=== PATIENT | male | born 1965 | race Caucasian/White ===

== ENCOUNTER → 2017-03-29 09:33 | Outpatient (CLI) | payer OTHER, SELFPAY ==
--- NOTE | 2017-03-29 09:41 | RAD_ITS ---
STUDY: X-RAY - ESOPHAGUS (BARIUM SWALLOW) WITH FLUOROSCOPY REASON FOR EXAM: Male, 51 years old. 3 month history of dysphonia. TECHNIQUE: 18 view(s) of the esophagus were obtained following swallowing of barium. FLUOROSCOPY TIME (if supplied): (0:49) minutes/seconds COMPARISON: None. FINDINGS: There is no demonstrated esophageal foreign body. There is no demonstrated stricture or mucosal abnormality. Normal gastroesophageal junction, without a demonstrated hiatal hernia. The patient ingested a 12 mm tablet of barium without any difficulty. Normal visualized aortic arch and descending thoracic aorta. Normal visualized pulmonary parenchyma. Normal visualized osseous structures of the thorax. RAD/Esophagus Only IMPRESSION: Normal plain film x-ray examination (barium swallow) of the esophagus. Electronically Signed: Maninder Fan MD at 15:18 EST Tel [phone], Service support ,
== END ==
PROVIDERS: Family Provider Family Medicine; PCP Family Medicine; Visit Provider Otolaryngology Otolaryngology/Facial Plastic Surgery
DX: R13.10 Dysphagia, unspecified (principal)
CPT/HCPCS: 74220

== ENCOUNTER → 2017-05-02 10:00 | Outpatient (CLI) | payer OTHER, SELFPAY ==
[2017-05-02 12:28] LABS: Bacteria 0 SEEN /hpf (None Seen); Mucous, Urine 0 SEEN /hpf (<or=2+); Red Blood Cells-Urine 0 SEEN /hpf (0-5); Squamous Epithelial Cells - UA 0 SEEN /hpf (0-5); White Blood Cells 0 SEEN /hpf (0-5)
[2017-05-02 13:17] LABS: Color, Urine Yellow (Yellow); Glucose, Dipstick Normal (Normal); Ketone-Dipstick Negative (Negative); Leukocyte Esterase-Dipstick Negative /ul (Negative); Nitrite-Dipstick Negative (Negative); Occult Blood-Urine Negative /ul (Negative); Protein-Dipstick Negative (Negative); Specific Gravity, Urine 1.005 (1.002-1.030); Urine Bilirubin Dipstick Negative (Negative); Urine Clarity Clear (Clear); Urine Urobilinogen Normal (Normal)
[2017-05-02 13:36] LABS: PSA,Total- Diagnostic 3.95 ng/mL (0.0-4.0)
== END ==
PROVIDERS: Nurse Practitioner Adult Health; Family Provider Family Medicine; PCP Family Medicine; Visit Provider Family Medicine
DX: R31.29 Other microscopic hematuria (principal); R97.20 Elevated prostate specific antigen [PSA]
CPT/HCPCS: 36415; 81001; 84153

== ENCOUNTER → 2017-05-10 14:20 | Outpatient (CLI) | payer OTHER, SELFPAY ==
--- NOTE | 2017-05-10 14:22 | RAD_ITS ---
STUDY: X-RAY CHEST REASON FOR EXAM: Male, 51 years old. Hoarseness. TECHNIQUE: PA and lateral views of the chest. COMPARISON: None. FINDINGS: The lungs are clear and expanded. There is no demonstrated pleural abnormality. Normal size heart. Normal mediastinum and anay. Normal visualized pulmonary arteries. Normal visualized aortic arch and descending thoracic aorta. Normal visualized thoracic spine. Normal visualized ribs, clavicles, and shoulders. There is no demonstrated abnormality of the visualized soft tissue structures of the upper abdomen. RAD/Chest PA and Lateral IMPRESSION: Normal x-ray examination of the chest. Electronically Signed: Maninder Fan MD at 15:06 EDT Tel [phone], Service support ,
== END ==
PROVIDERS: Family Provider Family Medicine; PCP Family Medicine; Visit Provider Family Medicine
DX: R49.9 Unspecified voice and resonance disorder (principal)
CPT/HCPCS: 71046

== ENCOUNTER 2017-07-04 05:49 | Day surgery (SDC) | payer OTHER, SELFPAY ==
--- NOTE | 2017-07-04 | EGD_PTH ---
PATIENT: TAMEKA OCAMPO LOC: EN U#:[id number] AGE/SX: 51/M ROOM: RE07/04/[address]: Dr. Dereck Raphael MD : 1965 BED: DIS: 07/04/2017 SPEC #: [id number] RECD: 07/04/17 15:00 STATUS: MIGUELITO STEFANIE #: [id number] YOBANI: 07/04/17 00:[address]: Dereck Raphael DEPT: SURGICAL PATHOLOGY RECD BY: Jori Pratt ENTERED: 07/04/17 15:00 SP TYPE: EGD BIOPSY [facility] DR: Dr. Wiliam Argueta MD Tissues: A - Gastric mucous membrane B - Esophageal mucous membrane Procedures: Surgery Specimen Level IV HEADER OPERATION: EGD PRE-OP DIAGNOSIS: Hoarseness TISSUE SUBMITTED: A ? Antrum biopsy for H. pylori and path, B ? Distal esophagus biopsy MICROSCOPIC DIAGNOSIS A. Gastric antrum, biopsy: Mild chronic gastritis. B. Distal esophagus, biopsy: Focal changes of reflux. Gastroesophageal junction with mild chronic inflammation. AM:le 07/05/17 COMMENT A. The results of immunohistochemistry for Helicobacter pylori will be reported separately ([id number]). MICROSCOPIC DESCRIPTION Slides are reviewed. GROSS DESCRIPTION A - Received in fixative is one container labeled with the patient's name and designated antrum biopsy. The specimen consists of two irregular fragments of light rouse soft tissue that in aggregate measure 0.6 x 0.5 x 0.2 cm. The specimen is totally submitted in one cassette. B - Received in fixative is one container labeled with the patient's name and designated distal esophagus. The specimen consists of multiple irregular fragments of light rouse soft tissue that in aggregate measure 1 x 0.5 x 0.1 cm. The specimen is totally submitted in one cassette. / AM:le 07/04/17 TC:3 CPT: 47500 x2
--- NOTE | 2017-07-04 | IMM_PTH ---
PATIENT: TAMEKA OCAMPO LOC: EN U#:[id number] AGE/SX: 51/M ROOM: RE07/04/[address]: Dr. Dereck Raphael MD : 1965 BED: DIS: 07/04/2017 SPEC #: [id number] RECD: 07/05/17 10:44 STATUS: MIGUELITO STEFANIE #: [id number] YOBANI: 07/04/17 00:[address]: Dereck Raphael DEPT: IMMUNOHISTOCHEMISTRY RECD BY: Amalia Mcghee ENTERED: 07/05/17 10:45 SP TYPE: IMMUNO OTHR DR: Dr. Wiliam Argueta MD Tissues: A - Stomach, NOS Procedures: H Pylori (initial) PHYSICIAN & INSTITUTION [place] [address] SPECIMEN INFORMATION: Tissue Source: A ? Antrum biopsy Clinical Info: Hoarseness Specimen Number: [id number] CPT code: 91841 METHODOLOGY: Deparaffinized sections of prefer/formalin-fixed tissue or PAP/DQ stained slides are incubated with monoclonal/polyclonal antibodies/oligonucleotide probes. Localization is made via biotin free immunoperoxidase method. Appropriate controls are performed and reacted as expected. Results on target cell population are indicated in the following table: RESULTS: ANTIBODY / CLONE RESULT Block A H Pylori (polyclonal) negative These tests were developed and their performance characteristics determined by [facility]. They may not have been cleared or approved by the U.S. Food and Drug Administration. The FDA has determined that such clearance or approval is not necessary. INTERPRETATION: A. Antrum, biopsy: Negative for Helicobacter pylori organisms. SJ:le 07/08/17
[2017-07-04 06:10] VITALS: BP 126/81; PULSE 75; RESP 16; O2SAT 97
[2017-07-04 06:48] VITALS: BP 124/84; BP 126/81; PULSE 89; RESP 18; TEMP 36.6; O2SAT 98
--- NOTE | 2017-07-04 06:48 | PCM.OPRPT ---
Problem List (1) Hoarseness Status: Acute Report of Operation Date of Procedure: 07/04/17 Pre-Operative Diagnosis: Hoarseness Post-Operative Diagnosis: Hiatal hernia with distal esophagitis consistent with reflux. Minimal antral gastritis Surgery/Procedure Performed:: Esophagogastroduodenoscopy with antral and distal esophageal biopsies Description of Surgical Findings:: Timeout informed consent was obtained. 51-year-old gentleman was taken to the endoscopy suite. His oropharynx was anesthetized with Topex. He was placed in a left lateral decubitus position. Throughout the procedure he received a total of 100 mg Demerol and 4.5 mg Versed is intravenous sedation. Flexible gastroscope was inserted into the oropharynx. Photographs were obtained of the vocal cord hypopharynx. There appeared to be some irritation and small excrescence on the cords. Scope was then advanced into the esophageal inlet. It was advanced without difficulty. EG junction was at 37 cm. There is evidence of a 4 cm hiatal hernia with distal esophagitis linear erosions. Photographs were obtained. The scope was advanced in the stomach where diffuse minimal antral erythema noted. The scope was advanced through the pylorus. The first and second portions of the duodenum were inspected this was not remarkable. The scope was withdrawn back to the stomach antral biopsy was obtained. The scope was retroflexed the hiatal hernia noted via the cardia. The cardia and greater and lesser curvatures were otherwise unremarkable. Excess fluid and air was aspirated free. The scope was withdrawn to the distal esophagus distal esophageal biopsies were obtained. Hemostasis was intact. Excess fluid and air was aspirated free. The scope was withdrawn without additional abnormality. Impression Hiatal hernia, findings consistent with distal esophagitis and reflux, likely minimal gastritis. We will recommend reinitiation of proton pump inhibitors while awaiting biopsy results. Photographs have been obtained and I would recommend sharing with ENT. Ending the results of pathology and medical treatment might consider future manometry and surgical reflux procedure. The degree of persistent patient hoarseness however is impressive. Cc: Dr. Wiliam Argueta Medications were given at 0633. The procedure was started 0637. The procedure was completed at 0644. Dereck Raphael M.D., F.A.C.S. Type of Anesthesia:: IV Sedation
[2017-07-04 06:50] VITALS: BP 122/71; BP 126/81; PULSE 88; RESP 18; O2SAT 95
[2017-07-04 06:55] VITALS: BP 126/81; BP 128/81; PULSE 88; RESP 18; O2SAT 95
[2017-07-04 07:00] VITALS: BP 126/81; BP 134/71; PULSE 95; RESP 18; O2SAT 97
[2017-07-04 07:05] VITALS: BP 112/66; BP 126/81; PULSE 77; RESP 18; TEMP 36.6; O2SAT 96
== END 2017-07-04 07:32 | disposition home or self-care (01) ==
LOC: EN 05:50 → AC 05:51
PROVIDERS: Family Provider Family Medicine; PCP Family Medicine; Visit Provider Surgery
PROC: (CPT 43239; principal; 2017-07-04 06:25)
DX: R49.0 Dysphonia (principal); K29.50 Unspecified chronic gastritis without bleeding; K21.0 Gastro-esophageal reflux disease with esophagitis; K44.9 Diaphragmatic hernia without obstruction or gangrene
CPT/HCPCS: 43239; 88305; 88342; 99152; J7120

== ENCOUNTER → 2017-09-26 09:20 | Outpatient (CLI) | payer OTHER, SELFPAY ==
[2017-09-26 10:54] LABS: Absolute Lymphocyte Count 2.15 X10^3/ul (0.83-4.51); Basophil# 0.05 X10^3/uL; Basophil% 0.9 % (0-1); Eosinophil# 0.15 X10^3/uL; Eosinophils% 2.6 % (0-5); Hematocrit 45.7 % (40-54); Hemoglobin 15.4 g/dl (13.0-16.5); Lymphocyte # 2.15 X10^3/ul (4.0); Lymphocyte % 37.5 % (19-41); Mean Corp Hgb Conc 33.7 g/gl (32-36); Mean Corpuscular Hgb 30.2 pg (27.0-32.0); Mean Corpuscular Volume 89.6 fL (80-94); Monocyte# 0.39 X10^3/uL; Monocyte% 6.8 % (0-10); Neutrophil % 52.2 % (47-70); Platelet Count 227 K/mm3 (150-450); RBC Distribution Width CV 12.5 % (11.6-14.6); RBC Distribution Width SD 40.4 fl (35.1-43.9); White Blood Count 5.7 K/mm3 (4.4-11.0)
[2017-09-26 10:59] LABS: POSITIVE COUNT NO; POSITIVE DIFFERENTIAL NO; POSITIVE MORPHOLOGY NO
[2017-09-26 11:26] LABS: ALB/GLOB Ratio 1.1 RATIO (0.9-2.4); AST(SGOT) 22 U/L (15-37); Alanine Aminotransfer ALT/SGPT 36 U/L (16-61); Albumin, Serum 3.9 g/dL (3.2-5.0); Alkaline Phosphatase 57 U/L (45-117); Anion Gap 6 (5-15); BUN 11 mg/dL (7-18); BUN/Creat Ratio 10.4 RATIO (10-20); Calcium,Total 8.8 mg/dL (8.5-10.1); Chloride 104 mmol/L (98-107); Cholesterol 186 mg/dL (200); Creatinine, Serum 1.06 mg/dL (0.70-1.30); EST Glomerular Filtration Rate 79 mL/min (>60); Est Glom Filt Rate - Afr Amer 95 mL/min (>60); Globulin 3.7 g/dL (2.2-4.2); Glucose 83 mg/dL (74-106); High Density Lipoprotein 41 mg/dL; Potassium 4.6 mmol/L (3.5-5.1); Protein, Total 7.6 g/dL (6.4-8.2); Sodium Level 141 mmol/L (136-145); Triglycerides 204 mg/dL; Very Low Density Lipoprotein 41 mg/dL (5-40)
== END ==
PROVIDERS: Family Provider Family Medicine; PCP Family Medicine; Visit Provider Family Medicine
DX: E78.5 Hyperlipidemia, unspecified (principal); K21.9 Gastro-esophageal reflux disease without esophagitis
CPT/HCPCS: 36415; 80053; 80061; 85025

== ENCOUNTER 2017-10-31 07:51 | Day surgery (SDC) | payer OTHER, SELFPAY ==
--- NOTE | 2017-10-31 | VOCOB_PTH ---
PATIENT: TAMEKA OCAMPO LOC: [facility] [place] U#:[id number] AGE/SX: 52/M ROOM: RE10/31/[address]: Zackary White MD : 1965 BED: DIS: 10/31/2017 SPEC #: [id number] RECD: 10/31/17 14:58 STATUS: MIGUELITO STEFANIE #: [id number] YOBANI: 10/31/17 00:[address]: Zackary White DEPT: SURGICAL PATHOLOGY RECD BY: Jori Pratt ENTERED: 10/31/17 14:58 SP TYPE: VOCAL CORD OTHR DR: Dr. Wiliam Argueta MD Tissues: Vocal cord, NOS Procedures: Surgery Specimen Level IV HEADER OPERATION: Right true vocal cord stripping/biopsy, direct microlaryngoscopy PRE-OP DIAGNOSIS: Dysphonia, GERD TISSUE SUBMITTED: Mid cord lesion - right MICROSCOPIC DIAGNOSIS Right vocal lesion, biopsy: Squamous papilloma, mildly inflamed. AM:le 11/01/17 MICROSCOPIC DESCRIPTION Slides are reviewed. GROSS DESCRIPTION Received in fixative is one container labeled with the patient's name and designated mid core lesion right. The specimen consists of a piece of rouse soft tissue measuring 0.6 x 0.5 x 0.1 cm. The specimen is totally submitted in one cassette. / SJ:le 10/31/17 TC:1 CPT: 90295
[2017-10-31 08:24] VITALS: BP 137/84; PULSE 79; RESP 16; TEMP 36.5; O2SAT 97; BMI 29.9
[2017-10-31 09:10] LABS: PSA,Total- Diagnostic 4.39 ng/mL (0.0-4.0)
--- NOTE | 2017-10-31 11:16 | PCM.DC ---
You will use the following diet at home:: No restrictions Discharge Activity: Return to Normal Activity - voice rest 48-72 hours with gradual return to regular use over 7-10 days. Allergies/Adverse Reactions: Allergies No Known Allergies Allergy (Verified 10/21/17 10:05) Medications to take at Discharge Omeprazole 40 mg PO BID #60 capsule. 07/04/17 Primary Care Physician: Wiliam Argueta MD [Primary Care Provider] - Test Results: Test results from this visit will be discussed in further detail at your follow-up appointment, if applicable. Please Follow Up With: Zackary White MD - follow up next week, call for appointment time.
[2017-10-31 11:25] VITALS: BP 137/84; BP 151/92; PULSE 83; RESP 16; TEMP 36.1; O2SAT 96
[2017-10-31 11:30] VITALS: BP 137/84; BP 141/90; PULSE 86; RESP 16; O2SAT 98
[2017-10-31 11:45] VITALS: BP 137/84; BP 139/89; PULSE 70; RESP 16; O2SAT 99
[2017-10-31 12:00] VITALS: BP 128/82; BP 137/84; PULSE 71; RESP 16; TEMP 36.3; O2SAT 99
[2017-10-31 12:32] VITALS: BP 137/84
--- NOTE | 2017-10-31 12:56 | PCM.OP.BLANK ---
Operative Report Date of Procedure: 10/31/17 Preoperative diagnosis: Hoarseness, gastroesophageal reflux Postoperative diagnosis: Same, pathology pending Procedure: Suspension microlaryngoscopy with subsequent right true vocal cord stripping/biopsy Anesthesia: General endotracheal per [place] CRNA Details of procedure: The patient was transported to the operating room and placed on the OR table in the supine position. After the administration of adequate general endotracheal anesthesia the patient was appropriately positioned, eyes were treated taped closed. A head drape was applied. A dental guard was placed after which the anterior commissure laryngoscope was introduced into the oral cavity, and then advanced down into the hypopharynx and laryngeal areas, with evaluation of all structures. The epiglottis, piriform areas, and posterior arytenoid region all appeared satisfactory. He has had difficulty with significant gastroesophageal reflux and previously had been noted (in office exam) to have an extremely erythematous and irritated appearing larynx. With treatment utilizing PPI medications he has improved substantially. However voice was still not back to normal. Quality would vary depending on use. In office exam revealed mild puffiness of vocal cords but no obvious three-dimensional mass lesion. Therefore, it was felt best to examine this with benefit of high magnification and perform biopsy as warranted. The anterior commissure laryngoscope was introduced into the laryngeal introitus. The very anterior placement of his larynx made it quite difficult to get good visualization initially, but with persistence, the scope was adequately advanced so as to obtain satisfactory view of the false and true vocal cords from the anterior commissure posteriorly. The scope was subsequently suspended from a Roman stand using the Lewy apparatus. With benefit of the operating room microscope, better visualization was obtained. The left true vocal cord appeared fairly smooth. Initially it had appeared more irregular. With benefit of magnification today, it was evident there was a small polypoid type lesion involving the right true vocal cord, in the midportion. It had a slight granular appearance and did track onto the upper surface, but primarily involved the free margin of the vocal cord, and hence most likely was the reason for his dysphonia. Up-biting cup forceps were used to grasp this area and the microscissors were utilized to make a small cut anterior to this tissue, which was satisfactorily posterior to the anterior commissure. A backwards stripping maneuver was accomplished, excising this lesion. No other abnormality could be appreciated. A cottonoid pledget soaked in adrenaline was placed in the laryngeal introitus to achieve vasoconstriction and hemostasis. This was subsequently removed and the surgical field appeared dry and satisfactory. Thereafter the laryngoscope was relaxed, withdrawn, and the procedure terminated. The patient tolerated procedure well, did not sustain any intraoperative anesthetic or surgical complication, was extubated in the operating room and taken to the PACU where he was noted to be in satisfactory condition. Zackary White MD
== END 2017-10-31 12:33 | disposition home or self-care (01) ==
LOC: SDC 07:53 → AC 07:54
PROVIDERS: Nurse Practitioner Adult Health; Family Provider Family Medicine; PCP Family Medicine; Visit Provider Otolaryngology Otolaryngology/Facial Plastic Surgery
PROC: 0CJS8ZZ Inspection of Larynx, Via Natural or Artificial Opening Endoscopic (ICD-10-PCS; CPT 31575; principal; 2017-10-31 09:25)
DX: D14.1 Benign neoplasm of larynx (principal); K21.9 Gastro-esophageal reflux disease without esophagitis; R97.20 Elevated prostate specific antigen [PSA]; Z79.899 Other long term (current) drug therapy
CPT/HCPCS: 31536; 36415; 84153; 88305; J7120; J2405; J3490

== ENCOUNTER → 2018-05-01 09:55 | Outpatient (CLI) | payer OTHER, SELFPAY ==
[2018-05-01 11:00] LABS: PSA,Total- Diagnostic 6.17 ng/mL (0.0-4.0)
[2018-05-02 12:38] LABS: PSA, Free 0.47 ng/mL; PSA, Free % 8.2 % (.); PSA, Total Ultrasensitive 5.7 ng/mL (0.0-4.0)
== END ==
PROVIDERS: Family Provider Family Medicine; PCP Family Medicine; Referring Provider Nurse Practitioner Adult Health; Visit Provider Nurse Practitioner Adult Health
DX: R97.20 Elevated prostate specific antigen [PSA] (principal)
CPT/HCPCS: 36415; 84153; 84154

== ENCOUNTER → 2018-05-27 10:35 | Outpatient (CLI) | payer OTHER, SELFPAY ==
--- NOTE | 2018-05-27 | IMM_PTH ---
PATIENT: TAMEKA OCAMPO LOC: [facility] U#:[id number] AGE/SX: 59/M ROOM: RE05/27/[address]: Dr. Claude Patel MD : 1965 BED: DIS: SPEC #: [id number] RECD: 05/29/18 13:02 STATUS: MIGUELITO REBrandon #: [id number] YOBANI: 05/27/18 00:[address]: Claude Patel DEPT: IMMUNOHISTOCHEMISTRY RECD BY: Amalia Mcghee ENTERED: 05/29/18 13:04 SP TYPE: IMMUNO OTHR DR: Dr. Wiliam Argueta MD Tissues: A - PROSTATE RIGHT B - PROSTATE RIGHT F - PROSTATE LEFT Procedures: 34BE12 (add) P40 (add) 34BE12 (initial) PHYSICIAN & INSTITUTION [place] [address] SPECIMEN INFORMATION: Tissue Source: A - Right prostate apex, B - Right prostate mid, C - Left prostate base Clinical Info: Elevated PSA Specimen Number: [id number] A, B, F CPT code: 37366, 24127 x5 METHODOLOGY: Deparaffinized sections of prefer/formalin-fixed tissue or PAP/DQ stained slides are incubated with monoclonal/polyclonal antibodies/oligonucleotide probes. Localization is made via biotin free immunoperoxidase method. Appropriate controls are performed and reacted as expected. Results on target cell population are indicated in the following table: RESULTS: ANTIBODY / CLONE RESULT Block A 34BE12 (34BE12) positive P40 (BC28) positive Block B 34BE12 (34BE12) positive P40 (BC28) positive Block F 34BE12 (34BE12) positive P40 (BC28) positive These tests were developed and their performance characteristics determined by [facility]. They may not have been cleared or approved by the U.S. Food and Drug Administration. The FDA has determined that such clearance or approval is not necessary. INTERPRETATION: A. Right prostate, apex, core biopsy: Negative for adenocarcinoma. B. Right prostate, mid, core biopsy: Negative for adenocarcinoma. F. Left prostate, base, core biopsy: Negative for adenocarcinoma. CE:le 05/30/18
--- NOTE | 2018-05-27 08:00 | PROSBIL_PTH ---
PATIENT: TAMEKA OCAMPO LOC: [facility] U#:[id number] AGE/SX: 59/M ROOM: RE05/27/[address]: Dr. Claude Patel MD : 1965 BED: DIS: SPEC #: [id number] RECD: 05/27/18 17:00 STATUS: MIGUELITO STEFANIE #: [id number] YOBANI: 05/27/18 08:[address]: Claude Patel DEPT: SURGICAL PATHOLOGY RECD BY: Mateus Bey ENTERED: 05/28/18 13:01 SP TYPE: PROST BX JUAN DR: Dr. Wiliam Argueta MD Tissues: A - PROSTATE RIGHT B - PROSTATE RIGHT C - PROSTATE RIGHT D - PROSTATE LEFT E - PROSTATE LEFT F - PROSTATE LEFT Procedures: PROSTATE BX HEADER OPERATION: Prostate biopsy PRE-OP DIAGNOSIS: Elevated PSA TISSUE SUBMITTED: A - Right apex, B - Right mid, C - Right base, D - Left apex, E - Left mid, F - Left base MICROSCOPIC DIAGNOSIS A. Right prostate, apex, core biopsy: Benign prostate tissue. See comment. B. Right prostate, mid, core biopsy: Benign prostate tissue with acute and chronic inflammation. See comment. C. Right prostate, base, core biopsy: Benign prostate tissue. D. Left prostate, apex, core biopsy: Benign prostate tissue. E. Left prostate, mid, core biopsy: Benign prostate tissue. F. Left prostate, base, core biopsy: Benign prostate tissue. See comment. CE:le 05/29/18 COMMENT A, B & F - Immunohistochemistry ([id number]) supports the above diagnosis. MICROSCOPIC DESCRIPTION Slides are reviewed. GROSS DESCRIPTION A - Received is one container designated prostate, right apex. The specimen consists of two elongated fragments of light rouse-white soft tissue measuring 1 and 1.5 cm in length and 0.1 cm in diameter. The specimen is totally submitted in one cassette. B - Received is one container designated prostate, right mid. The specimen consists of two elongated fragments of light rouse-white soft tissue each measuring 1 cm in length and 0.1 cm in diameter. The specimen is totally submitted in one cassette. C - Received is one container designated prostate, right base. The specimen consists of two elongated fragments of light rouse-white soft tissue measuring 0.8 and 1.5 cm in length and 0.1 cm in diameter. The specimen is totally submitted in one cassette. D - Received is one container designated prostate, left apex. The specimen consists of two elongated fragments of light rouse-white soft tissue measuring 0.8 and 1.2 cm in length and 0.1 cm in diameter. The specimen is totally submitted in one cassette. E - Received is one container designated prostate, left mid. The specimen consists of two elongated fragments of light rouse-white soft tissue each measuring 1.5 cm in length and 0.1 cm in diameter. The specimen is totally submitted in one cassette. F - Received is one container designated prostate, left base. The specimen consists of two elongated fragments of light rouse-white soft tissue each measuring 1.5 cm in length and 0.1 cm in diameter. The specimen is totally submitted in one cassette. / MAUREEN:le 05/28/18 TC:2 CPT: 04862 x6
== END ==
PROVIDERS: Family Provider Family Medicine; PCP Family Medicine; Referring Provider Urology; Visit Provider Urology
DX: R97.20 Elevated prostate specific antigen [PSA] (principal)
CPT/HCPCS: 88305; 88341; 88342; G0416

== ENCOUNTER → 2018-09-22 | Outpatient (CLI) | payer OTHER, SELFPAY ==
[2018-09-22 11:24] LABS: Absolute Lymphocyte Count 2.19 X10^3/uL (0.83-4.51); Absolute Neutrophil Count 3.4 X10^3/uL (2.0-7.7); Basophil# 0.06 X10^3/uL; Basophil% 0.9 % (0-1); Eosinophil# 0.14 X10^3/uL; Eosinophils% 2.2 % (0-5); Hematocrit 47.6 % (40-54); Hemoglobin 16.3 g/dL (13.0-16.5); Lymphocyte # 2.19 X10^3/ul (4.0); Lymphocyte % 34.3 % (19-41); Mean Corp Hgb Conc 34.2 g/dL (32-36); Mean Corpuscular Hgb 30.9 pg (27.0-32.0); Mean Corpuscular Volume 90.2 fL (80-94); Mean Platelet Vol. 10.2 fl (6.2-12.0); Monocyte# 0.55 X10^3/uL; Monocyte% 8.6 % (0-10); NRBC Flagged by Analyzer 0 % (0-5); Neutrophil # 3.43 X10^3/uL (2.7-7.7); Neutrophil % 53.8 % (47-70); Platelet Count 226 K/mm3 (150-450); RBC Distribution Width CV 12.7 % (11.6-14.6); RBC Distribution Width SD 41.6 fl (35.1-43.9); Red Blood Count 5.28 M/mm3 (4.6-6.2); White Blood Count 6.4 K/mm3 (4.4-11.0)
[2018-09-22 11:54] LABS: AST(SGOT) 24 U/L (15-37); Alanine Aminotransfer ALT/SGPT 41 U/L (16-61); Albumin, Serum 3.9 g/dL (3.2-5.0); Alkaline Phosphatase 69 U/L (45-117); Anion Gap 5 (5-15); BUN 13 mg/dL (7-18); BUN/Creat Ratio 11.1 RATIO (10-20); Calcium,Total 9.1 mg/dL (8.5-10.1); Chloride 104 mmol/L (98-107); Cholesterol 234 mg/dL (200); Creatinine, Serum 1.17 mg/dL (0.70-1.30); EST Glomerular Filtration Rate 70 mL/min (>60); Est Glom Filt Rate - Afr Amer 85 mL/min (>60); Globulin 3.8 g/dL (2.2-4.2); Glucose 93 mg/dL (74-106); High Density Lipoprotein 46 mg/dL; Potassium 4.1 mmol/L (3.5-5.1); Protein, Total 7.7 g/dL (6.4-8.2); Sodium Level 137 mmol/L (136-145); Thyroid Stim Hormone (TSH) 2.24 uIU/mL (0.358-3.74); Triglycerides 294 mg/dL; Very Low Density Lipoprotein 59 mg/dL (5-40)
== END | disposition home or self-care (01) ==
LOC: LAB 10:00
PROVIDERS: Family Provider Family Medicine; PCP Family Medicine; Referring Provider Family Medicine; Visit Provider Family Medicine
DX: Z00.00 Encounter for general adult medical examination without abnormal findings (principal)
CPT/HCPCS: 36415; 80053; 80061; 84443; 85025

== ENCOUNTER → 2018-12-12 | Outpatient (CLI) | payer OTHER, SELFPAY ==
[2018-12-12 11:25] LABS: PSA,Total- Diagnostic 7.43 ng/mL (0.0-4.0)
== END | disposition home or self-care (01) ==
LOC: LAB 10:06
PROVIDERS: Family Provider Family Medicine; PCP Family Medicine; Referring Provider Urology; Visit Provider Urology
DX: R97.20 Elevated prostate specific antigen [PSA] (principal)
CPT/HCPCS: 36415; 84153

== ENCOUNTER → 2018-12-17 | Outpatient (CLI) | payer OTHER, SELFPAY ==
--- NOTE | 2018-12-17 08:02 | MRI_ITS ---
STUDY: MR PELVIS WITH T WITHOUT CONTRAST REASON FOR EXAM: Male, 53 years old. Elevated PSA. Continued elevation of PSA despite negative biopsy. TECHNIQUE: Standardized fat and water weighted pulse sequences were obtained in all 3 orthogonal planes, pre-and post contrast administration. IV Dotarem 19 was administered for the contrast portion of the examination. COMPARISON: None. FINDINGS: The prostate measures 3.18 x 3.94 x 3.9 cm with a volume of 24.4 mL. The seminal vesicles are prominent. There is no evidence of abnormal signal within the peripheral zone on diffusion-weighted imaging. There is no focal hypodensity on ADC mapping. T2-weighted imaging demonstrates mild diffuse low signal without distinct mass. No evidence of abnormal contrast enhancement on postgadolinium imaging. Transitional zone demonstrates well-circumscribed nodular densities without corresponding abnormalities on diffusion weighted imaging or ADC mapping. Findings suggest BPH. There is no abnormal contrast enhancement. The urinary bladder is incompletely distended. Bladder wall appears thickened and mildly trabeculated. Normal visualized small intestine. Normal visualized colon. There is no pelvic fluid. There is no pelvic mass lesion or lymphadenopathy. Normal visualized pelvic arteries. Normal osseous structures. Normal abdominal wall. MRI/Pelvis W/WO Contrast IMPRESSION: 1. Limited study due to limited quality of the ADC mapping and diffusion weighted images. 2. No visualized distinct lesions in either the peripheral or transitional zone. PIRADS 1 Electronically Signed: Cayden Zaragoza DO at 16:54 EDT Tel [phone], Service support ,
== END | disposition home or self-care (01) ==
PROVIDERS: Family Provider Family Medicine; PCP Family Medicine; Visit Provider Urology
DX: R97.20 Elevated prostate specific antigen [PSA] (principal)
CPT/HCPCS: 72197; A9575

== ENCOUNTER → 2018-12-24 | Outpatient (CLI) | payer OTHER, SELFPAY ==
--- NOTE | 2018-12-24 | IMM_PTH ---
PATIENT: TAMEKA OCAMPO LOC: [facility] U#:[id number] AGE/SX: 53/M ROOM: RE12/24/[address]: Dr. Claude Patel MD : 1965 BED: DIS: 12/24/2018 SPEC #: [id number] RECD: 12/25/18 10:32 STATUS: MIGUELITO REQ #: [id number] YOBANI: 12/24/18 00:[address]: Claude Patel DEPT: IMMUNOHISTOCHEMISTRY RECD BY: Amalia Mcghee ENTERED: 12/25/18 10:33 SP TYPE: IMMUNO OTHR DR: Dr. Wiliam Argueta MD Tissues: A - PROSTATE RIGHT B - PROSTATE RIGHT Procedures: 34BE12 (add) P40 (add) 34BE12 (initial) PHYSICIAN & INSTITUTION [place] [address] SPECIMEN INFORMATION: Tissue Source: A - Right prostate, apex, B - Right prostate, mid Clinical Info: Elevated PSA Specimen Number: [id number] A1 & B CPT code: 28464, 92975 x3 METHODOLOGY: Deparaffinized sections of prefer/formalin-fixed tissue or PAP/DQ stained slides are incubated with monoclonal/polyclonal antibodies/oligonucleotide probes. Localization is made via biotin free immunoperoxidase method. Appropriate controls are performed and reacted as expected. Results on target cell population are indicated in the following table: RESULTS: ANTIBODY / CLONE RESULT Block A1 P40 (BC28) positive 34BE12 (34BE12) positive Block B P40 (BC28) negative 34BE12 (34BE12) negative These tests were developed and their performance characteristics determined by [facility]. They may not have been cleared or approved by the U.S. Food and Drug Administration. The FDA has determined that such clearance or approval is not necessary. The above immunohistochemical/dualISH markers are ordered and reviewed by the Pathologist. INTERPRETATION: A. Right prostate, apex, core biopsy: Prostatic tissue, negative for malignancy. B. Right prostate, mid, core biopsy: Focal atypical small acinar proliferation (SHAKA). MAUREEN:le 12/25/18
--- NOTE | 2018-12-24 08:30 | PROSBIL_PTH ---
PATIENT: TAMEKA OCAMPO LOC: [facility] U#:[id number] AGE/SX: 53/M ROOM: RE12/24/[address]: Dr. Claude Patel MD : 1965 BED: DIS: 12/24/2018 SPEC #: [id number] RECD: 12/24/18 10:56 STATUS: MIGUELITO REQ #: [id number] YOBANI: 12/24/18 08:[address]: Claude Patel DEPT: SURGICAL PATHOLOGY RECD BY: Jacqueline Reyes ENTERED: 12/24/18 12:08 SP TYPE: PROST BX JUAN DR: Dr. Wiliam Argueta MD Tissues: A - PROSTATE RIGHT B - PROSTATE RIGHT C - PROSTATE RIGHT D - PROSTATE LEFT E - PROSTATE LEFT F - PROSTATE LEFT Procedures: PROSTATE BX HEADER OPERATION: Prostate biopsy PRE-OP DIAGNOSIS: Elevated PSA TISSUE SUBMITTED: A - Right apex, B - Right mid, C - Right base, D - Left apex, E - Left mid, F - Left base MICROSCOPIC DIAGNOSIS A. Right prostate, apex, core biopsy: Prostatic tissue, negative for malignancy. Focal mild chronic inflammation. See comment. B. Right prostate, mid, core biopsy: Focal atypical small acinar proliferation (SHAKA) Focal mild chronic inflammation. See comment. C. Right prostate, base, core biopsy: Prostatic tissue, negative for malignancy. D. Left prostate, apex, core biopsy: Prostatic tissue, negative for malignancy. E. Left prostate, mid, core biopsy: Prostatic tissue, negative for malignancy. F. Left prostate, base, core biopsy: Prostatic tissue, negative for malignancy. SJ:le 12/25/18 COMMENT A & B. Immunohistochemistry ([id number]) supports the above diagnosis. Please make reference to previous specimen ([id number]), right prostate, apex, mid and base core biopsies and left prostate, apex, mid and base core biopsies with diagnosis of benign prostate tissue. This case has been reviewed in consultation with Dr. Cornelius who concurs with the above diagnosis. MICROSCOPIC DESCRIPTION Slides are reviewed. GROSS DESCRIPTION A - Received is one container designated prostate, right apex. The specimen consists of four elongated fragments of light rouse-white soft tissue each measuring 1.5 cm in length and 0.1 cm in diameter. The specimen is totally submitted in two cassettes. B - Received is one container designated prostate, right mid. The specimen consists of two elongated fragments of light rouse-white soft tissue each measuring 1.5 cm in length and 0.1 cm in diameter. The specimen is totally submitted in one cassette. C - Received is one container designated prostate, right base. The specimen consists of two elongated fragments of light rouse-white soft tissue each measuring 1.5 cm in length and 0.1 cm in diameter. The specimen is totally submitted in one cassette. D - Received is one container designated prostate, left apex. The specimen consists of three elongated fragments of light rouse-white soft tissue measuring 0.5 to 1 cm in length and 0.1 cm in diameter. The specimen is totally submitted in one cassette. E - Received is one container designated prostate, left mid. The specimen consists of two elongated fragments of light rouse-white soft tissue measuring 1.5 and 2 cm in length and 0.1 cm in diameter. The specimen is totally submitted in one cassette. F - Received is one container designated prostate, left base. The specimen consists of two elongated fragments of light rouse-white soft tissue measuring 1 and 2 cm in length and 0.1 cm in diameter. The specimen is totally submitted in one cassette. / SJ:rg 12/24/18 TC:5 CPT: 89518 x6
== END | disposition home or self-care (01) ==
LOC: LABSPEC 11:07
PROVIDERS: Family Provider Family Medicine; PCP Family Medicine; Referring Provider Urology; Visit Provider Urology
DX: R97.20 Elevated prostate specific antigen [PSA] (principal)
CPT/HCPCS: 88305; 88341; 88342; G0416

== ENCOUNTER → 2019-09-29 | Outpatient (CLI) | payer OTHER, SELFPAY ==
[2019-09-29 09:59] LABS: Absolute Neutrophil Count 2.6 X10^3/uL (2.0-7.7); Basophil# 0.03 X10^3/uL; Basophil% 0.6 % (0-1); Hematocrit 44.9 % (40-54); Hemoglobin 15.2 g/dL (13.0-16.5); Lymphocyte % 34.4 % (19-41); Mean Corp Hgb Conc 33.9 g/dL (32-36); Mean Corpuscular Hgb 30.8 pg (27.0-32.0); Mean Corpuscular Volume 90.9 fL (80-94); Mean Platelet Vol. 9.6 fl (6.2-12.0); Monocyte% 10.1 % (0-10); NRBC Flagged by Analyzer 0 % (0-5); Neutrophil % 52.7 % (47-70); Platelet Count 215 K/mm3 (150-450); RBC Distribution Width CV 11.9 % (11.6-14.6); RBC Distribution Width SD 39.2 fl (35.1-43.9); Red Blood Count 4.94 M/mm3 (4.6-6.2); White Blood Count 4.9 K/mm3 (4.4-11.0)
[2019-09-29 10:23] LABS: AST(SGOT) 20 U/L (15-37); Alanine Aminotransfer ALT/SGPT 33 U/L (16-61); Albumin, Serum 3.7 g/dL (3.2-5.0); Alkaline Phosphatase 58 U/L (45-117); Anion Gap 5 (5-15); BUN 13 mg/dL (7-18); BUN/Creat Ratio 12.1 RATIO (10-20); Calcium,Total 8.5 mg/dL (8.5-10.1); Chloride 106 mmol/L (98-107); Cholesterol 202 mg/dL (200); Creatinine, Serum 1.07 mg/dL (0.70-1.30); EST Glomerular Filtration Rate 77 mL/min (>60); Est Glom Filt Rate - Afr Amer 93 mL/min (>60); Globulin 3.7 g/dL (2.2-4.2); Glucose 92 mg/dL (74-106); High Density Lipoprotein 42 mg/dL; Potassium 3.7 mmol/L (3.5-5.1); Protein, Total 7.4 g/dL (6.4-8.2); Sodium Level 138 mmol/L (136-145); Triglycerides 168 mg/dL; Very Low Density Lipoprotein 34 mg/dL (5-40)
== END | disposition home or self-care (01) ==
LOC: MFPLAB 09:27
PROVIDERS: PCP Family Medicine; Referring Provider Family Medicine; Visit Provider Family Medicine
DX: Z00.00 Encounter for general adult medical examination without abnormal findings (principal)
CPT/HCPCS: 36415; 80053; 80061; 85025

== ENCOUNTER → 2019-12-15 | Outpatient (CLI) | payer OTHER, SELFPAY ==
[2019-12-15 11:51] LABS: PSA,Total- Diagnostic 7.31 ng/mL (0.0-4.0)
== END | disposition home or self-care (01) ==
PROVIDERS: PCP Family Medicine; Referring Provider Urology; Visit Provider Urology
DX: R97.20 Elevated prostate specific antigen [PSA] (principal)
CPT/HCPCS: 36415; 84153

== ENCOUNTER → 2020-07-22 07:18 | Outpatient (CLI) | payer OTHER, SELFPAY | PROVIDERS: PCP Family Medicine; Referring Provider Urology; Visit Provider Urology | DX: R97.20 Elevated prostate specific antigen [PSA] (principal) | CPT/HCPCS: 36415; 84153 ==

== ENCOUNTER 2021-03-10 13:53 | Outpatient (CLI) | payer OTHER, SELFPAY ==
--- NOTE | 2021-03-10 13:55 | RAD_ITS ---
STUDY: X-RAY - LUMBAR SPINE REASON FOR EXAM: Male, 55 years old. LUMBAR RADICULOPATHY TECHNIQUE: 2 view(s) of the lumbar spine were obtained. COMPARISON: Comparison is made with prior outside examination dated 2021. FINDINGS: Normal lumbar lordosis. There is no substantial scoliosis. Minimal anterior listhesis of L5 on S1. Spondylolysis of the pars interarticularis of the L5 vertebrae. Mild degree of disc space narrowing at the L4-L5 and L5-S1 levels. Mild anterior spondylosis. The soft tissue structures are unremarkable. RAD/Lumbar Spine 2 or 3 Views IMPRESSION: Stable grade 1 anterolisthesis of L5 on S1 due to spondylolysis of the pars interarticularis of the L5 vertebrae. Mild degree of disc space narrowing at the L4-L5 and L5-S1. Electronically Signed: Maninder Fan MD at 14:24 EST , Service support ,
== END 2021-03-10 23:59 | disposition short-term general hospital (02) ==
LOC: MTRAD 13:54
PROVIDERS: PCP Family Medicine; Referring Provider Family Medicine; Visit Provider Family Medicine
DX: M47.26 Other spondylosis with radiculopathy, lumbar region (principal); M48.061 Spinal stenosis, lumbar region without neurogenic claudication; M48.07 Spinal stenosis, lumbosacral region
CPT/HCPCS: 72100

== ENCOUNTER → 2021-05-29 14:17 | Outpatient (CLI) | payer OTHER, SELFPAY | PROVIDERS: PCP Family Medicine | DX: R97.20 Elevated prostate specific antigen [PSA] (principal); Z80.42 Family history of malignant neoplasm of prostate | CPT/HCPCS: 36415; 84153 ==

== ENCOUNTER → 2021-11-22 | Outpatient (CLI) | payer OTHER, SELFPAY | END | disposition home or self-care (01) | PROVIDERS: PCP Family Medicine | DX: R97.20 Elevated prostate specific antigen [PSA] (principal); Z80.42 Family history of malignant neoplasm of prostate | CPT/HCPCS: 36415; 84153 ==

== ENCOUNTER → 2022-05-24 | Outpatient (CLI) | payer OTHER, SELFPAY | END | disposition home or self-care (01) | LOC: LAB 10:50 | PROVIDERS: PCP Family Medicine | DX: R97.20 Elevated prostate specific antigen [PSA] (principal) | CPT/HCPCS: 36415; 84153 ==

== ENCOUNTER → 2022-12-20 | Outpatient (CLI) | payer OTHER, SELFPAY | END | disposition home or self-care (01) | LOC: LAB 12:29 | PROVIDERS: PCP Family Medicine; Referring Provider Family Medicine; Visit Provider Family Medicine | DX: R97.20 Elevated prostate specific antigen [PSA] (principal) | CPT/HCPCS: 36415; 84153 ==

== ENCOUNTER → 2023-01-16 | Outpatient (CLI) | payer OTHER, SELFPAY ==
--- NOTE | 2023-01-16 09:54 | MRI_ITS ---
HISTORY: Right radiculopathy, spondylolisthesis. TECHNIQUE: Multiplanar and multisequence MR images of the lumbar spine were obtained without intravenous contrast. 87 images. COMPARISON: XR 01/11/2023. FINDINGS: VERTEBRAE: Vertebral body heights maintained. Mild degenerative endplate changes of L3-4, L4-5, and L5-S1. No other significant bone marrow signal abnormality. Bilateral L5 spondylolysis. ALIGNMENT: 3 mm L5-S1 spondylolisthesis. CONUS: Normal morphology and position of the conus medullaris at L1-2. INTERVERTEBRAL DISCS: T12-L1: No significant posterior disc protrusion, central canal stenosis, or foraminal narrowing based on the sagittal images. L1-2, L2-3: No significant posterior disc protrusion, central canal stenosis, or foraminal narrowing. L3-4: Minimal disc bulge and facet arthropathy resulting in mild bilateral foraminal narrowing. No central canal stenosis. L4-5: Mild central disc protrusion with annular fissure in combination with facet arthropathy resulting in minimal narrowing of the thecal sac and mild bilateral foraminal narrowing. L5-S1: Mild posterior disc protrusion with annular fissure and mild facet arthropathy resulting in mild-moderate right foraminal narrowing with impingement of the right L5 nerve root. No significant central canal stenosis or left foraminal narrowing. SOFT TISSUES: No paraspinal fluid collection. MRI/Spine Lumbar (Routine) IMPRESSION: L5 spondylolysis with grade 1 spondylolisthesis. Mild degenerative disc disease of L5-S1 resulting in right foraminal narrowing with nerve root impingement. Mild degenerative change of L3-4 and L4-5 without significant central canal stenosis. Mild bilateral foraminal narrowing. Electronically Signed: Gala Joyner MD at 12:49 EST ,
== END | disposition home or self-care (01) ==
LOC: MRI 09:48
PROVIDERS: PCP Family Medicine; Referring Provider Orthopaedic Surgery Orthopaedic Surgery of the Spine; Visit Provider Orthopaedic Surgery Orthopaedic Surgery of the Spine
DX: M43.16 Spondylolisthesis, lumbar region (principal)
CPT/HCPCS: 72148

== ENCOUNTER → 2023-04-23 | Outpatient (CLI) | payer OTHER, SELFPAY ==
--- OUTSIDE RECORDS SUMMARY | 2023-04-23 10:48 | XMS RPT_ITS | CCD ---
Author Name Unknown Address [address] [place] [address] Organization [facility] Care Team Providers Care Aluminum Shingle Roofer Name Role Phone Kendall VICK, Chichi Primary Care Provider [phone] Claude Patel MD Unavailable CHICHI ORTA Primary Care Unavailable MYRANDA, SATYA Attending Unavailable CHICHI ORTA Referring Unavailable PRO العلي Attending Unavailable PRO العلي Referring Unavailable CHICHI ORTA Primary Care Unavailable PRO العلي Attending Unavailable PRO العلي Referring Unavailable CIHCHI ORTA Primary Care Unavailable PRO العلي Attending Unavailable CHICHI ORTA Referring Unavailable CHICHI ORTA Primary Care Unavailable CHICHI ORTA Referring Unavailable CHICHI ORTA Primary Care Unavailable PRO العلي Attending Unavailable CHICHI ORTA Referring Unavailable CHICHI ORTA Primary Care Unavailable PRO العلي Attending Unavailable CHICHI ORTA Referring Unavailable CHICHI ORTA Primary Care Unavailable MYRANDA, SATYA Attending Unavailable CHICHI ORTA Primary Care Unavailable MYRANDA, SATYA Referring Unavailable KATIUSKA AVILES Attending Unavailable CHICHI ORTA Primary Care Unavailable MYRANDA, SATYA Referring Unavailable KATIUSKA AVILES Attending Unavailable CHICHI ORTA Primary Care Unavailable MYRANDA, SATYA Attending Unavailable MYRANDA, SATYA Admitting Unavailable CHICHI ORTA Referring Unavailable CHICHI ORTA Primary Care Unavailable MYRANDA, SATYA Attending Unavailable MYRANDA, SATYA Referring Unavailable Medications Current Medications Medication Drug Class(es) Dates Sig (Normalized) Sig (Original) sodium phosphate, dibasic 35.5 mg/ml / sodium phosphate, monobasic 96.4 mg/ml enema (2 sources) Start: 10-14-2020 sodium phosphate w/sodium biphosphate 7-19 GM/118ML Enema Use 1 enema as directed the evening prior to prostate biopsy. Repeat the morning of scheduled biopsy. 2 enema 0 10/14/2020 Active Completed/Discontinued Medications Medication Drug Class(es) Dates Sig (Normalized) Sig (Original) acetaminophen 325 mg oral tablet (1 source) Start: 04-02-2023 End: 04-02-2023 Acetaminophen (TYLENOL) tablet 650 mg calcium chloride 0.0014 meq/ml / potassium chloride 0.004 meq/ml / sodium chloride 0.103 meq/ml / sodium lactate 0.028 meq/ml injectable solution (2 sources) Start: 04-02-2023 End: 04-02-2023 Lactated ringers IV solution ceFAZolin 2000 mg injection (1 source) Cephalosporin Antibacterial Start: 04-02-2023 End: 04-02-2023 ceFAZolin (ANCEF) 2 g in dextrose 100 mL premix IVPB 2 ml fentaNYL 0.05 mg/ml injection (1 source) Opioid Agonist Start: 04-02-2023 End: 04-02-2023 fentaNYL (SUBLIMAZE) injection 25 mcg gadoterate Meglumine (DOTAREM) 5 MMOL/10ML injection 3-60 mL (2 sources) Start: 08-29-2022 End: 08-29-2022 gadoterate Meglumine (DOTAREM) 5 MMOL/10ML injection 3-60 mL Problems Active Problems Problem Classification Problem Date Documented Date Episodic/Chronic Cancer of prostate (2 sources) Malignant neoplasm of prostate; Translations: [Malignant neoplasm of prostate] Onset: 04-12-2023 Chronic Disorders of lipid metabolism (4 sources) Hyperlipidemia; Translations: [Hyperlipidemia, unspecified] Onset: 09-11-2022 09-11-2022 Chronic Other ear and sense organ disorders (2 sources) Sensorineural hearing loss, bilateral; Translations: [Sensorineural hearing loss, bilateral] Onset: 09-11-2022 09-11-2022 Chronic Other nervous system disorders (2 sources) Lesion of ulnar nerve; Translations: [Lesion of ulnar nerve, unspecified upper limb] Onset: 09-11-2022 09-11-2022 Chronic Other screening for suspected conditions (not mental disorders or infectious disease) (10 sources) Raised prostate specific antigen; Translations: [Elevated prostate specific antigen [PSA]] Onset: 09-20-2020 Episodic Residual codes; unclassified (1 source) Sleep apnea; Translations: [Sleep apnea, unspecified] Onset: 09-11-2022 09-11-2022 Chronic Residual codes; unclassified (2 sources) Obstructive sleep apnea (adult) (pediatric); Translations: [Obstructive sleep apnea (adult) (pediatric)] Onset: 03-19-2023 Chronic Residual codes; unclassified (2 sources) Other specified health status; Translations: [Other specified health status] Onset: 03-26-2023 Episodic Spondylosis; intervertebral disc disorders; other back problems (4 sources) Lumbar spondylosis; Translations: [Spondylosis without myelopathy or radiculopathy, lumbar region] Onset: 09-11-2022 09-11-2022 Chronic Past or Other Problems Problem Classification Problem Date Documented Da te Episodic/Chronic Anal and rectal conditions (2 sources) Anal fissure; Translations: [Anal fissure, unspecified] Onset: 09-11-2022 09-11-2022 Episodic Inflammation; infection of eye (except that caused by tuberculosis or sexually transmitteddisease) (2 sources) Blepharitis of right eyelid; Translations: [Unspecified blepharitis right eye, unspecified eyelid] Onset: 09-11-2022 09-11-2022 Episodic Mood disorders (3 sources) Mood disorders Onset: 05-29-2022 Resolved: 01-07-2023 05-29-2022 Spondylosis; intervertebral disc disorders; other back problems (2 sources) Lumbar radiculopathy; Translations: [Radiculopathy, lumbar region] Onset: 09-11-2022 09-11-2022 Episodic Results Test Name Value Interpretation Reference Range Facil ity Vital Signs Date Time Vital Sign Value Performing Clinician Faci lity 04-02-2023 08:50-0500 Diastolic blood pressure 83 mm[Hg] Satya Sosa MD Work Phone: [facility] 04-02-2023 08:50-0500 Heart rate 77 /min Satya Sosa MD Work Phone: [facility] 04-02-2023 08:50-0500 SaO2% (BldA) [Mass fraction] 99 % Satya Sosa MD Work Phone: [facility] 04-02-2023 08:50-0500 Systolic blood pressure 147 mm[Hg] Satya Sosa MD Work Phone: [facility] 04-02-2023 08:34-0500 Body temperature 98.2 [degF] Satya Sosa MD Work Phone: [facility] 04-02-2023 08:34-0500 Respiratory rate 16 /min Satya Sosa MD Work Phone: [facility] 04-02-2023 05:17-0500 Body height 175.3 cm Satya Sosa MD Work Phone: [facility] 04-02-2023 05:17-0500 Body mass index (BMI) [Ratio] 27.11 kg/m2 Satya Sosa MD Work Phone: [facility] 04-02-2023 05:17-0500 Body weight 83.28 kg Satya Sosa MD Work Phone: [facility] 09-11-2022 11:20-0400 Body mass index (BMI) [Ratio] 28.8 kg/m2 Pro WALTERS Work Phone: [facility] 09-11-2022 11:20-0400 Body temperature 98.01 [degF] Pro العلي APRN-MARTINE Work Phone: [facility] 09-11-2022 11:20-0400 Body weight 88.45 kg Pro العلي APRN-MARTINE Work Phone: [facility] 09-11-2022 11:20-0400 Diastolic blood pressure 88 mm[Hg] Pro العلي GUEST SERVICES MANAGER-HYPERBARIC NURSE Work Phone: [facility] 09-11-2022 11:20-0400 Heart rate 64 /min Pro العلي GUEST SERVICES MANAGER-HYPERBARIC NURSE Work Phone: [facility] 09-11-2022 11:20-0400 Respiratory rate 16 /min Pro العلي GUEST SERVICES MANAGER-HYPERBARIC NURSE Work Phone: [facility] 09-11-2022 11:20-0400 SaO2% (BldA) [Mass fraction] 100 % Pro العلي GUEST SERVICES MANAGER-HYPERBARIC NURSE Work Phone: [facility] 09-11-2022 11:20-0400 Systolic blood pressure 155 mm[Hg] Pro العلي GUEST SERVICES MANAGER-HYPERBARIC NURSE Work Phone: [facility] 08-29-2022 08:30-0400 Diastolic blood pressure 89 mm[Hg] Pro العلي GUEST SERVICES MANAGER-HYPERBARIC NURSE Work Phone: [facility] 08-29-2022 08:30-0400 Heart rate 61 /min Pro العلي GUEST SERVICES MANAGER-HYPERBARIC NURSE Work Phone: [facility] 08-29-2022 08:30-0400 Systolic blood pressure 142 mm[Hg] Pro العلي GUEST SERVICES MANAGER-HYPERBARIC NURSE Work Phone: [facility] 10-13-2020 08:12-0400 Diastolic blood pressure 77 mm[Hg] Judy Quiroga GUEST SERVICES MANAGER-HYPERBARIC NURSE Work Phone: [facility] 10-13-2020 08:12-0400 Systolic blood pressure 128 mm[Hg] Judy Quiroga GUEST SERVICES MANAGER-HYPERBARIC NURSE Work Phone: [facility] 10-13-2020 08:11-0400 Body height 175.3 cm Judy Quiroga GUEST SERVICES MANAGER-HYPERBARIC NURSE Work Phone: [facility] Encounters Encounter Date Encounter Type Care Provider Facility Start: 04-12-2023 ambulatory CHICHI BANNER Facility: [facility] Start: 04-02-2023 End: 04-02-2023 ambulatory [facility] Facility:[facility] Start: 04-02-2023 End: 04-02-2023 Subsequent hospital visit by physician Satya Sosa MD Work Phone: [facility] Care Procedures Date Procedure Procedure Detail Performing Clinician Start: 04-02-2023 End: 04-02-2023 Bx prostate strtctc saturation sampling img gid Satya Sosa MD Work Phone: Start: 04-02-2023 ABORH TYPE RECONFIRMATION Bee Mcginnis DO Work Phone: Start: 03-19-2023 Antibody screen CHICHI JACKSONRYANLESA Plan of Treatment Date Care Activity Detail Author Start: 09-14-2027 Tetanus vaccination TETANUS [facility] Start: 08-30-2023 Prostate specific antigen measurement PROSTATE CANCER SCREENING DISCUSSION [facility] Start: 10-26-2022 COVID-19 VACCINE ( season) COVID-19 VACCINE ( season) [facility] Start: 10-26-2022 Influenza vaccination INFLUENZA VACC INE (#1) [facility] Start: 09-11-2022 End: 09-12-2023 Bacteria identified in Urine by Culture URINE CULTURE Microbiology Routine Elevated PSA Expected: 09/11/2022, Expires: 09/12/2023 [facility] Immunizations Immunization Date Immunization Notes Care Provider Kelli duenas 11-27-2021 influenza, seasonal, injectable Pro العلي GUEST SERVICES MANAGER-HYPERBARIC NURSE Work Phone: [facility] 11-27-2021 influenza virus vaccine, unspecified formulation Pro العلي GUEST SERVICES MANAGER-HYPERBARIC NURSE Work Phone: [facility] 11-25-2021 influenza virus vaccine, unspecified formulation Pro العلي GUEST SERVICES MANAGER-HYPERBARIC NURSE Work Phone: [facility] 11-01-2021 influenza virus vaccine, unspecified formulation Pro العلي GUEST SERVICES MANAGER-[facility] Work Phone: [facility] 11-25-2017 influenza virus vaccine, unspecified formulation Pro العلي GUEST SERVICES MANAGER-[facility] Work Phone: [facility] 09-13-2017 tetanus toxoid, redu eber diphtheria toxoid, and acellular pertussis vaccine, adsorbed Pro العلي GUEST SERVICES MANAGER-[facility] Work Phone: [facility] 10-26-2016 influenza virus vaccine, unspecified formulation Pro العلي [facility] Work Phone: [facility] 10-26-2013 influenza virus vaccine, unspecified formulation Pro العلي [facility] Work Phone: [facility] 12-20-2008 novel [id number], preservative-free, injectable Pro العلي [facility] Work Phone: [facility] Payers Date Payer Category Payer Private Health Insurance AEJASON BROWN [id number] 2022-Present [address] [place] [address] [id number] 2022 Private Health Insurance [id number] 2020 Unknown [facility] ACC[facility] [id number] 2020-Present [address] [address] [place] [address] [id number] 1967 Unknown [id number] 1967 Unknown [id number] 1967 Unknown [id number] 1967 Unknown [id number] 1967 Unknown [id number] 1967 Unknown [id number] 1967 Unknown [id number] 1967 Unknown [id number] 1967 Unknown [id number] 1967 Unknown [id number] Social History Date Type Detail Facility Start: 09-20-2020 End: 09-11-2022 Tobacco smoking status NHIS Never smoker [facility] Start: 09-20-2020 End: 09-11-2022 Tobacco use and exposure Never used [facility] Start: 10-13-2020 End: 04-02-2023 Alcohol intake Current drinker of alcohol (finding) [facility] Start: 09-20-2020 Alcohol Comment socially 4 dri nks at time [facility] Start: 1965 Sex Assigned At Not on file [facility] Exposure to SARS-CoV -2 (event) Not sure [facility] Start: 08-29-2022 End: 01-07-2023 History of Social function [facility] Start: 08-29-2022 End: 01-07-2023 Tobacco use panel [facility] Adolescent depressio n screening assessment 0 [facility] Start: 11-09-2020 Gender identity Identifies as male gender (finding) [facility] Start: 11-09-2020 Sexual orientation Heterosexual (fin deon) [facility] Clinical Notes 09-11-2022 to 04-02-2023 Estee Bolaños RN - 04/02/2023 8:40 AM Bina Bolaños RN - 04/02/2023 8:40 AM Natalia Adorno RN - 04/02/2023 5:26 AM ESTNursing Notes - Juany Maier RN - 04/02/2023 8:27 AM EST Note Date & Type Note Facility 04-02-2023 Nurse Surgical operation note 0835: Patient arrived to [facility] from [facility] via gurney. Vital signs taken and stable. Patient given drink and snacks. Family called to bedside. Patient assessed. 0840: Reviewed anesthesia precautions, AVS, discharge instructions and scrips with patient and , questions and concerns answered. 0908 Patient meets [facility] discharge criteria and discharged per MD order to home. Patient taken by wheelchair by LUNCHROOM MONITOR to awaiting car. All belongings gathered with patient. Family/friend to drive patient home and care for patient 24 hours post-op. [facility] 04-02-2023 Nurse Note 0835: Patient arrived to [facility] from [facility] via gurney. Vital signs taken and stable. Patient given drink and snacks. Family called to bedside. Patient assessed. 0840: Reviewed anesthesia precautions, AVS, discharge instructions and scrips with patient and , questions and concerns answered. 0908 Patient meets [facility] discharge criteria and discharged per MD order to home. Patient taken by wheelchair by LUNCHROOM MONITOR to awaiting car. All belongings gathered with patient. Family/friend to drive patient home and care for patient 24 hours post-op. Patient denies hx of chemo and radiation. Patient denies metal or foreign objects in body. Patient denies hx of seizure or stroke. documented in this encounter [facility] 04-02-2023 Nurse Note 0827: Pt voided 200cc clear yellow urine in A PACU [facility] 04-02-2023 Miscellaneous Notes Formattin g of this note might be different from the original. 0827: Pt voided 200cc clear yellow urine in [facility] PACU Norman Cookie ([id number]) PRE OPERATIVE DIAGNOSIS Elevated PSA [R97.20] POST OPERATIVE DIAGNOSIS Post-Op Diagnosis Codes: * Elevated PSA [R97.20] PROCEDURE PERFORMED Procedure(s) (LRB): BX PROSTATE NEEDLE TRANSPERINEAL (N/A) PRIMARY CLOSURE N/A INTRAOPERATIVE FINDINGS No significant abnormalities SURGEON Surgeon(s) and Role: * Satya Sosa MD - Primary ANESTHESIOLOGIST Anesthesiologist: Eliu Macias MD SURGICAL STAFF Pot Room Tapper: Italia Oquendo RN Scrub Person: Stacey Hutchinson RN; Manjula Forrest Resident Assisting: Bhavana Mc MD COMPLICATIONS None ESTIMATED BLOOD LOSS Minimal SPECIMENS As below ID Type Source Tests Collected by Time Destination 1 : Left anterior fibromusclar stroma prostate biopsy Permanent SURG PATH SURG PATH REQUEST Satya Sosa MD 04/02/2023728 2 : Left peripheral zone anterior prostate biopsy Permanent SURG PATH SURG PATH REQUEST Satya Sosa MD 04/02/2023728 3 : Left peripheral zone posterior lateral prostate biopsy Permanent SURG PATH SURG PATH REQUEST Satya Sosa MD 04/02/2023728 4 : Left peripheral zone prostate medial prostate biopsy Permanent SURG PATH SURG PATH REQUEST Satya Sosa MD 04/02/2023728 5 : Right anterior fibromusclar stroma prostate biopsy Permanent SURG PATH SURG PATH REQUEST Satya Sosa MD 04/02/2023728 6 : Right peripheral zone anterior prostate biopsy Permanent SURG PATH SURG PATH REQUEST Satya Sosa MD 04/02/2023728 7 : Right peripheral zone posterior lateral prostate biopsy Permanent SURG PATH SURG PATH REQUEST Satya Sosa MD 04/02/2023 0729 8 : Right peripheral zone posterior medial porstate biopsy Permanent SURG PATH SURG PATH REQUEST Satya Sosa MD 04/02/2023 0729 9 : HEATH #1 Permanent SURG PATH SURG PATH REQUEST Satya Sosa MD 04/02/2023 0739 OPERATIVE REPORT Date: 04/02/2023 Preoperative Diagnosis: Elevated PSA. Abnormal MRI. Postoperative Diagnosis: Same. Procedure Performed: Transrectal ultrasound of the prostate. Transrectal ultrasound guided needle biopsy of the prostate via transperineal approach, including cognitive MRI-TRUS fusion. Anesthesia: General Attending Surgeon: Satya Sosa M.D. Assistants: Bhavana Mc M.D. Indications: Patient was consented for the procedure. All possible complications were discussed. Such as infection, bleeding, retention, erectile dysfunction, cardiovascular and pulmonary complications and . Estimated Blood Loss: Minimal Complications: None Findings: On transrectal ultrasonography the prostate was approximately 29.4 cubic centimeters. There were no hypoechoic lesions seen in the prostate. The capsule of the prostate was intact without disruption. The seminal vesicles were normal in appearance without evidence of obstruction. Procedure: The patient was brought to the operating room and given a general anesthetic. He was then placed in lithotomy position, prepped with Hibiclens soap and draped sterilely. After successful induction of general anesthesia with endotracheal intubation, the patient was re-positioned in dorsal lithotomy position. SCDs were placed on the lower extremities, and the patient received intravenous antibiotics half an hour prior to the start of the procedure. The patient then was prepped and draped in regular sterile fashion. The ultrasound probe was inserted into the rectum without difficulty with lubricant, and a systematic ultrasound was done of the prostate. Transrectal ultrasonography was then performed with the above-noted findings. Following the completion of the ultrasound, free-hand transperineal biopsies were commenced. 5 cc of 1% Lidocaine local anesthetic was infiltrated into the skin on each side. Then using a spinal needle a deep periprostatic block was performed, infiltrating 2 cc of of 1% Lidocaine local anesthetic on each side. Total of 14 cc of local anesthetic was used. An Precision Point needle introducer was inserted in the right perineal zone. Then using an 18 Fr True Cut biopsy needle, multiple cores were taken systematically from the anterior, mid, and posterior zones of the prostate. Similar procedure was done on the left side. ROIs were targeted #1. A total of 20 cores were taken. SAMPLES OBTAINED: 1. RIGHT anterior fibromuscular stroma (2 cores) 2. RIGHT peripheral zone anterior (2 cores) 3. RIGHT peripheral zone posterior lateral (2 cores) 4. RIGHT peripheral zone posterior medial (2 cores) 1. LEFT anterior fibromuscular stroma (2 cores) 2. LEFT peripheral zone anterior (2 cores) 3. LEFT peripheral zone posterior lateral (2 cores) 4. LEFT peripheral zone posterior medial (2 cores) ROIs: HEATH 1: RIGHT TZ anterior (4 cores) At the conclusion of the procedure, the instrument was withdrawn. The patient was taken down into the supine position, extubated and transferred to the PACU in stable condition. Fluffs, Bacitracin, and mesh underpants were applied. The estimated blood loss was approximately 5 mL. There were no complications. I was present in the operative room during all critical parts of the operation, and was available immediately at all times. Satya Sosa MD April 02, 2023 7:46 AM Norman Cookie ([id number]) PRE OPERATIVE DIAGNOSIS Elevated PSA [R97.20] POST OPERATIVE DIAGNOSIS Post-Op Diagnosis Codes: * Elevated PSA [R97.20] PROCEDURE PERFORMED Procedure(s) (LRB): BX PROSTATE NEEDLE TRANSPERINEAL (N/A) PRIMARY CLOSURE N/A INTRAOPERATIVE FINDINGS No significant abnormalities SURGEON Surgeon(s) and Role: * Satya Sosa MD - Primary ANESTHESIOLOGIST Anesthesiologist: Eliu Macias MD SURGICAL STAFF Pot Room Tapper: Italia Oquendo RN Scrub Person: Stacey Hutchinson RN; Manjula Forrest Resident Assisting: Bhavana Mc MD COMPLICATIONS None ESTIMATED BLOOD LOSS Minimal SPECIMENS As below ID Type Source Tests Collected by Time Destination 1 : Left anterior fibromusclar stroma prostate biopsy Permanent SURG PATH SURG PATH REQUEST Satya Sosa MD 04/02/2023728 2 : Left peripheral zone anterior prostate biopsy Permanent SURG PATH SURG PATH REQUEST Satya Sosa MD 04/02/2023728 3 : Left peripheral zone posterior lateral prostate biopsy Permanent SURG PATH SURG PATH REQUEST Satya Sosa MD 04/02/2023728 4 : Left peripheral zone prostate medial prostate biopsy Permanent SURG PATH SURG PATH REQUEST Satya Sosa MD 04/02/2023728 5 : Right anterior fibromusclar stroma prostate biopsy Permanent SURG PATH SURG PATH REQUEST Satya Sosa MD 04/02/2023728 6 : Right peripheral zone anterior prostate biopsy Permanent SURG PATH SURG PATH REQUEST Satya Sosa MD 04/02/2023728 7 : Right peripheral zone posterior lateral prostate biopsy Permanent SURG PATH SURG PATH REQUEST Satya Sosa MD 04/02/2023728 8 : Right peripheral zone posterior medial porstate biopsy Permanent SURG PATH SURG PATH REQUEST Satya Sosa MD 04/02/2023728 9 : HEATH #1 Permanent SURG PATH SURG PATH REQUEST Satya Sosa MD 04/02/2023738 Satya Sosa MD April 02, 2023 7:46 AM documented in this encounter [facility] 04-02-2023 Surgery Postoperative evaluation and management note Norman Gary ([id number]) PRE OPERATIVE DIAGNOSIS Elevated PSA [R97.20] POST OPERATIVE DIAGNOSIS Post-Op Diagnosis Codes: * Elevated PSA [R97.20] PROCEDURE PERFORMED Procedure(s) (LRB): BX PROSTATE NEEDLE TRANSPERINEAL (N/A) PRIMARY CLOSURE N/A INTRAOPERATIVE FINDINGS No significant abnormalities SURGEON Surgeon(s) and Role: * Satya Sosa MD - Primary ANESTHESIOLOGIST Anesthesiologist: Eliu Macias MD SURGICAL STAFF Pot Room Tapper: Italia Oquendo RN Scrub Person: Stacey Hutchinson RN; Manjula Forrest Resident Assisting: Bhavana Mc MD COMPLICATIONS None ESTIMATED BLOOD LOSS Minimal SPECIMENS As below ID Type Source Tests Collected by Time Destination 1 : Left anterior fibromusclar stroma prostate biopsy Permanent SURG PATH SURG PATH REQUEST Satya Sosa MD 04/02/2023728 2 : Left peripheral zone anterior prostate biopsy Permanent SURG PATH SURG PATH REQUEST Satya Sosa MD 04/02/2023728 3 : Left peripheral zone posterior lateral prostate biopsy Permanent SURG PATH SURG PATH REQUEST Satya Sosa MD 04/02/2023728 4 : Left peripheral zone prostate medial prostate biopsy Permanent SURG PATH SURG PATH REQUEST Satya Sosa MD 04/02/2023728 5 : Right anterior fibromusclar stroma prostate biopsy Permanent SURG PATH SURG PATH REQUEST Satya Sosa MD 04/02/2023728 6 : Right peripheral zone anterior prostate biopsy Permanent SURG PATH SURG PATH REQUEST Satya Sosa MD 04/02/2023728 7 : Right peripheral zone posterior lateral prostate biopsy Permanent SURG PATH SURG PATH REQUEST Satya Sosa MD 04/02/2023728 8 : Right peripheral zone posterior medial porstate biopsy Permanent SURG PATH SURG PATH REQUEST Satya Sosa MD 04/02/2023728 9 : HEATH #1 Permanent SURG PATH SURG PATH REQUEST Satya Sosa MD 04/02/2023738 OPERATIVE REPORT Date: 04/02/2023 Preoperative Diagnosis: Elevated PSA. Abnormal MRI. Postoperative Diagnosis: Same. Procedure Performed: Transrectal ultrasound of the prostate. Transrectal ultrasound guided needle biopsy of the prostate via transperineal approach, including cognitive MRI-TRUS fusion. Anesthesia: General Attending Surgeon: Satya Sosa M.D. Assistants: Bhavana Mc M.D. Indications: Patient was consented for the procedure. All possible complications were discussed. Such as infection, bleeding, retention, erectile dysfunction, cardiovascular and pulmonary complications and . Estimated Blood Loss: Minimal Complications: None Findings: On transrectal ultrasonography the prostate was approximately 29.4 cubic centimeters. There were no hypoechoic lesions seen in the prostate. The capsule of the prostate was intact without disruption. The seminal vesicles were normal in appearance without evidence of obstruction. Procedure: The patient was brought to the operating room and given a general anesthetic. He was then placed in lithotomy position, prepped with Hibiclens soap and draped sterilely. After successful induction of general anesthesia with endotracheal intubation, the patient was re-positioned in dorsal lithotomy position. SCDs were placed on the lower extremities, and the patient received intravenous antibiotics half an hour prior to the start of the procedure. The patient then was prepped and draped in regular sterile fashion. The ultrasound probe was inserted into the rectum without difficulty with lubricant, and a systematic ultrasound was done of the prostate. Transrectal ultrasonography was then performed with the above-noted findings. Following the completion of the ultrasound, free-hand transperineal biopsies were commenced. 5 cc of 1% Lidocaine local anesthetic was infiltrated into the skin on each side. Then using a spinal needle a deep periprostatic block was performed, infiltrating 2 cc of of 1% Lidocaine local anesthetic on each side. Total of 14 cc of local anesthetic was used. An Precision Point needle introducer was inserted in the right perineal zone. Then using an 18 Fr True Cut biopsy needle, multiple cores were taken systematically from the anterior, mid, and posterior zones of the prostate. Similar procedure was done on the left side. ROIs were targeted #1. A total of 20 cores were taken. SAMPLES OBTAINED: 1. RIGHT anterior fibromuscular stroma (2 cores) 2. RIGHT peripheral zone anterior (2 cores) 3. RIGHT peripheral zone posterior lateral (2 cores) 4. RIGHT peripheral zone posterior medial (2 cores) 1. LEFT anterior fibromuscular stroma (2 cores) 2. LEFT peripheral zone anterior (2 cores) 3. LEFT peripheral zone posterior lateral (2 cores) 4. LEFT peripheral zone posterior medial (2 cores) ROIs: HEATH 1: RIGHT TZ anterior (4 cores) At the conclusion of the procedure, the instrument was withdrawn. The patient was taken down into the supine position, extubated and transferred to the PACU in stable condition. Fluffs, Bacitracin, and mesh underpants were applied. The estimated blood loss was approximately 5 mL. There were no complications. I was present in the operative room during all critical parts of the operation, and was available immediately at all times. Satya Sosa MD April 02, 2023 7:46 AM [facility] Work Phone: 04-02-2023 Surgery Postoperative evaluation and management note Norman Gary ([id number]) PRE OPERATIVE DIAGNOSIS Elevated PSA [R97.20] POST OPERATIVE DIAGNOSIS Post-Op Diagnosis Codes: * Elevated PSA [R97.20] PROCEDURE PERFORMED Procedure(s) (LRB): BX PROSTATE NEEDLE TRANSPERINEAL (N/A) PRIMARY CLOSURE N/A INTRAOPERATIVE FINDINGS No significant abnormalities SURGEON Surgeon(s) and Role: * Satya Sosa MD - Primary ANESTHESIOLOGIST Anesthesiologist: Eliu Macias MD SURGICAL STAFF Pot Room Tapper: Italia Oquendo RN Scrub Person: Stacey Hutchinson RN; Manjula Forrest Resident Assisting: Bhavana Mc MD COMPLICATIONS None ESTIMATED BLOOD LOSS Minimal SPECIMENS As below ID Type Source Tests Collected by Time Destination 1 : Left anterior fibromusclar stroma prostate biopsy Permanent SURG PATH SURG PATH REQUEST Satya Sosa MD 04/02/2023728 2 : Left peripheral zone anterior prostate biopsy Permanent SURG PATH SURG PATH REQUEST Satya Sosa MD 04/02/2023728 3 : Left peripheral zone posterior lateral prostate biopsy Permanent SURG PATH SURG PATH REQUEST Satya Sosa MD 04/02/2023728 4 : Left peripheral zone prostate medial prostate biopsy Permanent SURG PATH SURG PATH REQUEST Satya Sosa MD 04/02/2023728 5 : Right anterior fibromusclar stroma prostate biopsy Permanent SURG PATH SURG PATH REQUEST Satya Sosa MD 04/02/2023728 6 : Right peripheral zone anterior prostate biopsy Permanent SURG PATH SURG PATH REQUEST Satya Sosa MD 04/02/2023728 7 : Right peripheral zone posterior lateral prostate biopsy Permanent SURG PATH SURG PATH REQUEST Satya Sosa MD 04/02/2023728 8 : Right peripheral zone posterior medial porstate biopsy Permanent SURG PATH SURG PATH REQUEST Satya Sosa MD 04/02/2023728 9 : HEATH #1 Permanent SURG PATH SURG PATH REQUEST Satya Sosa MD 04/02/2023 0739 Satya Sosa MD April 02, 2023 7:46 AM [facility] 04-02-2023 Hospital Discharg e instructions Bhavana Mc MD - 04/02/2023 7:00 AM EST Images from the original note were not included. Home Care After Prostate Biopsy The following instructions will help you care for yourself, or be cared for upon your return home today. These are guidelines for your care right after surgery only. Diet Drink plenty of liquids and eat light meals today. Start your regular diet tomorrow. Activity No strenuous activity to 2 days. Start normal activities after that. Wound Care and Hygiene No restrictions, start normal routine. Anesthesia Precautions & Expectations After anesthesia, rest for [address], drink alcoholic beverages or make any important decisions during this time. General anesthesia may cause a sore throat, jaw discomfort or muscle aches. These symptoms can last for one or two days. What to Expect after Surgery Mild blood in urine, semen and stool. This should resolve in a few days. Call your Doctor Passing clots in urine preventing bladder emptying Severe pain not controlled by oral medication Temperature above 100.5 degrees Inability to urinate within eight (8) hours after surgery Other Contacts Urology Department Follow up Appointment You will be notified of appointment to discuss your biopsy results. After hours and on weekends, if you have questions or problems, call and ask the hospital yard motor operator to page the urology resident inspector final assembly conveyor line. If it is a question or problem that can wait until business hours, call the clinic phone number listed above when the clinic is open during weekdays, 8am-4pm. If you are unable to reach your doctor and it is a medical emergency call the [facility] Emergency Department at or dial 911. documented in this encounter [facility] 04-02-2023 History and physical note LUCINA Gary is a 57 y.o. with history of Elevated PSA [R97.20] The patient denies any new fevers, chills, or chest pain. No nausea, vomiting or diarrhea. Denies new GH, LUTS, frequency or burning. No new hospitalizations, diagnoses, medications since last visit. NPO since 9 pm last night Past Medical History He has a past medical history of Elevated PSA, Family history of prostate cancer, Spondylolisthesis, Tinnitus, and Vocal cord papilloma virus. Past Surgical History He has no past surgical history on file. Medications He has a current medication list which includes the following Facility-Administered Medications: cefazolin and lactated ringers. Allergies He has No Known Allergies. Social History He reports that he has never smoked. He has never used smokeless tobacco. He reports current alcohol use of about 2.0 standard drinks of alcohol per week. He reports that he does not use drugs. Review of Systems Constitutional: No fevers or chills Skin: Negative for rash Endocrine: No heat/cold intolerance Cardiovascular: Negative for chest pain or dyspnea on exertion Respiratory: Negative for shortness of breath or wheezing Gastrointestinal: No constipation, nausea or vomiting Genitourinary: Negative for new lower urinary tract symptoms, current gross hematuria or dysuria. Musculoskeletal: No flank pain Neurological: Negative for frequent headaches or dizziness Lymph/Heme: Negative for leg swelling or calf pain. Physical Exam BP 145/84 (BP Location: Left arm, BP Position: Lying) Pulse 72 Temp 97.9 F (36.6 C) (Oral) Resp 16 Ht 1.753 m (5' 9 ) Wt 83.3 kg (183 lb 9.6 oz) SpO2 99% BMI 27.11 kg/m Smoking Status Never Constitutional: NAD, WDWN. HEENT: NCAT. Conjunctivae normal. MMM. Cardiovascular: Regular rate. Pulmonary/Chest: Respirations are even and non-labored bilaterally. Abdominal: Soft. No distension, tenderness, masses or guarding. No CVA tenderness. Neurological: A + O x 3. Cranial Nerves II-XII grossly intact. Normal gait. Extremities: LIZBET x 4, Warm. No clubbing. No cyanosis. Skin: [place], warm and dry. No rashes noted. Psychiatric: Normal mood and affect Labs Lab Results Component Value Date SODIUM 138 03/19/2023 POTASSIUM 3.9 03/19/2023 CHLORIDE 102 03/19/2023 CO2 30 03/19/2023 BUN 9 03/19/2023 CREATSERUM 1.02 03/19/2023 Lab Results Component Value Date WBC 6.16 03/19/2023 HGB 16.0 03/19/2023 HCT 46.2 03/19/2023 PLATELET 261 03/19/2023 MCV 90.6 03/19/2023 Lab Results Component Value Date PSA 9.35 (H) 08/29/2022 PSA 10.80 11/22/2021 PSA 10.7 05/29/2021 PSA 10.7 05/29/2021 PSA 8.44 (H) 10/13/2020 Lab Results Component Value Date CREATSERUM 1.02 03/19/2023 Assessment Norman Gary is a 57 y.o. male who presents with Elevated PSA [R97.20] Plan 1. To OR for Procedure(s): BX PROSTATE NEEDLE TRANSPERINEAL Bhavana Mc MD 04/02/2023 6:41 AM [facility] Work Phone: 04-02-2023 History and physical note HPI Norman Gary is a 57 y.o. with history of Elevated PSA [R97.20] The patient denies any new fevers, chills, or chest pain. No nausea, vomiting or diarrhea. Denies new GH, LUTS, frequency or burning. No new hospitalizations, diagnoses, medications since last visit. NPO since 9 pm last night Past Medical History He has a past medical history of Elevated PSA, Family history of prostate cancer, Spondylolisthesis, Tinnitus, and Vocal cord papilloma virus. Past Surgical History He has no past surgical history on file. Medications He has a current medication list which includes the following Facility-Administered Medications: cefazolin and lactated ringers. Allergies He has No Known Allergies. Social History He reports that he has never smoked. He has never used smokeless tobacco. He reports current alcohol use of about 2.0 standard drinks of alcohol per week. He reports that he does not use drugs. Review of Systems Constitutional: No fevers or chills Skin: Negative for rash Endocrine: No heat/cold intolerance Cardiovascular: Negative for chest pain or dyspnea on exertion Respiratory: Negative for shortness of breath or wheezing Gastrointestinal: No constipation, nausea or vomiting Genitourinary: Negative for new lower urinary tract symptoms, current gross hematuria or dysuria. Musculoskeletal: No flank pain Neurological: Negative for frequent headaches or dizziness Lymph/Heme: Negative for leg swelling or calf pain. Physical Exam BP 145/84 (BP Location: Left arm, BP Position: Lying) Pulse 72 Temp 97.9 F (36.6 C) (Oral) Resp 16 Ht 1.753 m (5' 9 ) Wt 83.3 kg (183 lb 9.6 oz) SpO2 99% BMI 27.11 kg/m Smoking Status Never Constitutional: NAD, WDWN. HEENT: NCAT. Conjunctivae normal. MMM. Cardiovascular: Regular rate. Pulmonary/Chest: Respirations are even and non-labored bilaterally. Abdominal: Soft. No distension, tenderness, masses or guarding. No CVA tenderness. Neurological: A + O x 3. Cranial Nerves II-XII grossly intact. Normal gait. Extremities: LIZBET x 4, Warm. No clubbing. No cyanosis. Skin: [place], warm and dry. No rashes noted. Psychiatric: Normal mood and affect Labs Lab Results Component Value Date SODIUM 138 03/19/2023 POTASSIUM 3.9 03/19/2023 CHLORIDE 102 03/19/2023 CO2 30 03/19/2023 BUN 9 03/19/2023 CREATSERUM 1.02 03/19/2023 Lab Results Component Value Date WBC 6.16 03/19/2023 HGB 16.0 03/19/2023 HCT 46.2 03/19/2023 PLATELET 261 03/19/2023 MCV 90.6 03/19/2023 Lab Results Component Value Date PSA 9.35 (H) 08/29/2022 PSA 10.80 11/22/2021 PSA 10.7 05/29/2021 PSA 10.7 05/29/2021 PSA 8.44 (H) 10/13/2020 Lab Results Component Value Date CREATSERUM 1.02 03/19/2023 Assessment Norman Gary is a 57 y.o. male who presents with Elevated PSA [R97.20] Plan 1. To OR for Procedure(s): BX PROSTATE NEEDLE TRANSPERINEAL Bhavana Mc MD 04/02/2023 6:41 AM documented in this encounter [facility] 04-02-2023 Nurse Surgical operation note Patient denies hx of chemo and radiation. Patient denies metal or foreign objects in body. Patient denies hx of seizure or stroke. [facility] 09-11-2022 History of Presen t illness Narrative Images from the original note were not included. CC Elevated PSA HPI Norman Gary is a 57 y.o. male in good general health who presents with an elevated and rising PSA to 10.50 s/p TRUS prostate biopsy x 2 most recently 12/25/18 with focal SHAKA, negative for cancer. He presented for second opinion and further management. His last fusion biopsy was on 11/17/20. This was negative for cancer + family history of prostate cancer. Father h/o prostate cancer age early 60s s/p prostatectomy and bladder cancer in his 80s (smoker). Brother dx prostate cancer age 58 w/ PSA around 6, tx with radiation. Brother also had colorectal cancer in his late 40s had chemo and resection. Paternal uncle had bladder cancer (smoker). Mother from sarcoma in her 80s. Interval History Patient presents with updated PSA and MRI. He complains of urinary symptoms - nocturia x 1, worsening urinary frequency and frequencey, weak stream for 2 year(s), gradual over time. ROS: patient denies incomplete voiding, double voiding, perineal discomfort, dysuria, hematuria, abdominal pain, flank pain, testicular pain. Social history: no or minimal alcohol, nonsmoker, caffeine use is moderate daily (2 cups coffee, 1 can soda). Past history is negative for BPH, UTI, stones or other renal diseases. 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 ECOG Performance Status Performance status: Karnofsky scale 100 (ECOG grade 0) No limitations Review of Systems Constitutional: Negative for fever, chills, weight loss, weight gain and malaise/fatigue. Cardiovascular: Negative for chest pain. Respiratory: Negative for shortness of breath. Gastrointestinal: Negative for nausea, abdominal pain, diarrhea, constipation. Genitourinary: see HPI Musculoskeletal: Negative for back pain and joint pain. Neurological: Negative for dizziness and headaches. Psychiatric- no depression or anxiety. PHYSICAL EXAM BP 155/88 (BP Position: Sitting) Pulse 64 Temp 98 F (36.7 C) (Temporal) Resp 16 Wt 88.5 kg (195 lb) SpO2 100% BMI 28.80 kg/m Smoking Status Never Constitutional: NAD, WDWN. HEENT: NCAT. Conjunctivae normal. Cardiovascular: NoJVD. No LE Edema Pulmonary/Chest: Respirations are even and non-labored bilaterally. Bilateral chest rise. Abdominal: Soft. No distension, tenderness, masses or guarding. Neurological: Cranial Nerves II-XII grossly intact. Normal gait. Extremities: LIZBET. Warm. No cyanosis. Skin: [place], warm and dry. No rashes noted. Psychiatric: Normal mood and affect. Normal insight. Patient deferred today Diagnostic Tests Lab Results Component Value Date PSA 9.35 (H) 08/29/2022 PSA 10.80 11/22/2021 PSA 10.7 05/29/2021 PSA 10.7 05/29/2021 PSA 8.44 (H) 10/13/2020 07/28/15 - PSA 4.2 03/13/17 - PSA 4.47 05/02/17 - PSA 3.95 09/27/17 - PSA 4.2 10/31/18 - PSA 4.39 05/01/18 - PSA 5.7 (fPSA 0.47, free/total ratio 8%) 05/27/18 - 12-core TRUS prostate biopsy by Dr. Ethan Patel. Volume 22 g. Pathology benign. ConfirmMDx negative (low likelihood of detecting prostate cancer upon repeat biopsy). 12/12/18 - PSA 7.43 12/17/18 - MRI prostate (1.5 [place]) - no suspicious nodules 12/25/18 - 12-core TRUS prostate biopsy by Dr. Patel. Volume 22 g. Pathology focal SHAKA at Right mid, otherwise benign 12/15/19 - PSA 7.31 03/03/20 - PSA 7.3 07/22/20 - PSA 10.50 05/24/22- PSA 12.50 08/29/22 PSA 9.34 Radiographic Studies MRI PROSTATE WITH AND WITHOUT CONTRAST, 08/29/2022 Prostate: The prostate measures 4.4 x 3.8 x 4.2 cm. The prostate volume is 34.2 cc. Serum PSA is 10.80 ng/mL as of 11/22/2021. PSA density is 0.31 ng/mL/cc. Prostate is enlarged and indents on the bladder base with central glandular hypertrophy showing nodular and stromal changes compatible with changes of BPH. Peripheral zone: Patchy T2 hypointense signal in the peripheral zones with some linear and bandlike T2 hypointense areas. This shows increased postcontrast enhancement and could be related to prostatitis. No T1 hyperintensity in the central gland or the peripheral zones IMPRESSION: 1. Stable to slight interval increase in the size of the prostate gland. Stable high PSA density within the gland. 2. Some interval increase in the size of the previously noted signal abnormality in the right transitional zone within the mid gland extending into the base and into the fibromuscular stroma concerning for a neoplastic [id number] Category 4 3. Patchy linear and bandlike T2 hypointense areas in the peripheral zones with increased postcontrast enhancement could be related to background prostatitis. 4. Intact prostatic capsule with no regional extracapsular disease. 5. No lymphadenopathy or bone lesions identified on this study MRI prostate 10/13/20: 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 Prostate size is 28 MRI Prostate (1.5T) 12/17/18 - [facility] Pathology: TRUS 11/17/20: A. Prostate, right lateral base, core biopsy: Prostate tissue with no significant pathologic change B. Prostate, right medial base, core biopsy: Prostate tissue with no significant pathologic change C. Prostate, right lateral mid, core biopsy: Prostate tissue with no significant pathologic change D. Prostate, right medial mid, core biopsy: Prostate tissue with no significant pathologic change E. Prostate, right lateral apex, core biopsy: Prostate tissue with focal acute inflammation F. Prostate, right medial apex, core biopsy: Prostate tissue with no significant pathologic change (see comment) G. Prostate, left lateral base, core biopsy: Prostate tissue with no significant pathologic change IHC performed to evaluate atypical glands: positive p63, CK5; negative AMACR H. Prostate, left medial base, core biopsy: High grade prostatic intraepithelial neoplasia I. Prostate, left lateral mid, core biopsy: Prostate tissue with no significant pathologic change (see comment) J. Prostate, left medial mid, core biopsy: Prostate tissue with no significant pathologic change (see comment) K. Prostate, left lateral apex, core biopsy: Prostate tissue with no significant pathologic change L. Prostate, left medial apex, core biopsy: Prostate tissue with no significant pathologic change Assessment 57 y.o. male who presents with an elevated PSA s/p TRUS prostate biopsy x 2 most recently 12/25/18 for PSA 7.42 with focal SHAKA, negative for cancer. He had MRI prostate 12/17/18 with no suspicious lesions. PSA continues to rise, 10.5 on 07/22/20. He had MRI fusion biopsy on 11/17/20 for a PI RADS 4 lesion. This was negative for cancer. We continued to discuss the implications of his PSA and biopsy results. He has significant family history. His most recent PSA on 05/24/22 was continued rising at 12.5. Prostate MRI on 08/29/22 noted a PI-RADS 4 lesion. PSAD was 0.31. PSA on 08/29/22 was 9.35. If his PSA continues to rise he will need TP saturation biopsy. He would like more time to consider his option of next steps. He will call in the fall if he would like to pursue a saturation bx or continue to monitor his PSA. Plan prn SELENA Brock Mr. Gary is being seen here today for follow upon Mri results. He denies any changes to his health since last appointment. documented in this encounter [facility] documented [facility] Diagnosis Elevated PSA Elevated prostate specific antigen (PSA) [facility] Diagnosis Elevated PSA- Primary Elevated prostate specific antigen (PSA) [facility] Diagnosis Elevated PSA Elevated prostate specific antigen (PSA) documented in this encounter [facility] Summary Purpose Family History No Family History Records FoundNo Family History Records Found Advance Directives No Advanced Directives Records FoundLatest Code Status on File Code Status Date Activated Date Inactivated Comments Full Code 04/02/2023 5:14 AM Reason for Referral Specialty Diagnoses / Procedures Referred By Jaron greer Referred To Contact Diagnoses Elevated PSA Procedures MRI PROSTATE WITH AND WITHOUT CONTRAST MA MRI, PELVIS, COMBO Judy Quiroga APRN-CNP [address] [place] [address] Referral ID Status Reason Start Date Expiration Date Visits Re quested Visits Authorized [id number] Closed 09/20/2020 10/15/2021 1 1 Specialty Diagnoses / Procedures Referred By Contac t Referred To Contact Diagnoses Elevated PSA Procedures MRI PROSTATE WITH AND WITHOUT CONTRAST MA MRI, PELVIS, Pro Arnett, GUEST SERVICES MANAGER-HYPERBARIC NURSE [address] [id number] Referral ID Status Reason Start Date Expiration Date Visits Re quested Visits Authorized [id number] Closed 05/29/2022 06/23/2023 1 1 Specialty Diagnoses / Procedures Referred By Contac t Referred To Contact Procedures US IMAGING BETH OR Satya Sosa MD [address] [place] [address] Referral ID Status Reason Start Date Expiration Date V isits Requested Visits Authorized [id number] New Request 04/02/2023 04/26/2024 1 1 Additional Source Comments (unrecognized sect ion and content) No Status Records FoundNo Status Records Found INFORMATION SOURCE (unrecogn ized section and content) DATE CREATED AUTHOR AUTHOR'S ORGANIZ ATION 04/14/[address] [facility] Reason for Visit (unrecogniz ed section and content) Referral ID Status Reason Start Date Expiration Date Visits Re quested Visits Authorized [id number] Closed 09/20/2020 10/15/2021 1 1 Specialty Diagnoses / Procedures Referred By Contac t Referred To Contact Diagnoses Elevated PSA Procedures MRI PROSTATE WITH AND WITHOUT CONTRAST MA MRI, PELVIS, Pro Arnett, GUEST SERVICES MANAGER-HYPERBARIC NURSE [address] [place] [address] Referral ID Status Reason Start Date Expiration Date Visits Re quested Visits Authorized [id number] Closed 05/29/2022 06/23/2023 1 1 Reason Comments Follow-up Specialty Diagnoses / Procedures Referred By Contac t Referred To Contact Diagnoses Elevated PSA Elevated PSA [R97.20] Procedures MA BIOPSY OF PROSTATE,NEEDLE,TRANSPERINEAL BX PROSTATE NEEDLE TRANSPERINEAL Satya Sosa MD [address] [place] [address] [facility] [address] [place] [address] Referral ID Status Reason Start Date Expiration Date Visits Re quested Visits Authorized [id number] 1 1 Care Teams (unrecognized sec tion and content) Aluminum Shingle Roofer Relationship Specialty Start Date End Date Chichi Orta MD [address] [facility] [address] [place] [phone] PCP - General Family Medicine 07/27/20 Claude Patel MD [address] [facility] [address] [place], [place] [phone] Referring Provider Urology 07/27/20 Aluminum Shingle Roofer Relationship Specialty Start Date End Date Chichi Orta MD [address] [facility] [address] [place] [phone] PCP - General Family Medicine 07/27/20 Claude Patel MD [address] [place] [phone] Referring Provider Urology 07/27/20 Aluminum Shingle Roofer Relationship Specialty Start Date End Date Chichi Orta MD [address] [facility] [address] [place] [phone] PCP - General Family Medicine 07/27/20 Claude Patel MD [address] [place] [phone] Referring Provider Urology 07/27/20 Scheduled Active and Recently Administ ered Medications (unrecognized section and content) Continuous Medication Order 03/31/2023 04/01/2023 04/02/2023 Lactated ringers IV solution Intravenous, at 20 mL/hr, CONTINUOUS, Starting on Sat04/02/23 at 0515, Until Sat04/02/23 at 1112, Pre-op/Pre-Proc 0539 ($$New Bag$$ - Provider: Cheryl Adorno RN)0659 (Anesthesia Volume Adjustment - Provider: Eliu Macias MD) Lactated ringers IV solution Intravenous, at 100 mL/hr, CONTINUOUS, Starting on Sat04/02/23 at 0845, Until Sat04/02/23 at 1112, Saline lock when tolerating oral intake and remove IV per ASU protocol., Post-op/Post-Proc 0845 (Canceled Entry - Provider: System Discharge - Comment: Automatically canceled at discontinue of medication order) PRN Medication Order 03/31/2023 04/01/2023 04/02/2023 bacitracin ointment (CANCELED) NEEDED, Starting on Sat04/02/23 at 0743, Until Sat04/02/23 at 0752, Intra-op/Intra-Proc 0743 (Given - Provid er: Satya Sosa MD - Comment: Other= perineum) ceFAZolin (ANCEF) 2 g in dextrose 100 mL premix IVPB 2 g, Intravenous, Administer over 30 Minutes, SUPERVISOR WOOL SHEARING TO PROCEDURE, Starting on Sat04/02/23 at 0514, Until Sat04/02/23 at 1112, Surgery, Pre-op/Pre-Proc 0717 (Given - Provid er: Eliu Macias MD) fentaNYL (SUBLIMAZE) injection 25 mcg 25 mcg, Intravenous, Administer over 2 Minutes, EVERY 5 MINUTES NEEDED, 6 doses, Starting on Sat04/02/23 at 0746, Until Sat04/02/23 at 1112, Severe Pain, Moderate Pain, Additional dose may be administered only if first dose did not result in adverse effects (RR<10, decrease in level of consciousness) and was previously documented as ineffective. May give a total of 150mcg in PACU. If pain unrelieved after 150mcg, notify Anesthesia provider., Recovery Haloperidol lactate (HALDOL) injection 1 mg 1 mg, Intravenous, ONCE NEEDED, 1 dose, Starting on Sat04/02/23 at 0746, Until Sat04/02/23 at 1112, FIRST line Nausea/vomiting,, If patient still experiencing nausea/vomiting after 1st dose use 2nd line antiemetic, Recovery hydrALAZINE (APRESOLINE) injection 5 mg 5 mg, Intravenous, EVERY 15 MINUTES NEEDED, 4 doses, Starting on Sat04/02/23 at 0746, Until Sat04/02/23 at 1112, SBP > 160 mmHg with HR <60 bpm, SECOND line HTN, For SBP > 160 Use if HR < 60. Administer over 2 minutes. May give a total of 20 mg while in PACU. Notify MD if BP still uncontrolled after 20 mg and no other antihypertensive agents are ordered., Recovery Labetalol (NORMODYNE) injection 5 mg 5 mg, Intravenous, EVERY 15 MINUTES NEEDED, 4 doses, Starting on Sat04/02/23 at 0746, Until Sat04/02/23 at 1112, SBP > 160 mmHg with HR >60 bpm, FIRST line HTN. , For SBP > 160 Hold if HR < 60 and give SECOND line agent. May give a total of 20 mg while in PACU. If blood pressure uncontrolled after 20mg of labetalol administered, use second line agent or notify MD. For vials: labetalol should be treated as a SINGLE USE VIAL. Discard remaining contents after one use., Recovery Lidocaine (XYLOCAINE) 10 mg/mL injection (CANCELED) NEEDED, Starting on Sat04/02/23 at 0744, Until Sat04/02/23 at 0752, Intra-op/Intra-Proc 0744 (Given - Provid er: Satya Sosa MD - Comment: other= perineum) Ondansetron 4mg/2ml (ZOFRAN) injection 4 mg 4 mg, Intravenous, EVERY 4 HOURS NEEDED, Starting on Sat04/02/23 at 0844, Until Sat04/02/23 at 1112, Nausea / Vomiting, 1st line, Post-op/Post-Proc oxyCODONE (ROXICODONE) tablet 5 mg 5 mg, Oral, EVERY 6 HOURS NEEDED, Starting on Sat04/02/23 at 0844, Until Sat04/02/23 at 1112, Severe Pain, Post-op/Post-Proc oxyCODONE (ROXICODONE) tablet 5 mg 5 mg, Oral, EVERY 4 HOURS NEEDED, 2 doses, Starting on Sat04/02/23 at 0746, Until Sat04/02/23 at 1112, Mild Pain, Recovery Prochlorperazine (COMPAZINE) injection 5 mg 5 mg, Intravenous, Administer over 5 Minutes, EVERY 1 HOUR NEEDED, Starting on Sat04/02/23 at 0746, Until Sat04/02/23 at 1112, Refractory Nausea Vomiting, SECOND Line, Use if patient still experiencing nausea/vomiting after 1st line antiemetic. For IV route: dilute dose with 10mL normal saline and give by slow IV push at a rate of 5mg/min. Maximum of 40mg/day., Recovery FOR RECORDS PERTAINING TO PATIENTS WHO ARE OR HAVE BEEN ENROLLED IN A CHEMICAL DEPENDENCY/SUBSTANCEABUSE PROGRAM, SOME INFORMATION MAY BE OMITTED. This clinical summary was aggregated from multiple sources. Caution should be exercised in using it in the provision of clinical care. This summary normalizes information from multiple sources, and as a consequence, information in this document may materially change the coding, format and clinical context of patient data. In addition, data may be omitted in some cases. CLINICAL DECISIONS SHOULD BE BASED ON THE PRIMARY CLINICAL RECORDS. [employer] [facility]. provides no warranty or guarantee of the accuracy or completeness of information in this document.
--- NOTE | 2023-04-23 11:30 | PET_ITS ---
EXAMINATION: F [address] HISTORY: 57-year-old male with recent diagnosis of primary prostate carcinoma presenting for initial staging examination. COMPARISON EXAMINATION: None available INDEX LESION SIZE PROMISE SCORE SUV TUMOR/PAROTID RATIO INTERPRETATION R Prostate gland 17.4 mm 2 12.56 0.38 Fulfills quantitative criteria for viable neoplasm TECHNIQUE: Following the intravenous administration of 8.8 mCi of F 18 PSMA- via the left antecubital fossa, image acquisitions of the head, neck, chest, abdomen and pelvis contemporaneously interpreted with the CT of neck, chest, abdomen and pelvis dated 04/23/2023 to the level of the mid thigh at 70 minutes post-tracer distribution reveal: The examination was interpreted using the EANM (Rahul et al., Journal of Nuclear Medicine Molecular Imaging 44:1622, 2017) and PROMISE (Darin et al., Journal of Nuclear Medicine 59:469, 2018) interpretive criteria. HEIGHT: 69 inches WEIGHT: 185 pounds PSMA expression score PROMISE criteria: High (3): SUV ? parotid-salivary gland, intermediate (2): SUV ? liver, low (1): > blood pool, < liver, (0): < blood pool. SUV reference values: Parotid glands 33.31 Normal liver parenchyma 9.4 Blood pool 2.0 FINDINGS: Head/Neck: Symmetric radiopharmaceutical is defined in the right and left parotid and submandibular glands. Physiologic uptake is identified in the nasal cavity. There is no evidence of abnormal increased tracer uptake within the cranial vault. CHEST: Mild increased tracer concentration is defined in the bilateral thoracic perihilum generating a calculated maximum standard uptake value of 3.18. The promise score is 1. Mild increased tracer uptake is noted in the right axilla with a calculated standard uptake value of 2.3. The promise score is [address] findings are as follows. Additional bilateral axillary soft tissue densities demonstrate no evidence of quantitatively significant increased tracer uptake. There are no parenchymal densities nodules defined in the right and left hemithorax pulmonary parenchyma with increased radiopharmaceutical distribution. Minimal calcification is encountered in the ascending thoracic aorta without evidence of aneurysm. Abdomen/Pelvis: Enhanced radiopharmaceutical concentration is defined in the prostate gland to the right of midline extending from the apex and midportion of the prostate gland. The calculated standard uptake value is 12.56. The promise score is 2. The maximal axial diameter of the metabolic abnormality is 17.4 mm. Normal physiologic uptake is noted in the hepatic and splenic parenchyma. There is symmetric demonstration of the right and left kidneys, normal uptake in the urinary bladder and visualized intestinal tract. Review of CT of the abdomen and pelvis reveals the following. A small fat containing left inguinal hernia is noted. Subtle dystrophic calcification is noted in the midline prostate gland. Calcification is demonstrated in the pancreatic body and left renal unit. Right and left inguinal soft tissue densities are non-tracer avid. SKELETAL: Axial skeletal structures demonstrate no evidence of increased radiopharmaceutical concentration. PET/PET/CT Tumor Base -Thigh Init IMPRESSION: 1. ABNORMAL EXAMINATION INDICATIVE OF MALIGNANT-VIABLE NEOPLASM. 2. Facilitated radiotracer concentration defined in the prostate gland fulfills quantitative criteria for malignant transformation. Electronic Signature Jeramy Cruz D.O. Accurate Quantification of SUVs and standardized PROMISE scores for this report are calculated using the exclusive [employer], ([place]. Patent No. [phone] [id number] [phone] [phone] patent [phone] ). Standardization and correction of the FDG SUV metric exclusively available with [employer] intellectual property, allow for vendor non-specific objective quantitative sequential FDG PET-CT comparison and otherwise unobtainable optimization of the sensitivity and specificity of the examination. [email or web address] Electronically Signed: Jeramy Cruz DO at 14:59 EST ,
== END | disposition home or self-care (01) ==
LOC: ONC 09:35
PROVIDERS: PCP Family Medicine
DX: C61 Malignant neoplasm of prostate (principal)
CPT/HCPCS: 78815; A9595

== ENCOUNTER → 2023-09-04 | Outpatient (CLI) | payer OTHER, SELFPAY ==
[2023-09-04 15:57] LABS: PSA,Total- Diagnostic 0.15 ng/mL (0.0-4.0)
== END | disposition home or self-care (01) ==
LOC: LAB 14:55
PROVIDERS: PCP Family Medicine
DX: C61 Malignant neoplasm of prostate (principal)
CPT/HCPCS: 36415; 84153

== ENCOUNTER → 2023-11-19 | Outpatient (CLI) | payer OTHER, SELFPAY ==
[2023-11-19 13:26] LABS: PSA,Total- Diagnostic 0.03 ng/mL (0.0-4.0)
== END | disposition home or self-care (01) ==
LOC: LAB 11:07
PROVIDERS: PCP Family Medicine
DX: C61 Malignant neoplasm of prostate (principal)
CPT/HCPCS: 36415; 84153

== ENCOUNTER → 2024-02-06 | Outpatient (CLI) | payer OTHER, SELFPAY ==
[2024-02-06 16:09] LABS: PSA,Total - Annual Screen 0.06 ng/mL (0.00-4.00)
== END | disposition home or self-care (01) ==
LOC: LAB 14:24
PROVIDERS: PCP Family Medicine
DX: C61 Malignant neoplasm of prostate (principal)
CPT/HCPCS: 36415; 84153; G0103

== ENCOUNTER → 2024-04-08 | Outpatient (CLI) | payer OTHER, SELFPAY ==
--- NOTE | 2024-04-08 09:36 | NEURO ---
NCS and/or EMG Patient Report Ordering Doctor: Kerry Atkins DATE OF SERVICE: 04/08/24 Norman presents with complaints of right-sided low back pain. He reports numbness and tingling in the right foot. Electrodiagnostic findings: Peroneal motor nerve demonstrates normal distal latency, amplitude and conduction velocity bilaterally. Normal tibial motor response bilaterally. Normal tibial and peroneal F?waves. H?reflex normal bilaterally. Sensory responses are within normal limits. Needle EMG testing was performed the lower limbs. All muscles tested showed no evidence of denervation with normal motor unit action potentials. Electrodiagnostic impression: This is a normal electrodiagnostic study in the lower limbs. There is no electrodiagnostic evidence for peripheral neuropathy or lumbosacral radiculopathy. Multi Select Codes Neurology Neurology Interp Codes: 35803-11 Musc test done w/n test comp (interp) (2) and 78359-02 Nrv cndj test 13/> studies (interp)
--- NOTE | 2024-04-08 10:27 | CT_ITS ---
PROCEDURE: PELVIS without IV CONTRAST REASON FOR EXAM: Posterior right sacroiliac joint pain for 3 months. Prior total prostatectomy and lymph node dissection. TECHNIQUE: Pelvis CT without contrast. Multiple axial tomographic images were obtained without intravenous contrast administration. Sagittal and coronal reconstruction was obtained as well. COMPARISON: None. FINDINGS: Bones: No fracture is identified. Hip Joints: Joint spaces are preserved. No subluxation or dislocation. SI Joints: Unremarkable. Soft Tissues: Status post total prostatectomy. Scattered sigmoid diverticula. Small benign-appearing lymph nodes in the both groins. CT/Pelvis WITH IV Contrast IMPRESSION: NO CT EVIDENCE OF FRACTURE AT THE PELVIS OR HIPS. No acute abnormality is seen. One or more dose reduction techniques were used (e.g., Automated exposure contr ol, adjustment of the mA and/or kV according to patient size, use of iterative reconstruction technique). Reading Location: [place] [id number]
== END | disposition home or self-care (01) ==
PROVIDERS: PCP Family Medicine; Referring Provider Anesthesiology Pain Medicine; Visit Provider Anesthesiology Pain Medicine
DX: R10.2 Pelvic and perineal pain (principal); R20.0 Anesthesia of skin
CPT/HCPCS: 72193; 95886; 95913; Q9967

== ENCOUNTER → 2024-05-18 | Outpatient (CLI) | payer OTHER, SELFPAY ==
[2024-05-18 22:47] LABS: PSA,Total- Diagnostic 0.11 ng/mL (0.00-4.00)
== END | disposition home or self-care (01) ==
LOC: LAB 10:54
PROVIDERS: PCP Family Medicine; Referring Provider Urology; Visit Provider Urology
DX: C61 Malignant neoplasm of prostate (principal)
CPT/HCPCS: 36415; 84153

== ENCOUNTER → 2024-06-09 | Outpatient (CLI) | payer OTHER, SELFPAY ==
--- NOTE | 2024-06-09 07:30 | PET_ITS ---
PROCEDURE: PET/CT TUMOR BASE -THIGH SUBS 06/09/2024 REASON FOR EXAM: 58 y/o M with MALIGNANT NEOPLASM OF PROSTATE TECHNIQUE: Following the intravenous administration of radionucleotide, image acquisition on a dedicated PET/CT unit was performed at one hour post injection. A preliminary CT study encompassing the Skull base, neck, chest, abdomen, pelvis, and proximal thighs was performed for purposes of attenuation correction and anatomic localization. The proximal thighs were also included. RADIOPHARMACEUTICAL: 9.608 mCi F-18 Pylarify IV was injected into he patient. RADIATION DOSE SUMMARY: Effective Dose: Approximately 7 mSv for a standard whole-body PET scan COMPARISON: Pelvis CT 04/08/2024 and PET-CT of 04/23/2023. FINDINGS: Physiologic uptake: Normal physiological uptake was seen. PSMA AVID AND NON-AVID LESIONS. Reported avid SUV values (g/mL*) are maximum SUV. NECK: There are no significant neck abnormalities. CHEST: Chest wall- There are no significant chest wall abnormalities. Axilla- There are no significant axillary abnormalities. Lung parenchyma- There are no significant lung parenchyma abnormalities. Mediastinum- There are no significant hilar or mediastinal adenopathy. Pleura- There are no significant pleural abnormalities. ABDOMEN: Stomach- No significant abnormalities. Liver- No significant abnormalities. Spleen- No significant abnormalities. Pancrease- No significant abnormalities. Kidneys-a 2 mm nonobstructive left inferior renal calculus is seen. Bowel- Normal bowel activity. Spine- No significant abnormalities. Mild arterial calcification is noted; no evidence of abdominal aortic aneurysm. PELVIS: Bowel- Normal physiologic bowel activity is identified. Masses- There are no pelvic masses. No abnormal uptake is seen in the prostate bed. LOWER EXTREMITIES: Bones- With the use of bone window settings, there are no osteolytic or osteoblastic lesions. There are no PSMA avid lesions within the visualized portion of the axial skeleton. PET/PET/CT Tumor Base -Thigh Subs IMPRESSION: PSMA avid-No significant avid lesions. Suspicious- No significant suspicious abnormalities. Other: Nonobstructive small left inferior renal calculus. Please note the low-dose CT scan was performed to facilitate PET image reconstr uction and anatomic localization and does not replace a diagnostic CT. Any diagnostic CT requested and performed at the time of the PET will be reported separately. Reading Location: [address]
== END | disposition home or self-care (01) ==
LOC: ONC 07:22
PROVIDERS: PCP Family Medicine; Referring Provider Urology; Visit Provider Urology
DX: C61 Malignant neoplasm of prostate (principal); R97.20 Elevated prostate specific antigen [PSA]
CPT/HCPCS: 78815; A9595

== ENCOUNTER → 2024-06-19 | Outpatient (CLI) | payer OTHER, SELFPAY ==
--- NOTE | 2024-06-19 09:52 | MRI_ITS ---
PROCEDURE: PELVIS W/WO CONTRAST, 06/19/2024 REASON FOR EXAM: EVAL FOR PROSTATE CANCER RECURRENCE TECHNIQUE: Multisequence multiplanar MRI pelvis was performed with and without IV contrast. CONTRAST: 17 mL Clariscan COMPARISON: 06/09/2024 FINDINGS: Mild artifact on diffusion related to small amount of bowel gas. Prostate size: Radical prostatectomy with mild T2 presumed scarring in the prostatectomy bed. No nodular restricted diffusion or enhancement identified within the region. Seminal vesicles: Surgically absent. Bladder: Underdistended and suboptimally evaluated, grossly unremarkable. Lymph nodes: LEFT external iliac node, 10 mm short axis. Bones: No frankly destructive bony lesions identified. Nonspecific enhancing lesions in the RIGHT sacrum measure up to 6 mm. Other: None. MRI/Pelvis W/WO Contrast IMPRESSION: 1. Radical prostatectomy without definite evidence of local recurrence. 2. Mildly enlarged LEFT external iliac node by PI-RADS criteria and nonspecific bony lesions in the RIGHT sacrum up to 6 mm, both without definite abnormal uptake on previous PSMA PET/CT. Given the context, c lose clinical follow-up recommended. Bone scan could be considered, however these may be too small for resolution. Correlatio n with PSA may also be helpful. 3. Additional description as above. Reading Location: [place]
== END | disposition home or self-care (01) ==
LOC: MRI 12-24 08:28
PROVIDERS: PCP Family Medicine; Referring Provider Student in an Organized Health Care Education/Training Program; Visit Provider Student in an Organized Health Care Education/Training Program
DX: C61 Malignant neoplasm of prostate (principal); R97.21 Rising PSA following treatment for malignant neoplasm of prostate; Z19.1 Hormone sensitive malignancy status
CPT/HCPCS: 72197; A9575; A4216

== ENCOUNTER → 2024-07-06 | Outpatient (CLI) | payer OTHER, SELFPAY ==
--- NOTE | 2024-07-06 11:34 | MRI_ITS ---
EXAM: PELVIS W/WO CONTRAST 07/06/2024 CLINICAL HISTORY: SACRAL LESION. TECHNIQUE: MRI of the pelvis was performed. Multiplanar and multisequence images were obtained intravenous gadolinium contrast. CONTRAST: 19 cc Clariscan COMPARISON: April 08, 2024 CT, June 19 2024 MRI FINDINGS: There is a 0.6 x 0.6 cm circumscribed high T2, low T1, high postcontrast signal focus in the right S1 lateral mass, image 14/40. There is a 0.7 x 0 point 7 cm circumscribed high T2, intermediate to low precontrast T1, high postcontrast T1 signal lesion in the right S3 lateral mass, axial image 19/40. There are no other definite enhancing lesions in the pelvis, sacrum, and visualized portions of the right and left femur. There is no evidence of occult fracture. Muscular structures are unremarkable. There is no visible adenopathy. There is normal enhancement of the vascular structures. MRI/Pelvis W/WO Contrast IMPRESSION: There is a 0.6 x 0.6 cm circumscribed high T2, low T1, high postcontrast signal focus in the right S1 lateral mass, image 14/40. There is a 0.7 x 0 point 7 cm circumscribed high T2, intermediate to low precon trast T1, high postcontrast T1 signal lesion in the right S3 lateral mass, axial image 19/40. These lesions both measured 0.4 c m on the December 17, 2018 exam and show slow interval progression. Continued follow-up is recommended. Reading Location: [place]
--- NOTE | 2024-07-06 11:35 | MRI_ITS ---
PROCEDURE: SPINE LUMBAR W/WO CONTRAST 07/06/2024 REASON FOR EXAM: SACRAL LESION TECHNIQUE: Multiplanar and multisequence images were obtained without and with intravenous gadolinium-based contrast administration. CONTRAST: 19 cc Clariscan gadolinium contrast COMPARISON: January 16, 2023, March 10, 2021 x-ray FINDINGS: There is grade 1 spondylolisthesis at L5-S1, 0.6 cm. The vertebral body height is maintained. Vertebral body marrow signal is normal. Intervertebral disc signal shows desiccation. The facets are aligned. The L1-L2 level: There is no significant disk protrusion. There is no lateral recess stenosis or foraminal stenosis. There is no critical central canal stenosis. The L2-L3 level: There is no significant disk protrusion. There is no lateral recess stenosis or foraminal stenosis. There is no critical central canal stenosis. The L3-L4 level: There is no significant disk protrusion. There is no lateral recess stenosis or foraminal stenosis. There is no critical central canal stenosis. The L4-L5 level: There is central and right paracentral disc extrusion which extends beyond the L5 endplate, attached at the margin, measuring 0.4 x 0.6 x 0.7 cm. There is mild right and left lateral recess effacement. There is mild bilateral foraminal narrowing secondary to disc protrusion. There is no central canal stenosis. The L5-S1 level: There is extrusion in the right foramen with a 1.1 x 0.6 x 0.5 cm fragment. There is no significant lateral recess stenosis. There is moderate right foraminal narrowing. There is no critical central canal stenosis. The visualized conus shows normal signal characteristics. Postcontrast images: The postcontrast images show enhancement at the left L4-5 pedicle measuring 0.8 x 1.0 cm, sagittal image 10/17. There is enhancement at the posterior left L5 S1 facet measuring 0.6 by 0.7 cm, image 4/17. There is no discrete low T1 signal lesion associated with these findings or discrete mass visible. No other suspicious enhancing lesions are identified. MRI/Spine Lumbar W/WO Contrast IMPRESSION: There is grade 1 spondylolisthesis at L5-S1, 0.6 cm. The postcontrast images show enhancement at the left L4-5 pedicle measuring 0.8 x 1.0 cm, sagittal image 10/17. There is enhancement at the posterior left L5 S1 facet measuring 0.6 by 0.7 cm, image 06/11. There is no discrete low T1 signal lesion associated with these findings or discrete mass visible. These lesions are likely inflammatory, related to the L5 spondylolysis. There is disc extrusion at L4-5 and L5-S1. There is no central canal stenosis, with lateral recess and foraminal narrowing . Reading Location: [place]
== END | disposition home or self-care (01) ==
LOC: MRI 12-24 08:29
PROVIDERS: PCP Family Medicine; Referring Provider Family Medicine; Visit Provider Family Medicine
DX: M53.3 Sacrococcygeal disorders, not elsewhere classified (principal)
CPT/HCPCS: 72158; 72197; A9575

== ENCOUNTER → 2024-09-29 | Outpatient (CLI) | payer OTHER, SELFPAY ==
[2024-09-29 15:42] LABS: PSA,Total- Diagnostic < 0.02 ng/mL (0.00-4.00)
--- OUTSIDE RECORDS SUMMARY | 2024-09-29 19:19 | XMS RPT_ITS | CCD ---
Author Organization [facility] Care Team Providers Care Theatre Manager Name Role Phone Chichi Argueta MD Primary Care Provider Claude Patel MD Unavailable Dr. Chichi Argueta Primary Care Provider [phone] Dr. Chichi Argueta Referring Provider Dr. Thanh Dixon Attending Provider Dr. Andrei Francois Attending Provider Chichi Argueta MD Primary Care Provider Claude Patel MD Unavailable Dr. Chichi Argueta MD Primary Care Provider [phone] SATYA WHITMORE Attending Provider [phone] SATYA WHITMORE Referring Provider [phone] Kerry Atkins MD Attending Provider Wilbert VICK, Dr. Payne Referring Provider Wilbert VICK, Dr. Payne Other Provider Rivera VICK, Dr. Daniels Attending Provider Dr. Satya Whitmore MD Attending Provider Myranda VICK, Dr. Hernadez Referring Provider Dr. Chichi Argueta MD Referring Provider Paco Burnett Attending Provider [phone] Dr. Chichi Argueta MD Primary Care Provider [phone] Dr. Seb Clarke DO Attending Provider Dr. Seb Clarke DO Referring Provider Dr. Royer Bey MD Attending Provider Kendall VICK, Dr. Chichi [place] Primary Care Provider Tricia SUAZO, Dr. Grigsby Referring Provider AILYNNERCHICHI Referring Unavailable MYRANDA, SATYA Attending Unavailable SCHINNER, CHICHI Primary Care Unavailable SCHINNER, CHICHI Referring Unavailable SCHINNER, CHICHI Primary Care Unavailable MYRANDA, SATYA Attending Unavailable SCHINNER, CHICHI Primary Care Unavailable RIVERA SANDOVAL Attending Unavailable MYRANDA, SATYA Referring Unavailable SCHINNER, CHICHI Primary Care Unavailable SCHINNER, CHICHI Referring Unavailable MYRANDA, SATYA Attending Unavailable SCHINNER, CHICHI Referring Unavailable MYRANDA, SATYA Attending Unavailable SCHINNER, CHICHI Primary Care Unavailable Schinner, Chichi E Primary Care Unavailable Myranda, Satya Referring Unavailable Myranda, Satya Attending Unavailable Schinner, Chichi E Primary Care Unavailable Myranda, Satya Attending Unavailable Myranda, Satya Referring Unavailable PESEK, TOD1 Attending Unavailable Schinner, Chichi E Primary Care Unavailable Seb Clarke Attending Unavailable Schinner, Chichi E Primary Care Unavailable Myranda, Satya Referring Unavailable Schinner, Chichi E Referring Unavailable Seb Clarke Attending Unavailable Schinner, Chichi E Primary Care Unavailable Schinner, Chichi E Primary Care Unavailable PESEK, TOD1 Referring Unavailable PESEK, TOD1 Attending Unavailable Schinner, Chichi E Primary Care Unavailable Basali Ayman Referring Unavailable Basali Ayman Attending Unavailable Schinner, Chichi E Primary Care Unavailable Schinner, Chichi E Referring Unavailable Schinner, Chichi E Attending Unavailable Schinner, Chichi E Referring Unavailable TriciaSeb cat Attending Unavailable Schinner, Chichi E Primary Care Unavailable Seb Clarke Attending Unavailable Schinner, Chichi E Primary Care Unavailable Seb Clarke Referring Unavailable Schinner, Chichi E Primary Care Unavailable TriciaSeb cat Attending Unavailable Schinner, Chichi E Primary Care Unavailable Assessment, Health Risk Referring Unavaila ble Assessment, Health Risk Attending Unavaila ble Seb Clarke Attending Unavailable Seb Clarke Referring Unavailable Schinner, Chichi E Primary Care Unavailable SchChichi owens Referring Unavailable SchChichi owens Primary Care Unavailable Seb Clarke Attending Unavailable Chichi Argueta Primary Care Unavailable Seb Clarke Attending Unavailable Seb Clarek Attending Unavailable Seb Clarke Referring Unavailable SchChichi owens Primary Care Unavailable Seb Clarke Attending Unavailable Seb Clarke Referring Unavailable SchChichi owens Primary Care Unavailable Seb Clarke Attending Unavailable Seb Clarke Referring Unavailable SchinChichi zavaleta Primary Care Unavailable Schinner, Chichi [place] Primary Care Unavailable Basali Ayman Referring Unavailable Basali Ayman Consulting Unavailable Frances Stafford Attending Unavailable Seb Clarke Attending Unavailable Seb Clarke Referring Unavailable SchChichi owens Primary Care Unavailable Seb Clarke Referring Unavailable Schinwaqar, Chichi [place] Primary Care Unavailable Seb Clarke Attending Unavailable Chichi Argueta Primary Care Unavailable Chichi Argueta Referring Unavailable Paco Burnett Attending Unavailable Medications Current Medications Medication Drug Class(es) Dates Sig (Normalized) Sig (Original) hyoscyamine sulfate 0.125 mg oral tablet (3 sources) Start: 08-07-2023 take 1 tablet by mouth every four hours as needed hyoscyamine 0.125 MG tablet Indications: Malignant neoplasm of prostate Take 1 tablet by mouth every 4 hours as needed for Cramping. 30 tablet 1 08/07/2023 Active meloxicam 15 mg oral tablet (12 sources) Nonsteroidal Anti-inflammatory Drug Start: 01-11-2023 take 1 tablet by mouth once daily Meloxicam 15 mg tablet Active 15 mg PO DAILY January 11, 2023 1:00am oxyCODONE hydrochloride 5 mg oral tablet (6 sources) Opioid Agonist Start: 07-29-2023 End: 08-01-2023 take 1 tablet by mouth every six hours as needed oxyCODONE 5 MG tablet Indications: Malignant neoplasm of prostate Take 1 tablet by mouth every 6 hours as needed for up to 3 days. 5 tablet 07/29/2023 Active Start: 04-02-2023 End: 04-02-2023 take 1 tablet by mouth every six hours as needed oxyCODONE (ROXICODONE) tablet 5 mg pantoprazole 20 mg delayed release oral tablet (11 sources) Proton Pump Inhibitor Start: 05-19-2024 take 1 tablet by mouth once daily Pantoprazole 20 mg tablet,delayed release (DR/EC) Active 20 mg PO daily May 19, 2024 12:00am Start: 01-03-2024 Pantoprazole [address] tablet DR Take 1 tablet by mouth. 01/03/2024 Active 24 hr propranolol hydrochloride 80 mg extended release oral capsule (8 sources) beta-Adrenergic Sergei Start: 07-29-2024 take 1 capsule by mouth once daily Propranolol (Inderal La) 80 mg capsule,extended release 24 hr Active 80 mg PO daily July 29, 2024 12:00am sildenafil 100 mg oral tablet (10 sources) Phosphodiesterase 5 Inhibitor Start: 05-26-2024 take 1 tablet by mouth once daily as needed Sildenafil 100 mg tablet Active 100 mg PO daily as needed May 26, 2024 12:00am Start: 08-28-2023 sildenafil cit rate (Viagra) 100 MG tablet Take 1/2 tablet by mouth 6 days a week and 1 tablet on the 7th day of the week. 30 tablet 11 08/28/2023 Active sodium phosphate, dibasic 35.5 mg/ml / sodium phosphate, monobasic 96.4 mg/ml enema (2 sources) Start: 10-14-2020 sodium phosphate w/sodium biphosphate 7-19 GM/118ML Enema Use 1 enema as directed the evening prior to prostate biopsy. Repeat the morning of scheduled biopsy. 2 enema 0 10/14/2020 Active sulfamethoxazole 800 mg / trimethoprim 160 mg oral tablet (1 source) Dihydrofolate Reductase Inhibitor Antibacterial, Sulfonamide Antimicrobial Start: 08-11-2023 End: 2023 take 1 tablet by mouth twice daily Sulfamethoxazole -trimethoprim (Bactrim DS) 800-160 MG per tablet Take 1 tablet by mouth 2 times daily for 3 days. Start taking day prior to catheter removal and continue until course complete 6 tablet 08/11/2023 2023 Active Completed/Discontinued Medications Medication Drug Class(es) Dates Sig (Normalized) Sig (Original) acetaminophen 325 mg oral tablet (6 sources) Start: 07-30-2023 End: 07-30-2023 take 1 tablet by mouth every eight hours 975 mg, Oral, EVERY 8 HOURS NON-STANDARD, First dose (after last modification) on Sat07/30/23 at 0000, Until Discontinued, Maximum dose of acetaminophen is 4000 mg from all sources in 24 hours., Post-op/Post-Proc Start: 07-29-2023 End: 07-29-2023 975 mg, Oral, 3 TIMES DAILY, First dose on Sat07/29/23 at 1545, Until Discontinued, Maximum dose of acetaminophen is 4000 mg from all sources in 24 hours., Post-op/Post-Proc Start: 07-29-2023 End: 08-05-2023 take 1 tablet by mouth every six hours acetaminophen 650 MG Tab CR Take 1 tablet by mouth every 6 hours for 7 days. 28 tablet 07/29/2023 Active Start: 04-02-2023 End: 04-02-2023 Acetaminophen (TYLENOL) tabl et 650 mg aluminum hydroxide 40 mg/ml / magnesium hydroxide 40 mg/ml / simethicone 4 mg/ml oral suspension (1 source) Start: 07-29-2023 End: 07-30-2023 take 30 mL by mouth every six hours as needed calcium chloride 0.0014 meq/ml / potassium chloride 0.004 meq/ml / sodium chloride 0.103 meq/ml / sodium lactate 0.028 meq/ml injectable solution (4 sources) Start: 07-29-2023 End: 07-29-2023 Intravenous, at 125 mL/hr, CONTINUOUS, Starting on Sat07/29/23 at 1430, Until Sat07/29/23 at 2028, Post-op/Post-Proc Start: 04-02-2023 End: 04-02-2023 Lactated ringers IV solution ceFAZolin 2000 mg injection (2 sources) Cephalosporin Antibacterial Start: 07-29-2023 End: 07-30-2023 take 2 g intravenously every eight hours 2 g, Intravenous, Administer over 30 Minutes, EVERY 8 HOURS NON-STANDARD, 2 doses, First dose on Sat07/29/23 at 1930, Last dose on Sat07/30/23 at 0330, Post-op/Post-Proc Start: 04-02-2023 End: 04-02-2023 ceFAZolin (ANCEF) 2 g in dex trose 100 mL premix IVPB doxycycline monohydrate 100 mg oral capsule (11 sources) Tetracycline-class Drug Start: 05-19-2024 End: 06-16-2024 take 1 capsule by mouth twice daily Doxycycline Monohydrate 100 mg capsule Discontinued 100 mg PO TWICE A DAY May 19, 2024 12:00am June 16, 2024 2:01pm 0.4 ml enoxaparin sodium 100 mg/ml prefilled syringe (1 source) Low Molecular Weight Heparin Start: 07-29-2023 End: 07-30-2023 inject 40 mg by subcutaneous injection every twenty-four hours 40 mg, Subcutaneous, EVERY 24 HOURS, First dose on Sat07/29/23 at 1545, Until Discontinued, For SUBCUTANEOUS route ONLY: alternate injection sites between left and right abdominal wall, pinching location and avoiding area around navel. If unable to use abdominal sites, may use the front or side of thighs., Indications: DVT/PE prophylaxis, Post-op/Post-Pro c famotidine 20 mg oral tablet (1 source) Histamine-2 Receptor Antagonist Start: 07-29-2023 End: 07-30-2023 take 1 tablet by mouth every twelve hours as needed 2 ml fentaNYL 0.05 mg/ml injection (1 source) Opioid Agonist Start: 04-02-2023 End: 04-02-2023 fentaNYL (SUBLIMAZE) injection 25 mcg gadoterate Meglumine (DOTAREM) 5 MMOL/10ML injection 3-60 mL (2 sources) Start: 08-29-2022 End: 08-29-2022 gadoterate Meglumine (DOTAREM) 5 MMOL/10ML injection 3-60 mL Start: 10-13-2020 End: 10-13-2020 gadoterate Meglumine (DOTARE M) 5 MMOL/10ML injection 3-60 mL 1 ml haloperidol 5 mg/ml prefilled syringe (1 source) Typical Antipsychotic Start: 04-02-2023 End: 04-02-2023 Haloperidol lactate (HALDOL) injection 1 mg 1 ml heparin sodium, porcine 5000 unt/ml prefilled syringe (1 source) Unfractionated Heparin, Anti-coagulant Start: 07-29-2023 End: 07-29-2023 5,000 Units, Subcutaneous, PRE-OP, 1 dose, On Sat07/29/23 at 0615, Pre-op/Pre-Proc 1 ml hydrALAZINE hydrochloride 20 mg/ml injection (1 source) Arteriolar Vasodilator Start: 04-02-2023 End: 04-02-2023 hydrALAZINE (APRESOLINE) injection 5 mg ibuprofen 600 mg oral tablet (6 sources) Nonsteroidal Anti-inflammatory Drug Start: 07-29-2023 End: 07-30-2023 take 1 tablet by mouth every eight hours 600 mg, Oral, EVERY 8 HOURS NON-STANDARD, First dose on Sat07/29/23 at 1945, Until Discontinued, Give with food Start: 07-29-2023 take 1 tablet by jacky th every six hours as needed Ibuprofen 600 MG tablet Take 1 tablet by mouth every 6 hours as needed. Take with food 20 tablet 07/29/2023 Active Start: 04-02-2023 End: 04-02-2023 Ibuprofen (MOTRIN) tablet 60 0 mg labetalol hydrochloride 5 mg/ml injectable solution (1 source) beta-Adrenergic Sergei Start: 04-02-2023 End: 04-02-2023 Labetalol (NORMODYNE) injection 5 mg omeprazole 40 mg delayed release oral capsule (15 sources) Proton Pump Inhibitor Start: 07-04-2017 End: 01-11-2023 take 1 capsule by mouth twice daily Omeprazole 40 MG capsule,delayed release(DR/EC) Discontinued 40 mg PO TWICE A DAY 60 0 July 04, 2017 12:00am January 11, 2023 1:21pm 2 ml ondansetron 2 mg/ml injection (1 source) Serotonin-3 Receptor Antagonist Start: 04-02-2023 End: 04-02-2023 take 4 mg intravenously every four hours as needed Ondansetron 4mg/2ml (ZOFRAN) injection 4 mg Ondansetron 4mg/2ml (ZOFRAN) injection 4 mg (1 source) Start: 07-29-2023 End: 07-30-2023 take 4 mg intravenously every six hours as needed Ondansetron 4mg/2ml (ZOFRAN) injection 4 mg polyethylene glycol 3350 20179 mg powder for oral solution (2 sources) Osmotic Laxative Start: 07-30-2023 End: 07-30-2023 Start: 07-29-2023 End: 08-12-2023 take 17 g by mouth once daily Polyethylene glycol 17 G M/SCOOP Powder powder Take 17 g by mouth daily for 14 days. 255 g 07/29/2023 08/12/2023 Active prochlorperazine 5 mg/ml injectable solution (1 source) Phenothiazine Start: 04-02-2023 End: 04-02-2023 take 5 mg intravenously every hour as needed Prochlorperazine (COMPAZINE) injection 5 mg simethicone 80 mg chewable tablet (1 source) Start: 07-29-2023 End: 07-30-2023 take 80 mg by mouth at bedtime 80 mg, Oral, BEFORE MEALS & AT BEDTIME, First dose on Sat07/29/23 at 1600, Until Discontinued, Post-op/Post-Proc 20 ml sodium chloride 9 mg/ml injection (2 sources) Start: 08-29-2022 End: 08-29-2022 Sodium chloride (PF) 0.9 % injection 1-250 mL Start: 10-13-2020 End: 10-13-2020 sodium chloride (PF) 0.9 % i njection 1-250 mL VERIFY LINKED PATCH PLACEMEN T (1 source) Start: 07-29-2023 End: 07-30-2023 Other, EVERY 12 HOURS, First dose on Sat07/29/23 at 0900, Until Discontinued, Confirm continued adhesion of scopolamine 1.5 mg/72hr patch at documented site. Problems Active Problems Problem Classification Problem Date Documented Date Episodic/Chronic Cancer of prostate (20 sources) Malignant tumor of prostate; Translations: [Malignant neoplasm of prostate] Onset: 08-19-2024 07-17-2023 Chronic Disorders of lipid metabolism (7 sources) Hyperlipidemia; Translations: [Hyperlipidemia, unspecified] Onset: 09-11-2022 09-11-2022 Chronic Esophageal disorders (10 sources) Gastroesophageal reflux disease; Translations: [Gastro-esophageal reflux disease without esophagitis] 05-19-2024 Chronic Inflammation; infection of eye (except that caused by tuberculosis or sexually transmitteddisease) (20 sources) Blepharitis of right eyelid; Translations: [Unspecified blepharitis right eye, unspecified eyelid] Onset: 09-11-2022 09-11-2022 Episodic Other acquired deformities (12 sources) Lumbar spondylolisthesis; Translations: [Spondylolisthesis, lumbar region] 01-11-2023 Episodic Other acquired deformities (2 sources) Spondylolisthesis, lumbar region; Translations: [Acquired spondylolisthesis] 01-11-2023 Episodic Other acquired deformities (9 sources) Spondylolisthesis; Translations: [Spondylolisthesis, site unspecified] 05-26-2024 Episodic Other ear and sense organ disorders (7 sources) Sensorineural hearing loss, bilateral; Translations: [Sensorineural hearing loss, bilateral] Onset: 09-11-2022 09-11-2022 Chronic Other ear and sense organ disorders (9 sources) Tinnitus; Translations: [Tinnitus, unspecified ear] 05-26-2024 Episodic Other eye disorders (20 sources) Chalazion of right upper eyelid; Translations: [Chalazion right upper eyelid] 05-19-2024 Episodic Other nervous system disorders (7 sources) Lesion of ulnar nerve; Translations: [Lesion of ulnar nerve, unspecified upper limb] Onset: 09-11-2022 09-11-2022 Chronic Other screening for suspected conditions (not mental disorders or infectious disease) (20 sources) Raised prostate specific antigen; Translations: [Elevated prostate specific antigen [PSA]] Onset: 09-20-2020 Episodic Other upper respiratory disease (15 sources) Hoarse; Translations: [Dysphonia] 10-31-2017 Episodic Residual codes; unclassified (1 source) Sleep apnea; Translations: [Sleep apnea, unspecified] Onset: 09-11-2022 09-11-2022 Chronic Residual codes; unclassified (2 sources) Hormone sensitive malignancy status; Translations: [Hormone sensitive malignancy status] Onset: 07-28-2024 Episodic Spondylosis; intervertebral disc disorders; other back problems (8 sources) Lumbar spondylosis; Translations: [Spondylosis without myelopathy or radiculopathy, lumbar region] Onset: 09-11-2022 09-11-2022 Chronic Spondylosis; intervertebral disc disorders; other back problems (8 sources) Lumbar radiculopathy; Translations: [Radiculopathy, lumbar region] Onset: 09-11-2022 09-11-2022 Episodic Unclassified (8 sources) C61 - Malignant neoplasm of prostate,R97.21 - Rising PSA following treatment for malignant neoplasm of prostate,Z19.1 - Hormone sensitive malignancy status Unclassified (4 sources) Biochemically recurrent castration-sensitive adenocarcinoma of prostate Past or Other Problems Problem Classification Problem Date Documented Da te Episodic/Chronic Abdominal pain (1 source) Pelvic and perineal pain; Translations: [Pelvic and perineal pain] Onset: 05-07-2024 Episodic Anal and rectal conditions (7 sources) Anal fissure; Translations: [Anal fissure, unspecified] Onset: 09-11-2022 09-11-2022 Episodic Mood disorders (8 sources) Mood disorders Onset: 05-29-2022 Resolved: 05-20-2024 05-29-2022 Other nervous system disorders (1 source) Paresthesia of skin; Translations: [Paresthesia of skin] Onset: 05-07-2024 Episodic Other nervous system disorders (1 source) Anesthesia of skin; Translations: [Anesthesia of skin] Onset: 05-07-2024 Episodic Results Test Name Value Interpretation Reference Range Facility Radiation Oncology Visiton 0 09-14-2024 Radiation Oncology Visit [facility] [address] [place] [address] [place] [address] OFFICE VISIT Date of Service: 09/14/24 1352 MR#: [id number] Acct: [id number] Name: COOKIENORMAN Lucian Rep #: [id number] : 1965 From: Seb Clarke DO Age/Sex: 59/M Location: [facility] Status: Signed Intake Vital Signs 09/09/24 13:55 09/14/24 13:54 Height 5 ft 9 in 5 ft 9 in Weight: 188 lb 1 oz 187 lb 5 oz BMI 27.8 27.6 BP 144/89 H 146/92 H Blood Pressure Location Rt brachial Lt brachial Position Sitting Sitting Respiration 16 16 Pulse 73 73 Pulse Source Monitor Monitor Temp 96.9 F L 98.5 F Temperature Source Temporal Artery Temporal Artery Pulse Oximetry (%) 100 99 Oxygen Delivery Method room air room air Intake Visit Reasons: OTV Is patient in pain?: No Allergies No Known Allergies Allergy (Verified 09/14/24 13:56) Medications ???Medication ???Instructions ???Recorded ???Confirmed ???Type meloxicam 15 mg tablet 15 mg PO DAILY 01/11/23 09/14/24 H istory pantoprazole 20 mg tablet,delayed 20 mg PO QDAY 05/19/24 09/14/24 H istory release sildenafil 100 mg tablet 100 mg PO QDAY PRN 05/26/24 History propranolol 80 mg capsule,24 80 mg PO QDAY 07/29/24 09/14/24 Hi story hr,extended release (Inderal LA) PFSH PFSH Medical History Spondylolisthesis Elevated PSA Vocal cord papilloma virus Tinnitus Prostatic adenocarcinoma Malignant neoplasm prostate Chalazion right upper eyelid Blepharitis of right upper eyelid History of prostate cancer GERD (gastroesophageal reflux disease) Hoarseness Home Medications ???Medication ???Instructions ???Recorded ???Last Taken ???Type meloxicam 15 mg tablet 15 mg PO DAILY 01/11/23 Unknown Hi story pantoprazole 20 mg tablet,delayed 20 mg PO QDAY 05/19/24 Unknown Hi story release sildenafil 100 mg tablet 100 mg PO QDAY PRN 05/26/24 Unknow n History propranolol 80 mg capsule,24 80 mg PO QDAY 07/29/24 Unknown His tory hr,extended release (Inderal LA) Allergy/AdvReac Type Severity Reaction Status Date / Time No Known Allergies Allergy Verified 09/14/24 13:56 Family History Mother Hypertension CAD (coronary artery disease) Soft tissue sarcoma Father Cancer Prostate cancer Bladder cancer Brother Colon cancer Prostate cancer Uncle Bladder cancer Surgical History History of prostate biopsy History of radical retropubic prostatectomy History of prostatectomy H/O colonoscopy Status post vasectomy Social History Smoking Status: Never smoker alcohol intake: current alcohol intake frequency: a few times a week Alcohol type: beer substance use type: does not use Diagnosis Octavio Gary is a 59 year-old male diagnosed with 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 Plan: Plan was made to complete salvage radiation therapy consisting of 4600 cGy delivered to the at risk pelvic areas and prostate fossa followed by a boost delivered to the prostate fossa consisting of 2200 cGy delivered in 11 fractions. This brought the total dose to the prostate fossa to 6800 cGy in 34 fractions. Treatment Data: Treatment Site: Prostate Fossa and Pelvis Current total dose/Total dose planned: 4600 cGy / 4600 cGy, 2200 cGy / 2200 cGy Fraction number: , Chemotherapy: ADT Subjective: Pain: 0 / 10 Fatigue: mild since ADT; mild increase since RT Skin: no erythema, rash, desquamation GI: increase diarrhea pretty improved some this week, 2-4 per day, imodium 2 per day. No rectal pain or bleeding. No bloating or increased gas : not much increase urinary symptoms. some frequency/urgency. mild burning, no hematuria Objective: Weight: 187 lbs Physical Exam: Gen: NAD Skin: no erythema, rash, desquamation. Assessment Plan Assessment/Plan (1) Biochemically recurrent castration-sensitive adenocarcinoma of prostate: PLAN: Plan Assessment: Tolerated treatment well overall.??? I reviewed and approved all treatment associated imaging. Diarrhea, grade 1, imodium and electrolyte replacement Fatigue: grade 1 hot flashes mild Plan: Completed treatment as planned.??? I have reviewed potential treatment associated toxicities as well as timing for resolution and management. Follow up in one month or sooner if needed. Thank you for allowing me to participate in the management and care of your patient. If I may answer (more content not included)... [facility] Radiation Oncology Visit [facility] [address] [place] [address]. [place] [address] OFFICE VISIT Date of Service: 09/14/24 1243 MR#: [id number] Acct: [id number] Name: NORMAN GARY Rep #: [id number] : 1965 From: Seb Clarke DO Age/Sex: 59/M Location: [facility] Status: Signed End of Treatment Summary: Diagnosis: Octavio Gary is a 58 year-old male diagnosed with 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 Oncologic History: 08/29/2022: Patient completed MRI prostate.??? This demonstrated a lesion in the right anterior transitional zone extending into the fibromuscular stroma and into the right base measuring 2.5 x 1.2 x 1.4 cm, PI-RADS 4-5.??? Capsule appears intact no extracapsular extension is noted.??? Seminal vesicles are normal.??? Small external iliac and inguinal lymph nodes are seen which are nonspecific, slightly prominent left external iliac node measures 1.4 x 1.1 cm in size, no bony lesions are appreciated. 04/02/2023: Patient completed prostate biopsy.??? Pathology demonstrated [place] 3+4 adenocarcinoma involving 3/4 cores at the region of interest #1 biopsy and 1/2 cores of the left anterior fibromuscular stroma biopsy.??? There was noted to be Gabe 3+3 adenocarcinoma involving 1/2 cores in the right anterior fibromuscular stroma biopsy.??? All remaining biopsies were negative. 04/23/2023: Patient completed PSMA PET scan.??? This demonstrated increased tracer uptake defined in the prostate gland for filling quantitative criteria for viable neoplasm.??? SUV is 12.56.??? This is located in the midportion of the prostate gland to the right of midline. 07/29/2023: Patient completed a robotic radical prostatectomy with lymph node dissection.??? Pathology demonstrated [place] 3+4 adenocarcinoma, Gabe 4 is 21% of the tumor, there is noted to be extracapsular extension in the right anterior mid, no seminal vesicle invasion.??? Margin is positive spanning 0.1 mm at the right anterior mid.??? 13 lymph nodes were obtained and none contained metastatic disease.??? pT3a pN0 04/08/2024: Patient completed CT pelvis without contrast due to having increased sacroiliac joint pain for 3 months.??? No evidence of abnormalities appreciated. 06/09/2024: Patient completed PSMA PET scan.??? This demonstrated no concerning lesions. Radiation Treatment History: None The patient completed a course of external beam radiotherapy in our department. This treatment was delivered for curative intent. Treatment was given according to the following parameters: NORMAN GARY received salvage radiation therapy consisting of 4600 cGy delivered to the at risk pelvic areas and prostate fossa followed by a boost delivered to the prostate fossa consisting of 2200 cGy delivered in 11 fractions. This brought the total dose to the prostate fossa to 6800 cGy in 34 fractions. The patient did receive concurrent ADT. Date of First Treatment:07/27/2024 Date of Last Treatment: 09/14/2024 Total Elapsed Days (including weekend and holidays): 45 Missed Treatments: none Response and Tolerance: The patient tolerated this course of radiotherapy well overall. The following radiation related toxicities developed during the course of radiation therapy: * Grade 1 diarrhea which was treated with imodium * Grade 1 fatigue Total weight change during therapy: N/A Disposition: The patient tolerated the planned course of radiation therapy well without unexpected toxicity in an appropriate time course. I reviewed management of potential toxicities and discussed expected timing for toxicity resolution. I will have NORMAN follow-up in one month for a routine visit. NORMAN will maintain follow up with all other providers. NORMAN was instructed to call with any further questions or concerns in the interim. If we can provide any further information on this patient's course of care, please do not hesitate to ask. We would like to thank you very much for allowing us to participate in the care of this patient. Sincerely, Seb Clarke DO, MS Footwear Sales Associate, Department of Radiation Oncology [facility] 09/14/24 1246 Date Seb Keith Signature: Date (if applicable) CC: Dr. Satya Whitmore MD; Dr. Chichi Argueta MD; Dr. Claude Patel MD [facility] Radiation Oncology Visiton 0 09-09-2024 Radiation Oncology Visit [facility] [address] [address] OFFICE VISIT Date of Service: 09/09/24 1353 MR#: [id number] Acct: [id number] Name: NORMAN GARY Rep #: [id number] : 1965 From: Seb Clarke Age/Sex: 59/M Location: [facility] Status: Signed Intake Vital Signs 06/16/24 14:02 09/02/24 14:01 09/09/24 13:55 Height 5 ft 9 in 5 ft 9 in 5 ft 9 in Weight: 188 lb 9 oz 188 lb 1 oz BMI 27.8 27.8 BP 136/81 H 144/89 H Blood Pressure Location Rt brachial Rt brachial Position Sitting Sitting Respiration 18 16 Pulse 67 73 Pulse Source Monitor Monitor Temp 97.4 F L 96.9 F L Temperature Source Temporal Artery Temporal Artery Pulse Oximetry (%) 100 100 Oxygen Delivery Method room air room air Intake Visit Reasons: OTV Is patient in pain?: No Allergies No Known Allergies Allergy (Verified 09/09/24 13:58) PFSH PFSH Medical History Spondylolisthesis Elevated PSA Vocal cord papilloma virus Tinnitus Prostatic adenocarcinoma Malignant neoplasm prostate Chalazion right upper eyelid Blepharitis of right upper eyelid History of prostate cancer GERD (gastroesophageal reflux disease) Hoarseness Allergy/AdvReac Type Severity Reaction Status Date / Time No Known Allergies Allergy Verified 09/09/24 13:58 Family History Mother Hypertension CAD (coronary artery disease) Soft tissue sarcoma Father Cancer Prostate cancer Bladder cancer Brother Colon cancer Prostate cancer Uncle Bladder cancer Surgical History History of prostate biopsy History of radical retropubic prostatectomy History of prostatectomy H/O colonoscopy Status post vasectomy Social History Smoking Status: Never smoker alcohol intake: current alcohol intake frequency: a few times a week Alcohol type: beer substance use type: does not use Diagnosis Octavio Gary is a 59 year-old male diagnosed with 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 Plan: Plan was made to complete salvage radiation therapy consisting of 4600 cGy delivered to the at risk pelvic areas and prostate fossa followed by a boost delivered to the prostate fossa consisting of 2200 cGy delivered in 11 fractions. This brought the total dose to the prostate fossa to 6800 cGy in 34 fractions. Treatment Data: Treatment Site: Prostate Fossa and Pelvis Current total dose/Total dose planned: 4600 cGy / 4600 cGy, 1600 cGy / 2200 cGy Fraction number: , Chemotherapy: ADT Subjective: Pain: 0 / 10 Fatigue: mild since ADT; mild increase since RT Skin: no erythema, rash, desquamation GI: increase diarrhea pretty improved some this week, 2-4 per day, imodium 2 per day. No rectal pain or bleeding. No bloating or increased gas : not much increase urinary symptoms. some frequency/urgency. No dysuria or hematuria Objective: Weight: 188 lbs 1 oz Physical Exam: Gen: NAD Skin: no erythema, rash, desquamation. Assessment Plan Assessment/Plan (1) Biochemically recurrent castration-sensitive adenocarcinoma of prostate: PLAN: Plan Assessment: Tolerating treatment well overall.??? I reviewed and approved all treatment associated imaging. Diarrhea, grade 1, imodium and electrolyte replacement Fatigue: grade 1 hot flashes mild Plan: Continue treatment as planned.??? I have reviewed potential treatment associated toxicities as well as timing for resolution and management. Follow up next week or sooner if needed. Thank you for allowing me to participate in the management and care of your patient. If I may answer any questions in the interim, please do not hesitate to contact me at any time. Seb Clarke DO, MS Footwear Sales Associate, Department of Radiation Oncology [facility] Coding Level of Care Code Radiation Tx Management x5 Diagnoses Biochemically recurrent castration-sensitive adenocarcinoma of prostate C61; R97.21; Z19.1 09/09/24 1420 Date Seb Clarke DO Cosigner Signature: Date (if applicable) CC: [facility] Radiation Oncology Visiton 0 09-02-2024 Radiation Oncology Visit [facility] [address] [place] [address] OFFICE VISIT Date of Service: 09/02/24 1352 MR#: [id number] Acct: [id number] Name: NORMAN GARY Rep #: [id number] 1 : 1965 From: Seb Clarke DO Age/Sex: 59/M Location: [facility] Status: Signed Intake Vital Signs 06/16/24 14:02 08/26/24 13:44 09/02/24 14:01 Height 5 ft 9 in 5 ft 9 in 5 ft 9 in Weight: 188 lb 1 oz 188 lb 9 oz BMI 27.8 27.8 BP 108/78 136/81 H Blood Pressure Location Rt brachial Rt brachial Position Sitting Sitting Respiration 16 18 Pulse 84 67 Pulse Source Monitor Monitor Temp 97.4 F L 97.4 F L Temperature Source Temporal Artery Temporal Artery Pulse Oximetry (%) 99 100 Oxygen Delivery Method room air room air Intake Visit Reasons: OTV Is patient in pain?: No Allergies No Known Allergies Allergy (Verified 09/02/24 14:01) Medications ???Medication ???Instructions ???Recorded ???Confirmed ???Type meloxicam 15 mg tablet 15 mg PO DAILY 01/11/23 09/02/24 H istory pantoprazole 20 mg tablet,delayed 20 mg PO QDAY 05/19/24 09/02/24 H istory release sildenafil 100 mg tablet 100 mg PO QDAY PRN 05/26/24 History propranolol 80 mg capsule,24 80 mg PO QDAY 07/29/24 09/02/24 Hi story hr,extended release (Inderal LA) PFSH PFSH Medical History Spondylolisthesis Elevated PSA Vocal cord papilloma virus Tinnitus Prostatic adenocarcinoma Malignant neoplasm prostate Chalazion right upper eyelid Blepharitis of right upper eyelid History of prostate cancer GERD (gastroesophageal reflux disease) Hoarseness Home Medications ???Medication ???Instructions ???Recorded ???Last Taken ???Type meloxicam 15 mg tablet 15 mg PO DAILY 01/11/23 Unknown Hi story pantoprazole 20 mg tablet,delayed 20 mg PO QDAY 05/19/24 Unknown Hi story release sildenafil 100 mg tablet 100 mg PO QDAY PRN 05/26/24 Unknow n History propranolol 80 mg capsule,24 80 mg PO QDAY 07/29/24 Unknown His tory hr,extended release (Inderal LA) Allergy/AdvReac Type Severity Reaction Status Date / Time No Known Allergies Allergy Verified 09/02/24 14:01 Family History Mother Hypertension CAD (coronary artery disease) Soft tissue sarcoma Father Cancer Prostate cancer Bladder cancer Brother Colon cancer Prostate cancer Uncle Bladder cancer Surgical History History of prostate biopsy History of radical retropubic prostatectomy History of prostatectomy H/O colonoscopy Status post vasectomy Social History Smoking Status: Never smoker alcohol intake: current alcohol intake frequency: a few times a week Alcohol type: beer substance use type: does not use Diagnosis Octavio Gary is a 59 year-old male diagnosed with 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 Plan: Plan was made to complete salvage radiation therapy consisting of 4600 cGy delivered to the at risk pelvic areas and prostate fossa followed by a boost delivered to the prostate fossa consisting of 2200 cGy delivered in 11 fractions. This brought the total dose to the prostate fossa to 6800 cGy in 34 fractions. Treatment Data: Treatment Site: Prostate Fossa and Pelvis Current total dose/Total dose planned: 4200 cGy / 4600 cGy, 0 cGy / 2200 cGy Fraction number: , Chemotherapy: ADT Subjective: Pain: 0 / 10 Fatigue: mild since ADT; mild increase since RT Skin: no erythema, rash, desquamation GI: increase diarrhea pretty stable, 4-6 per day, imodium 3-4 per day. No rectal pain or bleeding. No bloating or increased gas : not much increase urinary symptoms. some frequency/urgency. No dysuria or hematuria Objective: Weight: 188 lbs 9 oz Physical Exam: Gen: NAD Skin: no erythema, rash, desquamation. Assessment Plan Assessment/Plan (1) Biochemically recurrent castration-sensitive adenocarcinoma of prostate: PLAN: Plan Assessment: Tolerating treatment well overall.??? I reviewed and approved all treatment associated imaging. Diarrhea, grade 1, imodium and electrolyte replacement Fatigue: grade 1 hot flashes mild Plan: Continue treatment as planned.??? I have reviewed potential treatment associated toxicities as well as timing for resolution and management. Follow up next week or sooner if needed. Thank you for allowing me to participate in the management and care of your patient. If I may a (more content not included)... [facility] Radiation Oncology Visiton 0 08-26-2024 Radiation Oncology Visit [facility] [address] [place] [address] OFFICE VISIT Date of Service: 08/26/24 1342 MR#: [id number] Acct: [id number] Name: COOKIENORMAN SHEETS Lucian Rep #: [id number] : 1965 From: Seb Clarke DO Age/Sex: 59/M Location: [facility] Status: Signed Intake Vital Signs 06/16/24 14:02 08/26/24 13:44 Height 5 ft 9 in 5 ft 9 in Weight: 188 lb 1 oz BMI 27.8 BP 108/78 Blood Pressure Location Rt brachial Position Sitting Respiration 16 Pulse 84 Pulse Source Monitor Temp 97.4 F L Temperature Source Temporal Artery Pulse Oximetry (%) 99 Oxygen Delivery Method room air Intake Visit Reasons: OTV Is patient in pain?: No Allergies No Known Allergies Allergy (Verified 08/26/24 13:46) Medications ???Medication ???Instructions ???Recorded ???Confirmed ???Type meloxicam 15 mg tablet 15 mg PO DAILY 01/11/23 08/26/24 H istory pantoprazole 20 mg tablet,delayed 20 mg PO QDAY 05/19/24 08/26/24 H istory release sildenafil 100 mg tablet 100 mg PO QDAY PRN 05/26/24 History propranolol 80 mg capsule,24 80 mg PO QDAY 07/29/24 08/26/24 Hi story hr,extended release (Inderal LA) PFSH PFSH Medical History Spondylolisthesis Elevated PSA Vocal cord papilloma virus Tinnitus Prostatic adenocarcinoma Malignant neoplasm prostate Chalazion right upper eyelid Blepharitis of right upper eyelid History of prostate cancer GERD (gastroesophageal reflux disease) Hoarseness Home Medications ???Medication ???Instructions ???Recorded ???Last Taken ???Type meloxicam 15 mg tablet 15 mg PO DAILY 01/11/23 Unknown Hi story pantoprazole 20 mg tablet,delayed 20 mg PO QDAY 05/19/24 Unknown Hi story release sildenafil 100 mg tablet 100 mg PO QDAY PRN 05/26/24 Unknow n History propranolol 80 mg capsule,24 80 mg PO QDAY 07/29/24 Unknown His tory hr,extended release (Inderal LA) Allergy/AdvReac Type Severity Reaction Status Date / Time No Known Allergies Allergy Verified 08/26/24 13:46 Family History Mother Hypertension CAD (coronary artery disease) Soft tissue sarcoma Father Cancer Prostate cancer Bladder cancer Brother Colon cancer Prostate cancer Uncle Bladder cancer Surgical History History of prostate biopsy History of radical retropubic prostatectomy History of prostatectomy H/O colonoscopy Status post vasectomy Social History Smoking Status: Never smoker alcohol intake: current alcohol intake frequency: a few times a week Alcohol type: beer substance use type: does not use Diagnosis Octavio Gary is a 59 year-old male diagnosed with 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 Plan: Plan was made to complete salvage radiation therapy consisting of 4600 cGy delivered to the at risk pelvic areas and prostate fossa followed by a boost delivered to the prostate fossa consisting of 2200 cGy delivered in 11 fractions. This brought the total dose to the prostate fossa to 6800 cGy in 34 fractions. Treatment Data: Treatment Site: Prostate Fossa and Pelvis Current total dose/Total dose planned: 4200 cGy / 4600 cGy, 0 cGy / 2200 cGy Fraction number: , Chemotherapy: ADT Subjective: Pain: 0 / 10 Fatigue: mild since ADT; mild increase since RT Skin: no erythema, rash, desquamation GI: increase diarrhea, 4-5 per day, imodium 3-4 per day. No rectal pain or bleeding. No bloating or increased gas : not much increase urinary symptoms. some frequency/urgency. No dysuria or hematuria Objective: Weight: 188 lbs Physical Exam: Gen: NAD Skin: no erythema, rash, desquamation. Assessment Plan Assessment/Plan (1) Biochemically recurrent castration-sensitive adenocarcinoma of prostate: PLAN: Plan Assessment: Tolerating treatment well overall.??? I reviewed and approved all treatment associated imaging. Diarrhea, grade 1, imodium and electrolyte replacement Fatigue: grade 1 hot flashes mild Plan: Continue treatment as planned.??? I have reviewed potential treatment associated toxicities as well as timing for resolution and management. Follow up next week or sooner if needed. Thank you for allowing me to participate in the management and care of your patient. If I may answer any questions in the interim, please do not hesitate to contact me at any time. Seb Clarke DO, MS Footwear Sales Associate, [facility] (more content not included)... [facility] Radiation Oncology Visiton 0 08-19-2024 Radiation Oncology Visit [facility] [address] [place] [address] OFFICE VISIT Date of Service: 08/19/24 1041 MR#: [id number] Acct: [id number] Name: NORMAN GARY Rep #: [id number] : 1965 From: Seb Clarke DO Age/Sex: 59/M Location: [facility] Status: Signed Intake Vital Signs 06/16/24 14:02 08/19/24 10:42 Height 5 ft 9 in 5 ft 9 in Weight: 188 lb BMI 27.7 BP 128/85 H Blood Pressure Location Rt brachial Position Sitting Respiration 18 Pulse 62 Pulse Source Monitor Temp 98.1 F Temperature Source Temporal Artery Pulse Oximetry (%) 100 Intake Visit Reasons: OTV Is patient in pain?: No Allergies No Known Allergies Allergy (Verified 08/19/24 10:44) Medications ???Medication ???Instructions ???Recorded ???Confirmed ???Type meloxicam 15 mg tablet 15 mg PO DAILY 01/11/23 08/19/24 H istory pantoprazole 20 mg tablet,delayed 20 mg PO QDAY 05/19/24 08/19/24 H istory release sildenafil 100 mg tablet 100 mg PO QDAY PRN 05/26/24 History propranolol 80 mg capsule,24 80 mg PO QDAY 07/29/24 08/19/24 Hi story hr,extended release (Inderal LA) PFSH PFSH Medical History Spondylolisthesis Elevated PSA Vocal cord papilloma virus Tinnitus Prostatic adenocarcinoma Malignant neoplasm prostate Chalazion right upper eyelid Blepharitis of right upper eyelid History of prostate cancer GERD (gastroesophageal reflux disease) Hoarseness Home Medications ???Medication ???Instructions ???Recorded ???Last Taken ???Type meloxicam 15 mg tablet 15 mg PO DAILY 01/11/23 Unknown Hi story pantoprazole 20 mg tablet,delayed 20 mg PO QDAY 05/19/24 Unknown Hi story release sildenafil 100 mg tablet 100 mg PO QDAY PRN 05/26/24 Unknow n History propranolol 80 mg capsule,24 80 mg PO QDAY 07/29/24 Unknown His tory hr,extended release (Inderal LA) Allergy/AdvReac Type Severity Reaction Status Date / Time No Known Allergies Allergy Verified 08/19/24 10:44 Family History Mother Hypertension CAD (coronary artery disease) Soft tissue sarcoma Father Cancer Prostate cancer Bladder cancer Brother Colon cancer Prostate cancer Uncle Bladder cancer Surgical History History of prostate biopsy History of radical retropubic prostatectomy History of prostatectomy H/O colonoscopy Status post vasectomy Social History Smoking Status: Never smoker alcohol intake: current alcohol intake frequency: a few times a week Alcohol type: beer substance use type: does not use Diagnosis Octavio Gary is a 59 year-old male diagnosed with 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 Plan: Plan was made to complete salvage radiation therapy consisting of 4600 cGy delivered to the at risk pelvic areas and prostate fossa followed by a boost delivered to the prostate fossa consisting of 2200 cGy delivered in 11 fractions. This brought the total dose to the prostate fossa to 6800 cGy in 34 fractions. Treatment Data: Treatment Site: Prostate Fossa and Pelvis Current total dose/Total dose planned: 3400 cGy / 4600 cGy, 0 cGy / 2200 cGy Fraction number: , Chemotherapy: ADT Subjective: Pain: 0 / 10 Fatigue: mild since ADT; no major change with start of RT Skin: no erythema, rash, desquamation GI: increase diarrhea, 5-6 per day, imodium 3-4 per day. No rectal pain or bleeding. No bloating or increased gas : not much increase urinary symptoms. some frequency/urgency. No dysuria or hematuria Objective: Weight: 188 lbs Physical Exam: Gen: NAD Skin: no erythema, rash, desquamation. Assessment Plan Assessment/Plan (1) Biochemically recurrent castration-sensitive adenocarcinoma of prostate: PLAN: Plan Assessment: Tolerating treatment well overall.??? I reviewed and approved all treatment associated imaging. Diarrhea, grade 1, imodium and electrolyte replacement Plan: Continue treatment as planned.??? I have reviewed potential treatment associated toxicities as well as timing for resolution and management. Follow up next week or sooner if needed. Thank you for allowing me to participate in the management and care of your patient. If I may answer any questions in the interim, please do not hesitate to contact me at any time. Seb Clarke DO, MS Footwear Sales Associate, Department of Radiation Oncology [facility] (more content not included)... [facility] Radiation Oncology Visiton 0 08-12-2024 Radiation Oncology Visit [facility] [place] [address] OFFICE VISIT Date of Service: 08/12/24 1415 MR#: [id number] Acct: [id number] Name: NORMAN GARY Rep #: [id number] 1 : 1965 From: Seb Clarke DO Age/Sex: 58/M Location: [facility] Status: Signed Intake Vital Signs 06/16/24 14:02 08/05/24 13:57 08/12/24 14:17 Height 5 ft 9 in 5 ft 9 in 5 ft 9 in Weight: 188 lb 1 oz BMI 27.8 BP 113/78 Blood Pressure Location Rt brachial Position Sitting Respiration 18 Pulse 60 Pulse Source Monitor Temp 97.2 F L Temperature Source Temporal Artery Pulse Oximetry (%) 100 Oxygen Delivery Method room air Intake Visit Reasons: OTV Is patient in pain?: No Allergies No Known Allergies Allergy (Verified 08/12/24 14:18) Medications ???Medication ???Instructions ???Recorded ???Confirmed ???Type meloxicam 15 mg tablet 15 mg PO DAILY 01/11/23 08/12/24 H istory pantoprazole 20 mg tablet,delayed 20 mg PO QDAY 05/19/24 08/12/24 H istory release sildenafil 100 mg tablet 100 mg PO QDAY PRN 05/26/24 History propranolol 80 mg capsule,24 80 mg PO QDAY 07/29/24 08/12/24 Hi story hr,extended release (Inderal LA) [facility]SH [facility] Medical History Spondylolisthesis Elevated PSA Vocal cord papilloma virus Tinnitus Prostatic adenocarcinoma Malignant neoplasm prostate Chalazion right upper eyelid Blepharitis of right upper eyelid History of prostate cancer GERD (gastroesophageal reflux disease) Hoarseness Home Medications ???Medication ???Instructions ???Recorded ???Last Taken ???Type meloxicam 15 mg tablet 15 mg PO DAILY 01/11/23 Unknown Hi story pantoprazole 20 mg tablet,delayed 20 mg PO QDAY 05/19/24 Unknown Hi story release sildenafil 100 mg tablet 100 mg PO QDAY PRN 05/26/24 Unknow n History propranolol 80 mg capsule,24 80 mg PO QDAY 07/29/24 Unknown His tory hr,extended release (Inderal LA) Allergy/AdvReac Type Severity Reaction Status Date / Time No Known Allergies Allergy Verified 08/12/24 14:18 Family History Mother Hypertension CAD (coronary artery disease) Soft tissue sarcoma Father Cancer Prostate cancer Bladder cancer Brother Colon cancer Prostate cancer Uncle Bladder cancer Surgical History History of prostate biopsy History of radical retropubic prostatectomy History of prostatectomy H/O colonoscopy Status post vasectomy Social History Smoking Status: Never smoker alcohol intake: current alcohol intake frequency: a few times a week Alcohol type: beer substance use type: does not use Intake Vital Signs 06/16/2513:02 07/29/2513:05 Height 5 ft 9 in 5 ft 9 in Weight: 189 lb 5 oz BMI 27.9 BP 134/85 H Blood Pressure Location Rt brachial Position Sitting Respiration 16 Pulse 67 Pulse Source [place] Temp 97.2 F L Temperature Source Temporal Artery Pulse Oximetry (%) 99 Oxygen Delivery Method room air Intake Visit Reasons: OTV Is patient in pain?: No Allergies No Known Allergies Allergy (Verified 07/29/24 14:04) Medications ???Medication ???Instructions ???Recorded ???Confirmed ???Type meloxicam 15 mg tablet 15 mg PO DAILY 01/11/23 06/16/24 History pantoprazole 20 mg tablet,delayed 20 mg PO QDAY 05/19/24 06/16/24 History release sildenafil 100 mg tablet 100 mg PO QDAY PRN 05/26/24 05/26/24 History propranolol 80 mg capsule,24 80 mg PO QDAY 07/29/24 07/29/24 History hr,extended release (Inderal LA) Diagnosis: Octavio Gary is a 58 year-old male diagnosed with 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 Plan: Plan was made to complete salvage radiation therapy consisting of 4600 cGy delivered to the at risk pelvic areas and prostate fossa followed by a boost delivered to the prostate fossa consisting of 2200 cGy delivered in 11 fractions. This brought the total dose to the prostate fossa to 6800 cGy in 34 fractions. Treatment Data: Treatment Site: Prostate Fossa and Pelvis Current total dose/Total dose planned: 2600 cGy / 4600 cGy, 0 cGy / 2200 cGy Fraction number: , Chemotherapy: ADT Subjective: Pain: 0 / 10 Fatigue: mild since ADT; no major change with start of RT Skin: no erythema, rash, desquamation GI: increase diarrhea, 5-6 per day, imodium 1-2 per day. No rectal pain or bleeding. No bloating or in (more content not included)... [facility] Radiation Oncology Visiton 0 08-05-2024 Radiation Oncology Visit [facility] [address] [place] [address] OFFICE VISIT Date of Service: 08/05/24 1354 MR#: [id number] Acct: [id number] Name: NORMAN GARY Rep #: [id number] : 1965 From: Royer Bey MD Age/Sex: 58/M Location: [facility] Status: Signed Intake Vital Signs 06/16/24 14:02 07/29/24 14:05 08/05/24 13:57 Height 5 ft 9 in 5 ft 9 in 5 ft 9 in Weight: 189 lb 5 oz 191 lb 6 oz BMI 27.9 28.2 BP 134/85 H 151/82 H Blood Pressure Location Rt brachial Rt brachial Position Sitting Sitting Respiration 16 16 Pulse 67 69 Pulse Source Monitor Monitor Temp 97.2 F L 96.9 F L Temperature Source Temporal Artery Temporal Artery Pulse Oximetry (%) 99 100 Oxygen Delivery Method room air room air Intake Visit Reasons: OTV Is patient in pain?: No Allergies No Known Allergies Allergy (Verified 08/05/24 13:57) Medications ???Medication ???Instructions ???Recorded ???Confirmed ???Type meloxicam 15 mg tablet 15 mg PO DAILY 01/11/23 08/05/24 H istory pantoprazole 20 mg tablet,delayed 20 mg PO QDAY 05/19/24 08/05/24 H istory release sildenafil 100 mg tablet 100 mg PO QDAY PRN 05/26/24 History propranolol 80 mg capsule,24 80 mg PO QDAY 07/29/24 08/05/24 Hi story hr,extended release (In[facility]al [place]) [facility] Spondylolisthesis Elevated PSA Vocal cord papilloma virus Tinnitus Prostatic adenocarcinoma Malignant neoplasm prostate Chalazion right upper eyelid Blepharitis of right upper eyelid History of prostate cancer GERD (gastroesophageal reflux disease) Hoarseness Home Medications ???Medication ???Instructions ???Recorded ???Last Taken ???Type meloxicam 15 mg tablet 15 mg PO DAILY 01/11/23 Unknown Hi story pantoprazole 20 mg tablet,delayed 20 mg PO QDAY 05/19/24 Unknown Hi story release sildenafil 100 mg tablet 100 mg PO QDAY PRN 05/26/24 Unknow n History propranolol 80 mg capsule,24 80 mg PO QDAY 07/29/24 Unknown His tory hr,extended release (Inderal LA) Allergy/AdvReac Type Severity Reaction Status Date / Time No Known Allergies Allergy Verified 08/05/24 13:57 Family History Mother Hypertension CAD (coronary artery disease) Soft tissue sarcoma Father Cancer Prostate cancer Bladder cancer Brother Colon cancer Prostate cancer Uncle Bladder cancer Surgical History History of prostate biopsy History of radical retropubic prostatectomy History of prostatectomy H/O colonoscopy Status post vasectomy Social History Smoking Status: Never smoker alcohol intake: current alcohol intake frequency: a few times a week Alcohol type: beer substance use type: does not use [facility] [address] [place], [place] [address] [address] OFFICE VISIT Date of Service: 07/29/24 1401 MR#: [id number] Acct: [id number] Name: NORMAN GARY Rep #: [id number] : 1965 From: Seb Clakre DO Age/Sex: 58/M Location: [facility] [place] Status: Signed Intake Vital Signs 06/16/2513:02 07/29/2513:05 Height 5 ft 9 in 5 ft 9 in Weight: 189 lb 5 oz BMI 27.9 BP 134/85 H Blood Pressure Location Rt brachial Position Sitting Respiration 16 Pulse 67 Pulse Source Monitor Temp 97.2 F L Temperature Source Temporal Artery Pulse Oximetry (%) 99 Oxygen Delivery Method room air Intake Visit Reasons: OTV Is patient in pain?: No Allergies No Known Allergies Allergy (Verified 07/29/24 14:04) Medications ???Medication ???Instructions ???Recorded ???Confirmed ???Type meloxicam 15 mg tablet 15 mg PO DAILY 01/11/23 06/16/24 History pantoprazole 20 mg tablet,delayed 20 mg PO QDAY 05/19/24 06/16/24 History release sildenafil 100 mg tablet 100 mg PO QDAY PRN 05/26/24 05/26/24 History propranolol 80 mg capsule,24 80 mg PO QDAY 07/29/24 07/29/24 History hr,extended release (Inderal LA) Diagnosis: Octavio Gary is a 58 year-old male diagnosed with 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 Plan: Plan was made to complete salvage radiation therapy consisting of 4600 cGy delivered to the at risk pelvic areas and prostate fossa followed b (more content not included)... [facility] Radiation Oncology Visiton 0 07-29-2024 Radiation Oncology Visit [facility] [address] [place] [address] OFFICE VISIT Date of Service: 07/29/24 1401 MR#: [id number] Acct: [id number] Name: NORMAN GARY Rep #: [id number] : 1965 From: Seb Clarke DO Age/Sex: 58/M Location: [facility] Status: Signed Intake Vital Signs 06/16/24 14:02 07/29/24 14:05 Height 5 ft 9 in 5 ft 9 in Weight: 189 lb 5 oz BMI 27.9 BP 134/85 H Blood Pressure Location Rt brachial Position Sitting Respiration 16 Pulse 67 Pulse Source Monitor Temp 97.2 F L Temperature Source Temporal Artery Pulse Oximetry (%) 99 Oxygen Delivery Method room air Intake Visit Reasons: OTV Is patient in pain?: No Allergies No Known Allergies Allergy (Verified 07/29/24 14:04) Medications ???Medication ???Instructions ???Recorded ???Confirmed ???Type meloxicam 15 mg tablet 15 mg PO DAILY 01/11/23 06/16/24 H istory pantoprazole 20 mg tablet,delayed 20 mg PO QDAY 05/19/24 06/16/24 H istory release sildenafil 100 mg tablet 100 mg PO QDAY PRN 05/26/24 History propranolol 80 mg capsule,24 80 mg PO QDAY 07/29/24 07/29/24 Hi story hr,extended release (Inderal LA) PFSH PFSH Medical History Spondylolisthesis Elevated PSA Vocal cord papilloma virus Tinnitus Prostatic adenocarcinoma Malignant neoplasm prostate Chalazion right upper eyelid Blepharitis of right upper eyelid History of prostate cancer GERD (gastroesophageal reflux disease) Hoarseness Home Medications ???Medication ???Instructions ???Recorded ???Last Taken ???Type meloxicam 15 mg tablet 15 mg PO DAILY 01/11/23 Unknown Hi story pantoprazole 20 mg tablet,delayed 20 mg PO QDAY 05/19/24 Unknown Hi story release sildenafil 100 mg tablet 100 mg PO QDAY PRN 05/26/24 Unknow n History propranolol 80 mg capsule,24 80 mg PO QDAY 07/29/24 Unknown His tory hr,extended release (Inderal LA) Allergy/AdvReac Type Severity Reaction Status Date / Time No Known Allergies Allergy Verified 07/29/24 14:04 Family History Mother Hypertension CAD (coronary artery disease) Soft tissue sarcoma Father Cancer Prostate cancer Bladder cancer Brother Colon cancer Prostate cancer Uncle Bladder cancer Surgical History History of prostate biopsy History of radical retropubic prostatectomy History of prostatectomy H/O colonoscopy Status post vasectomy Social History Smoking Status: Never smoker alcohol intake: current alcohol intake frequency: a few times a week Alcohol type: beer substance use type: does not use Diagnosis: Octavio Gary is a 58 year-old male diagnosed with 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 Plan: Plan was made to complete salvage radiation therapy consisting of 4600 cGy delivered to the at risk pelvic areas and prostate fossa followed by a boost delivered to the prostate fossa consisting of 2200 cGy delivered in 11 fractions. This brought the total dose to the prostate fossa to 6800 cGy in 34 fractions. Treatment Data: Treatment Site: Prostate Fossa and Pelvis Current total dose/Total dose planned: 600 cGy / 4600 cGy, 0 cGy / 2200 cGy Fraction number: , 0 Chemotherapy: ADT Subjective: Pain: 0 / 10 Fatigue: none Skin: no erythema, rash, desquamation GI: no diarrhea/constipation . No rectal pain or bleeding. No bloating or increased gas : no increase urinary symptoms. No dysuria or hematuria Objective: Weight: 189 lbs Physical Exam: Gen: NAD Skin: no erythema, rash, desquamation. Assessment Plan Assessment/Plan (1) Biochemically recurrent castration-sensitive adenocarcinoma of prostate: PLAN: Plan Assessment: Tolerating treatment well overall.??? I reviewed and approved all treatment associated imaging. No treatment associated toxicities are noted at this time Plan: Continue treatment as planned.??? I have reviewed potential treatment associated toxicities as well as timing for resolution and management. Skin: Skin care reviewed, continue lotion prn Follow up next week or sooner if needed. Thank you for allowing me to participate in the management and care of your patient. If I may answer any questions in the interim, please do not hesitate to contact me at any time. Seb Clarke DO, MS Footwear Sales Associate, Department of Radiation Oncology [facility] (more content not included)... [facility] Pelvis W/WO Contraston 07-06 Pelvis W/WO Contrast [facility] Imaging Services [address] [place] [address] Pelvis W/WO Contrast MR#: [id number] Acct: [id number] Name: NORMAN GARY Rep #: [id number] : 1965 M 58 From: Abhijit Krueger MD PCP: Dr. Chichi Argueta MD Status: PRE CLI Study: Pelvis W/WO Contrast Date of Exam: 07/06/24 Exam# [id number] Ordering Dr: Chichi Argueta MD EXAM: PELVIS W/WO CONTRAST 07/06/2024 CLINICAL HISTORY: SACRAL LESION. TECHNIQUE: MRI of the pelvis was performed. Multiplanar and multisequence images were obtained intravenous gadolinium contrast. CONTRAST: 19 cc Clariscan COMPARISON: April 08, 2024 CT, June 19 2024 MRI FINDINGS: There is a 0.6 x 0.6 cm circumscribed high T2, low T1, high postcontrast signal focus in the right S1 lateral mass, image 14/40. There is a 0.7 x 0 point 7 cm circumscribed high T2, intermediate to low precontrast T1, high postcontrast T1 signal lesion in the right S3 lateral mass, axial image 19/40. There are no other definite enhancing lesions in the pelvis, sacrum, and visualized portions of the right and left femur. There is no evidence of occult fracture. Muscular structures are unremarkable. There is no visible adenopathy. There is normal enhancement of the vascular structures. MRI/Pelvis W/WO Contrast IMPRESSION: There is a 0.6 x 0.6 cm circumscribed high T2, low T1, high postcontrast signal focus in the right S1 lateral mass, image 14/40. There is a 0.7 x 0 point 7 cm circumscribed high T2, intermediate to low precontrast T1, high postcontrast T1 signal lesion in the right S3 lateral mass, axial image 19/40. These lesions both measured 0.4 cm on the December 17, 2018 exam and show slow interval progression. Continued follow-up is recommended. Reading Location: [place] CC: Dr. Chichi Argueta MD Preassembler And Inspector: Signed [facility] Spine Lumbar W/WO Contraston 07-06-2024 Spine Lumbar W/WO Contrast [facility] Imaging Services [address] [place], [place] [address] Spine Lumbar W/WO Contrast MR#: [id number] Acct: [id number] Name: NORMAN GARY Rep #: [id number] : 1965 M 58 From: Abhijit Krueger MD PCP: Dr. Chichi Argueta MD Status: PRE CLI Study: Spine Lumbar W/WO Contrast Date of Exam: 06/25 04/21 Exam# [id number] Ordering Dr: Chichi Argueta MD PROCEDURE: SPINE LUMBAR W/WO CONTRAST 07/06/2024 REASON FOR EXAM: SACRAL LESION TECHNIQUE: Multiplanar and multisequence images were obtained without and with intravenous gadolinium-based contrast administration. CONTRAST: 19 cc Clariscan gadolinium contrast COMPARISON: January 16, 2023, March 10, 2021 x-ray FINDINGS: There is grade 1 spondylolisthesis at L5-S1, 0.6 cm. The vertebral body height is maintained. Vertebral body marrow signal is normal. Intervertebral disc signal shows desiccation. The facets are aligned. The L1-L2 level: There is no significant disk protrusion. There is no lateral recess stenosis or foraminal stenosis. There is no critical central canal stenosis. The L2-L3 level: There is no significant disk protrusion. There is no lateral recess stenosis or foraminal stenosis. There is no critical central canal stenosis. The L3-L4 level: There is no significant disk protrusion. There is no lateral recess stenosis or foraminal stenosis. There is no critical central canal stenosis. The L4-L5 level: There is central and right paracentral disc extrusion which extends beyond the L5 endplate, attached at the margin, measuring 0.4 x 0.6 x 0.7 cm. There is mild right and left lateral recess effacement. There is mild bilateral foraminal narrowing secondary to disc protrusion. There is no central canal stenosis. The L5-S1 level: There is extrusion in the right foramen with a 1.1 x 0.6 x 0.5 cm fragment. There is no significant lateral recess stenosis. There is moderate right foraminal narrowing. There is no critical central canal stenosis. The visualized conus shows normal signal characteristics. Postcontrast images: The postcontrast images show enhancement at the left L4-5 pedicle measuring 0.8 x 1.0 cm, sagittal image 10/17. There is enhancement at the posterior left L5 S1 facet measuring 0.6 by 0.7 cm, image 4/17. There is no discrete low T1 signal lesion associated with these findings or discrete mass visible. No other suspicious enhancing lesions are identified. MRI/Spine Lumbar W/WO Contrast IMPRESSION: There is grade 1 spondylolisthesis at L5-S1, 0.6 cm. The postcontrast images show enhancement at the left L4-5 pedicle measuring 0.8 x 1.0 cm, sagittal image 10/17. There is enhancement at the posterior left L5 S1 facet measuring 0.6 by 0.7 cm, image 4/17. There is no discrete low T1 signal lesion associated with these findings or discrete mass visible. These lesions are likely inflammatory, related to the L5 spondylolysis. There is disc extrusion at L4-5 and L5-S1. There is no central canal stenosis, with lateral recess and foraminal narrowing. Reading Location: [facility] CC: Dr. Chichi Argueta MD Preassembler And Inspector: Signed [facility] Pelvis W/WO Contraston 06-19 Pelvis W/WO Contrast [facility] [address] [place], [place] [id number] Pelvis W/WO Contrast MR#: [id number] Acct: [id number] Name: NORMAN GARY Rep #: [id number] : 1965 M 58 From: Fahad Condon MD PCP: Dr. Chichi Argueta MD Status: PRE CLI Study: Pelvis W/WO Contrast Date of Exam: 06/19/24 Exam# [id number] Ordering Dr: Seb Clarke DO ADDENDUM by Dr. Fahad Condon MD on 06/24/24 at 1848 Note more remote comparison exams dating back to 12/17/2018 have been provided. The 10 mm short axis LEFT external iliac node is similar to prior exams, suggesting a reactive etiology. Nonspecific enhancing lesions in the RIGHT sacrum up to 6 mm routed or probably not included in the field of view on 10/13/2020. On 12/17/2018, these were probably present but or slightly smaller, measuring 4 mm at that time. Extremely slow enlargement over greater than 5 year follow-up together with the lack of significant PSMA uptake suggesting a benign/indolent etiology. END OF ADDENDUM Reading Location: [facility] 06/24/24 184 Date cc: Dr. Chichi Argueta MD; Dr. Seb Clarke DO * Signed PROCEDURE: PELVIS W/WO CONTRAST, 06/19/2024 REASON FOR EXAM: EVAL FOR PROSTATE CANCER RECURRENCE TECHNIQUE: Multisequence multiplanar MRI pelvis was performed with and without IV contrast. CONTRAST: 17 mL Clariscan COMPARISON: 06/09/2024 FINDINGS: Mild artifact on diffusion related to small amount of bowel gas. Prostate size: Radical prostatectomy with mild T2 presumed scarring in the prostatectomy bed. No nodular restricted diffusion or enhancement identified within the region. Seminal vesicles: Surgically absent. Bladder: Underdistended and suboptimally evaluated, grossly unremarkable. Lymph nodes: LEFT external iliac node, 10 mm short axis. Bones: No frankly destructive bony lesions identified. Nonspecific enhancing lesions in the RIGHT sacrum measure up to 6 mm. Other: None. MRI/Pelvis W/WO Contrast IMPRESSION: 1. Radical prostatectomy without definite evidence of local recurrence. 2. Mildly enlarged LEFT external iliac node by PI-RADS criteria and nonspecific bony lesions in the RIGHT sacrum up to 6 mm, both without definite abnormal uptake on previous PSMA PET/CT. Given the context, close clinical follow- up recommended. Bone scan could be considered, however these may be too small for resolution. Correlation with PSA may also be helpful. 3. Additional description as above. Reading Location: [facility] CC: Dr. Chichi Argueta MD; Dr. Seb Clarke DO Preassembler And Inspector: Signed [facility] PET/CT Tumor Base -Thigh Sub son 06-09-2024 PET/CT Tumor Base -Thigh Subs [facility] Services [address] [place], [place] [id number] PET/CT Tumor Base -Thigh Subs MR#: [id number] Acct: [id number] Name: NORMAN GARY Rep #: [id number] : 1965 M 58 From: Royer Bhat PCP: Dr. Chichi Argueta MD Status: REG CLI Study: PET/CT Tumor Base -Thigh Subs Date of Exam: Exam# [id number] Ordering Dr: Satya Whitmore MD PROCEDURE: PET/CT TUMOR BASE -THIGH SUBS 06/09/2024 REASON FOR EXAM: 58 y/o M with MALIGNANT NEOPLASM OF PROSTATE TECHNIQUE: Following the intravenous administration of radionucleotide, image acquisition on a dedicated PET/CT unit was performed at one hour post injection. A preliminary CT study encompassing the Skull base, neck, chest, abdomen, pelvis, and proximal thighs was performed for purposes of attenuation correction and anatomic localization. The proximal thighs were also included. RADIOPHARMACEUTICAL: 9.608 mCi F-18 Pylarify IV was injected into he patient. RADIATION DOSE SUMMARY: Effective Dose: Approximately 7 mSv for a standard whole-body PET scan COMPARISON: Pelvis CT 04/08/2024 and PET-CT of 04/23/2023. FINDINGS: Physiologic uptake: Normal physiological uptake was seen. PSMA AVID AND NON-AVID LESIONS. Reported avid SUV values (g/mL*) are maximum SUV. NECK: There are no significant neck abnormalities. CHEST: Chest wall- There are no significant chest wall abnormalities. Axilla- There are no significant axillary abnormalities. Lung parenchyma- There are no significant lung parenchyma abnormalities. Mediastinum- There are no significant hilar or mediastinal adenopathy. Pleura- There are no significant pleural abnormalities. ABDOMEN: Stomach- No significant abnormalities. Liver- No significant abnormalities. Spleen- No significant abnormalities. Pancrease- No significant abnormalities. Kidneys-a 2 mm nonobstructive left inferior renal calculus is seen. Bowel- Normal bowel activity. Spine- No significant abnormalities. Mild arterial calcification is noted; no evidence of abdominal aortic aneurysm. PELVIS: Bowel- Normal physiologic bowel activity is identified. Masses- There are no pelvic masses. No abnormal uptake is seen in the prostate bed. LOWER EXTREMITIES: Bones- With the use of bone window settings, there are no osteolytic or osteoblastic lesions. There are no PSMA avid lesions within the visualized portion of the axial skeleton. PET/PET/CT Tumor Base -Thigh Subs IMPRESSION: PSMA avid-No significant avid lesions. Suspicious- No significant suspicious abnormalities. Other: Nonobstructive small left inferior renal calculus. Please note the low-dose CT scan was performed to facilitate PET image reconstruction and anatomic localization and does not replace a diagnostic CT. Any diagnostic CT requested and performed at the time of the PET will be reported separately. Reading Location: [address] CC: Dr. Satya Whitmore MD; Dr. Chichi Argueta MD Preassembler And Inspector: Signed [facility] Positron emission tomography scan reportOrdered By: Royer Thompson on 06-09-2024 PT Unspecified body region [facility] Services [address] [place], [place] [address] PET/CT Tumor Base -Thigh Subs MR#: [id number] Acct: [id number] Name: NORMAN GARY Rep #: [id number] : 1965 M 58 From: Javier Thompson MD PCP: Dr. Chichi Argueta MD Status: RE G CLI Study:PET/CT Tumor Base -Thigh Subs Date of E xam: 06/09/24 Exam# [id number] Ordering Dr: Gayla Whitmore MD PROCEDURE: PET/CT TUMOR BASE -THIGH SUBS 06/09/2024 REASON FOR EXAM: 58 y/o M with MALIGNANT NEOPLASM OF PROSTATE TECHNIQUE: Following the intravenous administration of radionucleotide, image acquisition on a dedicated PET/CT unit was performed at one hour post injection. A preliminary CT study encompassing the Skull base, neck, chest, abdomen, pelvis, and proximal thighs was performed for purposes of attenuation correction and anatomic localization. The proximal thighs were also included. RADIOPHARMACEUTICAL: 9.608 mCi F-18 Pylarify IV was injected into he patient. RADIATION DOSE SUMMARY: Effective Dose: Approximately 7 mSv for a standard whole-body PET scan COMPARISON: Pelvis CT 04/08/2024 and PET-CT of 04/23/2023. FINDINGS: Physiologic uptake: Normal physiological uptake was seen. PSMA AVID AND NON-AVID LESIONS. Reported avid SUV values (g/mL*) are maximum SUV. NECK: There are no significant neck abnormalities. CHEST: Chest wall- There are no significant chest wall abnormalities. Axilla- There are no significant axillary abnormalities. Lung parenchyma- There are no significant lung parenchyma abnormalities. Mediastinum- There are no significant hilar or mediastinal adenopathy. Pleura- There are no significant pleural abnormalities. ABDOMEN: Stomach- No significant abnormalities. Liver- No significant abnormalities. Spleen- No significant abnormalities. Pancrease- No significant abnormalities. Kidneys-a 2 mm nonobstructive left inferior renal calculus is seen. Bowel- Normal bowel activity. Spine- No significant abnormalities. Mild arterial calcification is noted; no evidence of abdominal aortic aneurysm. PELVIS: Bowel- Normal physiologic bowel activity is identified. Masses- There are no pelvic masses. No abnormal uptake is seen in the prostate bed. LOWER EXTREMITIES: Bones- With the use of bone window settings, there are no osteolytic or osteoblastic lesions. There are no PSMA avid lesions within the visualized portion of the axial skeleton. PET/PET/CT Tumor Base -Thigh Subs IMPRESSION: PSMA avid-No significant avid lesions. Suspicious- No significant suspicious abnormalities. Other: Nonobstructive small left inferior renal calculus. Please note the low-dose CT scan was performed to facilitate PET image reconstruction and anatomic localization and does not replace a diagnostic CT. Any diagnostic CT requested and performed at the time of the PET will be reported separately. Reading Location: [address] CC: Dr. Satya Whitmore MD; Dr. Chichi Argueta MD ~ Preassembler And Inspector: Signed [facility] PSA TUMOR MARKER(DIAGNOSTIC) , MANUAL ENTEROrdered By: Mary Nielsen on 05-20-2024 PSA TUMOR MARKER(diagnostic), MANUAL ENTER 0.[facility] Reporton 0 05-19-2024 Urgent Care Visit Report [facility] [address], [address] [place] [address] OFFICE VISIT Date of Service: 05/19/24 MR#: [id number] Acct: [id number] Name: NORMAN GARY Rep #: [id number] : 1965 Provider: HARRIET Hicks Age/Sex: 58/M Location: [facility] Status: Signed Intake Vital Signs 05/19/24 13:48 Height 5 ft 9 in Weight: 188 lb 2 oz BMI 27.8 BP 126/80 H Blood Pressure Location Rt brachial Position Sitting Respiration 16 Pulse 81 Pulse Source NIBP Temp 98.2 F Temp Source Oral Pulse Oximetry (%) 98 Oxygen Delivery Method room air Intake Visit Reasons: R EYE SWELLING Chief Complaint: right eyelid red, swollen Road Machinery Inspector Required: No Is patient in pain?: No Allergies No Known Allergies Allergy (Verified 05/19/24 13:49) Medications ???Medication ???Instructions ???Recorded ???Confirmed ???Type meloxicam 15 mg tablet 15 mg PO DAILY 01/11/23 01/11/23 H istory doxycycline monohydrate 100 mg 100 mg PO BID #20 caps 05/19/24 Rx capsule pantoprazole 20 mg tablet,delayed 20 mg PO QDAY 05/19/24 05/19/24 H istory release Have you fallen in the past year?: No Nurse's Note: right eyelid red, swollen, tender x 1 week without resolve. PFS Medical History (Updated 05/19/24 @ 15:47 by Paco LARIOS, PA) Chalazion right upper eyelid Blepharitis of right upper eyelid History of prostate cancer GERD (gastroesophageal reflux disease) Hoarseness Surgical History (Updated 05/19/24 @ 13:51 by Crystal Raymundo) History of prostatectomy H/O colonoscopy Status post vasectomy Family History Mother Hypertension CAD (coronary artery disease) Father Cancer Brother Colon cancer Social History Smoking Status: Never smoker alcohol intake: current alcohol intake frequency: holidays/special occasions only HPI HPI Chief Complaint: right eyelid red, swollen Details: NORMAN GARY, is a 58 M who presents to the office today for initial evaluation approximately 1 week history of waxing and waning right upper eyelid erythema, edematous swelling with central fluctuant lesion approximately 0.5 cm diameter along the eyelash border with tender to palpation same. He notes no vision changes or eye globe pain or conjunctival injection. Cool compresses have been applied with minimal no relief of symptoms. No complaints of fever, chills, sweats, lightheadedness/dizzi ness, nausea/vomiting sighted by patient. No other associated symptoms and no other alleviating/aggravati ng factors. ROS Const Constitutional: No other (As above) Exam Const General: cooperative, healthy appearing and no acute distress Orientation: alert and awake [facility] Head: normal to inspection Ears: hearing grossly normal bilaterally and external ears normal Nose: external nose normal and no nasal discharge Eyes General: appearance normal, both eyes and all related structures Other: Except right upper eyelid erythema, edematous swelling with central fluctuant lesion approximately 0.5 cm diameter along the eyelash border with tender to palpation same Neck Neck: normal visual inspection and no meningeal signs Resp Effort Inspection: normal respiratory effort and able to speak in complete sentences Cardio Rate: regular rate Pulses: radial pulses present Skin General: no rashes or lesions noted Neuro General: patient alert and patient awake Cognition: normal cognition Speech: speech normal Psych Appearance: grossly normal Mental Status: mental status grossly normal Mood: congruent mood Affect: normal affect Speech and Movement: speech and movement normal Attitude: cooperative Coding Level of Care Code Off vis,new,level 3 Diagnoses Blepharitis of right upper eyelid H01.001 Chalazion right upper eyelid H00.11 Assessment and Plan Assessment and Plan (1) Blepharitis of right upper eyelid: Status: Acute (2) Chalazion right upper eyelid: Status: Acute Plan: Doxycycline as prescribed today. Supportive measures including cool compresses as needed for symptomatic relief. Follow-up with ophthalmology in 3 to 5 days should symptoms not improve, sooner should symptoms only worsen or any other concerns develop. Patient states acknowledging understanding all the above. This note was generated with [employer] software. It may contain incorrect words, spelling, and punctuation that were not noted in checking the note before signing. Medications: New doxycycline monohydrate 100 mg PO BID 20 caps 0RF Clinical Quality Measures Falls Risk Screening/Assisti (more content not included)... Normal [facility] Diagnostic total prostate sp ecific antigen (PSA) measurementOrdered By: Satya Whitmore on 05-18-2024 Prostate Specific Antigen Total 0.11 ng/mL 0.00-4.00 [facility] Comment on above: This test was perfor med using the [employer] tPSA method. Measured values of a patient sample can vary depending on the testing procedure used. PSA values determined on patient samples by different testing procedures cannot be used interchangeably. If there is a change in PSA assays while monitoring therapy, sequential testing should be performed to confirm baseline values. PSA,Total- Diagnosticon 04-26 PSA, DIAGNOSTIC 0.11 ng/mL Normal 0.00-4.00 [facility] Comment on above: Result Comment: This test was performed using the [employer] tPSA method. Measured values of a patient??sample can vary depending on the testing procedure used. PSA values determined on patient samples by different testing procedures cannot be used interchangeably. If there is a change in PSA assays while monitoring therapy, sequential testing should be performed to confirm baseline values. Performed By: #### L 501.9940 #### [facility] [address] [place], [address] NCS and/or EMG Patienton NCS and/or EMG Patient [facility] Pulmonary Services/Neurology [address] [place] [address] MR#: [id number] Acct: [id number] Name: NORMAN GARY Rep #: [id number] : 1965 58 From: Frances Stafford MD Referring Dr: Kerry Atkins MD Status: REG CLI Location: PSN Date: 04/08/24 Sex: M C NCS and/or EMG Patient Report Ordering Doctor: Kerry Atkins DATE OF SERVICE: 04/08/24 Norman presents with complaints of right-sided low back pain. He reports numbness and tingling in the right foot. Electrodiagnostic findings: Peroneal motor nerve demonstrates normal distal latency, amplitude and conduction velocity bilaterally. Normal tibial motor response bilaterally. Normal tibial and peroneal F???waves. H???reflex normal bilaterally. Sensory responses are within normal limits. Needle EMG testing was performed the lower limbs. All muscles tested showed no evidence of denervation with normal motor unit action potentials. Electrodiagnostic impression: This is a normal electrodiagnostic study in the lower limbs. There is no electrodiagnostic evidence for peripheral neuropathy or lumbosacral radiculopathy. Multi Select Codes Neurology Neurology Interp Codes: 59233-12 Musc test done w/n test comp (interp) (2) and 38275-94 Nrv cndj test 13/> studies (interp) 04/08/24 0939 Date Frances Stafford MD CC: Dr. Frances Stafford MD; Dr. Kerry Atkins MD; Dr. Chichi Argueta MD Date Dictated: 04/08/24935 Date Transcribed: 04/08/24935 Preassembler And Inspector: AA Signed Normal [facility] Pelvis WITH IV Contraston Pelvis WITH IV Contrast [facility] [address] [place] [address] Pelvis WITH IV Contrast MR#: [id number] Acct: [id number] Name: NORMAN GARY Rep #: [id number] : 1965 M 58 From: Maninder chery MD PCP: Dr. Chichi Argueta MD Status: REG CLI Study: Pelvis WITH IV Contrast Date of Exam: 04/08/24 Exam# [id number] Ordering Dr: Kerry Atkins MD PROCEDURE: PELVIS without IV CONTRAST REASON FOR EXAM: Posterior right sacroiliac joint pain for 3 months. Prior total prostatectomy and lymph node dissection. TECHNIQUE: Pelvis CT without contrast. Multiple axial tomographic images were obtained without intravenous contrast administration. Sagittal and coronal reconstruction was obtained as well. COMPARISON: None. FINDINGS: Bones: No fracture is identified. Hip Joints: Joint spaces are preserved. No subluxation or dislocation. SI Joints: Unremarkable. Soft Tissues: Status post total prostatectomy. Scattered sigmoid diverticula. Small benign- appearing lymph nodes in the both groins. CT/Pelvis WITH IV Contrast IMPRESSION: NO CT EVIDENCE OF FRACTURE AT THE PELVIS OR HIPS. No acute abnormality is seen. One or more dose reduction techniques were used (e.g., Automated exposure control, adjustment of the mA and/or kV according to patient size, use of iterative reconstruction technique). Reading Location: [facility] CC: Dr. Kerry Atkins MD; Dr. Chichi Argueta MD Preassembler And Inspector: Signed Normal [facility] PSA,Total - Annual Screenon 02-06-2024 PSA,TOT SCREEN 0.06 ng/mL Normal 0.00-4.00 [facility] Comment on above: Result Comment: This test was performed using the TPSA assay method for the [employer] system. Values obtained with different assay methods cannot be used interchangably. When changing PSA assays in the course of monitoring a patient, additional sequential testing should be carried out to confirm baseline values. Performed By: #### L 501.9910 #### [facility] [address] [place], [address] Screening prostate specific antigen (PSA) measurementon 02-06-2024 Prostate Specific Antigen Screen 0.06 ng/mL 0.00-4.00 [facility] Comment on above: This test was perfor med using the TPSA assay method for [employer] system. Values obtained with differentassay methods cannot be used interchangably.When changing PSA assays in the course of monitoring apatient, additional sequential testing should be carriedout to confirm baseline values. CBC, Employeeon 12-23-2023 Absolute Lymph 1.99 X10 3/uL Normal 0.83-4.51 [facility] Comment on above: Performed By: #### L 100.0200, L500.2900 ####[facility] [address] [place], [address] Absolute Neut 5.3 X10 3/uL Normal 2.0-7.7 [facility] Comment on above: Performed By: #### L 100.0200, L500.2900 ####[facility] [address] [place], [address] Basophils/100 WBC (Bld) 1.2 % High 0-1 [facility] Comment on above: Performed By: #### L 100.0200, L500.2900 ####[facility] [address] [place], [address] Eosinophils/100 WBC (Bld) 2.0 % Normal 0-5 [facility] Comment on above: Performed By: #### L 100.0200, L500.2900 ####[facility] [address] [place], [address] Erythrocyte distribution width (RBC) [Ratio] 13.1 % Normal 11.6-14.6 [facility] Comment on above: Performed By: #### L 100.0200, L500.2900 ####[facility] [address] [place], [address] Hematocrit (Bld) [Volume fraction] 48.2 % Normal 40-54 [facility] Comment on above: Performed By: #### L 100.0200, L500.2900 ####[facility] [address] [place], [address] Hemoglobin (Bld) [Mass/Vol] 16.3 g/dL Normal 13.0-16.5 [facility] Comment on above: Performed By: #### L 100.0200, L500.2900 ####[facility] [address] [place], [address] Lymphocytes/100 WBC (Bld) 23.7 % Normal 19-41 [facility] Comment on above: Performed By: #### L 100.0200, L500.2900 ####[facility] [address] [place], [address] MCH (RBC) [Entitic mass] 30.5 pg Normal 27.0-32.0 [facility] Comment on above: Performed By: #### L 100.0200, L500.2900 ####[facility] [address] [place], [address] MCHC (RBC) [Mass/Vol] 33.8 g/dL Normal 32-36 [facility] Comment on above: Performed By: #### L 100.0200, L500.2900 ####[facility] [address] [place], [address] MCV (RBC) [Entitic vol] 90.1 fL Normal 80-94 [facility] Comment on above: Performed By: #### L 100.0200, L500.2900 ####[facility] [address] [place], [address] Monocytes/100 WBC (Bld) 9.3 % Normal 0-10 [facility] Comment on above: Performed By: #### L 100.0200, L500.2900 ####[facility] [address] [place], [address] Neutrophils/100 WBC (Bld) 63.4 % Normal 47-70 [facility] Comment on above: Performed By: #### L 100.0200, L500.2900 ####[facility] [address] [place], [address] NRBC # 0.00 10 3/uL Normal 0-5 [facility] Comment on above: Performed By: #### L 100.0200, L500.2900 ####[facility] [address] [place], [address] Nucleated RBC (Bld) [#/Vol] 0 10*3/uL Normal 0-5 [facility] Comment on above: Performed By: #### L 100.0200, L500.2900 ####[facility] [address] [place], [address] Platelet mean volume (Bld) [Entitic vol] 10.0 fL Normal 6.2-12.0 [facility] Comment on above: Performed By: #### L 100.0200, L500.2900 ####[facility] [address] [place], [address] Platelets (Bld) [#/Vol] 260 10*3/uL Normal 150-450 [facility] Comment on above: Performed By: #### L 100.0200, L500.2900 ####[facility] [address] [place], [address] RBC (Bld) [#/Vol] 5.35 10*6/uL Normal 4.6-6.2 [facility] Comment on above: Performed By: #### L 100.0200, L500.2900 ####[facility] [address] [place], [address] RDW SD 42.5 fl Normal 35.1-43.9 [facility] Comment on above: Performed By: #### L 100.0200, L500.2900 ####[facility] [address] [place], [address] WBC (Bld) [#/Vol] 8.4 10*3/uL Normal 4.4-11.0 [facility] Comment on above: Performed By: #### L 100.0200, L500.2900 ####[facility] [address] [place], [address] Employee Profileon 4 Albumin [Mass/Vol] 4.1 g/dL Normal 3.2-5.0 [facility] Comment on above: Performed By: #### L 100.0200, L500.2900 ####[facility] [address] [place], [address] Albumin/Globulin [Mass ratio] 1.1 {ratio} Normal 0.9-2.4 [facility] Comment on above: Performed By: #### L 100.0200, L500.2900 ####[facility] [address] [place], [address] ALK P 58 U/L Normal 45-117 [facility] Comment on above: Performed By: #### L 100.0200, L500.2900 ####[facility] [address] [place], [address] ALT [Catalytic activity/Vol] 28 U/L Normal 16-61 [facility] Comment on above: Performed By: #### L 100.0200, L500.2900 ####[facility] [address] [place], [address] AST [Catalytic activity/Vol] 23 U/L Normal 15-37 [facility] Comment on above: Performed By: #### L 100.0200, L500.2900 ####[facility] [address] [place], [address] Bilirubin [Mass/Vol] 1.50 mg/dL High 0.20-1.00 [facility] Comment on above: Result Comment: For patients on eltrombopag therapy, use of [employer] [place] TBIL is not recommended. Performed By: #### L 100.0200, L500.2900 ####[facility] [address] [place], [address] Bilirubin.direct [Mass/Vol] 0.28 mg/dL Normal 0.00-0.30 [facility] Comment on above: Performed By: #### L 100.0200, L500.2900 ####[facility] [address] [place], [address] BUN/CRE 12.6 RATIO Normal 10-20 [facility] Comment on above: Performed By: #### L 100.0200, L500.2900 ####[facility] [address] [place], [address] CA,Total 9.1 mg/dL Normal 8.5-10.1 [facility] Comment on above: Performed By: #### L 100.0200, L500.2900 ####[facility] [address] [place], [address] Chloride [Moles/Vol] 107 mmol/L Normal 98-107 [facility] Comment on above: Performed By: #### L 100.0200, L500.2900 ####[facility] [address] [place], [address] CHOL:HDL 3.90 Normal [facility] Comment on above: Performed By: #### L 100.0200, L500.2900 ####[facility] [address] [place], [address] Cholesterol [Mass/Vol] 253 mg/dL High 200 [facility] Comment on above: Result Comment: <200 mg/dL Desirable 200-240 mg/dL Borderline >240 mg/dL High Risk Performed By: #### L 100.0200, L500.2900 ####[facility] [address] [place], [address] Cholesterol in HDL [Mass/Vol] 65 mg/dL Normal [facility] Comment on above: Result Comment: The drugs N-Acetylcysteine and Metamizole may falsely depress this assay. Reference Range HDL <40 mg/dL Low HDL Cholesterol HDL >or= 60 mg/dL High HDL Cholesterol Performed By: #### L 100.0200, L500.2900 ####[facility] [address] [place], [address] Cholesterol in LDL [Mass/Vol] 154 mg/dL High 0-130 [facility] Comment on above: Performed By: #### L 100.0200, L500.2900 ####[facility] [address] [place], [address] Cholesterol in VLDL [Mass/Vol] 34 mg/dL Normal 5-40 [facility] Comment on above: Performed By: #### L 100.0200, L500.2900 ####[facility] [address] [place], [address] CO2 [Moles/Vol] 28.0 mmol/L Normal 21.0-32.0 [facility] Comment on above: Performed By: #### L 100.0200, L500.2900 ####[facility] [address] [place], [address] Creatinine [Mass/Vol] 1.11 mg/dL Normal 0.70-1.30 [facility] Comment on above: Result Comment: The validity of the calculated GFR GFRAA in patients over 70 years has not been determined. Clinical correlation is essential. Performed By: #### L 100.0200, L500.2900 ####[facility] [address] [place], [address] EST GFR - AA 88 mL/min Normal >60 [facility] Comment on above: Result Comment: Afri can [place]eg[place] GFR Calc Performed By: #### L 100.0200, L500.2900 ####[facility] [address] [place], [address] GAP 4 Low 5-15 [facility] Comment on above: Performed By: #### L 100.0200, L500.2900 ####[facility] [address] [place], [address] GFR/1.73 sq M.predicted among non-blacks MDRD (S/P/Bld) [Vol rate/Area] 73 mL/min/{1.73_m2} Normal >60 [facility] Comment on above: Result Comment: Non- GFR Calc Performed By: #### L 100.0200, L500.2900 ####[facility] [address] [place], [address] Globulin (S) [Mass/Vol] 3.8 g/dL Normal 2.2-4.2 [facility] Comment on above: Performed By: #### L 100.0200, L500.2900 ####[facility] [address] [place], [address] Glucose [Mass/Vol] 90 mg/dL Normal 74-106 [facility] Comment on above: Performed By: #### L 100.0200, L500.2900 ####[facility] [address] [place], [address] LDH 177 U/L Normal 87-241 [facility] Comment on above: Performed By: #### L 100.0200, L500.2900 ####[facility] [address] [place], [address] Phosphate [Mass/Vol] 2.5 mg/dL Normal 2.5-4.9 [facility] Comment on above: Performed By: #### L 100.0200, L500.2900 ####[facility] [address] [place], [address] Potassium [Moles/Vol] 4.0 mmol/L Normal 3.5-5.1 [facility] Comment on above: Performed By: #### L 100.0200, L500.2900 ####[facility] [address] [place], [address] Sodium [Moles/Vol] 138 mmol/L Normal 136-145 [facility] Comment on above: Performed By: #### L 100.0200, L500.2900 ####[facility] [address] [place], [address] T PROT 7.9 g/dL Normal 6.4-8.2 [facility] Comment on above: Performed By: #### L 100.0200, L500.2900 ####[facility] [address] [place], [address] Triglyceride [Mass/Vol] 169 mg/dL Normal [facility] Comment on above: Result Comment: The drugs N-Acetylcysteine and Metamizole may falsely depress this assay. Serum Triglycerides Reference Interval Normal <150 mg/dL Borderline high 150 - 199 mg/dL High 200 - 499 mg/dL Very High > or = 500 mg/dL Performed By: #### L 100.0200, L500.2900 ####[facility] [address] [place], [address] Urea nitrogen [Mass/Vol] 14 mg/dL Normal 7-18 [facility] Comment on above: Performed By: #### L 100.0200, L500.2900 ####[facility] [address] [place], [address] URIC 6.7 mg/dL Normal 3.5-7.2 [facility] Comment on above: Result Comment: The drugs N-Acetylcysteine and Metamizole may falsely depress this assay. Performed By: #### L 100.0200, L500.2900 ####[facility] [address] [place], [place], [address] PSA,Total- Diagnosticon 10-27 PSA, DIAGNOSTIC 0.03 ng/mL Normal 0.0-4.0 [facility] Comment on above: Result Comment: This test was performed using the TPSA assay method for the [employer] chemistry system. Values obtained with different assay methods cannot be used interchangably. When changing PSA assays in the course of monitoring a patient, additional sequential testing should be carried out to confirm baseline values. Performed By: #### L 501.9940 ####[facility] [address] [place], [place], [address] CALCIUMon 07-30-2023 Calcium [Mass/Vol] 8.0 mg/dL Low 8.6 - 10. 5 mg/dL [facility] CBC,PLATELETSon 07-30-2023 Erythrocyte distribution width (RBC) [Ratio] 12.6 % 10.9 - 14.3 % [facility] Hematocrit (Bld) [Volume fraction] 39.1 % Low 39.6 - 48.8 % [facility] Hemoglobin (Bld) [Mass/Vol] 13.6 g/dL 13.4 - 16.8 g/dL [facility] Interpretation and review of laboratory results Abnormal [facility] MCH (RBC) [Entitic mass] 30.5 pg 26. 1 - 33.3 pg [facility] MCHC (RBC) [Mass/Vol] 34.8 g/dL 31.9 - 36.5 g/dL [facility] MCV (RBC) [Entitic vol] 87.7 fL 79.0 - 94.5 fL [facility] Platelet mean volume (Bld) [Entitic vol] 9.8 fL 8.7 - 12.3 fL [facility] Platelets (Bld) [#/Vol] 213 10*3/uL 146 - 337 K/uL [facility] RBC (Bld) [#/Vol] 4.46 10*6/uL [facility] WBC (Bld) [#/Vol] 9.68 10*3/uL 3.73 - 10. 10 K/uL [facility] CHEM 7 (LYTES,BUN,CREA,GLUC) on 07-30-2023 Anion gap [Moles/Vol] 11 mmol/L 7 - 17 mmol/L [facility] Chloride [Moles/Vol] 104 mmol/L 98 - 10 8 mmol/L [facility] CO2 [Moles/Vol] 25 mmol/L 21 - 31 mmol/L [facility] Creatinine [Mass/Vol] 1.01 mg/dL 0.70 - 1.30 mg/dL [facility] eGFR, CKD-EPI, Male 88 - PINF [facility] Comment on above: Reported eGFR is bas ed on the CKD-EPI 2020 equation using creatinine, age, and sex. Glucose [Mass/Vol] 119 mg/dL High 70 - 99 mg/dL [facility] Osmolality Calc [Osmolality] 287 [facility] Potassium [Moles/Vol] 4.3 mmol/L 3.5 - 5.0 mmol/L [facility] Sodium [Moles/Vol] 136 mmol/L 135 - 145 mmol/L [facility] Urea nitrogen [Mass/Vol] 13 mg/dL 7 - 25 mg/d L [facility] Urea nitrogen/Creatinine [Mass ratio] 13 mg/mg [facility] CREATININE BODY FLUIDOrdered By: Bee Dick on 07-30-2023 Creatinine (Body fld) [Mass/Vol] 1.12 mg/dL [facility] Comment on above: Fluid creatinine con centrations that are greater than serum/plasma creatinine concentrations may imply intraperitoneal leakage of urine outside of the urinary tract. This test has not been cleared or approved by the FDA. The laboratory is regulated under CLIA as qualified to perform high-complexity testing. This test is used for clinical purposes. It should not be regarded as investigational or for research. This test was developed and its performance characteristics determined by the Critical Care Laboratory at [facility]. [facility] MAGNESIUMon 07-30-2023 Magnesium [Mass/Vol] 2.0 mg/dL 1.6 - 2 .6 mg/dL [facility] No Panel Informationon 07-29 Interpretation and review of laboratory results Abnormal [facility] Interpretation and review of laboratory results Normal [facility] PHOSPHATE, INORGANICon 07-29 Phosphate [Mass/Vol] 3.9 mg/dL 2.2 - 4 .6 mg/dL [facility] CALCIUMon 07-29-2023 Calcium [Mass/Vol] 8.2 mg/dL Low 8.6 - 10. 5 mg/dL [facility] CBC,PLATELETSon 07-29-2023 Erythrocyte distribution width (RBC) [Ratio] 12.7 % 10.9 - 14.3 % [facility] Hematocrit (Bld) [Volume fraction] 44.7 % 39.6 - 48.8 % [facility] Hemoglobin (Bld) [Mass/Vol] 15.2 g/dL 13.4 - 16.8 g/dL [facility] Interpretation and review of laboratory results Abnormal [facility] MCH (RBC) [Entitic mass] 30.6 pg 26. 1 - 33.3 pg [facility] MCHC (RBC) [Mass/Vol] 34.0 g/dL 31.9 - 36.5 g/dL [facility] MCV (RBC) [Entitic vol] 89.9 fL 79.0 - 94.5 fL [facility] Platelet mean volume (Bld) [Entitic vol] 9.7 fL 8.7 - 12.3 fL [facility] Platelets (Bld) [#/Vol] 219 10*3/uL 146 - 337 K/uL [facility] RBC (Bld) [#/Vol] 4.97 10*6/uL [facility] WBC (Bld) [#/Vol] 14.64 10*3/uL High 3.73 - 10 .10 K/uL [facility] CHEM 7 (LYTES,BUN,CREA,GLUC) on 07-29-2023 Anion gap [Moles/Vol] 12 mmol/L 7 - 17 mmol/L [facility] Chloride [Moles/Vol] 104 mmol/L 98 - 10 8 mmol/L [facility] CO2 [Moles/Vol] 25 mmol/L 21 - 31 mmol/L [facility] Creatinine [Mass/Vol] 1.06 mg/dL 0.70 - 1.30 mg/dL [facility] eGFR, CKD-EPI, Male 85 - PINF [facility] Comment on above: Reported eGFR is bas ed on the CKD-EPI 2020 equation using creatinine, age, and sex. Glucose [Mass/Vol] 133 mg/dL High 70 - 99 mg/dL [facility] Osmolality Calc [Osmolality] 289 [facility] Potassium [Moles/Vol] 4.8 mmol/L 3.5 - 5.0 mmol/L [facility] Sodium [Moles/Vol] 136 mmol/L 135 - 145 mmol/L [facility] Urea nitrogen [Mass/Vol] 13 mg/dL 7 - 25 mg/d L [facility] Urea nitrogen/Creatinine [Mass ratio] 12 mg/mg [facility] CONTINUOUS CARDIAC MONITORIN G STRIPOrdered By: Unassigned Pacs on 07-29-2023 [facility] Work Phone: MAGNESIUMon 07-29-2023 Magnesium [Mass/Vol] 1.9 mg/dL 1.6 - 2 .6 mg/dL [facility] No Panel Informationon 07-28 Interpretation and review of laboratory results Abnormal [facility] Interpretation and review of laboratory results Normal [facility] PHOSPHATE, INORGANICon 07-28 Phosphate [Mass/Vol] 3.6 mg/dL 2.2 - 4 .6 mg/dL [facility] CBC AND ELECTRONIC DIFFon Basophils (Bld) [#/Vol] 0.04 10*3/uL 0.00 - 0.09 K/uL [facility] Basophils/100 WBC (Bld) 0.5 % O [facility] Differential cell count method Nom (Bld) Electronic Differential [facility] Eosinophils (Bld) [#/Vol] 0.04 10*3/uL 0.00 - 0.48 K/uL [facility] Eosinophils/100 WBC (Bld) 0.5 % [facility] Erythrocyte distribution width (RBC) [Ratio] 12.3 % 10.9 - 14.3 % [facility] Hematocrit (Bld) [Volume fraction] 47.2 % 39.6 - 48.8 % [facility] Hemoglobin (Bld) [Mass/Vol] 16.0 g/dL 13.4 - 16.8 g/dL [facility] Immature granulocytes (Bld) [#/Vol] K/uL NINF - 0.07 K/uL [facility] Immature granulocytes/100 WBC (Bld) 0.4 % [facility] Lymphocytes (Bld) [#/Vol] 1.67 10*3/uL 0.83 - 3.57 K/uL [facility] Lymphocytes/100 WBC (Bld) 20.9 % [facility] MCH (RBC) [Entitic mass] 30.3 pg 26. 1 - 33.3 pg [facility] MCHC (RBC) [Mass/Vol] 33.9 g/dL 31.9 - 36.5 g/dL [facility] MCV (RBC) [Entitic vol] 89.4 fL 79.0 - 94.5 fL [facility] Monocytes (Bld) [#/Vol] 0.45 10*3/uL 0.24 - 0.93 K/uL [facility] Monocytes/100 WBC (Bld) 5.6 % O [facility] Neutrophils (Bld) [#/Vol] 5.76 10*3/uL 1.57 - 6.19 K/uL [facility] Nucleated RBC/100 WBC (Bld) [Ratio] 0.0 % [facility] Platelet mean volume (Bld) [Entitic vol] 10.2 fL 8.7 - 12.3 fL [facility] Platelets (Bld) [#/Vol] 234 10*3/uL 146 - 337 K/uL [facility] RBC (Bld) [#/Vol] 5.28 10*6/uL [facility] Segmented neutrophils/100 WBC (Bld) 72.1 % [facility] WBC (Bld) [#/Vol] 7.99 10*3/uL 3.73 - 10. 10 K/uL [facility] COMPREHENSIVE METABOLIC PANE Magno 07-17-2023 Albumin [Mass/Vol] 4.5 g/dL 3.5 - 5.0 g/dL [facility] ALP [Catalytic activity/Vol] 48 U/L 32 - 126 U/L [facility] ALT [Catalytic activity/Vol] 14 U/L 10 - 52 U/L [facility] Anion gap [Moles/Vol] 15 mmol/L 7 - 17 mmol/L [facility] AST [Catalytic activity/Vol] 18 U/L 10 - 39 U/L [facility] Bilirubin [Mass/Vol] 1.7 mg/dL High NINF - 1.5 mg/dL [facility] Calcium [Mass/Vol] 9.4 mg/dL 8.6 - 10. 5 mg/dL [facility] Chloride [Moles/Vol] 103 mmol/L 98 - 10 8 mmol/L [facility] CO2 [Moles/Vol] 27 mmol/L 21 - 31 mmol/L [facility] Creatinine [Mass/Vol] 0.95 mg/dL 0.70 - 1.30 mg/dL [facility] eGFR, CKD-EPI, Male - PINF [facility] Comment on above: Reported eGFR is bas ed on the CKD-EPI 2020 equation using creatinine, age, and sex. Glucose [Mass/Vol] 80 mg/dL 70 - 99 mg/dL [facility] Interpretation and review of laboratory results Abnormal [facility] Osmolality Calc [Osmolality] 293 [facility] Potassium [Moles/Vol] 4.1 mmol/L 3.5 - 5.0 mmol/L [facility] Protein [Mass/Vol] 7.2 g/dL 6.4 - 8.3 g/dL [facility] Sodium [Moles/Vol] 141 mmol/L 135 - 145 mmol/L [facility] Urea nitrogen [Mass/Vol] 11 mg/dL 7 - 25 mg/d L [facility] Urea nitrogen/Creatinine [Mass ratio] 12 mg/mg [facility] PT,INR,PTTon 07-17-2023 aPTT Coag (PPP) [Time] 28.3 s [facility] INR Coag (Bld) [Relative time] 1.0 {INR} 0.9 - 1.1 [facility] Interpretation and review of laboratory results Normal [facility] PT Coag (PPP) [Time] 13.4 s [facility] TYPE AND SCREEN - PREADMISSI ONon 07-17-2023 ABO/RH(D) TYPE AB NEG [facility] URINALYSISOrdered By: Manjula Rees on 07-17-2023 Appearance (U) Clear Clear [facility] Bacteria LM Ql (Urine sed) ABSENT ABSENT [facility] Color (U) Yellow Yellow [facility] Epithelial cells.squamous LM Ql (Urine sed) 0-2/hpf 0-2/hpf, 3-5/hpf = 1+ [facility] Glucose Test strip (U) [Mass/Vol] Negative Negative [facility] Interpretation and review of laboratory results Normal [facility] Ketones (U) [Mass/Vol] Negative Negative [facility] Leukocyte esterase Test strip Ql (U) Negative Negative [facility] Nitrite Ql (U) Negative Negative [facility] pH (U) 6.5 [pH] 5.0 - 7.0 [facility] Protein (U) [Mass/Vol] Negative Negative [facility] RBC (U) [#/Vol] Negative [facility] RBC LM.HPF (Urine sed) [#/Area] 0-2 [facility] Specific gravity (U) [Rel density] 1.010 1.001 - 1.035 [facility] Urobilinogen (U) [Mass/Vol] 0.2 E.U./dL 0.2 E.U/dL, 1.0 E.U/dL [facility] WBC LM.HPF (Urine sed) [#/Area] 0 - 5 [facility] ABORH TYPE RECONFIRMATIONon 04-02-2023 ABO/RH(D) TYPE AB NEG [facility] Absolute lymphocyte countOrd ered By: HEALTH ASSESSMENT on 12-20-2022 Lymphocytes Auto (Unsp spec) [#/Vol] 2.69 10*3/uL 0.83-4.51 [facility] Absolute reticulocyte countO rdered By: HEALTH ASSESSMENT on 12-20-2022 Reticulocytes (Bld) [#/Vol] 0.00 10*3/uL 0-5 [facility] Basophil percentageOrdered B y: HEALTH ASSESSMENT on 12-20-2022 Basophil percentage 3.2 mg/dL 2.5-4.9 [facility] Bilirubin [Mass/Vol] 1.40 mg/dL 0.20-1.00 [facility] Comment on above: For patients on eltr ombopag therapy, use of Dimension [place] TBIL is not recommended. Chloride [Moles/Vol] 104 mmol/L 98-107 [facility] Cholesterol [Mass/Vol] 224 mg/dL <200 [facility] Comment on above: <200 mg/dL Desirable 200-240 mg/dL Borderline >240 mg/dL High Risk Glucose [Mass/Vol] 100 mg/dL 74-106 [facility] Comment on above: Fasting Glucose resu lt from 100 to 125 mg/dL suggests IMPAIRED HOMEOSTASIS per A.D.A. criteria. LDH [Catalytic activity/Vol] 211 U/L 87-241 [facility] Neutrophils (Bld) [#/Vol] 4.7 10*3/uL 2.0-7.7 [facility] Potassium [Moles/Vol] 4.4 mmol/L 3.5-5.1 [facility] Protein [Mass/Vol] 8.2 g/dL 6.4-8.2 [facility] Sodium [Moles/Vol] 138 mmol/L 136-145 [facility] Triglyceride [Mass/Vol] 111 mg/dL <199 [facility] Comment on above: The drugs N-Acetylcy steine and Metamizole may falsely depress this assay.Serum Triglycerides Reference Interval Normal <150 mg/dL Borderline high 150 - 199 mg/dL High 200 - 499 mg/dL Very High > or = 500 mg/dL WBC (Bld) [#/Vol] 8.2 10*3/uL 4.4-11.0 [facility] Bilirubin Test strip Ql (U)O rdered By: HEALTH ASSESSMENT on 12-20-2022 Bilirubin Ql (U) Negative Negative [facility] Blood erythrocytes count (nu mber/volume)Ordered By: HEALTH ASSESSMENT on 12-20-2022 RBC (Bld) [#/Vol] 5.53 10*6/uL 4.6-6.2 [facility] Blood hemoglobin measurement (mass/volume)Ordered By: HEALTH ASSESSMENT on 12-20-2022 Hemoglobin (Bld) [Mass/Vol] 16.7 g/dL 13.0-16.5 [facility] Blood platelet mean volumeOr dered By: HEALTH ASSESSMENT on 12-20-2022 Platelet mean volume (Bld) [Entitic vol] 9.7 fL 6.2-12.0 [facility] Determination of erythrocyte mean corpuscular volume (MCV)Ordered By: HEALTH ASSESSMENT on 12-20-2022 MCV (RBC) [Entitic vol] 91.0 fL 80-94 [facility] Direct bilirubinOrdered By: HEALTH ASSESSMENT on 12-20-2022 Bilirubin.direct [Mass/Vol] 0.25 mg/dL 0.00-0.30 [facility] Hematocrit Auto (Bld) [Volum e fraction]Ordered By: HEALTH ASSESSMENT on 12-20-2022 Hematocrit (Bld) [Volume fraction] 50.3 % 40-54 [facility] Ketones Test strip Ql (U)Ord ered By: HEALTH ASSESSMENT on 12-20-2022 Ketones Ql (U) Negative Negative [facility] - Chemistry and C hemistry - challengeOrdered By: HEALTH ASSESSMENT on 12-20-2022 ALP [Catalytic activity/Vol] 61 U/L 45-117 [facility] ALT [Catalytic activity/Vol] 40 U/L 16-61 [facility] Cholesterol.total/Choles terol in HDL [Mass ratio] 4.10 {ratio} [facility] CO2 [Moles/Vol] 28.0 mmol/L 21.0-32.0 [facility] Globulin (S) [Mass/Vol] 4.1 g/dL 2.2-4.2 [facility] Urea nitrogen/Creatinine [Mass ratio] 9.6 mg/mg 10-20 [facility] - Hematology and Cell countsOrdered By: HEALTH ASSESSMENT on 12-20-2022 Erythrocyte distribution width (RBC) [Entitic vol] 42.0 fL 35.1-43.9 [facility] Erythrocyte distribution width (RBC) [Ratio] 12.7 % 11.6-14.6 [facility] MCH (RBC) [Entitic mass] 30.2 pg 27.0-32.0 [facility] Nucleated RBC/100 WBC (Bld) [Ratio] 0 % 0-5 [facility] MCHC Auto (RBC) [Mass/Vol]Or dered By: HEALTH ASSESSMENT on 12-20-2022 MCHC (RBC) [Mass/Vol] 33.2 g/dL 32-36 [facility] Nitrite Test strip Ql (U)Ord ered By: HEALTH ASSESSMENT on 12-20-2022 Nitrite Ql (U) Negative Negative [facility] No Panel InformationOrdered By: Chichi Argueta on 12-20-2022 Prostate Specific Antigen Total 16.10 ng/mL 0.0-4.0 [facility] Comment on above: This test was perfor med using the TPSA assay method for the[employer] chemistry system. Values obtained with differentassay methods cannot be used interchangably.When changing PSA assays in the course of monitoring apatient, additional sequential testing should be carriedout to confirm baseline values. No Panel InformationOrdered By: HEALTH ASSESSMENT on 12-20-2022 Estimated GFR (MDRD) Amer 85 mL/min >60 [facility] Comment on above: GFR Calc Estimated GFR (MDRD) Non-Af Amer 70 mL/min >60 [facility] Comment on above: Non- GFR Calc Platelets bldOrdered By: STEPHANIE LTH ASSESSMENT on 12-20-2022 Platelets (Bld) [#/Vol] 280 10*3/uL 150-450 [facility] Protein Test strip Ql (U)Ord ered By: HEALTH ASSESSMENT on 12-20-2022 Protein Ql (U) Negative Negative [facility] Segmented neutrophils/100 WB C Auto (Bld)Ordered By: HEALTH ASSESSMENT on 12-20-2022 Segmented neutrophils/100 WBC (Bld) 57.6 % 47-70 [facility] Serum or plasma albumin jase urement (mass/volume)Ordered By: HEALTH ASSESSMENT on 12-20-2022 Albumin [Mass/Vol] 4.1 g/dL 3.2-5.0 [facility] Serum or plasma albumin/glob ulin mass ratioOrdered By: HEALTH ASSESSMENT on 12-20-2022 Albumin/Globulin [Mass ratio] 1.0 {ratio} 0.9-2.4 [facility] Serum or plasma calcium jase urement (mass/volume)Ordered By: HEALTH ASSESSMENT on 12-20-2022 Calcium [Mass/Vol] 9.3 mg/dL 8.5-10.1 [facility] Serum or plasma cholesterol in HDL measurement (mass/volume)Ordered By: HEALTH ASSESSMENT on 12-20-2022 Cholesterol in HDL [Mass/Vol] 54 mg/dL >40 [facility] Comment on above: The drugs N-Acetylcy steine and Metamizole may falsely depress this assay. Reference Range HDL <40 mg/dL Low HDL Cholesterol HDL >or= 60 mg/dL High HDL Cholesterol Serum or plasma cholesterol in VLDL measurement (mass/volume)Ordered By: HEALTH ASSESSMENT on 12-20-2022 Cholesterol in VLDL [Mass/Vol] 22 mg/dL 5-40 [facility] Serum or plasma creatinine m easurement (mass/volume)Ordered By: HEALTH ASSESSMENT on 12-20-2022 Creatinine [Mass/Vol] 1.15 mg/dL 0.70-1.30 [facility] Comment on above: The validity of the calculated GFR & GFRAA in patients over 70 years has not been determined. Clinical correlation is essential. Serum or plasma low density lipoprotein (LDL) cholesterol measurement (mass/volume)Ordered By: HEALTH ASSESSMENT on 12-20-2022 Cholesterol in LDL [Mass/Vol] 148 mg/dL 0-130 [facility] Serum or plasma urea nitroge n measurement (mass/volume)Ordered By: HEALTH ASSESSMENT on 12-20-2022 Urea nitrogen [Mass/Vol] 11 mg/dL 7-18 [facility] Serum or plasma uric acid me asurement (mass/volume)Ordered By: HEALTH ASSESSMENT on 12-20-2022 Urate [Mass/Vol] 6.6 mg/dL 3.5-7.2 [facility] Comment on above: The drugs N-Acetylcy steine and Metamizole may falsely depress this assay. Thin prep Papanicolaou smear with manual screeningOrdered By: HEALTH ASSESSMENT on 12-20-2022 Thin prep Papanicolaou smear with manual screening 21 U/L 15-37 [facility] Thin prep Papanicolaou smear with manual screening 6 5-15 [facility] Urine blood detectionOrdered By: HEALTH ASSESSMENT on 12-20-2022 RBC Ql (U) Negative Negative [facility] Urine clarityOrdered By: A [facility] ASSESSMENT on 12-20-2022 Clarity (U) Clear Clear [facility] Urine color determinationOrd ered By: HEALTH ASSESSMENT on 12-20-2022 Color (U) Yellow Yellow [facility] Urine glucose detectionOrder ed By: HEALTH ASSESSMENT on 12-20-2022 Glucose Ql (U) Normal mg/dl Normal [facility] Urine leukocyte esterase det ection by dipstickOrdered By: HEALTH ASSESSMENT on 12-20-2022 Leukocyte esterase Test strip Ql (U) Negative Negative [facility] Urine pHOrdered By: HEALTH A SSESSMENT on 12-20-2022 pH (U) 7.0 [pH] 5.0 - 8.0 [facility] Urine specific gravity measu rementOrdered By: HEALTH ASSESSMENT on 12-20-2022 Specific gravity (U) [Rel density] 1.010 1.002-1.030 [facility] Urobilinogen Auto test strip Ql (U)Ordered By: HEALTH ASSESSMENT on 12-20-2022 Urobilinogen Ql (U) Normal mg/dl Normal [facility] MR Prostate WO and W wild Solo 08-29-2022 IMPRESSION: 1. Stable to slight interval increase in the size of the prostate gland. Stable high PSA density within the gland. 2. Some interval increase in the size of the previously noted signal abnormality in the right transitional zone within the mid gland extending into the base and into the fibromuscular stroma concerning for a neoplastic [id number] Category 4 3. Patchy linear and bandlike T2 hypointense areas in the peripheral zones with increased postcontrast enhancement could be related to background prostatitis. 4. Intact prostatic capsule with no regional extracapsular disease. 5. No lymphadenopathy or bone lesions identified on this study OLOGY EXAM: MRI PROSTATE WITH AND WITHOUT CONTRAST, 08/29/2022 09:39 AM CLINICAL INDICATIONS: Continued rising PSA, x 3 negative bx; R97.20:Elevated PSA Plan for fusion bx; COMPARISON: MRI prostate dated October 13, 2020 TECHNIQUE: Multiplanar, multisequence MR imaging of the prostate was performed. Intravenous contrast was administered and dynamic post contrast enhanced images were acquired. This study was performed on a 3 Keyonna magnet. CONTRAST: gadoterate Meglumine (DOTAREM) 5 MMOL/10ML injection 3-60 mL; Route of Administration: Intravenous; Dose: 17.8 mL. Postprocessing of the images was performed on Tiqets software at the time of image interpretation. FINDINGS: Quality-Adequate. Prostate: The prostate measures 4.4 x 3.8 [...] the central gland or the peripheral zones Transition zone: Nodular and stromal changes in the central gland compatible with changes of BPH. A prominent median lobe projects into the bladder base. Lesions: Target : Lesion 1 Location: Right anterior transitional zone extending into the fibromuscular stroma and into the right base (Series: 7. Image: 15-19.) Dimensions: 2.5 x 1.2 x 1.4 cm T2: Asymmetric T2 hypointense fairly discrete nodule. Sequence category 3/5 DWI:Diffusion restriction with ADC darkening. Sequence category 4/5 DCE: Yes Capsular involvement: No involvement. Lesion overall PI-RADS category: 4/5 (1 = very low suspicion, 5 = high suspicion) Neurovascular bundles: Prostatic capsule is intact. No regional extracapsular disease appreciated on this study. Some surrounding edema and prominent vessels around the prostate gland. Seminal vesicles: Seminal vesicles are symmetric. No focal abnormalities or diffusion restriction. Lymph nodes: Small external iliac and inguinal nodes are seen which are nonspecific. Slightly prominent left external iliac node on image 56 series 20 measures 1.4 x 1.1 cm in size. Small bilateral inguinal nodes are seen. Other pelvic organs: Mild diffuse urinary bladder wall thickening likely secondary to chronic outlet obstruction. Distal ureters are nondilated Segments of the rectosigmoid are collapsed limiting detailed evaluation. No pelvic free fluid or any collections. No definite inguinal hernias or hydrocele. Pelvic and the femoral vessels are patent. Diastasis of the rectus muscles with a possible small umbilical hernia containing fat Bones: The visualized osseous structures shows slightly heterogeneous marrow signal without discrete focal osseous lesions RADIOLOGY Anders Gordon, MEGGAN - 08/29/2022 EXAM: MRI PROSTATE WITH AND WITHOUT CONTRAST, 08/29/2022 09:39 AM CLINICAL INDICATIONS: Continued rising PSA, x 3 negative bx; R97.20:Elevated PSA Plan for fusion bx; COMPARISON: MRI prostate dated October 13, 2020 TECHNIQUE: Multiplanar, multisequence MR imaging of the prostate was performed. Intravenous contrast was administered and dynamic post contrast enhanced images were acquired. This study was performed on a 3 Keyonna magnet. CONTRAST: gadoterate Meglumine (DOTAREM) 5 MMOL/10ML injection 3-60 mL; Route of Administration: Intravenous; Dose: 17.8 mL. Postprocessing of the images was performed on Tiqets software at the time of image interpretation. FINDINGS: Quality-Adequate. Prostate: The prostate measures 4.4 x 3.8 [...] the central gland or the peripheral zones Transition zone: Nodular and stromal changes in the central gland compatible with changes of BPH. A prominent median lobe projects into the bladder base. Lesions: Target : Lesion 1 Location: Right anterior transitional zone extending into the fibromuscular stroma and into the right base (Series: 7. Image: 15-19.) Dimensions: 2.5 x 1.2 x 1.4 cm T2: Asymmetric T2 hypointense fairly discrete nodule. Sequence category 3/5 DWI:Diffusion restriction with ADC darkening. Sequence category 4/5 DCE: Yes Capsular involvement: No involvement. Lesion overall PI-RADS category: 4/5 (1 = very low suspicion, 5 = high suspicion) Neurovascular bundles: Prostatic capsule is intact. No regional extracapsular disease appreciated on this study. Some surrounding edema and prominent vessels around the prostate gland. Seminal vesicles: Seminal vesicles are symmetric. No focal abnormalities or diffusion restriction. Lymph nodes: Small external iliac and inguinal nodes are seen which are nonspecific. Slightly prominent left external iliac node on image 56 series 20 measures 1.4 x 1.1 cm in size. Small bilateral inguinal nodes are seen. Other pelvic organs: Mild diffuse urinary bladder wall thickening likely secondary to chronic outlet obstruction. Distal ureters are nondilated Segments of the rectosigmoid are collapsed limiting detailed evaluation. No pelvic free fluid or any collections. No definite inguinal hernias or hydrocele. Pelvic and the femoral vessels are patent. Diastasis of the rectus muscles with a possible small umbilical hernia containing fat Bones: The visualized osseous structures shows slightly heterogeneous marrow signal without discrete focal osseous lesions IMPRESSION IMPRESSION: 1. Stable to slight interval increase in the size of the prostate gland. Stable high PSA density within the gland. 2. Some interval increase in the size of the previously noted signal abnormality in the right transitional zone within the mid gland extending into the base and into the fibromuscular stroma concerning for a neoplastic [id number] Category 4 3. Patchy linear and bandlike T2 hypointense areas in the peripheral zones with increased postcontrast enhancement could be related to background prostatitis. 4. Intact prostatic capsule with no regional extracapsular disease. 5. No lymphadenopathy or bone lesions identified on this study [facility] Radiology Study observation (narrative) [facility] MR Prostate WO and W contras t IVOrdered By: Anders Gordon on 08-29-2022 [facility] Work Phone: No Panel Informationon 05-24 Prostate Specific Antigen Total 12.50 ng/mL 0.0-4.0 [facility] Comment on above: This test was perfor med using the TPSA assay method for [employer] chemistry system. Values obtained with differentassay methods cannot be used interchangably.When changing PSA assays in the course of monitoring apatient, additional sequential testing should be carriedout to confirm baseline values. Absolute lymphocyte counton 11-22-2021 Lymphocytes Auto (Unsp spec) [#/Vol] 2.29 10*3/uL 0.83-4.51 [facility] Work Phone: Absolute reticulocyte counto n 11-22-2021 Reticulocytes (Bld) [#/Vol] 0.00 10*3/uL 0-5 [facility] Work Phone: Basophil percentageon 2021 Basophil percentage 2.9 mg/dL 2.5-4.9 [facility] Work Phone: Bilirubin [Mass/Vol] 1.00 mg/dL 0.20-1.00 [facility] Work Phone: Comment on above: For patients on eltr ombopag therapy, use of Dimension [place] TBIL is not recommended. Chloride [Moles/Vol] 105 mmol/L 98-107 [facility] Work Phone: Cholesterol [Mass/Vol] 233 mg/dL <200 [facility] Work Phone: Comment on above: <200 mg/dL Desirable 200-240 mg/dL Borderline >240 mg/dL High Risk Glucose [Mass/Vol] 95 mg/dL 74-106 [facility] Work Phone: [phone] Neutrophils (Bld) [#/Vol] 3.2 10*3/uL 2.0-7.7 [facility] Work Phone: [phone] Potassium [Moles/Vol] 4.4 mmol/L 3.5-5.1 [facility] Work Phone: [phone] Protein [Mass/Vol] 8.0 g/dL 6.4-8.2 [facility] Work Phone: [phone] Sodium [Moles/Vol] 140 mmol/L 136-145 [facility] Work Phone: [phone] Triglyceride [Mass/Vol] 150 mg/dL <199 [facility] Work Phone: [phone] Comment on above: The drugs N-Acetylcy steine and Metamizole may falsely depress this assay.Serum Triglycerides Reference Interval Normal <150 mg/dL Borderline high 150 - 199 mg/dL High 200 - 499 mg/dL Very High > or = 500 mg/dL WBC (Bld) [#/Vol] 6.3 10*3/uL 4.4-11.0 [facility] Work Phone: [phone] Bilirubin Test strip Ql (U)o n 11-22-2021 Bilirubin Ql (U) Negative Negative [facility] Work Phone: [phone] Blood erythrocytes count (nu mber/volume)on 11-22-2021 RBC (Bld) [#/Vol] 5.31 10*6/uL 4.6-6.2 [facility] Work Phone: [phone] Blood hemoglobin measurement (mass/volume)on 11-22-2021 Hemoglobin (Bld) [Mass/Vol] 16.1 g/dL 13.0-16.5 [facility] Work Phone: [phone] Blood platelet mean volumeon 11-22-2021 Platelet mean volume (Bld) [Entitic vol] 9.9 fL 6.2-12.0 [facility] Work Phone: [phone] Determination of erythrocyte mean corpuscular volume (MCV)on 11-22-2021 MCV (RBC) [Entitic vol] 87.6 fL 80-94 [facility] Work Phone: Direct bilirubinon Bilirubin.direct [Mass/Vol] 0.20 mg/dL 0.00-0.30 [facility] Work Phone: [phone] Hematocrit Auto (Bld) [Volum e fraction]on 11-22-2021 Hematocrit (Bld) [Volume fraction] 46.5 % 40-54 [facility] Work Phone: [phone] Ketones Test strip Ql (U)on 11-22-2021 Ketones Ql (U) Negative Negative [facility] Work Phone: Laboratory - Chemistry and C hemistry - challengeon 11-22-2021 ALP [Catalytic activity/Vol] 59 U/L 45-117 [facility] Work Phone: [phone] ALT [Catalytic activity/Vol] 38 U/L 16-61 [facility] Work Phone: [phone] Cholesterol.total/Choles terol in HDL [Mass ratio] 3.60 {ratio} [facility] Work Phone: [phone] CO2 [Moles/Vol] 29.0 mmol/L 21.0-32.0 [facility] Work Phone: [phone] Globulin (S) [Mass/Vol] 4.0 g/dL 2.2-4.2 [facility] Work Phone: [phone] Urea nitrogen/Creatinine [Mass ratio] 11.4 mg/mg 10-20 [facility] Work Phone: [phone] Laboratory - Hematology and Cell countson 11-22-2021 Erythrocyte distribution width (RBC) [Entitic vol] 41.6 fL 35.1-43.9 [facility] Work Phone: [phone] Erythrocyte distribution width (RBC) [Ratio] 12.9 % 11.6-14.6 [facility] Work Phone: [phone] MCH (RBC) [Entitic mass] 30.3 pg 27.0-32.0 [facility] Work Phone: [phone] Nucleated RBC/100 WBC (Bld) [Ratio] 0 % 0-5 [facility] Work Phone: [phone] MCHC Auto (RBC) [Mass/Vol]on 11-22-2021 MCHC (RBC) [Mass/Vol] 34.6 g/dL 32-36 [facility] Work Phone: [phone] Nitrite Test strip Ql (U)on 11-22-2021 Nitrite Ql (U) Negative Negative [facility] Work Phone: [phone] Panel Informationon 11-22 Prostate Specific Antigen Total 10.80 ng/mL 0.0-4.0 [facility] Work Phone: [phone] Comment on above: This test was perfor med using the TPSA assay method for [employer] chemistry system. Values obtained with differentassay methods cannot be used interchangably.When changing PSA assays in the course of monitoring apatient, additional sequential testing should be carriedout to confirm baseline values. Estimated GFR (MDRD) Amer 79 mL/min >60 [facility] Work Phone: [phone] Comment on above: GFR Calc Estimated GFR (MDRD) Non-Af Amer 65 mL/min >60 [facility] Work Phone: [phone] Comment on above: Non- GFR Calc Platelets bldon 11-22-2021 Platelets (Bld) [#/Vol] 261 10*3/uL 150-450 [facility] Work Phone: [phone] Protein Test strip Ql (U)on 11-22-2021 Protein Ql (U) Negative Negative [facility] Work Phone: [phone] Segmented neutrophils/100 WB C Auto (Bld)on 11-22-2021 Segmented neutrophils/100 WBC (Bld) 49.7 % 47-70 [facility] Work Phone: [phone] Serum or plasma albumin jase urement (mass/volume)on 11-22-2021 Albumin [Mass/Vol] 4.0 g/dL 3.2-5.0 [facility] Work Phone: Serum or plasma albumin/glob ulin mass ratioon 11-22-2021 Albumin/Globulin [Mass ratio] 1.0 {ratio} 0.9-2.4 [facility] Work Phone: Serum or plasma calcium jase urement (mass/volume)on 11-22-2021 Calcium [Mass/Vol] 9.3 mg/dL 8.5-10.1 [facility] Work Phone: Serum or plasma cholesterol in HDL measurement (mass/volume)on 11-22-2021 Cholesterol in HDL [Mass/Vol] 64 mg/dL >40 [facility] Work Phone: Comment on above: The drugs N-Acetylcy steine and Metamizole may falsely depress this assay. Reference Range HDL <40 mg/dL Low HDL Cholesterol HDL >or= 60 mg/dL High HDL Cholesterol Serum or plasma cholesterol in VLDL measurement (mass/volume)on 11-22-2021 Cholesterol in VLDL [Mass/Vol] 30 mg/dL 5-40 [facility] Work Phone: Serum or plasma creatinine m easurement (mass/volume)on 11-22-2021 Creatinine [Mass/Vol] 1.23 mg/dL 0.70-1.30 [facility] Work Phone: Comment on above: The validity of the calculated GFR & GFRAA in patients over 70 years has not been determined. Clinical correlation is essential. Serum or plasma low density lipoprotein (LDL) cholesterol measurement (mass/volume)on 11-22-2021 Cholesterol in LDL [Mass/Vol] 139 mg/dL 0-130 [facility] Work Phone: Serum or plasma urea nitroge n measurement (mass/volume)on 11-22-2021 Urea nitrogen [Mass/Vol] 14 mg/dL 7-18 [facility] Work Phone: Serum or plasma uric acid me asurement (mass/volume)on 11-22-2021 Urate [Mass/Vol] 7.0 mg/dL 3.5-7.2 [facility] Work Phone: Comment on above: The drugs N-Acetylcy steine and Metamizole may falsely depress this assay. Thin prep Papanicolaou smear with manual screeningon 11-22-2021 Thin prep Papanicolaou smear with manual screening 23 U/L 15-37 [facility] Work Phone: Thin prep Papanicolaou smear with manual screening 6 5-15 [facility] Work Phone: Thin prep Papanicolaou smear with manual screening 171 U/L 87-241 [facility] Work Phone: Urine blood detectionon 10-27 RBC Ql (U) Negative Negative [facility] Work Phone: Urine clarityon 11-22-2021 Clarity (U) Clear Clear [facility] Work Phone: Urine color determinationon 11-22-2021 Color (U) Yellow Yellow [facility] Work Phone: Urine glucose detectionon Glucose Ql (U) Normal mg/dl Normal [facility] Work Phone: Urine leukocyte esterase det ection by dipstickon 11-22-2021 Leukocyte esterase Test strip Ql (U) Negative Negative [facility] Work Phone: Urine pHon 11-22-2021 pH (U) 6.0 [pH] 5.0 - 8.0 [facility] Work Phone: Urine specific gravity measu rementon 11-22-2021 Specific gravity (U) [Rel density] 1.015 1.002-1.030 [facility] Work Phone: Urobilinogen Auto test strip Ql (U)on 11-22-2021 Urobilinogen Ql (U) Normal mg/dl Normal [facility] Work Phone: MRI PROSTATE WITH AND WITHOU T CONTRASTon 10-13-2020 IMPRESSION: 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 OLOGY EXAM: MRI PROSTATE WITH AND WITHOUT CONTRAST, 10/13/2020 09:55 AM CLINICAL INDICATIONS: History of elevated PSA; R97.20:Elevated PSA Please T3 prostate protocol; COMPARISON: No prior studies available for comparison. TECHNIQUE: Multiplanar MR imaging of the pelvis was performed using T1 and T2 weighted sequences. Intravenous contrast was administered and post contrast enhanced T1 weighted sequences were performed using fat suppression. This study was performed on a 3.0 Keyonna magnet. Postprocessing of the images was performed on Tiqets software at the time of image interpretation. FINDINGS: Quality-Adequate. Prostate: The prostate measures 4.2 x 3.3 x 3.8 cm. The prostate volume is 28 cc. Serum PSA is 8.44 ng/mL as of October 13, 2020. PSA density is 0.30 ng/mL/cc. Peripheral zone: Diffusely heterogeneous with decreased T2 signal. No focal lesion identified. Transition zone: Heterogeneous with a focal right lesion as described below. Lesions: Target 1 Location: Right anterior transition midgland (Series: 701 image 19 and 802 image 228) Dimensions: 1.0 x 0.7 x 1.4 cm T2: Moderately T2 hypointense with obscured margins Sequence category 4/5 DWI:Moderately hypointense on ADC and hyperintense on DWI Sequence category 4/5 suspicion DCE: Negative Capsular involvement: No definite extension beyond the capsule. There is broad based abutment of the capsule. Lesion overall PI-RADS category: 4/5 (1 = very low suspicion, 5 = high suspicion) Neurovascular bundles: Intact Seminal vesicles: Symmetric without evidence of a lesion. Lymph nodes: No pelvic adenopathy is identified. Other pelvic organs: Mild indentation of the bladder by the prostate. Bones: The visualized osseous structures are unremarkable. [facility] Elizabeth Bustillo MD - 10/13/2020 EXAM: MRI PROSTATE WITH AND WITHOUT CONTRAST, 10/13/2020 09:55 AM CLINICAL INDICATIONS: History of elevated PSA; R97.20:Elevated PSA Please T3 prostate protocol; COMPARISON: No prior studies available for comparison. TECHNIQUE: Multiplanar MR imaging of the pelvis was performed using T1 and T2 weighted sequences. Intravenous contrast was administered and post contrast enhanced T1 weighted sequences were performed using fat suppression. This study was performed on a 3.0 Keyonna magnet. Postprocessing of the images was performed on Tiqets software at the time of image interpretation. FINDINGS: Quality-Adequate. Prostate: The prostate measures 4.2 x 3.3 x 3.8 cm. The prostate volume is 28 cc. Serum PSA is 8.44 ng/mL as of October 13, 2020. PSA density is 0.30 ng/mL/cc. Peripheral zone: Diffusely heterogeneous with decreased T2 signal. No focal lesion identified. Transition zone: Heterogeneous with a focal right lesion as described below. Lesions: Target 1 Location: Right anterior transition midgland (Series: 701 image 19 and 802 image 228) Dimensions: 1.0 x 0.7 x 1.4 cm T2: Moderately T2 hypointense with obscured margins Sequence category 4/5 DWI:Moderately hypointense on ADC and hyperintense on DWI Sequence category 4/5 suspicion DCE: Negative Capsular involvement: No definite extension beyond the capsule. There is broad based abutment of the capsule. Lesion overall PI-RADS category: 4/5 (1 = very low suspicion, 5 = high suspicion) Neurovascular bundles: Intact Seminal vesicles: Symmetric without evidence of a lesion. Lymph nodes: No pelvic adenopathy is identified. Other pelvic organs: Mild indentation of the bladder by the prostate. Bones: The visualized osseous structures are unremarkable. IMPRESSION IMPRESSION: 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 [facility] Radiology Study observation (narrative) [facility] MRI PROSTATE WITH AND WITHOU T CONTRASTOrdered By: Elizabeth Bustillo on 10-13-2020 [facility] Work Phone: CNOVon 03-11-2019 CNOV Office Visit (OTOLMN ) COOKIE,NORMAN A ([id number]) 1965 M Date Time Provider Department 03/11/19 2:00 PM LENCHO BOUDREAUX During your visit today, we recorded the following information about you: Bridget Duncan 03/11/2019 2:25 PM Signed Tobacco Use: Never Was smoking cessation packet given? N/A - Patient is a non-smoker or quit >1 year ago. 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 There may be just a small amount in the ventricle or on the anterior false vocal fold but it is not interfering with vocal fold vibration. He does have some dysphonia that he does use some false vocal folds and phonation and is consistent with hyperfunctional voice. I am going treat him to get back to me in 6 months and we will tentatively plan to assess whether or not to do a laser at that time if there is recurrent disease. He will also call me if it worsens in the interim. He does have a history of reflux but is now to the point that he controls well with diet and only takes the proton X as needed and that seems reasonable this time. HPI: The patient first saw me in July of last year with a 5 somewhat recent diagnosis of laryngeal papilloma with surgery at the end of 2017. He had a benign papilloma but laryngeal subtype evaluation was not performed. We did perform an office laser in November. He did felt it took a long time for his voice to return but now he feels is back to normal. ALLERGIES No Known Allergies Current Outpatient Medications Medication Sig - pantoprazole DR (PROTONIX) 40 mg tablet Take 40 mg by mouth as needed (GI upset). No current facility-administered medications for this visit. No past medical history on file. No past surgical history on file. Social History: Social History Tobacco Use - Smoking status: Never Smoker - Smokeless tobacco: Never Used Substance Use Topics - Alcohol use: Not on file - Drug use: Not on file PHYSICAL EXAM: On physical examination Norman Gary is a well-developed, well nourished male. The voice is grossly normal with a slight low pitch. Cranial nerves II-XII are grossly intact Mental status revealed patient to be alert and oriented. Mood is appropriate. Details of the physical examination: HEAD AND FACE: Physical examination of the head, neck, external nose, external ears, mouth and face fails to demonstrate any significant abnormality or asymmetry to critical face to face observation. Skin and scalp are normal. ORAL CAVITY/OROPHARYNX: No masses or lesions LARYNX: Recommend stroboscopy NECK: No lymphadenopathy or thyroid hypertrophy Lencho Boudreaux MD PROCEDURE NOTE: Recommended Videostroboscopy. Risks, benefits and alternatives were explained. The patient wished to proceed he was reidentified and a time out obtained. PROCEDURE: Videostroboscopy PREOPERATIVE DIAGNOSIS: Laryngeal papilloma, dysphonia POSTOPERATIVE DIAGNOSIS: Same INDICATIONS: Evaluation larynx to:evaluate lesion, assess vibratory margin and postoperative assessment ANESTHESIA: Lidocaine 2% and Adolph-Synephrine ?% PROCEDURE: With the patient sitting upright, a flexible scope was used : Topical anesthesia and vasoconstriction was applied with spray to the right and left side(s) of the nose. After waiting an appropriate period of time for anesthesia/vasoconstr iction to become effective, a flexible laryngoscope was passed through the the left and right side(s) of the nose. Nasopharynx was normal. FINDINGS: The nasopharynx was normal without any lesions or masses visualized. No masses or lesions were visualized at the base of tongue, vallecula, epiglottis, aryepiglottic folds, pyriform sinuses, and lateral pharyngeal berger. True vocal fold movement was intact bilaterally. No obvious recurrence of his papilloma although there may be very slight amount in the left undersurface the false vocal fold but not impacting vocal fold vibration.. Mucosal wave was noted to be present and equal bilaterally. Amplitude was normal. Closure was complete. Phase symmetry was Present The patient's airway was widely patent with no evidence of obstruction. Pt tolerated the procedure well, and there were no complications. The procedure was performed by Dr. Boudreaux. Lencho Boudreaux MD Referring Provider: SELF [[id number]] Allergies As of Date: 03/11/2019 (No Known Allergies) Date Reviewed: 03/11/2019 Reviewed by: Bridget Duncan - Fully Assessed Reason for Visit: Established Patient [175] Cmt: Follow up Primary Visit Diagnosis:Laryngeal papilloma [D14.1] Other Visit Diagnoses:Dysphonia [R49.0] LPRD (laryngopharyngeal reflux disease) [K21.9] Prescriptions as of 03/11/2019 Sig: PANTOPRAZOLE 40 MG TABLET,DEL* Take 40 mg by mouth as needed* Problem List As Of Date: 03/11/2019 (None) Visit Notes: >> Bridget Duncan Wed Mar 11, 2019 1:54 PM Status: Signed Tobacco Use: Never Was smoking cessation packet given? N/A - Patient is a non-smoker or quit >1 year ago. Was a referral initiated?N/A Patient is a non-smoker Disposition: Return in about 6 months (around 09/09/2019). Follow-up and Disposition History Recorded Encounter Status:Closed by LENCHO BOUDREAUX MD on 03/11/19 [facility] PROGRESSon 03-11-2019 PROGRESS HNO ID: [id number] Author: Lencho Boudreaxu Service: ? Author Type: Physician Type: Progress Notes Filed: 03/11/2019 2:26 PM Note Text: CC: Norman Gary is a 53 year old male seen as a return patient with a history of GI papilloma IMPRESSION AND PLANS: Laryngeal papilloma with no evidence of persistent or recurrent disease following his laser surgery 2 month ago. There may be just a small amount in the ventricle or on the anterior false vocal fold but it is not interfering with vocal fold vibration. He does have some dysphonia that he does use some false vocal folds and phonation and is consistent with hyperfunctional voice. I am going treat him to get back to me in 6 months and we will tentatively plan to assess whether or not to do a laser at that time if there is recurrent disease. He will also call me if it worsens in the interim. He does have a history of reflux but is now to the point that he controls well with diet and only takes the proton X as needed and that seems reasonable this time. HPI: The patient first saw me in July of last year with a 5 somewhat recent diagnosis of laryngeal papilloma with surgery at the end of 2017. He had a benign papilloma but laryngeal subtype evaluation was not performed. We did perform an office laser in November. He did felt it took a long time for his voice to return but now he feels is back to normal. ALLERGIES No Known Allergies Current Outpatient Medications Medication Sig - pantoprazole DR (PROTONIX) 40 mg tablet Take 40 mg by mouth as needed (GI upset). No current facility-administered medications for this visit. No past medical history on file. No past surgical history on file. Social History: Social History Tobacco Use - Smoking status: Never Smoker - Smokeless tobacco: Never Used Substance Use Topics - Alcohol use: Not on file - Drug use: Not on file PHYSICAL EXAM: On physical examination Norman Gary is a well-developed, well nourished male. The voice is grossly normal with a slight low pitch. Cranial nerves II-XII are grossly intact Mental status revealed patient to be alert and oriented. Mood is appropriate. Details of the physical examination: HEAD AND FACE: Physical examination of the head, neck, external nose, external ears, mouth and face fails to demonstrate any significant abnormality or asymmetry to critical face to face observation. Skin and scalp are normal. ORAL CAVITY/OROPHARYNX: No masses or lesions LARYNX: Recommend stroboscopy NECK: No lymphadenopathy or thyroid hypertrophy Lencho Boudreaux MD PROCEDURE NOTE: Recommended Videostroboscopy. Risks, benefits and alternatives were explained. The patient wished to proceed he was reidentified and a time out obtained. PROCEDURE: Videostroboscopy PREOPERATIVE DIAGNOSIS: Laryngeal papilloma, dysphonia POSTOPERATIVE DIAGNOSIS: Same INDICATIONS: Evaluation larynx to:evaluate lesion, assess vibratory margin and postoperative assessment ANESTHESIA: Lidocaine 2% and Adolph-Synephrine ?% PROCEDURE: With the patient sitting upright, a flexible scope was used : Topical anesthesia and vasoconstriction was applied with spray to the right and left side(s) of the nose. After waiting an appropriate period of time for anesthesia/vasoconstr iction to become effective, a flexible laryngoscope was passed through the the left and right side(s) of the nose. Nasopharynx was normal. FINDINGS: The nasopharynx was normal without any lesions or masses visualized. No masses or lesions were visualized at the base of tongue, vallecula, epiglottis, aryepiglottic folds, pyriform sinuses, and lateral pharyngeal berger. True vocal fold movement was intact bilaterally. No obvious recurrence of his papilloma although there may be very slight amount in the left undersurface the false vocal fold but not impacting vocal fold vibration.. Mucosal wave was noted to be present and equal bilaterally. Amplitude was normal. Closure was complete. Phase symmetry was Present The patient's airway was widely patent with no evidence of obstruction. Pt tolerated the procedure well, and there were no complications. The procedure was performed by Dr. Boudreaux. Lencho Boudreaux MD [facility] CNOVon 12-08-2018 CNOV Office Visit (OTOLMN ) NORMAN GARY ([id number]) 1965 M Date Time Provider Department 12/08/18 2:30 PM LENCHO BOUDREAUX OTOLMN During your visit today, we recorded the following information about you: Pulse Blood pressure 80/minute 131/80 BRYON Cardenas, CT 12/08/2018 1:59 PM Signed Tobacco Use: Never Was smoking cessation packet given? N/A - Patient is a non-smoker or quit >1 year ago. Was a referral initiated?N/A Patient is a non-smoker. Lencho Boudreaux MD 12/08/2018 3:32 PM Signed CC: Norman Lucian Gary is a 53 year old male seen as a return patient with a history of laryngeal papilloma IMPRESSION AND PLANS: Recurrent and perhaps progressive laryngeal papilloma. I performed stroboscopy in the office today and confirm that there was a large papilloma on the upper surface of the left vocal fold in the midportion extending onto the false vocal fold but there appeared to be diffuse involvement of the right vocal fold and some on the left anteriorly. Given the degree and given that he has not had HPV subtype assessment we had previously discussed the possibility of proceeding with a more formal operative procedure but he wishes to try the laser procedure first. He is aware that this is a disease that tends to be recurrent and it may be difficult to completely manage this diffuse disease in the office. However he did wish to try office laser first prior to more formal surgical procedure so we performed office laser procedure today in the office with a KTP laser. We used a stroboscopic assessment to assess both the need to proceed as well as the location of the papilloma. He tolerated the procedure well today. I am going to see him back in a couple of months and see if she's had improvement and determine whether or not we wanted to repeat office procedure, observe this or proceed with more formal operative excision. HPI: The patient has a history of laryngeal papilloma with excision at the end of last year. Apparently the biopsies were consistent with benign papilloma but HPV subtype assessment was not performed. I saw him on August 18 at which time we decided to proceed with formal surgical excision, although he called and said he would prefer to try the office procedure first. He feels that his voice continues to worsen. ALLERGIES No Known Allergies Current Outpatient Medications: pantoprazole DR (PROTONIX) 40 mg tablet Take 40 mg by mouth once daily. No current facility-administered medications for this visit. No past medical history on file. No past surgical history on file. Social History: Social History Tobacco Use - Smoking status: Never Smoker - Smokeless tobacco: Never Used Substance Use Topics - Alcohol use: Not on file - Drug use: Not on file PHYSICAL EXAM: On physical examination Norman Gary is a well-developed, well nourished male. The voice is breathy and rough. Cranial nerves II-XII are grossly intact Mental status revealed patient to be alert and oriented. Mood is appropriate. Details of the physical examination: HEAD AND FACE: Physical examination of the head, neck, external nose, external ears, mouth and face fails to demonstrate any significant abnormality or asymmetry to critical face to face observation. Skin and scalp are normal. ORAL CAVITY/OROPHARYNX: No masses or lesions LARYNX: Recommended stroboscopy NECK: No lymphadenopathy or thyroid hypertrophy Lencho Boudreaux MD PROCEDURE NOTE: Recommended Videostroboscopy. Risks, benefits and alternatives were explained. The patient wished to proceed he was reidentified and a time out obtained. PROCEDURE: Videostroboscopy PREOPERATIVE DIAGNOSIS: Laryngeal papilloma POSTOPERATIVE DIAGNOSIS: Laryngeal papilloma INDICATIONS: Evaluation larynx to:evaluate lesion and assess vibratory margin ANESTHESIA: Lidocaine 2% and Adolph-Synephrine ?% PROCEDURE: With the patient sitting upright, a flexible scope was used : Topical anesthesia and vasoconstriction was applied with spray to the right and left side(s) of the nose. After waiting an appropriate period of time for anesthesia/vasoconstr iction to become effective, a flexible laryngoscope was passed through the left side(s) of the nose. Nasopharynx was normal. FINDINGS: The nasopharynx was normal without any lesions or masses visualized. No masses or lesions were visualized at the base of tongue, vallecula, epiglottis, aryepiglottic folds, pyriform sinuses, and lateral pharyngeal berger. True vocal fold movement was intact bilaterally. Papilloma was noted to be involving the entire superficial right vocal fold the superficial left anterior vocal fold with a large amount of papilloma on the left false vocal fold extending into the ventricle and the upper surface of the left vocal fold in the mid posterior aspect. The papilloma along with significant anterior-posterior hyperfunction made it difficult for me to assess vocal fold vibration and he tended to use false vocal fold closure for vibration. The patient's airway was widely patent with no evidence of obstruction. Pt tolerated the procedure well, and there were no complications. The procedure was performed by Dr. Boudreaux. Lencho Boudreaux MD PROCEDURE NOTE: Recommended flexible laryngoscopy with KTP excsion/ablation of laryngeal Mass(es). Risks, benefits and alternatives were explained, and a consent was signed. The patient wished to proceed he was reidentified and a time out obtained. PROCEDURE: Flexible Laryngoscopy with KTP laser PREOPERATIVE DIAGNOSIS: Laryngeal papilloma POSTOPERATIVE DIAGNOSIS: Same INDICATIONS: KTP laser papilloma ANESTHESIA: Lidocaine 2% and Adolph-Synephrine ?% PROCEDURE: With the patient sitting upright, informed consent was obtained. The patient was reidentified and a time out made. Topical anesthesia and vasoconstriction was applied with spray to the right and left side(s) of the nose. Additional 10% xylocaine was sprayed directly on to the vocal folds After waiting an appropriate period of time for anesthesia/vasoconstr iction to become effective, a flexible laryngoscope was passed through the the left and right side(s) of the nose. A suction catheter was placed in the other nostril. Nasopharynx, oropharynx, hypopharynx and larynx were examined. Additional 10% xylocaine was dripped on to the vocal folds. FINDINGS: The nasopharynx and oropharynx were normal without any lesions or masses visualized. No masses or lesions were visualized at the base of tongue, vallecula, pyriform sinuses, and lateral pharyngeal berger. True vocal fold movement was intact bilaterally. Papilloma was noted involving much of both vocal folds. Papilloma was noted to be involving the entire superficial right vocal fold the superficial left anterior vocal fold with a large amount of papilloma on the left false vocal fold extending into the ventricle and the upper surface of the left vocal fold in the mid posterior aspect. Using a KTP laser with setting of 30 Lora, 15 mSec, and 2 pulses per second were applied to the masses as much as possible so that they blanched. With the left vocal fold the laser was used to peel away some of the papilloma. I could not be sure that all of the papilloma had been addressed.. The patient's airway was widely patent with no evidence of obstruction. Pt tolerated the procedure well, and there were no complications. The procedure was performed by Dr. Cobb. 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 N/A - Patient is a non-smoker or quit >1 year ago. Was a referral initiated?N/A Patient is a non-smoker. Disposition: Return in about 3 months (around 03/10/2019). Follow-up and Disposition History Recorded Encounter Status:Closed by LENCHO BOUDREAUX MD on 12/08/18 [facility] PROGRESSon 12-08-2018 PROGRESS HNO ID: [id number] Author: Lencho Boudreaux Service: ? Author Type: Physician Type: Progress Notes Filed: 12/08/2018 3:32 PM Note Text: CC: Norman Gary is a 53 year old male seen as a return patient with a history of laryngeal papilloma IMPRESSION AND PLANS: Recurrent and perhaps progressive laryngeal papilloma. I performed stroboscopy in the office today and confirm that there was a large papilloma on the upper surface of the left vocal fold in the midportion extending onto the false vocal fold but there appeared to be diffuse involvement of the right vocal fold and some on the left anteriorly. Given the degree and given that he has not had HPV subtype assessment we had previously discussed the possibility of proceeding with a more formal operative procedure but he wishes to try the laser procedure first. He is aware that this is a disease that tends to be recurrent and it may be difficult to completely manage this diffuse disease in the office. However he did wish to try office laser first prior to more formal surgical procedure so we performed office laser procedure today in the office with a KTP laser. We used a stroboscopic assessment to assess both the need to proceed as well as the location of the papilloma. He tolerated the procedure well today. I am going to see him back in a couple of months and see if she's had improvement and determine whether or not we wanted to repeat office procedure, observe this or proceed with more formal operative excision. HPI: The patient has a history of laryngeal papilloma with excision at the end of last year. Apparently the biopsies were consistent with benign papilloma but HPV subtype assessment was not performed. I saw him on August 18 at which time we decided to proceed with formal surgical excision, although he called and said he would prefer to try the office procedure first. He feels that his voice continues to worsen. ALLERGIES No Known Allergies Current Outpatient Medications: pantoprazole DR (PROTONIX) 40 mg tablet Take 40 mg by mouth once daily. No current facility-administered medications for this visit. No past medical history on file. No past surgical history on file. Social History: Social History Tobacco Use - Smoking status: Never Smoker - Smokeless tobacco: Never Used Substance Use Topics - Alcohol use: Not on file - Drug use: Not on file PHYSICAL EXAM: On physical examination Norman Gary is a well-developed, well nourished male. The voice is breathy and rough. Cranial nerves II-XII are grossly intact Mental status revealed patient to be alert and oriented. Mood is appropriate. Details of the physical examination: HEAD AND FACE: Physical examination of the head, neck, external nose, external ears, mouth and face fails to demonstrate any significant abnormality or asymmetry to critical face to face observation. Skin and scalp are normal. ORAL CAVITY/OROPHARYNX: No masses or lesions LARYNX: Recommended stroboscopy NECK: No lymphadenopathy or thyroid hypertrophy Lencho Boudreaux MD PROCEDURE NOTE: Recommended Videostroboscopy. Risks, benefits and alternatives were explained. The patient wished to proceed he was reidentified and a time out obtained. PROCEDURE: Videostroboscopy PREOPERATIVE DIAGNOSIS: Laryngeal papilloma POSTOPERATIVE DIAGNOSIS: Laryngeal papilloma INDICATIONS: Evaluation larynx to:evaluate lesion and assess vibratory margin ANESTHESIA: Lidocaine 2% and Adolph-Synephrine ?% PROCEDURE: With the patient sitting upright, a flexible scope was used : Topical anesthesia and vasoconstriction was applied with spray to the right and left side(s) of the nose. After waiting an appropriate period of time for anesthesia/vasoconstr iction to become effective, a flexible laryngoscope was passed through the left side(s) of the nose. Nasopharynx was normal. FINDINGS: The nasopharynx was normal without any lesions or masses visualized. No masses or lesions were visualized at the base of tongue, vallecula, epiglottis, aryepiglottic folds, pyriform sinuses, and lateral pharyngeal berger. True vocal fold movement was intact bilaterally. Papilloma was noted to be involving the entire superficial right vocal fold the superficial left anterior vocal fold with a large amount of papilloma on the left false vocal fold extending into the ventricle and the upper surface of the left vocal fold in the mid posterior aspect. The papilloma along with significant anterior-posterior hyperfunction made it difficult for me to assess vocal fold vibration and he tended to use false vocal fold closure for vibration. The patient's airway was widely patent with no evidence of obstruction. Pt tolerated the procedure well, and there were no complications. The procedure was performed by Dr. Boudreaux. Lencho Boudreaux MD PROCEDURE NOTE: Recommended flexible laryngoscopy with KTP excsion/ablation of laryngeal Mass(es). Risks, benefits and alternatives were explained, and a consent was signed. The patient wished to proceed he was reidentified and a time out obtained. PROCEDURE: Flexible Laryngoscopy with KTP laser PREOPERATIVE DIAGNOSIS: Laryngeal papilloma POSTOPERATIVE DIAGNOSIS: Same INDICATIONS: KTP laser papilloma ANESTHESIA: Lidocaine 2% and Adolph-Synephrine ?% PROCEDURE: With the patient sitting upright, informed consent was obtained. The patient was reidentified and a time out made. Topical anesthesia and vasoconstriction was applied with spray to the right and left side(s) of the nose. Additional 10% xylocaine was sprayed directly on to the vocal folds After waiting an appropriate period of time for anesthesia/vasoconstr iction to become effective, a flexible laryngoscope was passed through the the left and right side(s) of the nose. A suction catheter was placed in the other nostril. Nasopharynx, oropharynx, hypopharynx and larynx were examined. Additional 10% xylocaine was dripped on to the vocal folds. FINDINGS: The nasopharynx and oropharynx were normal without any lesions or masses visualized. No masses or lesions were visualized at the base of tongue, vallecula, pyriform sinuses, and lateral pharyngeal berger. True vocal fold movement was intact bilaterally. Papilloma was noted involving much of both vocal folds. Papilloma was noted to be involving the entire superficial right vocal fold the superficial left anterior vocal fold with a large amount of papilloma on the left false vocal fold extending into the ventricle and the upper surface of the left vocal fold in the mid posterior aspect. Using a KTP laser with setting of 30 Lora, 15 mSec, and 2 pulses per second were applied to the masses as much as possible so that they blanched. With the left vocal fold the laser was used to peel away some of the papilloma. I could not be sure that all of the papilloma had been addressed.. The patient's airway was widely patent with no evidence of obstruction. Pt tolerated the procedure well, and there were no complications. The procedure was performed by Dr. Cobb. Lencho Boudreaux MD [facility] CNCOon 08-19-2018 CNCO Letter Text [facility] CNOVon 08-18-2018 CNOV Office Visit (OTOLMN ) NORMAN GARY ([id number]) 1965 M Date Time Provider Department 08/18/18 3:40 PM LENCHO BOUDREAUX OTOLMN During your visit today, we recorded the following information about you: Pulse Respiration Blood pressure Weight 83/minute 10/minute 139/90 93 kg Height 1.753 m Bhakti Benitez Sanjana 08/18/2018 3:41 PM Signed Tobacco Use: Never Was smoking cessation packet given? N/A - Patient is a non-smoker or quit >1 year ago. Was a referral initiated?N/A Patient is a non-smoker Lencho Boudreaux MD 08/18/2018 4:13 PM Signed This consult was requested by Dr. Palacios for an opinion regarding his voice. My final recommendations will be communicated to the requesting provider by way of shared EMR.. Assessment and Plan: Right vocal fold mass, dysphonia and history of papilloma. He did not have HPV subtype assessment. It does appear that the mass on the right vocal fold is impacting normal vocal fold vibration, however it does not have a classic papilloma purulence and may in fact be a small subepithelial cyst. I have discussed treatment options with him in detail including observation, office laser surgery particularly if it's of papilloma versus formal direct microlaryngoscopy with excision in the operating room. The latter would afford a possibility for exploration, make sure that this is consistent with a papilloma, look for other potential lesions, and obtain pathology including HPV subtyping which will guide future treatment. At this point he would like his voice improved and would like to proceed with surgery. The risks, benefits and alternatives of direct microlaryngoscopy with excision of a right vocal fold mass and if visualized other vocal fold mass(es) were explained in detail including but not limited to the risk of anethesia, bleeding, infection, worsening voice, recurrent lesion or the need for further surgery, injury to the teeth and numbness of the tongue. The patient did seem to understand and did wish to proceed, a consent was signed and a pre-operative assessment was performed. A preoperative examination was performed today HPI: The patient has a history dating back a few years to recurrent dysphonia. He was seen near his home was identified with a right vocal fold mass was taken to the operating room and had an excision with the pathology report showing a benign papilloma but no HPV subtype assessment. His voice did improve fairly significantly for about 6 months but it has gradually worsened and as of May of this year he is been having more persistent problems with his voice. 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 He does not have any reflux or any other significant medical problems. ALLERGIES No Known Allergies Current Outpatient Medications: pantoprazole DR (PROTONIX) 40 mg tablet Take 40 mg by mouth once daily. No current facility-administered medications for this visit. History reviewed. No pertinent past medical history. History reviewed. No pertinent surgical history. Social History: Social History Tobacco Use - Smoking status: Never Smoker - Smokeless tobacco: Never Used Substance Use Topics - Alcohol use: Not on file - Drug use: Not on file No family history on file. ROS: GENERAL: No weight loss, malaise or fevers. HEENT: See HPI NECK: Negative for lumps, goiter, pain and significant neck swelling RESPIRATORY: Negative for cough, hemoptysis, wheezing or shortness of breath CARDIOVASCULAR: Negative for chest pain, leg swelling or palpitations. GASTROINTESTINAL: No nausea, vomiting, or diarrhea MUSCULOSKELETAL: Negative for joint pain or swelling, back pain or muscle pain. NEUROLOGIC: Negative for focal numbness or weakness, headaches and dizziness or syncope. SKIN: Negative for lesions, rash, and itching. HEMATOLOGIC/LYMPHATIC /IMMUNOLOGIC: Negative for prolonged bleeding, bruising easily or swollen nodes. ENDOCRINE: Negative for cold or heat intolerance, polyuria, polydipsia and goiter. PHYSICAL EXAM: On physical examination Norman Gary is a well-developed, well nourished male. His speech is normal and his voice is raspy. His breathing is regular without stridor Mental status revealed patient to be alert and oriented. Mood is appropriate. Details of the physical examination: CRANIAL NERVE EXAM: II: Pupillary reflexes normal III, IV, : EOM normal V: 1,2,3: normal sensation VII: Normal strength in all divisions. VIII: Hearing grossly normal. IX, X: Raspy voice, palatal elevation and sensation XI: Shoulder strength normal XII: Tongue mobility normal HEAD AND FACE: Physical examination of the head, neck, external nose, external ears, mouth and face fails to demonstrate any significant abnormality or asymmetry to critical face to face observation. Skin and scalp are normal. EARS: RT Canal: patent RT Drum: intact RT Pneumotoscopy: mobile LT Canal: patent LT Drum: intact LT Pneumotoscopy: mobile NOSE: Examination of the nasal cavity revealed a septum which is mildly deviated to the left. The mucosa is pink, and the visible turbinates are normal on anterior rhinoscopy. There is no purulence or polyps. NASOPHARYNX: no masses or significant adenoid hypertrophy MASTICATION: The teeth appear normal. The lips and gums are without lesions. ORAL CAVITY AND OROPHARYNX: The oral mucosa, hard and soft palates, tongue, tonsil area, and posterior pharyngeal wall are without lesions. LARYNX: Reveiwed the stroboscopy as obtained by Dr. Palacios with the patient which shows normal vocal fold motion bilaterally. He does have some mild hyperfunctioning compression and a small mass lesion on the mid to undersurface of the right vocal fold that interferes with complete closure. He has fairly good pliability around it and therefore it is likely not a deep invasive lesion but it has the appearance of a small subepithelial cyst and not classic for a papilloma NECK: The neck appears symmetric without scars. On palpation, there are no masses or lymphadenopathy. The thyroid is not palpable and was free of masses. No salivary gland masses or hypertrophy is noted. LUNGS: Clear to auscultation without rales rhonchi or wheezes HEART: Regular rate and rhythm without murmur REVIEW OF RADIOLOGICAL FILMS AND RECORDS: Dr. Palacios's notes Lencho Boudreaux MD Referring Provider: SELF [[id number]] Allergies As of Date: 08/18/2018 (No Known Allergies) Date Reviewed: 08/18/2018 Reviewed by: Naz Martinez - Fully Assessed Reason for Visit: New Patient [172] Cmt: vocal cord nodule Primary Visit Diagnosis:Laryngeal papilloma [D14.1] Other Visit Diagnoses:Vocal cord mass [J38.3] Dysphonia [R49.0] Order(s):SURGICAL REQUEST - ELECTIVE [[id number]] Order #: [id number]: 1 Prescriptions as of 08/18/2018 Sig: PANTOPRAZOLE 40 MG TABLET,DEL* Take 40 mg by mouth once ron* Problem List As Of Date: 08/18/2018 (None) Visit Notes: >> Bhakti Benitez Ma SatAug 18, 2018 3:41 PM Status: Signed Tobacco Use: Never Was smoking cessation packet given? N/A - Patient is a non-smoker or quit >1 year ago. Was a referral initiated?N/A Patient is a non-smoker Encounter Status:Closed by LENCHO BOUDREAUX MD on 08/18/18 [facility] CNOV Office Visit (TALKMN ) NORMAN GARY ([id number]) 1965 M Date Time Provider Department 08/18/18 3:15 PM ARLIN PALACIOS (CIVIL ENGINEERING PROFESSIONAL) TALKMN During your visit today, we recorded the following information about you: Naz Epstein Juan 08/18/2018 3:02 PM Signed Tobacco Use: Never Was smoking cessation packet given? N/A - Patient is a non-smoker or quit >1 year ago. Was a referral initiated?N/A Patient is a non-smoker Arlin Palacios, PHD CCC-CIVIL ENGINEERING PROFESSIONAL, CCC/CIVIL ENGINEERING PROFESSIONAL 08/19/2018 7:56 AM Signed [facility] Arlin Palacios, Ph.D NAME: Norman Gary CLINIC NO: [id number] DATE OF SERVICE: August 18, 2018 IMPRESSION AND PLAN: Norman Gary is a 53 year old male referred by Dr. Beth White, with a past history of a right vocal fold papilloma, with onset of new hoarseness in May 2018. Stroboscopy shows generalized laryngeal erythema, and a small round mass on the vibratory margin of the right vocal fold. He discussed surgical treatment options with Dr. Boudreaux, and will likely proceed with an exploratory surgery/biopsy with HPV subtyping in the near future. HISTORY OF PRESENT ILLNESS: This is a 53 y/o male with a history of hoarseness since November 2016. Initially diagnosed and treated for GERD, which didn't help. EGD showed esophagitis and hiatal hernia. He was then found to have a small right vocal fold mass which was consistent with HPV papilloma on the path report. His voice improved with surgery but then he got hoarse again in May 2018. He denies sore throat, pain, difficulty swallowing or breathing. No other health concerns. No past medical history on file. HNI - Voice Handicap Index: VHI Total Score : 47 (Score range: 0 - 120) VHI Physical Score : 22 (Score range: 0 - 40) VHI Functional Score : 13 (Score range: 0 - 40) VHI Emotional Score : 12 (Score range: 0 - 40) A higher score indicates greater voice disability. Current Outpatient Medications on File Prior to Visit: pantoprazole DR (PROTONIX) 40 mg tablet Take 40 mg by mouth once daily. No current facility-administered medications on file prior to visit. PROCEDURE: The patient was sprayed with 2% lidocaine and 1% phenylephrine. After an approximate amount of time for vasoconstriction and anesthesia to be achieved, a flexible fiberoptic laryngoscope was inserted into the nasal cavity, nasopharynx, down to the oropharynx. A laryngeal function study which included videoendoscopy with stroboscopy was performed. FINDINGS: Findings revealed that the epiglottis, AE folds, vallecula, and pyriform sinuses appeared normal. No cobblestoning or erythema was appreciated along the posterior oropharyngeal wall. Inspection of the larynx revealed that the subglottis was patent, no evidence of any stenosis was appreciated. Range of motion of the vocal folds is within normal limits bilaterally. There is generalized eryhtema. There is a small round mass on the vibratory margin of the mid third of the right vocal fold. This mass affects glottic closure and decreases the mucosal waves on the right side. There is also moderate supraglottic compression during phonation. The scope was withdrawn and the patient tolerated the procedure well. I reviewed the video with Norman Gary and Dr. Boudreaux. 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 N/A - Patient is a non-smoker or quit >1 year ago. Was a referral initiated?N/A Patient is a non-smoker Encounter Status:Closed by ARLIN PALACIOS PHD on 08/19/18 [facility] PROGRESSon 08-18-2018 PROGRESS HNO ID: [id number] Author: Lencho Boudreaux Service: ? Author Type: Physician Type: Progress Notes Filed: 08/18/2018 4:13 PM Note Text: This consult was requested by Dr. Palacios for an opinion regarding his voice. My final recommendations will be communicated to the requesting provider by way of shared EMR.. Assessment and Plan: Right vocal fold mass, dysphonia and history of papilloma. He did not have HPV subtype assessment. It does appear that the mass on the right vocal fold is impacting normal vocal fold vibration, however it does not have a classic papilloma purulence and may in fact be a small subepithelial cyst. I have discussed treatment options with him in detail including observation, office laser surgery particularly if it's of papilloma versus formal direct microlaryngoscopy with excision in the operating room. The latter would afford a possibility for exploration, make sure that this is consistent with a papilloma, look for other potential lesions, and obtain pathology including HPV subtyping which will guide future treatment. At this point he would like his voice improved and would like to proceed with surgery. The risks, benefits and alternatives of direct microlaryngoscopy with excision of a right vocal fold mass and if visualized other vocal fold mass(es) were explained in detail including but not limited to the risk of anethesia, bleeding, infection, worsening voice, recurrent lesion or the need for further surgery, injury to the teeth and numbness of the tongue. The patient did seem to understand and did wish to proceed, a consent was signed and a pre-operative assessment was performed. A preoperative examination was performed today HPI: The patient has a history dating back a few years to recurrent dysphonia. He was seen near his home was identified with a right vocal fold mass was taken to the operating room and had an excision with the pathology report showing a benign papilloma but no HPV subtype assessment. His voice did improve fairly significantly for about 6 months but it has gradually worsened and as of May of this year he is been having more persistent problems with his voice. 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 He does not have any reflux or any other significant medical problems. ALLERGIES No Known Allergies Current Outpatient Medications: pantoprazole DR (PROTONIX) 40 mg tablet Take 40 mg by mouth once daily. No current facility-administered medications for this visit. History reviewed. No pertinent past medical history. History reviewed. No pertinent surgical history. Social History: Social History Tobacco Use - Smoking status: Never Smoker - Smokeless tobacco: Never Used Substance Use Topics - Alcohol use: Not on file - Drug use: Not on file No family history on file. ROS: GENERAL: No weight loss, malaise or fevers. HEENT: See HPI NECK: Negative for lumps, goiter, pain and significant neck swelling RESPIRATORY: Negative for cough, hemoptysis, wheezing or shortness of breath CARDIOVASCULAR: Negative for chest pain, leg swelling or palpitations. GASTROINTESTINAL: No nausea, vomiting, or diarrhea MUSCULOSKELETAL: Negative for joint pain or swelling, back pain or muscle pain. NEUROLOGIC: Negative for focal numbness or weakness, headaches and dizziness or syncope. SKIN: Negative for lesions, rash, and itching. HEMATOLOGIC/LYMPHATIC /IMMUNOLOGIC: Negative for prolonged bleeding, bruising easily or swollen nodes. ENDOCRINE: Negative for cold or heat intolerance, polyuria, polydipsia and goiter. PHYSICAL EXAM: On physical examination Norman Gary is a well-developed, well nourished male. His speech is normal and his voice is raspy. His breathing is regular without stridor Mental status revealed patient to be alert and oriented. Mood is appropriate. Details of the physical examination: CRANIAL NERVE EXAM: II: Pupillary reflexes normal III, IV, : EOM normal V: 1,2,3: normal sensation VII: Normal strength in all divisions. VIII: Hearing grossly normal. IX, X: Raspy voice, palatal elevation and sensation XI: Shoulder strength normal XII: Tongue mobility normal HEAD AND FACE: Physical examination of the head, neck, external nose, external ears, mouth and face fails to demonstrate any significant abnormality or asymmetry to critical face to face observation. Skin and scalp are normal. EARS: RT Canal: patent RT Drum: intact RT Pneumotoscopy: mobile LT Canal: patent LT Drum: intact LT Pneumotoscopy: mobile NOSE: Examination of the nasal cavity revealed a septum which is mildly deviated to the left. The mucosa is pink, and the visible turbinates are normal on anterior rhinoscopy. There is no purulence or polyps. NASOPHARYNX: no masses or significant adenoid hypertrophy MASTICATION: The teeth appear normal. The lips and gums are without lesions. ORAL CAVITY AND OROPHARYNX: The oral mucosa, hard and soft palates, tongue, tonsil area, and posterior pharyngeal wall are without lesions. LARYNX: Reveiwed the stroboscopy as obtained by Dr. Palacios with the patient which shows normal vocal fold motion bilaterally. He does have some mild hyperfunctioning compression and a small mass lesion on the mid to undersurface of the right vocal fold that interferes with complete closure. He has fairly good pliability around it and therefore it is likely not a deep invasive lesion but it has the appearance of a small subepithelial cyst and not classic for a papilloma NECK: The neck appears symmetric without scars. On palpation, there are no masses or lymphadenopathy. The thyroid is not palpable and was free of masses. No salivary gland masses or hypertrophy is noted. LUNGS: Clear to auscultation without rales rhonchi or wheezes HEART: Regular rate and rhythm without murmur REVIEW OF RADIOLOGICAL FILMS AND RECORDS: Dr. Palacios's notes Lencho Boudreaux MD [facility] PROGRESS HNO ID: [id number] Author: Arlin (Rayon Tester) Suzanne [facility]/CIVIL ENGINEERING PROFESSIONAL Service: ? Author Type: Speech Language Pathologist Type: Progress Notes Filed: 08/19/2018 7:56 AM Note Text: [facility] Arlin Palacios, Ph.D NAME: Norman Gary CLINIC NO: [id number] DATE OF SERVICE: August 18, 2018 IMPRESSION AND PLAN: Norman Gary is a 53 year old male referred by Dr. Beth White, with a past history of a right vocal fold papilloma, with onset of new hoarseness in May 2018. Stroboscopy shows generalized laryngeal erythema, and a small round mass on the vibratory margin of the right vocal fold. He discussed surgical treatment options with Dr. Boudreaux, and will likely proceed with an exploratory surgery/biopsy with HPV subtyping in the near future. HISTORY OF PRESENT ILLNESS: This is a 53 y/o male with a history of hoarseness since November 2016. Initially diagnosed and treated for GERD, which didn't help. EGD showed esophagitis and hiatal hernia. He was then found to have a small right vocal fold mass which was consistent with HPV papilloma on the path report. His voice improved with surgery but then he got hoarse again in May 2018. He denies sore throat, pain, difficulty swallowing or breathing. No other health concerns. No past medical history on file. HNI - Voice Handicap Index: VHI Total Score : 47 (Score range: 0 - 120) VHI Physical Score : 22 (Score range: 0 - 40) VHI Functional Score : 13 (Score range: 0 - 40) VHI Emotional Score : 12 (Score range: 0 - 40) A higher score indicates greater voice disability. Current Outpatient Medications on File Prior to Visit: pantoprazole DR (PROTONIX) 40 mg tablet Take 40 mg by mouth once daily. No current facility-administered medications on file prior to visit. PROCEDURE: The patient was sprayed with 2% lidocaine and 1% phenylephrine. After an approximate amount of time for vasoconstriction and anesthesia to be achieved, a flexible fiberoptic laryngoscope was inserted into the nasal cavity, nasopharynx, down to the oropharynx. A laryngeal function study which included videoendoscopy with stroboscopy was performed. FINDINGS: Findings revealed that the epiglottis, AE folds, vallecula, and pyriform sinuses appeared normal. No cobblestoning or erythema was appreciated along the posterior oropharyngeal wall. Inspection of the larynx revealed that the subglottis was patent, no evidence of any stenosis was appreciated. Range of motion of the vocal folds is within normal limits bilaterally. There is generalized eryhtema. There is a small round mass on the vibratory margin of the mid third of the right vocal fold. This mass affects glottic closure and decreases the mucosal waves on the right side. There is also moderate supraglottic compression during phonation. The scope was withdrawn and the patient tolerated the procedure well. I reviewed the video with Norman Gary and Dr. Boudreaux. Arlin Palacios, PHD CCC-CIVIL ENGINEERING PROFESSIONAL [facility] Vital Signs Date Time Vital Sign Value Performing Clinician Facility 09-14-2024 13:54-0400 Body height 175.[address] Chichi Argueta MD Work Phone: [facility] 09-14-2024 13:54-0400 Body mass index (BMI) [Ratio] 27.6 kg/m2 Dr. Chichi Argueta MD Work Phone: [facility] 09-14-2024 13:54-0400 Body temperature 98.5 [degF] Dr. Chichi Argueta MD Work Phone: [facility] 09-14-2024 13:54-0400 Body weight 84.[address] Chichi Argueta MD Work Phone: [facility] 09-14-2024 13:54-0400 Diastolic blood pressure 92 mm[Hg] Dr. Chichi Argueta MD Work Phone: 4(867)233-472014 [place] [address] 09-14-2024 13:54-0400 Heart rate 73 /min Dr. Chichi Argueta MD Work Phone: 9(633)123-945914 [place] [address] 09-14-2024 13:54-0400 Respiratory rate 16 /min Dr. Chichi Argueta MD Work Phone: [facility] 09-14-2024 13:54-0400 SaO2% (BldA) [Mass fraction] 99 % Dr. Chichi Argueta MD Work Phone: [facility] 09-14-2024 13:54-0400 Systolic blood pressure 146 mm[Hg] Dr. Chichi Argueta MD Work Phone: 9(776)045-680114 [place] [address] 09-09-2024 13:55-0400 Body height 175.[address] Chichi Argueta MD Work Phone: [facility] 09-09-2024 13:55-0400 Body mass index (BMI) [Ratio] 27.8 kg/m2 Dr. Chichi Argueta MD Work Phone: [facility] 09-09-2024 13:55-0400 Body temperature 96.9 [degF] Dr. Chichi Argueta MD Work Phone: [facility] 09-09-2024 13:55-0400 Body weight 85.[address] Chichi Argueta MD Work Phone: [facility] 09-09-2024 13:55-0400 Diastolic blood pressure 89 mm[Hg] Dr. Chichi Argueta MD Work Phone: [facility] 09-09-2024 13:55-0400 Heart rate 73 /min Dr. Chichi Argueta MD Work Phone: 9(657)354-048814 [place] [address] 09-09-2024 13:55-0400 Respiratory rate 16 /min Dr. Chichi Argueta MD Work Phone: [facility] 09-09-2024 13:55-0400 SaO2% (BldA) [Mass fraction] 100 % Dr. Chichi Argueta MD Work Phone: 7(801)069-020114 [place] [address] 09-09-2024 13:55-0400 Systolic blood pressure 144 mm[Hg] Dr. Chichi Argueta MD Work Phone: 6(006)418-678038 [address] 09-02-2024 14:01-0400 Body height 175.[address] Chichi Argueta MD Work Phone: 2(872)566-851238 [address] 09-02-2024 14:01-0400 Body mass index (BMI) [Ratio] 27.8 kg/m2 Dr. Chichi Argueta MD Work Phone: 6(218)630-920314 [place] [address] 09-02-2024 14:01-0400 Body temperature 97.4 [degF] Dr. Chichi Argueta MD Work Phone: 0(471)982-656314 [place] [address] 09-02-2024 14:01-0400 Body weight 85.[address] Chichi Argueta MD Work Phone: [facility] 09-02-2024 14:01-0400 Diastolic blood pressure 81 mm[Hg] Dr. Chichi Argueta MD Work Phone: [facility] 09-02-2024 14:01-0400 Heart rate 67 /min Dr. Chichi Argueta MD Work Phone: 6(940)375-825414 [place] [address] 09-02-2024 14:01-0400 Respiratory rate 18 /min Dr. Chichi Argueta MD Work Phone: [facility] 09-02-2024 14:01-0400 SaO2% (BldA) [Mass fraction] 100 % Dr. Chichi Argueta MD Work Phone: [facility] 09-02-2024 14:01-0400 Systolic blood pressure 136 mm[Hg] Dr. Chichi Argueta MD Work Phone: 4(717)917-047914 [place] [address] 08-26-2024 13:44-0400 Body mass index (BMI) [Ratio] 27.8 kg/m2 Dr. Chichi Argueta MD Work Phone: 9(283)813-349338 [address] 08-26-2024 13:44-0400 Body temperature 97.4 [degF] Dr. Chichi Argueta MD Work Phone: 5(945)222-131114 [place] [address] 08-26-2024 13:44-0400 Body weight 85.[address] Chichi Argueta MD Work Phone: 2(714)122-601814 [place] [address] 08-26-2024 13:44-0400 Diastolic blood pressure 78 mm[Hg] Dr. Chichi Argueta MD Work Phone: 3(425)357-024114 [place] [address] 08-26-2024 13:44-0400 Heart rate 84 /min Dr. Chichi Argueta MD Work Phone: 4(989)448-040814 [place] [address] 08-26-2024 13:44-0400 Respiratory rate 16 /min Dr. Chichi Argueta MD Work Phone: 1(339)032-310314 [place] [address] 08-26-2024 13:44-0400 SaO2% (BldA) [Mass fraction] 99 % Dr. Chichi Argueta MD Work Phone: [facility] 08-26-2024 13:44-0400 Systolic blood pressure 108 mm[Hg] Dr. Chichi Argueta MD Work Phone: 6(519)208-102814 [place] [address] 08-19-2024 10:42-0400 Body height 175.[address] Chichi Argueta MD Work Phone: 9(032)126-267614 [place] [address] 08-19-2024 10:42-0400 Body mass index (BMI) [Ratio] 27.7 kg/m2 Dr. Chichi Argueta MD Work Phone: 7(486)395-208714 [place] [address] 08-19-2024 10:42-0400 Body temperature 98.1 [degF] Dr. Chichi Argueta MD Work Phone: 5(123)297-008218 [place] [address] 08-19-2024 10:42-0400 Body weight 85.[address] Chichi Argueta MD Work Phone: 0(961)842-056818 [place] [address] 08-19-2024 10:42-0400 Diastolic blood pressure 85 mm[Hg] Dr. Chichi Argueta MD Work Phone: 3(985)141-090018 [place] [address] 08-19-2024 10:42-0400 Heart rate 62 /min Dr. Chichi Argueta MD Work Phone: 8(019)111-539018 [place] [address] 08-19-2024 10:42-0400 Respiratory rate 18 /min Dr. Chichi Argueta MD Work Phone: 7(081)911-022218 [place] [address] 08-19-2024 10:42-0400 SaO2% (BldA) [Mass fraction] 100 % Dr. Chichi Argueta MD Work Phone: 7(130)394-171918 [place] [address] 08-19-2024 10:42-0400 Systolic blood pressure 128 mm[Hg] Dr. Chichi Argueta MD Work Phone: 9(484)979-353218 [place] [address] 08-12-2024 14:17-0400 Body height 175.[address] Chichi Argueta MD Work Phone: 9(979)306-866018 [place] [address] 08-12-2024 14:17-0400 Body mass index (BMI) [Ratio] 27.8 kg/m2 Dr. Chichi Argueta MD Work Phone: 0(812)877-891014 [place] [address] 08-12-2024 14:17-0400 Body temperature 97.2 [degF] Dr. Chichi Argueta MD Work Phone: 8(813)807-835214 [place] [address] 08-12-2024 14:17-0400 Body weight 85.[address] Chichi Argueta MD Work Phone: 0(001)065-037738 [address] 08-12-2024 14:17-0400 Diastolic blood pressure 78 mm[Hg] Dr. Chichi Argueta MD Work Phone: [facility] 08-12-2024 14:17-0400 Heart rate 60 /min Dr. Chichi Argueta MD Work Phone: [facility] 08-12-2024 14:17-0400 Respiratory rate 18 /min Dr. Chichi Argueta MD Work Phone: [facility] 08-12-2024 14:17-0400 SaO2% (BldA) [Mass fraction] 100 % Dr. Chichi Argueta MD Work Phone: 6(219)386-149414 [place] [address] 08-12-2024 14:17-0400 Systolic blood pressure 113 mm[Hg] Dr. Chichi Argueta MD Work Phone: 9(713)698-799914 [place] [address] 08-05-2024 13:57-0400 Body height 175.[address] Chichi Argueta MD Work Phone: 3(035)036-040714 [place] [address] 08-05-2024 13:57-0400 Body mass index (BMI) [Ratio] 28.2 kg/m2 Dr. Chichi Argueta MD Work Phone: 9(929)819-778814 [place] [address] 08-05-2024 13:57-0400 Body temperature 96.9 [degF] Dr. Chichi Argueta MD Work Phone: 6(371)448-509114 [place] [address] 08-05-2024 13:57-0400 Body weight 86.[address] Chichi Argueta MD Work Phone: [facility] 08-05-2024 13:57-0400 Diastolic blood pressure 82 mm[Hg] Dr. Chichi Argueta MD Work Phone: [facility] 08-05-2024 13:57-0400 Heart rate 69 /min Dr. Chichi Argueta MD Work Phone: [facility] 08-05-2024 13:57-0400 Respiratory rate 16 /min Dr. Chichi Argueta MD Work Phone: [facility] 08-05-2024 13:57-0400 SaO2% (BldA) [Mass fraction] 100 % Dr. Chichi Argueta MD Work Phone: [facility] 08-05-2024 13:57-0400 Systolic blood pressure 151 mm[Hg] Dr. Chichi Argueta MD Work Phone: 8(846)570-434214 [place] [address] 07-29-2024 14:05-0400 Body height 175.[address] Chichi Argueta MD Work Phone: 8(684)337-922214 [place] [address] 07-29-2024 14:05-0400 Body mass index (BMI) [Ratio] 27.9 kg/m2 Dr. Chichi Argueta MD Work Phone: 9(007)314-940638 [address] 07-29-2024 14:05-0400 Body temperature 97.2 [degF] Dr. Chichi Argueta MD Work Phone: 2(555)352-864014 [place] [address] 07-29-2024 14:05-0400 Body weight 85.[address] Chichi Arugeta MD Work Phone: 5(604)858-915614 [place] [address] 07-29-2024 14:05-0400 Diastolic blood pressure 85 mm[Hg] Dr. Chichi Argueta MD Work Phone: 5(469)243-994014 [place] [address] 07-29-2024 14:05-0400 Heart rate 67 /min Dr. Chichi Argueta MD Work Phone: 4(836)054-557414 [place] [address] 07-29-2024 14:05-0400 Respiratory rate 16 /min Dr. Chichi Argueta MD Work Phone: [facility] 07-29-2024 14:05-0400 SaO2% (BldA) [Mass fraction] 99 % Dr. Chichi Argueta MD Work Phone: [facility] 07-29-2024 14:05-0400 Systolic blood pressure 134 mm[Hg] Dr. Chichi Argueta MD Work Phone: 4(519)460-632114 [place] [address] 06-16-2024 14:02-0400 Body mass index (BMI) [Ratio] 27.9 kg/m2 Dr. Chichi Argueta MD Work Phone: [facility] 06-16-2024 14:02-0400 Body temperature 98.7 [degF] Dr. Chichi Argueta MD Work Phone: [facility] 06-16-2024 14:02-0400 Body weight 85.[address] Chichi Argueta MD Work Phone: [facility] 06-16-2024 14:02-0400 Diastolic blood pressure 93 mm[Hg] Dr. Chichi Argueta MD Work Phone: [facility] 06-16-2024 14:02-0400 Heart rate 91 /min Dr. Chichi Argueta MD Work Phone: [facility] 06-16-2024 14:02-0400 Respiratory rate 16 /min Dr. Chichi Argueta MD Work Phone: [facility] 06-16-2024 14:02-0400 SaO2% (BldA) [Mass fraction] 98 % Dr. Chichi Argueta MD Work Phone: [facility] 06-16-2024 14:02-0400 Systolic blood pressure 156 mm[Hg] Dr. Chichi Argueta MD Work Phone: [facility] 05-20-2024 15:00-0400 Body height 175.3 cm Satya Whitmore MD Work Phone: [facility] 05-20-2024 15:00-0400 Body mass index (BMI) [Ratio] 27.7 kg/m2 Satya Whitmore MD Work Phone: [facility] 05-20-2024 15:00-0400 Body temperature 98.1 [degF] Satya Whitmore MD Work Phone: [facility] 05-20-2024 15:00-0400 Body weight 85.09 kg Satya Whitmore MD Work Phone: [facility] 05-20-2024 15:00-0400 Diastolic blood pressure 77 mm[Hg] Satya Whitmore MD Work Phone: [facility] 05-20-2024 15:00-0400 Heart rate 86 /min Satya Whitmore MD Work Phone: [facility] 05-20-2024 15:00-0400 Respiratory rate 16 /min Satya Whitmore MD Work Phone: [facility] 05-20-2024 15:00-0400 SaO2% (BldA) [Mass fraction] 100 % Satya Whitmore MD Work Phone: [facility] 05-20-2024 15:00-0400 Systolic blood pressure 161 mm[Hg] Satya Whitmore MD Work Phone: [facility] 05-19-2024 13:48-0400 Body height 175.[address] Chichi Argueta MD Work Phone: [facility] 05-19-2024 13:48-0400 Body mass index (BMI) [Ratio] 27.8 kg/m2 Dr. Chichi Argueta MD Work Phone: [facility] 05-19-2024 13:48-0400 Body temperature 98.2 [degF] Dr. Chichi Argueta MD Work Phone: [facility] 05-19-2024 13:48-0400 Body weight 85.[address] Chichi Argueta MD Work Phone: [facility] 05-19-2024 13:48-0400 Diastolic blood pressure 80 mm[Hg] Dr. Chichi Argueta MD Work Phone: [facility] 05-19-2024 13:48-0400 Heart rate 81 /min Dr. Chichi Argueta MD Work Phone: [facility] 05-19-2024 13:48-0400 Respiratory rate 16 /min Dr. Chichi Argueta MD Work Phone: [facility] 05-19-2024 13:48-0400 SaO2% (BldA) [Mass fraction] 98 % Dr. Chichi Argueta MD Work Phone: [facility] 05-19-2024 13:48-0400 Systolic blood pressure 126 mm[Hg] Dr. Chichi Argueta MD Work Phone: [facility] 08-15-2023 14:01-0400 Body height 175.3 cm Satya Whitmore MD Work Phone: [facility] 08-15-2023 14:01-0400 Body mass index (BMI) [Ratio] 27.81 kg/m2 Satya Whitmore MD Work Phone: [facility] 08-15-2023 14:01-0400 Body temperature 97.81 [degF] Satya Whitmore MD Work Phone: [facility] 08-15-2023 14:01-0400 Body weight 85.41 kg Satya Whitmore MD Work Phone: [facility] 08-15-2023 14:01-0400 Diastolic blood pressure 72 mm[Hg] Satya Whitmore MD Work Phone: [facility] 08-15-2023 14:01-0400 Heart rate 64 /min Satya Whitmore MD Work Phone: [facility] 08-15-2023 14:01-0400 Respiratory rate 16 /min Satya Whitmore MD Work Phone: [facility] 08-15-2023 14:01-0400 SaO2% (BldA) [Mass fraction] 99 % Satya Whitmore MD Work Phone: [facility] 08-15-2023 14:01-0400 Systolic blood pressure 134 mm[Hg] Satya Whitmore MD Work Phone: [facility] 07-30-2023 02:50-0400 Body temperature 98.4 [degF] Satya Whitmore MD Work Phone: [facility] 07-30-2023 02:50-0400 Diastolic blood pressure 68 mm[Hg] Satya Whitmore MD Work Phone: [facility] 07-30-2023 02:50-0400 Heart rate 78 /min Satya Whitmore MD Work Phone: [facility] 07-30-2023 02:50-0400 Respiratory rate 14 /min Satya Whitmore MD Work Phone: [facility] 07-30-2023 02:50-0400 SaO2% (BldA) [Mass fraction] 97 % Satya Whitmore MD Work Phone: [facility] 07-30-2023 02:50-0400 Systolic blood pressure 114 mm[Hg] Satya Whitmore MD Work Phone: [facility] 07-29-2023 05:25-0400 Body height 175.3 cm Satya Whitmore MD Work Phone: [facility] 07-29-2023 05:25-0400 Body mass index (BMI) [Ratio] 27.91 kg/m2 Satya Whitmore MD Work Phone: [facility] 07-29-2023 05:25-0400 Body weight 85.73 kg Satya Whitmore MD Work Phone: [facility] 07-17-2023 14:16-0400 Body height 175.3 cm Lashonda Oliva DO Work Phone: [facility] 07-17-2023 14:16-0400 Body mass index (BMI) [Ratio] 27.62 kg/m2 Poorvi Hazel DO Work Phone: [facility] 07-17-2023 14:16-0400 Body temperature 98.2 [degF] Poorvi Hazel DO Work Phone: [facility] 07-17-2023 14:16-0400 Body weight 84.82 kg Poorvi Hazel DO Work Phone: [facility] 07-17-2023 14:16-0400 Diastolic blood pressure 76 mm[Hg] Poorvi Hazel DO Work Phone: [facility] 07-17-2023 14:16-0400 Heart rate 93 /min Poorvi Hazel DO Work Phone: [facility] 07-17-2023 14:16-0400 Respiratory rate 16 /min Poorvi Hazel DO Work Phone: [facility] 07-17-2023 14:16-0400 SaO2% (BldA) [Mass fraction] 98 % Poorvi Hazel DO Work Phone: [facility] 07-17-2023 14:16-0400 Systolic blood pressure 128 mm[Hg] Poorvi Hazel DO Work Phone: [facility] 04-02-2023 08:50-0500 Diastolic blood pressure 83 mm[Hg] Satya Whitmore MD Work Phone: [facility] 04-02-2023 08:50-0500 Heart rate 77 /min Satya Whitmore MD Work Phone: [facility] 04-02-2023 08:50-0500 SaO2% (BldA) [Mass fraction] 99 % Satya Whitmore MD Work Phone: [facility] 04-02-2023 08:50-0500 Systolic blood pressure 147 mm[Hg] Satya Whitmore MD Work Phone: [facility] 04-02-2023 08:34-0500 Body temperature 98.2 [degF] Satya Whitmore MD Work Phone: [facility] 04-02-2023 08:34-0500 Respiratory rate 16 /min Satya Whitmore MD Work Phone: [facility] 04-02-2023 05:17-0500 Body height 175.3 cm Satya Whitmore MD Work Phone: [facility] 04-02-2023 05:17-0500 Body mass index (BMI) [Ratio] 27.11 kg/m2 Satya Whitmore MD Work Phone: [facility] 04-02-2023 05:17-0500 Body weight 83.28 kg Satya Whitmore MD Work Phone: [facility] [facility] 09-11-2022 11:20-0400 Body mass index (BMI) [Ratio] 28.8 kg/m2 Desiree Freeman APRN-MARTINE Work Phone: [facility] 09-11-2022 11:20-0400 Body temperature 98.01 [degF] Desiree Freeman APRN-CUSTOMER CONTACT SALES ASSOCIATE Work Phone: [facility] 09-11-2022 11:20-0400 Body weight 88.45 kg Desiree Freeman APRN-CUSTOMER CONTACT SALES ASSOCIATE Work Phone: [facility] 09-11-2022 11:20-0400 Diastolic blood pressure 88 mm[Hg] Desiree Freeman APRN-CUSTOMER CONTACT SALES ASSOCIATE Work Phone: [facility] 09-11-2022 11:20-0400 Heart rate 64 /min Desiree Freeman APRN-CUSTOMER CONTACT SALES ASSOCIATE Work Phone: [facility] 09-11-2022 11:20-0400 Respiratory rate 16 /min Desiree Freeman EXPELLER OPERATOR-CUSTOMER CONTACT SALES ASSOCIATE Work Phone: [facility] 09-11-2022 11:20-0400 SaO2% (BldA) [Mass fraction] 100 % Desiree Freeman EXPELLER OPERATOR-CUSTOMER CONTACT SALES ASSOCIATE Work Phone: [facility] 09-11-2022 11:20-0400 Systolic blood pressure 155 mm[Hg] Desiree Freeman EXPELLER OPERATOR-CUSTOMER CONTACT SALES ASSOCIATE Work Phone: [facility] 08-29-2022 08:30-0400 Diastolic blood pressure 89 mm[Hg] Desiree Freeman EXPELLER OPERATOR-CUSTOMER CONTACT SALES ASSOCIATE Work Phone: [facility] 08-29-2022 08:30-0400 Heart rate 61 /min Desiree Freeman EXPELLER OPERATOR-CUSTOMER CONTACT SALES ASSOCIATE Work Phone: [facility] 08-29-2022 08:30-0400 Systolic blood pressure 142 mm[Hg] Desiree Freeman EXPELLER OPERATOR-CUSTOMER CONTACT SALES ASSOCIATE Work Phone: [facility] 10-13-2020 08:12-0400 Diastolic blood pressure 77 mm[Hg] Judy Quiroga EXPELLER OPERATOR-CUSTOMER CONTACT SALES ASSOCIATE Work Phone: [facility] 10-13-2020 08:12-0400 Systolic blood pressure 128 mm[Hg] Judy Quiroga EXPELLER OPERATOR-CUSTOMER CONTACT SALES ASSOCIATE Work Phone: [facility] 10-13-2020 08:11-0400 Body height 175.3 cm Judy Quiroga EXPELLER OPERATOR-CUSTOMER CONTACT SALES ASSOCIATE Work Phone: [facility] Encounters Encounter Date Encounter Type Care Provider Facility Start: 09-14-[address] Seb Miller on DO -Radiation Oncology Start: 09-14-2024 End: 09-14-[address] Seb Clarke DO [facility] Work Phone: Start: 09-14-2024 End: 09-14-[address] Chichi Argueta MD Work Phone: [facility] Start: 09-09-2024 End: 09-09-[address] Seb Clarke DO [facility] Work Phone: Start: 09-09-2024 End: 09-09-[address] Chichi Argueta MD Work Phone: [facility] Start: 09-09-[address] Seb Miller on DO -Radiation Oncology Start: 09-08-2024 [facility] Start: 09-02-2024 End: 09-02-[address] Seb Clarke DO [facility] Work Phone: Start: 09-02-2024 End: 09-02-[address] Chichi Argueta MD Work Phone: [facility] Start: 09-02-[address] Seb Miller on DO -Radiation Oncology Start: 08-26-2024 End: 08-26-[address] Seb Clarke DO [facility] Work Phone: Start: 08-26-2024 End: 08-26-[address] Chichi Argueta MD Work Phone: [facility] Start: 08-26-[address] Seb Miller on DO -Radiation Oncology Start: 08-19-2024 End: 08-19-[address] Seb Clarke [facility] Work Phone: Start: 08-19-2024 End: 08-19-[address] Chichi Argueta MD Work Phone: [facility] Work Phone: Start: 08-19-2024 [facility] Start: 08-12-2024 End: 08-12-[address] Seb Clarke DO [facility] Work Phone: Start: 08-12-2024 End: 08-12-[address] Chichi Argueta MD Work Phone: [facility] Work Phone: Start: 08-05-2024 End: 08-05-[address] Royer Bey MD [facility] Work Phone: Start: 08-05-2024 End: 08-05-[address] Chichi Argueta MD Work Phone: [facility] Work Phone: Start: 07-29-2024 End: 07-29-[address] Seb Clarke DO [facility] Work Phone: Start: 07-29-2024 End: 07-29-[address] Chichi Argueta MD Work Phone: [facility] Work Phone: Start: 07-27-[address] Seb Miller on DO -Radiation Oncology Start: 07-23-2024 ambulatory Seb Clarke Facility: [facility] Start: 07-23-2024 Non-patient / Non-visit Dr. Seb pollock [facility] Start: 07-14-2024 ambulatory Seb Clarke Facility: [facility] Start: 07-14-2024 Non-patient / Non-visit Dr. Seb pollock DO [facility] Start: 07-06-2024 ambulatory Chichi Escobar y:[facility] Start: 06-19-2024 ambulatory [place]b [place] Facility: [facility] Start: 06-16-2024 End: 06-16-[address] Seb Clarke DO [facility] Work Phone: Start: 06-16-2024 End: 06-16-2024 ambulatory Seb Clarke Facility:[facility] Start: 06-09-2024 End: 06-09-[address] Chichi Argueta MD Work Phone: [facility] Work Phone: Start: 06-09-2024 End: 06-09-[address] Satya Whitmore MD [facility] Start: 06-09-2024 End: 06-09-2024 ambulatory Chichi Argueta Facility:[facility] Start: 05-20-2024 End: 05-20-2024 Office outpatient visit 10 minutes Satya Whitmore MD Work Phone: Division of Urological Surgery at [facility] Comment on above: Malignant neoplasm o f prostate (Primary Dx) Start: 05-20-2024 [facility] Start: 05-19-2024 End: 05-19-2024 Patient encounter procedure Paco [place] [facility] Work Phone: Start: 05-19-2024 End: 05-19-2024 ambulatory Chichi Argueta Facility:[facility] Start: 05-18-2024 End: 05-18-[address] Chichi Argueta MD Work Phone: [facility] Work Phone: Start: 05-18-2024 End: 05-18-[address] Satya Whitmore MD -Laboratory Work Phone: Start: 05-18-2024 End: 05-18-2024 ambulatory Chichi Argueta Facility:[facility] Start: 04-08-2024 ambulatory Chichi Argueta Facilit y:[facility] Start: 04-08-2024 Non-patient / Non-visit Dr. Frances garcia MD -[facility]- Start: 04-08-2024 End: 04-08-[address] Kerry Atkins MD -Pulmonary Services/Neurology Work Phone: Start: 04-08-2024 End: 04-08-2024 ambulatory Chichi Argueta Facility:[facility] Start: 02-06-2024 End: 02-06-[address] Chichi Argueta MD Work Phone: -Laboratory Work Phone: Start: 02-06-2024 End: 02-06-2024 ambulatory Chichi Argueta Facility:[facility] Start: 12-23-2023 ambulatory Chichi Argueta Facilit y:[facility] Start: 11-20-2023 ambulatory CHICHI ARGUETA Facility: [facility] Start: 11-19-2023 End: 11-19-2023 ambulatory TOAnna EISENBERG Facility:[facility] Start: 08-15-2023 End: 08-15-2023 Subsequent hospital visit by physician Satya Whitmore MD Work Phone: Fluoroscopy at [facility] Comment on above: Arrived Start: 08-15-2023 End: 08-15-2023 Patient encounter procedure Satya Whitmore MD Work Phone: Division of Urological Surgery at [facility] Comment on above: Malignant neoplasm o f prostate (Primary Dx) Start: 07-29-2023 End: 07-30-2023 Subsequent hospital visit by physician Satya Whitmore MD Work Phone: Extended Recovery Unit at [facility] Comment on above: Malignant neoplasm o f prostate Start: 07-17-2023 End: 07-17-2023 Office consultation new/estab patient 60 min Lashonda Oliva DO Work Phone: Pre-Procedure Evaluation and Assessment [facility] Comment on above: Preop exam for inter nal medicine (Primary Dx); Prostate cancer; Lumbar spondylosis Start: 07-17-2023 End: 07-17-2023 Patient encounter status Lashonda Oliva DO Work Phone: [facility] Start: 04-23-2023 End: 04-23-[address] Chichi Argueta Work Phone: [facility] Work Phone: Start: 04-23-2023 End: 04-23-[address] Chichi Argueta Work Phone: [facility] Start: 04-02-2023 End: 04-02-2023 Subsequent hospital visit by physician Satya Whitmore MD Work Phone: Perioperative Services at [facility] Comment on above: Elevated PSA Start: 01-16-2023 End: 01-16-[address] Chichi Argueta Work Phone: [facility] Work Phone: Start: 01-16-2023 End: 01-16-[address] Chichi Argueta Work Phone: [facility] Work Phone: Start: 01-11-2023 End: 01-11-[address] Chichi Argueta Work Phone: [facility] Work Phone: Start: 12-20-2022 End: 12-20-2022 ambulatory [facility] Work Phone: Start: 12-20-2022 End: 12-20-2022 Patient encounter procedure [facility]-Labor[facility] Work Phone: Start: 12-20-2022 Registered Referred [facility] Start: 09-11-2022 End: 09-11-2022 Office outpatient visit 25 minutes Desiree Freeman APRN-CUSTOMER CONTACT SALES ASSOCIATE Work Phone: [facility] [place] Comment on above: Elevated PSA (Primar y Dx) Start: 08-29-2022 End: 08-29-2022 Subsequent hospital visit by physician Desiree Freeman APRN-CUSTOMER CONTACT SALES ASSOCIATE Work Phone: [facility] Comment on above: Arrived Start: 05-24-2022 End: 05-24-2022 ambulatory [facility] Work Phone: Start: 05-24-2022 End: 05-24-2022 Patient encounter procedure [facility] Start: 11-22-2021 End: 11-22-2021 ambulatory [facility] Work Phone: Start: 11-22-2021 End: 11-22-2021 Patient encounter procedure [facility] Start: 11-22-2021 Registered Referred [facility] Start: 10-13-2020 End: 10-13-2020 Subsequent hospital visit by physician Judy Quiroga EXPELLER OPERATOR-CUSTOMER CONTACT SALES ASSOCIATE Work Phone: Imaging [facility] Comment on above: Arrived Procedures Date Procedure Procedure Detail Performing Clinician Start: 06-09-2024 PET study for locali zation of tumor Dr. Chichi Argueta MD Work Phone: Start: 05-18-2024 PSA TUMOR MARKER(DIAGNOSTIC), MANUAL ENTER Historical Provider Start: 05-18-2024 Assay of prostate sp ecific antigen total Dr. Chichi Argueta MD Work Phone: Comment on above: This test was perfor med using the [employer] tPSA method. Measured values of a patient sample can vary depending on the testing procedure used. PSA values determined on patient samples by different testing procedures cannot be used interchangeably. If there is a change in PSA assays while monitoring therapy, sequential testing should be performed to confirm baseline values. Start: 04-08-2024 CT of pelvis with contrast Dr. Chichi Argueta MD Work Phone: Start: 07-30-2023 Assay of magnesium Naif or Lucian Mc MD Work Phone: Start: 07-29-2023 Assay of magnesium Naif or Lucian Mc MD Work Phone: Start: 07-29-2023 CONTINUOUS CARDIAC MONITORING STRIP Other Other Start: 07-29-2023 End: 07-29-2023 Laps prostect retropubic rad w/nrv sparing robot Satya Whitmore MD Work Phone: Start: 07-29-2023 End: 07-29-2023 Laps surg bilateral total pelvic lmphadectomy Satya Whitmore MD Work Phone: Start: 07-17-2023 Antibody screen Poorvi Hazel DO Work Phone: Start: 07-17-2023 Blood typing serologic abo Poorvi D Hazel DO Work Phone: Start: 07-17-2023 CBC AND ELECTRONIC DIFF Elainevi D Hazel DO Work Phone: Start: 07-17-2023 Complete blood count with white cell differential, automated Poorvi D Hazel DO Work Phone: Start: 07-17-2023 Comprehensive metabo lic panel Poorvi D Hazel DO Work Phone: Start: 07-17-2023 Urnls dip stick/tabl et reagent auto microscopy Poorvi D Hazel DO Work Phone: Start: 04-23-2023 Positron emission tomography with computed tomography Dr. Chichi Argueta Work Phone: Start: 04-02-2023 End: 04-02-2023 Bx prostate strtctc saturation sampling img gid Satya Whitmore MD Work Phone: Start: 04-02-2023 ABORH TYPE RECONFIRMATION Bee Mcginnis DO Work Phone: Start: 01-16-2023 MRI of lumbar spine Dr. Chichi Argueta Work Phone: Start: 01-11-2023 X-ray of lumbosacral spine Dr. Chichi Argueta Work Phone: Start: 08-29-2022 Mri pelvis w/o & w/c ontrast material Desiree Freeman EXPELLER OPERATOR-CUSTOMER CONTACT SALES ASSOCIATE Work Phone: Start: 10-13-2020 Mri pelvis w/o & w/c ontrast material Judy Quiroga EXPELLER OPERATOR-CUSTOMER CONTACT SALES ASSOCIATE Work Phone: Plan of Treatment Date Care Activity Detail Author Start: 09-14-2027 Tetanus vaccination TETANUS [facility] Start: 05-18-2025 Prostate specific antigen measurement PROSTATE CANCER SCREENING DISCUSSION [facility] Start: 06-17-2024 Patient referral [facility] Work Phone: Start: 05-20-2024 End: 05-20-2025 PT Skull base to mid-thigh NUC PET HEAD TO THIGH Imaging Routine Malignant neoplasm of prostate Expected: 05/20/2024, Expires: 05/20/2025 [facility] Comment on above: Expected: 05/20/2024, Expires: Start: 11-20-2023 End: 11-20-2023 Telemedicine consultation with patient 11/20/2023 3:00 PM EDT Telemedicine Division of Urological Surgery at [facility] [address] [place] [phone] Satya Whitmore MD [address] [place] [address] Division of Urological Surgery at [facility] Start: 11-15-2023 End: 2024 PSA - DIAGNOSTIC/TUMOR MARKER PSA - DIAGNOSTIC/TUMOR MARKER Lab Routine Malignant neoplasm of prostate Expected: 11/15/2023, Expires: 2024 [facility] Comment on above: Expected: 11/15/2023, Expires: Start: 10-27-2023 COVID-19 VACCINE () COVID-19 VACCINE () [facility] Start: 09-05-2023 End: 2024 PSA - DIAGNOSTIC/TUMOR MARKER PSA - DIAGNOSTIC/TUMOR MARKER Lab Routine Malignant neoplasm of prostate Expected: 09/05/2023, Expires: 2024 [facility] Comment on above: Expected: 09/05/2023, Expires: Start: 08-30-2023 Prostate specific antigen measurement PROSTATE CANCER SCREENING DISCUSSION [facility] Start: 08-28-2023 End: 08-28-2023 Admission to same day surgery center 08/28/2023 1:00 PM EDT Clinical Support Encounter Division of Urological Surgery at [facility] [address] [place] [phone] Division of [facility] at [facility] Start: 07-29-2023 End: 07-29-2023 Admission to same day surgery center 07/29/2023 7:15 AM EDT - 07/29/2023 2:15 PM EDT Surgery Perioperative Services at [place] [address] [address] [place] [phone] Satya Whitmore MD [facility] [address] [place] [phone] LYMPHADENECTOMY PELVIC TOTAL ROBOTIC Perioperative Services at [facility] Comment on above: LYMPHADENECTOMY PELVIC TOTAL ROBOTIC Start: 07-29-2023 End: 07-29-2023 Laps prostect retropubic rad w/nrv sparing robot PROSTATECTOMY RETROPUBIC RADICAL ROBOTIC Malignant neoplasm of prostate 07/29/2023 7:15 AM EDT [facility] Start: 07-29-2023 End: 07-29-2023 Laps surg bilateral total pelvic lmphadectomy LYMPHADENECTOMY PELVIC TOTAL ROBOTIC Malignant neoplasm of prostate 07/29/2023 7:15 AM EDT [facility] Start: 07-29-2023 Subsequent hospital visit by physician 07/29/2023 7:15 AM EDT Hospital Encounter Perioperative Services at The [place] [address] [place] [phone] Satya Whitmore MD [facility] [address] [place] [phone] Malignant neoplasm of prostate Perioperative Services at [facility] Comment on above: Malignant neoplasm of prostate Start: 07-19-2023 End: 07-19-2023 Anesthesia consultation 07/19/2023 2:00 PM EDT Pre-Operative Nurse Assessment [facility] at [place] [address] [place] [phone] Satya Whitmore MD [facility] [address] [address] [facility] Start: 07-17-2023 End: 09-15-2023 Bacteria identified in Urine by Culture [facility] Comment on above: Expected: 07/17/2023, Expires: 4 Start: 01-11-2023 [facility] referral [facility] Work Phone: Start: 10-26-2022 COVID-19 VACCINE ( season) COVID-19 VACCINE ( season) [facility] Start: 10-26-2022 Influenza vaccination INFLUENZA VACCINE (#1) [facility] Start: 09-11-2022 End: 09-12-2023 Bacteria identified in Urine by Culture URINE CULTURE Microbiology Routine Elevated PSA Expected: 09/11/2022, Expires: 09/12/2023 [facility] Comment on above: Expected: 09/11/2022, Expires: Start: 09-11-2022 End: 09-12-2023 RECTAL SCREENING FOR CIPRO RESISTANCE RECTAL SCREENING FOR CIPRO RESISTANCE Microbiology Routine Elevated PSA Expected: 09/11/2022 (Approximate), Expires: 09/12/2023 [facility] Comment on above: Expected: 09/11/2022 (Approximate), Expi res: 09/12/2023 Start: 09-11-2022 End: 09-11-2022 Patient encounter procedure 09/11/2022 11:00 AM EDT Office Visit [facility] Urological Surgery [address] [place] [address] Desiree Freeman, EXPELLER OPERATOR-CUSTOMER CONTACT SALES ASSOCIATE [address] [place] [address] [facility] [place] Start: 10-13-2021 Prostate specific antigen measurement PROSTATE CANCER SCREENING DISCUSSION [facility] Start: 11-01-2020 End: 11-01-2020 Telemedicine consultation with patient 11/01/2020 Telemedicine Urology Rivera Sandoval MD [address] [place] [phone] Division of [facility] at [facility] Start: 10-26-2020 Influenza vaccination INFLUENZA VACCINE (#1) [facility] Start: 08-13-2017 Pneumococcal vaccination PNEUMOCOCCAL VACCINE SERIES (1 of 1 - PCV) [facility] Start: 08-13-2017 Zoster vaccine hzv live for subcutaneous use ZOSTER (SHINGLES) VACCINE (1 of 2) [facility] Start: 08-13-2012 Colonoscopy COLORECTAL CANCER SCREENING DISCUSSION [facility] Start: 08-13-2012 Screening for malignant neoplasm of colon COLORECTAL CANCER SCREENING DISCUSSION [facility] Start: 2007 Fasting lipid profile LIPID SCREENING [facility] Start: 2007 Lipid panel LIPID SCREENING [facility] Start: 08-13-1986 Hepatitis B vaccination HEP B VACCINE (1 of 3 - 19+ 3-dose series) [facility] Start: 08-13-1986 Third diphtheria, tetanus and acellular pertussis (DTaP) vaccination TDAP (ADULT) [facility] Start: 08-13-1985 Tetanus vaccination TETANUS [facility] Start: 08-13-1982 HIV screening HIV SCREENING DISCUSSION [facility] Start: 1979 COVID-19 VACCINE (1) COVID-19 VACCINE (1) [facility] Start: 02-13-1968 COVID-19 VACCINE (#1) COVID-19 VACCINE (#1) [facility] Start: 1967 Hepatitis B vaccination HEP B VACCINE (1 of 3 - 3-dose series) [facility] Start: 1967 Hepatitis C antibody, confirmatory test HEPATITIS C VIRUS SCREENING [facility] Start: 1967 Hepatitis C screening HEPATITIS C VIRUS SCREENING [facility] End: 08-15-2023 FLUORO IMAGING FOR UROLOGY [facility] Comment on above: One Time for 1 Occurrences starting 07/27 until 08/15/2023 [facility] referral [facility] Work Phone: SURG PATH REQUEST [facility] Comment on above: Release Upon Ordering for 1 Occurrences starting 04/02/2023, 1 completed SURG PATH REQUEST [facility] Comment on above: Release Upon Ordering for 1 Occurrences starting 07/29/2023, 1 completed End: 04-02-2023 US Unspecified body region US IMAGING [facility] Imaging Routine One Time for 1 Occurrences starting 04/02/2023 until 04/02/2023 [facility] Comment on above: One Time for 1 Occurrences starting 07/2023 until 04/02/2023 Immunizations Immunization Date Immunization Notes Care Provider [facility] 01-02-2024 influenza, seasonal, injectable, preservative free Dr. Chichi Argueta MD Work Phone: [facility] 12-13-2022 influenza, injectabl e, quadrivalent, preservative free [facility] 11-27-2021 influenza, injectabl e, quadrivalent, preservative free [facility] 11-27-2021 influenza, seasonal, injectable [facility] 11-27-2021 influenza virus vaccine, unspecified formulation Desiree Freeman EXPELLER OPERATOR-CUSTOMER CONTACT SALES ASSOCIATE Work Phone: [facility] 11-25-2021 influenza virus vaccine, unspecified formulation Desiree Freeman EXPELLER OPERATOR-CUSTOMER CONTACT SALES ASSOCIATE Work Phone: [facility] 12-28-2020 Covid (Moderna) [facility] 12-26-2020 influenza virus vaccine, unspecified formulation Desiree Freeman EXPELLER OPERATOR-CUSTOMER CONTACT SALES ASSOCIATE Work Phone: [facility] 11-30-2020 influenza, injectabl e, quadrivalent, preservative free [facility] 11-30-2020 influenza, seasonal, injectable [facility] 03-18-2020 Covid (Moderna) [facility] 02-17-2020 Covid (Moderna) [facility] 12-14-2019 influenza, injectabl e, quadrivalent, preservative free [facility] 12-14-2019 influenza, seasonal, injectable [facility] 12-16-2018 influenza, injectabl e, quadrivalent, preservative free [facility] 12-16-2018 influenza, seasonal, injectable [facility] 12-09-2017 influenza, injectabl e, quadrivalent, preservative free [facility] 12-09-2017 influenza, seasonal, injectable [facility] 11-25-2017 influenza virus vaccine, unspecified formulation Desiree Freeman APRN-[facility] Work Phone: [facility] 09-13-2017 tetanus toxoid, redu eber diphtheria toxoid, and acellular pertussis vaccine, adsorbed Desiree Freeman APRN-[facility] Work Phone: [facility] 11-30-2016 influenza, injectabl e, quadrivalent, preservative free [facility] 11-30-2016 influenza, seasonal, injectable [facility] 10-26-2016 influenza virus vaccine, unspecified formulation Desiree Freeman APRN-[facility] Work Phone: [facility] 12-26-2015 influenza, injectabl e, quadrivalent, preservative free [facility] 12-26-2015 influenza, seasonal, injectable [facility] 12-21-2014 influenza, injectabl e, quadrivalent, preservative free [facility] 12-21-2014 influenza, seasonal, injectable [facility] 11-12-2013 influenza, injectabl e, quadrivalent, preservative free [facility] 11-12-2013 influenza, seasonal, injectable [facility] 10-26-2013 influenza virus vaccine, unspecified formulation [facility] Work Phone: [facility] 12-25-2012 Influenza virus vaccine [facility] 12-20-2008 novel [id number], preservative-free, injectable [facility]e [facility] Work Phone: [facility] Payers Date Payer Category Payer Self-pay [id number] 2022 Managed Care (unspecified) CLARISSATTHERESA BROWN [id number] 2022 Private Health Insurance [employer] Lucian LONGAIN [id number] 2022-Present [address] [place] [address] [id number]. [id number] 2022 Unknown [id number] 2020 Unknown [facility] [id number] 2020-Present [address] [address] [place] [address] [id number]. [id number] 2013 Unknown [id number] 1967 Unknown [id number] 2.840.1.983721.3.579.2. 594 1967 Unknown [id number] .0.1.987815.3.579.2. 594 1967 Unknown [id number] 2.840.1.475215.3.579.2. 594 1967 Unknown [id number] 2.0.1.001689.3.579.2. 594 1967 Unknown [id number] 2.840.1.307034.3.579.2. 594 Unknown [id number] 2.840.1.871144.3.579.2. 462 Unknown [id number] 2.840.1.084145.3.579.2. 462 Unknown [id number] 2.16.840.1.108013.3.579.2. 462 Unknown [id number] 2.16.840.1.697935.3.579.2. 462 Unknown [id number] 2.16.840.1.830492.3.579.2. 462 Unknown [id number] 2.16.840.1.892267.3.579.2. 462 Unknown [id number] 2.16.840.1.605927.3.579.2. 462 Unknown [id number] 2.840.1.593479.3.579.2. 462 Unknown [id number] 2.16.840.1.338903.3.579.2. 462 Unknown [id number] 2.840.1.554154.3.579.2. 462 Unknown [id number] 2.840.1.161901.3.579.2. 462 Unknown [id number] 2.840.1.760571.3.579.2. 462 Unknown [id number] 2.840.1.343437.3.579.2. 462 Unknown [id number] 2.16.840.1.456106.3.579.2. 462 Unknown [id number] 2.840.1.700044.3.579.2. 462 Unknown [id number] 2.16840.1.040888.3.579.2. 462 Unknown [id number] 2.16840.1.682119.3.579.2. 462 Unknown [id number] 2.16.840.1.772123.3.579.2. 462 Unknown [id number] 2.16.840.1.254976.3.579.2. 462 Unknown [id number] 2.16.840.1.002624.3.579.2. 462 Unknown [id number] 2.16.840.1.115128.3.579.2. 462 Unknown [id number] 2.16.840.1.887275.3.579.2. 462 Social History Date Type Detail Facility Start: 09-20-2020 End: 05-26-2024 Tobacco smoking status NHIS Never smoker [facility] Start: 09-20-2020 End: 09-11-2022 Tobacco use and exposure Never used [facility] Start: 10-13-2020 End: 05-20-2024 Alcohol intake Current drinker of alcohol (finding) [facility] Start: 09-20-2020 Alcohol Comment socially 4 dri nks at time [facility] Start: 1965 Sex Assigned At Not on file O [facility] Exposure to SARS-CoV -2 (event) Not sure [facility] Start: 10-21-2017 End: 01-11-2023 Tobacco smoking status NHIS Unknown if ever smoked [facility] Start: 1965 Sex Assigned At Male [facility] Start: 08-29-2022 End: 05-20-2024 History of Social function [facility] Start: 08-29-2022 End: 05-20-2024 Tobacco use panel [facility] Adolescent depressio n screening assessment 0 [facility] Start: 11-09-2020 Gender identity Identifies as male gender (finding) [facility] Start: 11-09-2020 Sexual orientation Heterosexual (fin ding) [facility] Start: 07-27-2020 End: 06-13-2024 Sex Male (finding) 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 Oncologic History: 08/29/2022: Patient completed MRI prostate.? This demonstrated a lesion in the right anterior transitional zone extending into the fibromuscular stroma and into the right base measuring 2.5 x 1.2 x 1.4 cm, PI-RADS 4-5.? Capsule appears intact no extracapsular extension is noted.? Seminal vesicles are normal.? Smallexternal iliac and inguinal lymph nodes are seen which are nonspecific, slightlyprominent left external iliac node measures 1.4 x 1.1 cm in size, no bony lesions are appreciated. 04/02/2023: Patient completed prostate biopsy.? Pathology demonstrated Gabe 3+4adenocarcinoma involving 3/4 cores at the region of interest #1 biopsy and 1/2 cores of the left anterior fibromuscular stroma biopsy.? There was noted to be Gabe 3+3 adenocarcinoma involving 1/2 cores in the right anterior fibromuscular stroma biopsy.? All remaining biopsies were negative. 04/23/2023: Patient completed PSMA PET scan.? This demonstrated increased tracer uptake defined in the prostate gland for filling quantitative criteria for viable neoplasm.? SUV is 12.56.? This is located in the midportion of the prostate gland to the right of midline. 07/29/2023: Patient completed a robotic radical prostatectomy with lymph node dissection.? Pathology demonstrated [place] 3+4 adenocarcinoma, Gabe 4 is 21%of the tumor, there is noted to be extracapsular extension in the right anteriormid, no seminal vesicle invasion.? Margin is positive spanning 0.1 mm at the right anterior mid.? 13 lymph nodes were obtained and none contained metastatic disease.? pT3a pN0 04/08/2024: Patient completed CT pelvis without contrast due to having increased sacroiliac joint pain for 3 months.? No evidence of abnormalities appreciated. 06/09/2024: Patient completed PSMA PET scan.? This demonstrated no concerning lesions. Radiation Treatment History: None The patient completed a course of external beam radiotherapy in our department. This treatment was delivered for curative intent. Treatment was given according to the following parameters: NORMAN GARY received salvage radiation therapy consisting of 4600 cGy delivered to the at risk pelvic areas and prostate fossa followed by a boost delivered to the prostate fossa consisting of 2200 cGy delivered in 11 fractions. This brought the total dose to the prostate fossa to 6800 cGy in 34 fractions. The patient did receive concurrent ADT. Date of First Treatment:07/27/2024 Date of Last Treatment: 09/14/2024 Total Elapsed Days (including weekend and holidays): 45 Missed Treatments: none Response and Tolerance: The patient tolerated this course of radiotherapy well overall. The following radiation related toxicities developed during the course of radiation therapy: * Grade 1 diarrhea which was treated with imodium * Grade 1 fatigue Total weight change during therapy: N/A Disposition: The patient tolerated the planned course of radiation therapy well without unexpected toxicity in an appropriate time course. I reviewed management of potential toxicities and discussed expected timing for toxicity resolution. I will have NORMAN follow-up in one month for a routine visit. NORMAN will maintain follow up with all other providers. NORMAN was instructed to call withany further questions or concerns in the interim. If we can provide any further information on this patient's course of care, please do not hesitate to ask. We would like to thank you very much for allowingus to participate in the care of this patient. Sincerely, Seb Clarke DO, MS [employer], Department of Radiation Oncology [facility] 09/14/24 0057 <Electronically signed by Seb Clarke DO> Date _ Seb Clarke DO Cosigner Signature: Date (if applicable) CC: Dr. Satya Whitmore MD; Dr. Chichi Argueta MD; Dr. Claude Patel MD ~ [facility] Work Phone: 1(415) 770-327707-16-2025 [facility] [place] [address] OFFICE VISIT Date of Service: 09/09/24 1353 MR#: [id number] Acct: [id number] Name: NORMAN GARY Rep #: [id number] : 1965 From: Seb xavier DO Age/Sex: 59/M Location: [facility] Status: Signed Intake Vital Signs 06/16/24 14:02 09/02/24 14:01 09/09/24 13:55 Height 5 ft 9 in 5 ft 9 in 5 ft 9 in Weight: 188 lb 9 oz 188 lb 1 oz BMI 27.8 27.8 BP 136/81 H 144/89 H Blood Pressure Location Rt brachial Rt brachial Position Sitting Sitting Respiration 18 16 Pulse 67 73 Pulse Source Monitor Monitor Temp 97.4 F L 96.9 F L Temperature Source Temporal Artery Temporal Artery Pulse Oximetry (%) 100 100 Oxygen Delivery Method room air room air Intake Visit Reasons: OTV Is patient in pain?: No Allergies No Known Allergies Allergy (Verified 09/09/24 13:58) PFSH PFSH Medical History Spondylolisthesis Elevated PSA Vocal cord papilloma virus Tinnitus Prostatic adenocarcinoma Malignant neoplasm prostate Chalazion right upper eyelid Blepharitis of right upper eyelid History of prostate cancer GERD (gastroesophageal reflux disease) Hoarseness Allergy/AdvReac Type Severity Reaction Status Date / Time No Known Allergies Allergy Verified 09/09/24 13:58 Family History Mother Hypertension CAD (coronary artery disease) Soft tissue sarcoma Father Cancer Prostate cancer Bladder cancer Brother Colon cancer Prostate cancer Uncle Bladder cancer Surgical History History of prostate biopsy History of radical retropubic prostatectomy History of prostatectomy H/O colonoscopy Status post vasectomy Social History Smoking Status: Never smoker alcohol intake: current alcohol intake frequency: a few times a week Alcohol type: beer substance use type: does not use Diagnosis Octavio Gary is a 59 year-old male diagnosed with 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 Plan: Plan was made to complete salvage radiation therapy consisting of 4600 cGy delivered to the at riskpelvic areas and prostate fossa followed by a boost delivered to the prostate fossa consisting of 2200 cGy delivered in 11 fractions. This brought the total dose to the prostate fossa to 6800 cGy in 34 fractions. Treatment Data: Treatment Site: Prostate Fossa and Pelvis Current total dose/Total dose planned: 4600 cGy / 4600 cGy, 1600 cGy / 2200 cGy Fraction number: , Chemotherapy: ADT Subjective: Pain: 0 / 10 Fatigue: mild since ADT; mild increase since RT Skin: no erythema, rash, desquamation GI: increase diarrhea pretty improved some this week, 2-4 per day, imodium 2 perday. No rectal painor bleeding. No bloating or increased gas : not much increase urinary symptoms. some frequency/urgency. No dysuria or hematuria Objective: Weight: 188 lbs 1 oz Physical Exam: Gen: NAD Skin: no erythema, rash, desquamation. Assessment & Plan Assessment/Plan (1) Biochemically recurrent castration-sensitive adenocarcinoma of prostate: PLAN: Plan Assessment: Tolerating treatment well overall.? I reviewed and approved all treatment associated imaging. Diarrhea, grade 1, imodium and electrolyte replacement Fatigue: grade 1 hot flashes mild Plan: Continue treatment as planned.? I have reviewed potential treatment associated toxicities as well as timing for resolution and management. Follow up next week or sooner if needed. Thank you for allowing me to participate in the management and care of your patient. If I may answer any questions in the interim, please do not hesitate tocontact me at any time. Seb Clarke DO, MS [employer] Sales Associate, Department of Radiation Oncology [facility] Coding Level of Care Code Radiation Tx Management x5 Diagnoses Biochemically recurrent castration-sensitive adenocarcinoma of prostate C61; R97.21; Z19.1 09/09/24 1420 DO> Date _ Seb Clarke DO Cosigner Signature: Date (if applicable) CC: ~ [facility]07-16-2025 Progress note Author Seb Clarke [facility] Note Date/Time September 09, 2024 2:20 pm [facility] [address] [address] OFFICE VISIT Date of Service: 09/09/24 1353 MR#: [id number] Acct: [id number] Name: NORMAN GARY Rep #: [id number] : 1965 From: Seb xavier DO Age/Sex: 59/M Location: [facility] Status: Signed Intake Vital Signs 06/16/24 14:02 09/02/24 14:01 09/09/24 13:55 Height 5 ft 9 in 5 ft 9 in 5 ft 9 in Weight: 188 lb 9 oz 188 lb 1 oz BMI 27.8 27.8 BP 136/81 H 144/89 H Blood Pressure Location Rt brachial Rt brachial Position Sitting Sitting Respiration 18 16 Pulse 67 73 Pulse Source Monitor Monitor Temp 97.4 F L 96.9 F L Temperature Source Temporal Artery Temporal Artery Pulse Oximetry (%) 100 100 Oxygen Delivery Method room air room air Intake Visit Reasons: OTV Is patient in pain?: No Allergies No Known Allergies Allergy (Verified 09/09/24 13:58) PFSH PFSH Medical History Spondylolisthesis Elevated PSA Vocal cord papilloma virus Tinnitus Prostatic adenocarcinoma Malignant neoplasm prostate Chalazion right upper eyelid Blepharitis of right upper eyelid History of prostate cancer GERD (gastroesophageal reflux disease) Hoarseness Allergy/AdvReac Type Severity Reaction Status Date / Time No Known Allergies Allergy Verified 09/09/24 13:58 Family History Mother Hypertension CAD (coronary artery disease) Soft tissue sarcoma Father Cancer Prostate cancer Bladder cancer Brother Colon cancer Prostate cancer Uncle Bladder cancer Surgical History History of prostate biopsy History of radical retropubic prostatectomy History of prostatectomy H/O colonoscopy Status post vasectomy Social History Smoking Status: Never smoker alcohol intake: current alcohol intake frequency: a few times a week Alcohol type: beer substance use type: does not use Diagnosis Octavio Gary is a 59 year-old male diagnosed with 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 Plan: Plan was made to complete salvage radiation therapy consisting of 4600 cGy delivered to the at risk pelvic areas and prostate fossa followed by a boost delivered to the prostate fossa consisting of 2200 cGy delivered in 11 fractions. This brought the total dose to the prostate fossa to 6800 cGy in 34 fractions. Treatment Data: Treatment Site: Prostate Fossa and Pelvis Current total dose/Total dose planned: 4600 cGy / 4600 cGy, 1600 cGy / 2200 cGy Fraction number: , Chemotherapy: ADT Subjective: Pain: 0 / 10 Fatigue: mild since ADT; mild increase since RT Skin: no erythema, rash, desquamation GI: increase diarrhea pretty improved some this week, 2-4 per day, imodium 2 perday. No rectal pain or bleeding. No bloating or increased gas : not much increase urinary symptoms. some frequency/urgency. No dysuria or hematuria Objective: Weight: 188 lbs 1 oz Physical Exam: Gen: NAD Skin: no erythema, rash, desquamation. Assessment & Plan Assessment/Plan (1) Biochemically recurrent castration-sensitive adenocarcinoma of prostate: PLAN: Plan Assessment: Tolerating treatment well overall.? I reviewed and approved all treatment associated imaging. Diarrhea, grade 1, imodium and electrolyte replacement Fatigue: grade 1 hot flashes mild Plan: Continue treatment as planned.? I have reviewed potential treatment associated toxicities as well as timing for resolution and management. Follow up next week or sooner if needed. Thank you for allowing me to participate in the management and care of your patient. If I may answer any questions in the interim, please do not hesitate tocontact me at any time. Seb Clarke DO, MS [employer] Sales Associate, Department of Radiation Oncology [facility] Coding Level of Care Code Radiation Tx Management x5 Diagnoses Biochemically recurrent castration-sensitive adenocarcinoma of prostate C61; R97.21; Z19.1 09/09/24 1420 <Electronically signed by Seb Clarke DO> Date _ Seb Clarke DO [facility] Signature: Date (if applicable) CC: ~ [facility] Work Phone: 1(357) 870-745407-09-2025 [facility] [address] [place] [address] OFFICE VISIT Date of Service: 09/02/24 1352 MR#: [id number] Acct: [id number] Name: NORMAN GARY Rep #: [id number] : 1965 From: Seb xavier DO Age/Sex: 59/M Location: [facility] Status: Signed Intake Vital Signs 06/16/24 14:02 08/26/24 13:44 09/02/24 14:01 Height 5 ft 9 in 5 ft 9 in 5 ft 9 in Weight: 188 lb 1 oz 188 lb 9 oz BMI 27.8 27.8 BP 108/78 136/81 H Blood Pressure Location Rt brachial Rt brachial Position Sitting Sitting Respiration 16 18 Pulse 84 67 Pulse Source Monitor Monitor Temp 97.4 F L 97.4 F L Temperature Source Temporal Artery Temporal Artery Pulse Oximetry (%) 99 100 Oxygen Delivery Method room air room air Intake Visit Reasons: OTV Is patient in pain?: No Allergies No Known Allergies Allergy (Verified 09/02/24 14:01) Medications ?Medication ?Instructions ?Recorded ?Confirmed ?Type meloxicam 15 mg tablet 15 mg PO DAILY 01/11/2311/19 History pantoprazole 20 mg tablet,delayed 20 mg PO QDAY 09/02/24 History release sildenafil 100 mg tablet 100 mg PO QDAY PRN 05/26/24 09/02/24 History propranolol 80 mg capsule,24 80 mg PO QDAY 07/29/24 History hr,extended release (Inderal [place]) PFSH PFS Medical History Spondylolisthesis Elevated PSA Vocal cord papilloma virus Tinnitus Prostatic adenocarcinoma Malignant neoplasm prostate Chalazion right upper eyelid Blepharitis of right upper eyelid History of prostate cancer GERD (gastroesophageal reflux disease) Hoarseness Home Medications ?Medication ?Instructions ?Recorded ?Last Taken ?Type meloxicam 15 mg tablet 15 mg PO DAILY 01/11/23 Unkn own History pantoprazole 20 mg tablet,delayed 20 mg PO QDAY Unknown History release sildenafil 100 mg tablet 100 mg PO QDAY PRN 05/26/24 Unknown History propranolol 80 mg capsule,24 80 mg PO QDAY 07/29/24 Un known History hr,extended release (Inderal LA) Allergy/AdvReac Type Severity Reaction Status Date / Time No Known Allergies Allergy Verified 09/02/24 14:01 Family History Mother Hypertension CAD (coronary artery disease) Soft tissue sarcoma Father Cancer Prostate cancer Bladder cancer Brother Colon cancer Prostate cancer Uncle Bladder cancer Surgical History History of prostate biopsy History of radical retropubic prostatectomy History of prostatectomy H/O colonoscopy Status post vasectomy Social History Smoking Status: Never smoker alcohol intake: current alcohol intake frequency: a few times a week Alcohol type: beer substance use type: does not use Diagnosis Octavio Gary is a 59 year-old male diagnosed with 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 Plan: Plan was made to complete salvage radiation therapy consisting of 4600 cGy delivered to the at riskpelvic areas and prostate fossa followed by a boost delivered to the prostate fossa consisting of 2200 cGy delivered in 11 fractions. This brought the total dose to the prostate fossa to 6800 cGy in 34 fractions. Treatment Data: Treatment Site: Prostate Fossa and Pelvis Current total dose/Total dose planned: 4200 cGy / 4600 cGy, 0 cGy / 2200 cGy Fraction number: , Chemotherapy: ADT Subjective: Pain: 0 / 10 Fatigue: mild since ADT; mild increase since RT Skin: no erythema, rash, desquamation GI: increase diarrhea pretty stable, 4-6 per day, imodium 3-4 per day. No rectal pain or bleeding. No bloating or increased gas : not much increase urinary symptoms. some frequency/urgency. No dysuria or hematuria Objective: Weight: 188 lbs 9 oz Physical Exam: Gen: NAD Skin: no erythema, rash, desquamation. Assessment & Plan Assessment/Plan (1) Biochemically recurrent castration-sensitive adenocarcinoma of prostate: PLAN: Plan Assessment: Tolerating treatment well overall.? I reviewed and approved all treatment associated imaging. Diarrhea, grade 1, imodium and electrolyte replacement Fatigue: grade 1 hot flashes mild Plan: Continue treatment as planned.? I have reviewed potential treatment associated toxicities as well as timing for resolution and management. Follow up next week or sooner if needed. Thank you for allowing me to participate in the management and care of your patient. If I may answer any questions in the interim, please do not hesitate tocontact me at any time. Seb Clarke DO, MS [employer]wear Sales Associate, Department of Radiation Oncology [facility] Coding Level of Care Code Radiation Tx Management x5 Diagnoses Biochemically recurrent castration-sensitive adenocarcinoma of prostate C61; R97.21; Z19.1 09/02/24 1412 DO> Date _ Seb Tricia DO [facility] Signature: Date (if applicable) CC: ~ [facility]06-18-2025 [facility] [address] [place] [address] OFFICE VISIT Date of Service: 08/12/24 1415 MR#: [id number] Acct: [id number] Name: COOKIENORMAN A Rep #: [id number] : 1965 From: Seb xavier DO Age/Sex: 58/M Location: [facility] Status: Signed Intake Vital Signs 06/16/24 14:02 08/05/24 13:57 08/12/24 14:17 Height 5 ft 9 in 5 ft 9 in 5 ft 9 in Weight: 188 lb 1 oz BMI 27.8 BP 113/78 Blood Pressure Location Rt brachial Position Sitting Respiration 18 Pulse 60 Pulse Source Monitor Temp 97.2 F L Temperature Source Temporal Artery Pulse Oximetry (%) 100 Oxygen Delivery Method room air Intake Visit Reasons: OTV Is patient in pain?: No Allergies No Known Allergies Allergy (Verified 08/12/24 14:18) Medications ?Medication ?Instructions ?Recorded ?Confirmed ?Type meloxicam 15 mg tablet 15 mg PO DAILY 01/11/2307/26 History pantoprazole 20 mg tablet,delayed 20 mg PO QDAY 08/12/24 History release sildenafil 100 mg tablet 100 mg PO QDAY PRN 05/26/24 08/12/24 History propranolol 80 mg capsule,24 80 mg PO QDAY 07/29/24 History hr,extended release (Inderal LA) PFSH PFSH Medical History Spondylolisthesis Elevated PSA Vocal cord papilloma virus Tinnitus Prostatic adenocarcinoma Malignant neoplasm prostate Chalazion right upper eyelid Blepharitis of right upper eyelid History of prostate cancer GERD (gastroesophageal reflux disease) Hoarseness Home Medications ?Medication ?Instructions ?Recorded ?Last Taken ?Type meloxicam 15 mg tablet 15 mg PO DAILY 01/11/23 Unkn own History pantoprazole 20 mg tablet,delayed 20 mg PO QDAY Unknown History release sildenafil 100 mg tablet 100 mg PO QDAY PRN 05/26/24 Unknown History propranolol 80 mg capsule,24 80 mg PO QDAY 07/29/24 Un known History hr,extended release (Inderal LA) Allergy/AdvReac Type Severity Reaction Status Date / Time No Known Allergies Allergy Verified 08/12/24 14:18 Family History Mother Hypertension CAD (coronary artery disease) Soft tissue sarcoma Father Cancer Prostate cancer Bladder cancer Brother Colon cancer Prostate cancer Uncle Bladder cancer Surgical History History of prostate biopsy History of radical retropubic prostatectomy History of prostatectomy H/O colonoscopy Status post vasectomy Social History Smoking Status: Never smoker alcohol intake: current alcohol intake frequency: a few times a week Alcohol type: beer substance use type: does not use Intake Vital Signs 06/16/2513:02 07/29/2513:05 Height 5 ft 9 in 5 ft 9 in Weight: 189 lb 5 oz BMI 27.9 BP 134/85 H Blood Pressure Location Rt brachial Position Sitting Respiration 16 Pulse 67 Pulse Source Monito Temp 97.2 F L Temperature Source Temporal Artery Pulse Oximetry (%) 99 Oxygen Delivery Method room air Intake Visit Reasons: OTV Is patient in pain?: No Allergies No Known Allergies Allergy (Verified 07/29/24 14:04) Medications ?Medication ?Instructions ?Recorded ?Confirmed ?Type meloxicam 15 mg tablet 15 mg PO DAILY 01/11/23 06/16/24 History pantoprazole 20 mg tablet,delayed 20 mg PO QDAY 05/19/24 06/16/24 History release sildenafil 100 mg tablet 100 mg PO QDAY PRN 05/26/24 05/26/24 His tory propranolol 80 mg capsule,24 80 mg PO QDAY 07/29/24 07/29/24 History hr,extended release (Inderal [place]) Diagnosis: Octavio Gary is a 58 year-old male diagnosed with 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 Plan: Plan was made to complete salvage radiation therapy consisting of 4600 cGy delivered to the at riskpelvic areas and prostate fossa followed by a boost delivered to the prostate fossa consisting of 2200 cGy delivered in 11 fractions. This brought the total dose to the prostate fossa to 6800 cGy in 34 fractions. Treatment Data: Treatment Site: Prostate Fossa and Pelvis Current total dose/Total dose planned: 2600 cGy / 4600 cGy, 0 cGy / 2200 cGy Fraction number: , Chemotherapy: ADT Subjective: Pain: 0 / 10 Fatigue: mild since ADT; no major change with start of RT Skin: no erythema, rash, desquamation GI: increase diarrhea, 5-6 per day, imodium 1-2 per day. No rectal pain or bleeding. No bloating orincreased gas : no increase urinary symptoms. some frequency. No dysuria or hematuria Objective: Weight: 188 lbs 1 oz Physical Exam: Gen: NAD Skin: no erythema, rash, desquamation. Assessment & Plan Assessment/Plan (1) Biochemically recurrent castration-sensitive adenocarcinoma of prostate: PLAN: Plan Assessment: Tolerating treatment well overall.? I reviewed and approved all treatment associated imaging. Diarrhea, grade 1, imodium and electrolyte replacement Plan: Continue treatment as planned.? I have reviewed potential treatment associated toxicities as well as timing for resolution and management. Follow up next week or sooner if needed. Thank you for allowing me to participate in the management and care of your patient. If I may answer any questions in the interim, please do not hesitate tocontact me at any time. Seb Clarke DO, MS [employer] Associate, Department of Radiation Oncology [facility] Coding Level of Care Code Radiation Tx Management x5 Diagnoses Biochemically recurrent castration-sensitive adenocarcinoma of prostate C61; R97.21; Z19.1 08/12/24 1442 DO> Date _ Seb Clarke DO Cosigner Signature: Date (if applicable) CC: ~ [facility]06-18-2025 Progress note Author Seb Clarke [facility] Note Date/Time August 12, 2024 2:42 pm [facility] [address] [address] OFFICE VISIT Date of Service: 08/12/24 1415 MR#: [id number] Acct: [id number] Name: NORMAN GARY Rep #: [id number] : 1965 From: Seb xavier DO Age/Sex: 58/M Location: [facility] Status: Signed Intake Vital Signs 06/16/24 14:02 08/05/24 13:57 08/12/24 14:17 Height 5 ft 9 in 5 ft 9 in 5 ft 9 in Weight: 188 lb 1 oz BMI 27.8 BP 113/78 Blood Pressure Location Rt brachial Position Sitting Respiration 18 Pulse 60 Pulse Source Monitor Temp 97.2 F L Temperature Source Temporal Artery Pulse Oximetry (%) 100 Oxygen Delivery Method room air Intake Visit Reasons: OTV Is patient in pain?: No Allergies No Known Allergies Allergy (Verified 08/12/24 14:18) Medications ?Medication ?Instructions ?Recorded ?Confirmed ?Type meloxicam 15 mg tablet 15 mg PO DAILY 01/11/2307/26 History pantoprazole 20 mg tablet,delayed 20 mg PO QDAY 08/12/24 History release sildenafil 100 mg tablet 100 mg PO QDAY PRN 05/26/24 08/12/24 History propranolol 80 mg capsule,24 80 mg PO QDAY 07/29/24 History hr,extended release (Inderal LA) PFSH PFSH Medical History Spondylolisthesis Elevated PSA Vocal cord papilloma virus Tinnitus Prostatic adenocarcinoma Malignant neoplasm prostate Chalazion right upper eyelid Blepharitis of right upper eyelid History of prostate cancer GERD (gastroesophageal reflux disease) Hoarseness Home Medications ?Medication ?Instructions ?Recorded ?Last Taken ?Type meloxicam 15 mg tablet 15 mg PO DAILY 01/11/23 Unkn own History pantoprazole 20 mg tablet,delayed 20 mg PO QDAY Unknown History release sildenafil 100 mg tablet 100 mg PO QDAY PRN 05/26/24 Unknown History propranolol 80 mg capsule,24 80 mg PO QDAY 07/29/24 Un known History hr,extended release (Inderal LA) Allergy/AdvReac Type Severity Reaction Status Date / Time No Known Allergies Allergy Verified 08/12/24 14:18 Family History Mother Hypertension CAD (coronary artery disease) Soft tissue sarcoma Father Cancer Prostate cancer Bladder cancer Brother Colon cancer Prostate cancer Uncle Bladder cancer Surgical History History of prostate biopsy History of radical retropubic prostatectomy History of prostatectomy H/O colonoscopy Status post vasectomy Social History Smoking Status: Never smoker alcohol intake: current alcohol intake frequency: a few times a week Alcohol type: beer substance use type: does not use Intake Vital Signs 06/16/2513:02 07/29/2513:05 Height 5 ft 9 in 5 ft 9 in Weight: 189 lb 5 oz BMI 27.9 BP 134/85 H Blood Pressure Location Rt brachial Position Sitting Respiration 16 Pulse 67 Pulse Source Monito Temp 97.2 F L Temperature Source Temporal Artery Pulse Oximetry (%) 99 Oxygen Delivery Method room air Intake Visit Reasons: OTV Is patient in pain?: No Allergies No Known Allergies Allergy (Verified 07/29/24 14:04) Medications ?Medication ?Instructions ?Recorded ?Confirmed ?Type meloxicam 15 mg tablet 15 mg PO DAILY 01/11/23 06/16/24 History pantoprazole 20 mg tablet,delayed 20 mg PO QDAY 05/19/24 06/16/24 History release sildenafil 100 mg tablet 100 mg PO QDAY PRN 05/26/24 05/26/24 His tory propranolol 80 mg capsule,24 80 mg PO QDAY 07/29/24 07/29/24 History hr,extended release (Inderal LA) Diagnosis: Octavio Gary is a 58 year-old male diagnosed with 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 Plan: Plan was made to complete salvage radiation therapy consisting of 4600 cGy delivered to the at risk pelvic areas and prostate fossa followed by a boost delivered to the prostate fossa consisting of 2200 cGy delivered in 11 fractions. This brought the total dose to the prostate fossa to 6800 cGy in 34 fractions. Treatment Data: Treatment Site: Prostate Fossa and Pelvis Current total dose/Total dose planned: 2600 cGy / 4600 cGy, 0 cGy / 2200 cGy Fraction number: , Chemotherapy: ADT Subjective: Pain: 0 / 10 Fatigue: mild since ADT; no major change with start of RT Skin: no erythema, rash, desquamation GI: increase diarrhea, 5-6 per day, imodium 1-2 per day. No rectal pain or bleeding. No bloating or increased gas : no increase urinary symptoms. some frequency. No dysuria or hematuria Objective: Weight: 188 lbs 1 oz Physical Exam: Gen: NAD Skin: no erythema, rash, desquamation. Assessment & Plan Assessment/Plan (1) Biochemically recurrent castration-sensitive adenocarcinoma of prostate: PLAN: Plan Assessment: Tolerating treatment well overall.? I reviewed and approved all treatment associated imaging. Diarrhea, grade 1, imodium and electrolyte replacement Plan: Continue treatment as planned.? I have reviewed potential treatment associated toxicities as well as timing for resolution and management. Follow up next week or sooner if needed. Thank you for allowing me to participate in the management and care of your patient. If I may answer any questions in the interim, please do not hesitate tocontact me at any time. Seb Clarke DO, MS [employer] Sales Associate, Department of Radiation Oncology [facility] Coding Level of Care Code Radiation Tx Management x5 Diagnoses Biochemically recurrent castration-sensitive adenocarcinoma of prostate C61; R97.21; Z19.1 08/12/24 1442 <Electronically signed by Seb Clarke DO> Date _ Seb Clarke DO [facility] Signature: Date (if applicable) CC: ~ [facility] Work Phone: [phone] [facility] [address] [address] OFFICE VISIT Date of Service: 08/05/24 1354 MR#: [id number] Acct: [id number] Name: NORMAN GARY Rep #: [id number] : 1965 From: Royer swartz MD Age/Sex: 58/M Location: [facility] Status: Signed Intake Vital Signs 06/16/24 14:02 07/29/24 14:05 08/05/24 13:57 Height 5 ft 9 in 5 ft 9 in 5 ft 9 in Weight: 189 lb 5 oz 191 lb 6 oz BMI 27.9 28.2 BP 134/85 H 151/82 H Blood Pressure Location Rt brachial Rt brachial Position Sitting Sitting Respiration 16 16 Pulse 67 69 Pulse Source Monitor Monitor Temp 97.2 F L 96.9 F L Temperature Source Temporal Artery Temporal Artery Pulse Oximetry (%) 99 100 Oxygen Delivery Method room air room air Intake Visit Reasons: OTV Is patient in pain?: No Allergies No Known Allergies Allergy (Verified 08/05/24 13:57) Medications ?Medication ?Instructions ?Recorded ?Confirmed ?Type meloxicam 15 mg tablet 15 mg PO DAILY 01/11/2307/26 History pantoprazole 20 mg tablet,delayed 20 mg PO QDAY 08/05/24 History release sildenafil 100 mg tablet 100 mg PO QDAY PRN 05/26/24 08/05/24 History propranolol 80 mg capsule,24 80 mg PO QDAY 07/29/24 History hr,extended release (Inderal LA) PFSH PFS Medical History Spondylolisthesis Elevated PSA Vocal cord papilloma virus Tinnitus Prostatic adenocarcinoma Malignant neoplasm prostate Chalazion right upper eyelid Blepharitis of right upper eyelid History of prostate cancer GERD (gastroesophageal reflux disease) Hoarseness Home Medications ?Medication ?Instructions ?Recorded ?Last Taken ?Type meloxicam 15 mg tablet 15 mg PO DAILY 01/11/23 Unkn own History pantoprazole 20 mg tablet,delayed 20 mg PO QDAY Unknown History release sildenafil 100 mg tablet 100 mg PO QDAY PRN 05/26/24 Unknown History propranolol 80 mg capsule,24 80 mg PO QDAY 07/29/24 Un known History hr,extended release (Inderal LA) Allergy/AdvReac Type Severity Reaction Status Date / Time No Known Allergies Allergy Verified 08/05/24 13:57 Family History Mother Hypertension CAD (coronary artery disease) Soft tissue sarcoma Father Cancer Prostate cancer Bladder cancer Brother Colon cancer Prostate cancer Uncle Bladder cancer Surgical History History of prostate biopsy History of radical retropubic prostatectomy History of prostatectomy H/O colonoscopy Status post vasectomy Social History Smoking Status: Never smoker alcohol intake: current alcohol intake frequency: a few times a week Alcohol type: beer substance use type: does not use [facility] [place] [address] OFFICE VISIT Date of Service: 07/29/24 1401 MR#: [id number] Acct: [id number] Name: NORMAN GARY #: [id number] : 1965 From: Seb Clarke DO Age/Sex: 58/M Location: [facility] Status: Signed Intake Vital Signs 06/16/2513:02 07/29/2513:05 Height 5 ft 9 in 5 ft 9 in Weight: 189 lb 5 oz BMI 27.9 BP 134/85 H Blood Pressure Location Rt brachial Position Sitting Respiration 16 Pulse 67 Pulse Source Monitor Temp 97.2 F L Temperature Source Temporal Artery Pulse Oximetry (%) 99 Oxygen Delivery Method room air Intake Visit Reasons: OTV Is patient in pain?: No Allergies No Known Allergies Allergy (Verified 07/29/24 14:04) Medications ?Medication ?Instructions ?Recorded ?Confirmed ?Type meloxicam 15 mg tablet 15 mg PO DAILY 01/11/23 06/16/24 History pantoprazole 20 mg tablet,delayed 20 mg PO QDAY 05/19/24 06/16/24 History release sildenafil 100 mg tablet 100 mg PO QDAY PRN 05/26/24 05/26/24 His tory propranolol 80 mg capsule,24 80 mg PO QDAY 07/29/24 07/29/24 History hr,extended release (Inderal LA) Diagnosis: Octavio Gary is a 58 year-old male diagnosed with 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 Plan: Plan was made to complete salvage radiation therapy consisting of 4600 cGy delivered to the at riskpelvic areas and prostate fossa followed by a boost delivered to the prostate fossa consisting of 2200 cGy delivered in 11 fractions. This brought the total dose to the prostate fossa to 6800 cGy in 34 fractions. Treatment Data: Treatment Site: Prostate Fossa and Pelvis Current total dose/Total dose planned: 1600 cGy / 4600 cGy, 0 cGy / 2200 cGy Fraction number: , Chemotherapy: ADT Subjective: Pain: 0 / 10 Fatigue: mild since ADT; no major change with start of RT Skin: no erythema, rash, desquamation GI: no diarrhea/constipation. No rectal pain or bleeding. No bloating or increased gas : no increase urinary symptoms. No dysuria or hematuria Objective: Weight: 191 lbs 6 oz Physical Exam: Gen: NAD Skin: no erythema, rash, desquamation. Assessment & Plan Assessment/Plan (1) Biochemically recurrent castration-sensitive adenocarcinoma of prostate: PLAN: Plan Assessment: Tolerating treatment well overall.? I reviewed and approved all treatment associated imaging. No treatment associated toxicities are noted at this time Plan: Continue treatment as planned.? I have reviewed potential treatment associated toxicities as well as timing for resolution and management. Skin: Skin care reviewed, continue lotion prn Follow up next week or sooner if needed. We discussed having Imodium in the house should he need it for diarrhea at some point in the future. We went over instructions for how to take same. Patient's questions were answered to his satisfaction. We will proceed with treatment Thank you for allowing me to participate in the management and care of your patient. If I may answer any questions in the interim, please do not hesitate tocontact me at any time. Assessment & Plan Assessment/Plan (1) Biochemically recurrent castration-sensitive adenocarcinoma of prostate: Coding Level of Care Code Radiation Tx Management x5 Diagnoses Biochemically recurrent castration-sensitive adenocarcinoma of prostate C61; R97.21; Z19.1 08/05/24 1409 tommy VICK> Date _ [facility] Signature: Date (if applicable) CC: ~ [facility]06-11-2025 Progress note Author Royer Bey [facility] Note Date/Time August 05, 2024 2:09 pm [facility] [address] [address] OFFICE VISIT Date of Service: 08/05/24 1354 MR#: [id number] Acct: [id number] Name: NORMAN GARY Rep #: [id number] : 1965 From: Royer swartz MD Age/Sex: 58/M Location: [facility] Status: Signed Intake Vital Signs 06/16/24 14:02 07/29/24 14:05 08/05/24 13:57 Height 5 ft 9 in 5 ft 9 in 5 ft 9 in Weight: 189 lb 5 oz 191 lb 6 oz BMI 27.9 28.2 BP 134/85 H 151/82 H Blood Pressure Location Rt brachial Rt brachial Position Sitting Sitting Respiration 16 16 Pulse 67 69 Pulse Source Monitor Monitor Temp 97.2 F L 96.9 F L Temperature Source Temporal Artery Temporal Artery Pulse Oximetry (%) 99 100 Oxygen Delivery Method room air room air Intake Visit Reasons: OTV Is patient in pain?: No Allergies No Known Allergies Allergy (Verified 08/05/24 13:57) Medications ?Medication ?Instructions ?Recorded ?Confirmed ?Type meloxicam 15 mg tablet 15 mg PO DAILY 01/11/2307/26 History pantoprazole 20 mg tablet,delayed 20 mg PO QDAY 08/05/24 History release sildenafil 100 mg tablet 100 mg PO QDAY PRN 05/26/24 08/05/24 History propranolol 80 mg capsule,24 80 mg PO QDAY 07/29/24 History hr,extended release (Inderal LA) PFSH PFSH Medical History Spondylolisthesis Elevated PSA Vocal cord papilloma virus Tinnitus Prostatic adenocarcinoma Malignant neoplasm prostate Chalazion right upper eyelid Blepharitis of right upper eyelid History of prostate cancer GERD (gastroesophageal reflux disease) Hoarseness Home Medications ?Medication ?Instructions ?Recorded ?Last Taken ?Type meloxicam 15 mg tablet 15 mg PO DAILY 01/11/23 Unkn own History pantoprazole 20 mg tablet,delayed 20 mg PO QDAY Unknown History release sildenafil 100 mg tablet 100 mg PO QDAY PRN 05/26/24 Unknown History propranolol 80 mg capsule,24 80 mg PO QDAY 07/29/24 Un known History hr,extended release (Inderal LA) Allergy/AdvReac Type Severity Reaction Status Date / Time No Known Allergies Allergy Verified 08/05/24 13:57 Family History Mother Hypertension CAD (coronary artery disease) Soft tissue sarcoma Father Cancer Prostate cancer Bladder cancer Brother Colon cancer Prostate cancer Uncle Bladder cancer Surgical History History of prostate biopsy History of radical retropubic prostatectomy History of prostatectomy H/O colonoscopy Status post vasectomy Social History Smoking Status: Never smoker alcohol intake: current alcohol intake frequency: a few times a week Alcohol type: beer substance use type: does not use [facility] [address] [place] [address] OFFICE VISIT Date of Service: 07/29/24 1401 MR#: [id number] Acct: [id number] Name: NORMAN GARY Rep #: [id number] : 1965 From: Seb Clarke DO Age/Sex: 58/M Location: [facility] Status: Signed Intake Vital Signs 06/16/2513:02 07/29/2513:05 Height 5 ft 9 in 5 ft 9 in Weight: 189 lb 5 oz BMI 27.9 BP 134/85 H Blood Pressure Location Rt brachial Position Sitting Respiration 16 Pulse 67 Pulse Source Monitor Temp 97.2 F L Temperature Source Temporal Artery Pulse Oximetry (%) 99 Oxygen Delivery Method room air Intake Visit Reasons: OTV Is patient in pain?: No Allergies No Known Allergies Allergy (Verified 07/29/24 14:04) Medications ?Medication ?Instructions ?Recorded ?Confirmed ?Type meloxicam 15 mg tablet 15 mg PO DAILY 01/11/23 06/16/24 History pantoprazole 20 mg tablet,delayed 20 mg PO QDAY 05/19/24 06/16/24 History release sildenafil 100 mg tablet 100 mg PO QDAY PRN 05/26/24 05/26/24 His tory propranolol 80 mg capsule,24 80 mg PO QDAY 07/29/24 07/29/24 History hr,extended release (Inderal LA) Diagnosis: Octavio Gary is a 58 year-old male diagnosed with 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 Plan: Plan was made to complete salvage radiation therapy consisting of 4600 cGy delivered to the at risk pelvic areas and prostate fossa followed by a boost delivered to the prostate fossa consisting of 2200 cGy delivered in 11 fractions. This brought the total dose to the prostate fossa to 6800 cGy in 34 fractions. Treatment Data: Treatment Site: Prostate Fossa and Pelvis Current total dose/Total dose planned: 1600 cGy / 4600 cGy, 0 cGy / 2200 cGy Fraction number: , Chemotherapy: ADT Subjective: Pain: 0 / 10 Fatigue: mild since ADT; no major change with start of RT Skin: no erythema, rash, desquamation GI: no diarrhea/constipation. No rectal pain or bleeding. No bloating or increased gas : no increase urinary symptoms. No dysuria or hematuria Objective: Weight: 191 lbs 6 oz Physical Exam: Gen: NAD Skin: no erythema, rash, desquamation. Assessment & Plan Assessment/Plan (1) Biochemically recurrent castration-sensitive adenocarcinoma of prostate: PLAN: Plan Assessment: Tolerating treatment well overall.? I reviewed and approved all treatment associated imaging. No treatment associated toxicities are noted at this time Plan: Continue treatment as planned.? I have reviewed potential treatment associated toxicities as well as timing for resolution and management. Skin: Skin care reviewed, continue lotion prn Follow up next week or sooner if needed. We discussed having Imodium in the house should he need it for diarrhea at some point in the future. We went over instructions for how to take same. Patient's questions were answered to his satisfaction. We will proceed with treatment Thank you for allowing me to participate in the management and care of your patient. If I may answer any questions in the interim, please do not hesitate tocontact me at any time. Assessment & Plan Assessment/Plan (1) Biochemically recurrent castration-sensitive adenocarcinoma of prostate: Coding Level of Care Code Radiation Tx Management x5 Diagnoses Biochemically recurrent castration-sensitive adenocarcinoma of prostate C61; R97.21; Z19.1 08/05/24 6205 <Electronically signed by Royer sanders MD> Date _ [facility]er [facility]y [facility] Signature: Date (if applicable) CC: ~ [facility] Work Phone: [phone] [facility] [address] [place] [address] OFFICE VISIT Date of Service: 07/29/24 1401 MR#: [id number] Acct: [id number] Name: NORMAN GARY Rep #: [id number] : 1965 From: Seb xavier DO Age/Sex: 58/M Location: [facility] Status: Signed Intake Vital Signs 06/16/24 14:02 07/29/24 14:05 Height 5 ft 9 in 5 ft 9 in Weight: 189 lb 5 oz BMI 27.9 BP 134/85 H Blood Pressure Location Rt brachial Position Sitting Respiration 16 Pulse 67 Pulse Source Monitor Temp 97.2 F L Temperature Source Temporal Artery Pulse Oximetry (%) 99 Oxygen Delivery Method room air Intake Visit Reasons: OTV Is patient in pain?: No Allergies No Known Allergies Allergy (Verified 07/29/24 14:04) Medications ?Medication ?Instructions ?Recorded ?Confirmed ?Type meloxicam 15 mg tablet 15 mg PO DAILY 01/11/2305/27 History pantoprazole 20 mg tablet,delayed 20 mg PO QDAY 06/16/24 History release sildenafil 100 mg tablet 100 mg PO QDAY PRN 05/26/24 05/26/24 History propranolol 80 mg capsule,24 80 mg PO QDAY 07/29/24 History hr,extended release (Inderal LA) PFSH PFSH Medical History Spondylolisthesis Elevated PSA Vocal cord papilloma virus Tinnitus Prostatic adenocarcinoma Malignant neoplasm prostate Chalazion right upper eyelid Blepharitis of right upper eyelid History of prostate cancer GERD (gastroesophageal reflux disease) Hoarseness Home Medications ?Medication ?Instructions ?Recorded ?Last Taken ?Type meloxicam 15 mg tablet 15 mg PO DAILY 01/11/23 Unkn own History pantoprazole 20 mg tablet,delayed 20 mg PO QDAY Unknown History release sildenafil 100 mg tablet 100 mg PO QDAY PRN 05/26/24 Unknown History propranolol 80 mg capsule,24 80 mg PO QDAY 07/29/24 Un known History hr,extended release (Inderal LA) Allergy/AdvReac Type Severity Reaction Status Date / Time No Known Allergies Allergy Verified 07/29/24 14:04 Family History Mother Hypertension CAD (coronary artery disease) Soft tissue sarcoma Father Cancer Prostate cancer Bladder cancer Brother Colon cancer Prostate cancer Uncle Bladder cancer Surgical History History of prostate biopsy History of radical retropubic prostatectomy History of prostatectomy H/O colonoscopy Status post vasectomy Social History Smoking Status: Never smoker alcohol intake: current alcohol intake frequency: a few times a week Alcohol type: beer substance use type: does not use Diagnosis: Octavio Gary is a 58 year-old male diagnosed with 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 Plan: Plan was made to complete salvage radiation therapy consisting of 4600 cGy delivered to the at riskpelvic areas and prostate fossa followed by a boost delivered to the prostate fossa consisting of 2200 cGy delivered in 11 fractions. This brought the total dose to the prostate fossa to 6800 cGy in 34 fractions. Treatment Data: Treatment Site: Prostate Fossa and Pelvis Current total dose/Total dose planned: 600 cGy / 4600 cGy, 0 cGy / 2200 cGy Fraction number: , Chemotherapy: ADT Subjective: Pain: 0 / 10 Fatigue: none Skin: no erythema, rash, desquamation GI: no diarrhea/constipation. No rectal pain or bleeding. No bloating or increased gas : no increase urinary symptoms. No dysuria or hematuria Objective: Weight: 189 lbs Physical Exam: Gen: NAD Skin: no erythema, rash, desquamation. Assessment & Plan Assessment/Plan (1) Biochemically recurrent castration-sensitive adenocarcinoma of prostate: PLAN: Plan Assessment: Tolerating treatment well overall.? I reviewed and approved all treatment associated imaging. No treatment associated toxicities are noted at this time Plan: Continue treatment as planned.? I have reviewed potential treatment associated toxicities as well as timing for resolution and management. Skin: Skin care reviewed, continue lotion prn Follow up next week or sooner if needed. Thank you for allowing me to participate in the management and care of your patient. If I may answer any questions in the interim, please do not hesitate tocontact me at any time. Seb Clarke DO, MS Footwear Sales Associate, Department of Radiation Oncology [facility] Coding Level of Care Code Radiation Tx Management x5 Diagnoses Biochemically recurrent castration-sensitive adenocarcinoma of prostate C61; R97.21; Z19.1 07/29/24 1417 DO> Date _ Seb Clarke DO Cosigner Signature: Date (if applicable) CC: ~ [facility]03-26-2025 History of Present illness Narrative* Satya Whitmore MD - 05/20/2024 3:15 PM EDT Saw the patient in person today. Lab Results Component Value Date PSA 0.11 05/18/2024 PSA 0.03 11/19/2023 PSA 9.35 (H) 08/29/2022 Urinary control: 0 pads, since 1 month after surgery. Continues to do well. Sexual function: Able to have penetrative intercourse with PRN PDE5i. Happy with that. Oncological control: The patient has PSA increase, which although below 0.2 and per the traditionalAUA definition it is not BCR. But I would consider this to early BCR at this point, given the patient did have high-risk pathology including pT3a GG2 N0 with LVI with small R1 (1 mm). PLAN: - PSMA PET at OSH - Start WPRT with OSH Rad Onc in next few weeks - RTC via telehealth in 3 months - I had a detailed discussion with the patient, building up on the conversation that I had with thepatient back in January of 2024, where we spoke for almost 1 hour. I again discussed with the patient that his biochemical recurrence is quite early as demonstrated by the low PSA level, but given the consistent increasing PSA as well as high-risk features on his prostatectomy specimen, I think I would like to proceed with salvage radiation therapy at this time, given the patient's young age. I discussed with the patient that I would also like to do a PSMA PET scan to ensure that there is no evidence of visible disease on imaging. In the absence of imaging disease, I would advise that the patient undergoes whole pelvic radiation therapy. The patient is looking to receive that locally, which I am fine with. If there is any questions or concerns, the patient will contact me and we will meet within 3 months anyway. I did tell the patient that at this time which salvage radiation therapy, it should not affect his functional outcomes too much. He may see a decline in his sexual function, b ut his urinary functions should remain stable. The patient verbalized understanding of the plan. Satya Whitmore MD documented in this [facility] Evaluation note * Diagnosis Onset Date Resolution Status Admit Date Blepharitis of right upper eyelid acute May 19, 2024 1:35pm [place] right upper eyelid acute May 19, 2024 1:35pm [facility] Work Phone: 1(200) 844-136603-25-2025 Evaluation note* Diagnosis Onset Date Resolution Status Admit Date Blepharitis of right upper eyelid ac [place] May 19, 2024 1:35pm [place] right upper eyelid acute May 19, 2024 1:35pm Biochemically recurrent castration-sensitive adenocarcinoma of prostate acute June 16, 2024 1:45pm Biochemically recurrent castration-sensitive adenocarcinoma of prostate acute July 29, 2024 1:55pm [employer] Work Phone: 1([phone]) 818-988203-25-2025 Evaluation note* Diagnosis Onset Date Resolution Status Admit Date Blepharitis of right upper eyelid ac [place] May 19, 2024 1:35pm [place] right upper eyelid acute May 19, 2024 1:35pm Biochemically recurrent castration-sensitive adenocarcinoma of prostate acute June 16, 2024 1:45pm Biochemically recurrent castration-sensitive adenocarcinoma of prostate acute July 29, 2024 1:55pm Biochemically recurrent castration-sensitive adenocarcinoma of prostate acute August 05, 2024 1:50pm [employer] Work Phone: 1(344) 624-164603-25-2025 Evaluation note* Diagnosis Onset Date Resolution Status Admit Date Blepharitis of right upper eyelid ac [place] May 19, 2024 1:35pm [place] right upper eyelid acute May 19, 2024 1:35pm Biochemically recurrent castration-sensitive adenocarcinoma of prostate acute June 16, 2024 1:45pm Biochemically recurrent castration-sensitive adenocarcinoma of prostate acute July 29, 2024 1:55pm Biochemically recurrent castration-sensitive adenocarcinoma of prostate acute August 05, 2024 1:50pm Biochemically recurrent castration-sensitive adenocarcinoma of prostate acute August 12, 2024 2:02pm [employer] Work Phone: 1([phone]) 461-699303-25-2025 Evaluation note* Diagnosis Onset Date Resolution Status Admit Date Blepharitis of right upper eyelid ac [place] May 19, 2024 1:35pm [place] right upper eyelid acute May 19, 2024 1:35pm Biochemically recurrent castration-sensitive adenocarcinoma of prostate acute June 16, 2024 1:45pm Biochemically recurrent castration-sensitive adenocarcinoma of prostate acute July 29, 2024 1:55pm Biochemically recurrent castration-sensitive adenocarcinoma of prostate acute August 05, 2024 1:50pm Biochemically recurrent castration-sensitive adenocarcinoma of prostate acute August 12, 2024 2:02pm Biochemically recurrent castration-sensitive adenocarcinoma of prostate acute August 19, 2024 9:57am [employer] Work Phone: 1([phone]) 919-446503-25-2025 Evaluation note* Diagnosis Onset Date Resolution Status Admit Date Blepharitis of right upper eyelid ac [place] May 19, 2024 1:35pm [place] right upper eyelid acute May 19, 2024 1:35pm Biochemically recurrent castration-sensitive adenocarcinoma of prostate acute June 16, 2024 1:45pm Biochemically recurrent castration-sensitive adenocarcinoma of prostate acute July 29, 2024 1:55pm Biochemically recurrent castration-sensitive adenocarcinoma of prostate acute August 05, 2024 1:50pm Biochemically recurrent castration-sensitive adenocarcinoma of prostate acute August 12, 2024 2:02pm Biochemically recurrent castration-sensitive adenocarcinoma of prostate acute August 19, 2024 9:57am Biochemically recurrent castration-sensitive adenocarcinoma of prostate acute August 26, 2024 1:44pm Biochemically recurrent castration-sensitive adenocarcinoma of prostate acute September 02, 2024 1:51pm [facility] Work Phone: [phone]) [phone] Evaluation note* Diagnosis Onset Date Resolution Status Admit Date Blepharitis of right upper eyelid ac [place] May 19, 2024 1:35pm [place] right upper eyelid acute May 19, 2024 1:35pm Biochemically recurrent castration-sensitive adenocarcinoma of prostate acute June 16, 2024 1:45pm Biochemically recurrent castration-sensitive adenocarcinoma of prostate acute July 29, 2024 1:55pm Biochemically recurrent castration-sensitive adenocarcinoma of prostate acute August 05, 2024 1:50pm Biochemically recurrent castration-sensitive adenocarcinoma of prostate acute August 12, 2024 2:02pm Biochemically recurrent castration-sensitive adenocarcinoma of prostate acute August 19, 2024 9:57am Biochemically recurrent castration-sensitive adenocarcinoma of prostate acute August 26, 2024 1:44pm Biochemically recurrent castration-sensitive adenocarcinoma of prostate acute September 02, 2024 1:51pm Biochemically recurrent castration-sensitive adenocarcinoma of prostate acute September 09, 2024 1:53pm [employer] Work Phone: 1([phone]) [phone] History of Present illness Narrative* Satya Whitmore MD - 08/15/2023 2:00 PM EDT I saw the patient and his in person today. The patient reports that he is doing well overall. No pain. Tolerating a regular diet and having regular bowel function. Clear yellow urine in the Figueroa bag. No fever/chills. Incision CDI. Ambulatingwithout issues. He removed his JAVI drain on of last week, without any incident. The patienthad started taking his antibiotic Bactrim yesterday. We performed a cystogram with 120 cc of contrast, which was negative for any leak. Images are in the chart. The Figueroa catheter was removed. PVR was 14 cc. PLAN: - Will call with the results of the pathology - Discussed starting doing the Kegel's exercises again and patient referred to [facility] for penile rehabilitation; discussed the expected course of functional recovery - RTC 3 months - PSA test prior to the appointment (and a PSA at 6 weeks - ordered) Satya Whitmore MD documented in this encounterOhioHealth [facility]06-04-[facility] History of Present illness Narrative* Tessie Grubbs RN - 07/30/2023 7:10 AM EDT Discharge instructions and handouts provided to patient and family including next doctor's visit and numbers to call with questions. Patient and family made aware that prescriptions were sent to local pharmacy. IV was discontinued, catheter tip intact and dressing placed. All questions were answered. Patient taken to car via wheelchair by SOFTWARE INTEGRATOR, with belongings and supplies. Patient assisted into car with family driving. * Tyra Ruiz APRN-CUSTOMER CONTACT SALES ASSOCIATE - 07/29/2023 7:55 PM EDT Extended Recovery Progress Note Surgeon: Satya Whitmore MD Summary: Norman Gary is a 57 y.o. male POD 0 s/p RA Prostatectomy and RA total pelvic lymphadenectomyfor Malignant neoplasm of prostate. Post-operative care: - Pain (ERAS): Pain is well controlled on current regimen: Scheduled Tylenol and Ibuprofen, PRN Oxycodone - Resp: Room Air - FEN/GI: Advanced diet as tolerated, IV fluids at 125 mL/hr; bowel regimen ordered. Patient deniesfeeling nauseated - : Figueroa in place and patient will be discharged home with figueroa - Antibiotics: Ancef while in patient, Bactrim on dc - Patient has ambulated with assistance from cart to bed, patient educated on use of incentive spirometer. Medical co-morbidities: None Disposition: Patient care transitioned to Extended Recovery. The patient will be ready for discharge after criteria specified by the primary team are met. If criteria are not met within the required timeframe reevaluation by the on-staff provider and discussion with the primary service will determine further course of care such as changes in criteria specificity, or patient transfer. Physical Assessment: General: appears comfortable. SO at bedside Pain: Patient reports 4-5/10. Pain is well controlled on current regimen Neuro: Awake; moves all extremities- strength and sensation equal; follows commands, A/O x4 Pulmonary: LCTA throughout elba. Diminished elba LL. Respirations are easy and unlabored. Equal chestrise. Cardiac: RRR Abdominal: soft, round, nontender G/U: Figueroa in place, pink tinged urine Lines: PIV with MIV infusing Incision: 5 small lap sites with one larger incision on abdomen, Dermabond, SOPHIE. Drains: 1 JAVI drains in RLQ with small amount of darker sanguineous drainage, guaze dressing in place. Extremities: Warm, no numbness or tingling, good push/pulls Vascular: pulses x4+2 palpable Updates: 5: Pt ambulated around unit without difficulty. Pain remains controlled. 0130: Pt sleeping. Appears comfortable. remains at bedside. 0300: JAVI crea obtained. Pt's pain remains controlled. 0600: Pt assessment unchanged from above except MIV d/c'd prev. . Pain remains controlled - 3-4. VSS. AM labs and ON discussed with Dr. Whitmore. OK for dc. 0640: Rounded with Dr. Whitmore at bedside. Pt and updated on POC. Questions answered. SELENA Irving Simone: [phone] Pager: [phone] * SELENA Wilson - 07/29/2023 3:52 PM EDT Extended Recovery Progress Note Surgeon: Satya Whitmore MD Summary: Norman Gary is a 57 y.o. male POD 0 s/p RA Prostatectomy and RA total pelvic lymphadenectomyfor Malignant neoplasm of prostate. Post-operative care: - Pain (ERAS): Pain is well controlled on current regimen: Scheduled Tylenol and Ibuprofen, PRN Oxycodone - Resp: Room Air - FEN/GI: Advanced diet as tolerated, IV fluids at 125 mL/hr; bowel regimen ordered. Patient deniesfeeling nauseated - : Figueroa in place and patient will be discharged home with figueroa - Antibiotics: Ancef while in patient - Patient has ambulated with assistance from cart to bed, patient educated on use of incentive spirometer. Medical co-morbidities: None Disposition: Patient care transitioned to Extended Recovery. The patient will be ready for discharge after criteria specified by the primary team are met. If criteria are not met within the required timeframe reevaluation by the on-staff provider and discussion with the primary service will determine further course of care such as changes in criteria specificity, or patient transfer. Physical Assessment: General: appears comfortable Pain: Patient reports 4/10. Pain is well controlled on current regimen Neuro: Awake; moves all extremities; follows commands, A/O x4 Pulmonary: Breath sounds equal bilaterally, Room air Cardiac: RRR Abdominal: soft, round, nontender G/U: Figueroa in place, pink tinged urine Lines: PIV with MIV infusing Incision: 5 small lap sites with one larger incision on abdomen, Dermabond, PICK UP ATTENDANT. Drains: 1 JAVI drains in RLQ with small amount of sanguinous drainage, guaze dressing in place. Extremities: Warm, no numbness or tingling, good push/pulls Vascular: pedal pulses palpable SELENA Wilson Hasty: [phone] Pager: [phone] documented in this encounterOS[facility] Hospital course Narrative* SELENA Irving - 07/30/2023 6:48 AM EDT Discharge Summary Name: Norman Gary Age: 57 y.o. Birthday: 1965 Admit Date: 07/29/2023 5:16 AM Discharge Date: 07/30/2023 Discharge Time: 714 Discharge Unit: [facility] Admission Information Admitting Physician: Satya Whitmore MD Discharge Information Discharge Physician: Dr. Whitmore Problem List There are no hospital problems to display for this patient. Brief Summary of Hospital Course for Discharge Summary: Norman Gary is a 57 y.o. male with a history of no significant medical history and favorableintermediate riskprostate cancer who presented to [facility] for robotic prostatectomy and PLND. The procedure was complicated by a positive leak test after urethral anastomosis with bladder neck reconstruction. A drain was placed. The patient tolerated the procedure well and postoperative course was uncomplicated. The patient was discharged to home with figueroa and drain in place.. At time of discharge, patient was afebrile, hemodynamically stable, tolerating diet, and pain was controlled with oral medications. Patient will follow-up in clinic in 14 days for figueroa removal with cystogram.Patient was discharged on 3-day course of antibiotics to start 1 day prior to figueroa removal. All other discharge instructions and follow up information are in the patient's After Visit Summary. Extended Recovery Progress Note Surgeon: Satya Whitmore MD Summary: Norman Gary is a 57 y.o. male POD 1 s/p RA Prostatectomy and RA total pelvic lymphadenectomyfor Malignant neoplasm of prostate. Post-operative care: - Pain (ERAS): Pain is well controlled on current regimen: Scheduled Tylenol and Ibuprofen, PRN Oxycodone - Resp: Room Air - FEN/GI: Advanced diet as tolerated, IV fluids d/c'd prev; bowel regimen ordered. Patient denies feeling nauseated - : Figueroa in place and patient will be discharged home with figueroa - Antibiotics: Ancef while in patient, Bactrim on dc - Patient has ambulated with assistance from cart to bed, patient educated on use of incentive spirometer. Medical co-morbidities: None Norman Gary achieved benchmark criteria specified by the primary team and is appropriate fordischarge. He is going to be discharged home this morning. At time of discharge patient is A/Ox4, pain is well controlled and he is able to ambulate to and from the bathroom with minimal assistance. Physical Assessment: General: appears comfortable. SO at bedside Pain: Patient reports 3-4/10. Pain is well controlled on current regimen Neuro: Awake; moves all extremities- strength and sensation equal; follows commands, A/O x4 Pulmonary: LCTA throughout elba. Diminished elba LL. Respirations are easy and unlabored. Equal chestrise. Cardiac: RRR Abdominal: soft, round, nontender G/U: Figueroa in place, pink tinged urine Lines: PIV Incision: 5 small lap sites with one larger incision on abdomen, Dermabond, PICK UP ATTENDANT. Drains: 1 JAVI drains in RLQ with small amount of darker sanguineous drainage, guaze dressing in place. Extremities: Warm, no numbness or tingling, good push/pulls Vascular: pulses x4+2 palpable 0640: Rounded with Dr. Whitmore at bedside. Pt and updated on POC. Questions answered. Brief Summary of Consults for Discharge Summary: Brief Summary of Procedures and Imaging for Discharge Summary: Summary of last selected lab results and date obtained: Lab Results Component Value Date WBC 9.68 07/30/2023 HGB 13.6 07/30/2023 HCT 39.1 (L) 07/30/2023 PLATELET 213 07/30/2023 MCV 87.7 07/30/2023 Lab Results Component Value Date SODIUM 136 07/30/2023 POTASSIUM 4.3 07/30/2023 CHLORIDE 104 07/30/2023 CO2 25 07/30/2023 BUN 13 07/30/2023 CREATSERUM 1.01 07/30/2023 GLUCOSE 119 (H) 07/30/2023 Lab Results Component Value Date ALT 14 07/17/2023 AST 18 07/17/2023 ALKPHOS 48 07/17/2023 BILITOTAL 1.7 (H) 07/17/2023 Brief Summary of Labs for Discharge Summary: No discharge procedures on file. Current Outpatient Meds: Medication List for when you go home START taking these medications Morning Afternoon Evening Bedtime As Needed acetaminophen 650 MG tab ER Take 1 tablet by mouth every 6 hours for 7 days. Commonly known as: TYLENOL Last time this was given: Ask your nurse or doctor Ibuprofen 600 MG TABS Take 1 tablet by mouth every 6 hours as needed. Take with food Commonly known as: MOTRIN Last time this was given: 600 mg on July 30, 2023 3:04 AM oxyCODONE 5 MG TABS Take 1 tablet by mouth every 6 hours as needed for up to 3 days. Commonly known as: ROXICODONE For diagnoses: Malignant neoplasm of prostate Last time this was given: 5 mg on July 30, 2023 6:08 AM Polyethylene glycol 17 GM/SCOOP POWD powder Take 17 g by mouth daily for 14 days. Commonly known as: MIRALAX Sulfamethoxazole-trimethoprim 800-160 MG per tablet Take 1 tablet by mouth 2 times daily for 3 days. Start taking day prior to catheter removal and continue until course complete Commonly known as: Bactrim DS Start taking on: August 11, 2023 Follow-up: No follow-up provider specified. Associated attestation - Satya Whitmore MD - 07/30/2023 7:00 AM EDT I have independently interviewed and examined the patient and agree with the history, findings, andassessment as documented by Tyra Ruiz APRN, below. I discussed the case with the MAGY. I have edited the document as appropriate. In addition: Norman Gary is a 57 y.o. male s/p RARP with ePLND. I saw the patient in person today. He is AFVSS. UOP 1.2 L. JAVI output 125 cc with JAVI Cr at 1.1 mg/dL (normal serum at 1.0 mg/dL). All other labs WNL. He is ambulating, tolerating a regular diet with issues, and pain is well controlled. I discussed with the patient the details of the surgery. PLAN: to leave the Figueroa in x 14 days with Cystogram at that time. JAVI to stay in for 3 days minimum and we will check JAVI output. Otherwise standard care. Time spent: 20 minutes, over half of which was [id number] for patient counseling and coordinationof care. documented in this encounterU [facility] Plan of care note* Plan of Care - Tessie Grubbs RN - 07/30/2023 6:12 AM EDT Problem: Adult Inpatient Plan of Care Goal: Plan of Care Review Outcome: Adequate for Discharge Goal: Patient-Specific Goal (Individualized) Outcome: Adequate for Discharge Goal: Absence of Hospital-Acquired Illness or Injury Outcome: Adequate for Discharge Goal: Optimal Comfort and Wellbeing Outcome: Adequate for Discharge Goal: Readiness for Transition of Care Outcome: Adequate for Discharge Problem: Pain Acute Goal: Optimal Pain Control and Function Outcome: Adequate for Discharge [facility] Miscellaneous Notes* Plan of Care - Tessie Grubbs RN - 07/30/2023 6:12 AM EDT Problem: Adult Inpatient Plan of Care Goal: Plan of Care Review Outcome: Adequate for Discharge Goal: Patient-Specific Goal (Individualized) Outcome: Adequate for Discharge Goal: Absence of Hospital-Acquired Illness or Injury Outcome: Adequate for Discharge Goal: Optimal Comfort and Wellbeing Outcome: Adequate for Discharge Goal: Readiness for Transition of Care Outcome: Adequate for Discharge Problem: Pain Acute Goal: Optimal Pain Control and Function Outcome: Adequate for Discharge * Op Note - Satya Whitmore MD - 07/29/2023 2:19 PM EDT Norman Gary ([id number]) PRE OPERATIVE DIAGNOSIS Malignant neoplasm of prostate [C61] POST OPERATIVE DIAGNOSIS Malignant neoplasm of prostate [C61] PROCEDURE PERFORMED Procedure(s) (LRB): LYMPHADENECTOMY PELVIC TOTAL ROBOTIC (Bilateral) PROSTATECTOMY RETROPUBIC RADICAL ROBOTIC (N/A) PRIMARY CLOSURE Yes INTRAOPERATIVE FINDINGS See below SURGEON Surgeons and Role: * Satya Whitmore MD - Primary ANESTHESIOLOGIST Anesthesiologist: Chichi Pedroza MD CHIROPRACTOR SOLE PRACTITIONER: Hector Nolan APRN-CHIROPRACTOR SOLE PRACTITIONER SURGICAL STAFF Watermaster: Marge Castillo RN; Italia Oquendo RN Relief Watermaster: Marge Castillo RN Relief Scrub: Juanita Coker Scrub Person: Dejah Hartley Resident Assisting: Karlene Ellison MD; Bhavana Mc MD COMPLICATIONS None ESTIMATED BLOOD LOSS 75 ml SPECIMENS As below ID Type Source Tests Collected by Time Destination 1 : Fat Over Prostate Permanent SURG PATH SURG PATH REQUEST Satya Whitmore MD 07/29/2023 0825 2 : Left Neuro Vascular Bundle Frozen SURG PATH SURG PATH REQUEST Satya Whitmore MD 07/29/2023 1019 3 : Left Posterior Lateral Base, Prostate Margin Permanent SURG PATH SURG PATH REQUEST Satya Whitmore MD 07/29/2023 1034 4 : Left Anterior Prostate Margin Permanent SURG PATH SURG PATH REQUEST Satya Whitmore MD 07/29/2023 1052 5 : Left Posterior Lateral. [place] to Mid Prostate Margin Permanent SURG PATH SURG PATH REQUEST Satya Whitmore MD 07/29/2023 1054 6 : Prostate and Seminal Vesicles Permanent SURG PATH SURG PATH REQUEST Satya Whitmore MD 07/29/2023 1101 7 : Left Pelvic Lymph Nodes Permanent SURG PATH SURG PATH REQUEST Satya Whitmore MD 07/29/2023 1125 8 : Right Pelvic Lymph Nodes Permanent SURG PATH SURG PATH REQUEST Satya Whitmore MD 07/29/2023 1141 Pre-operative diagnosis: Prostate cancer Post-operative diagnosis: Same Procedure performed: 1. Exploratory laparoscopy. 2. Robot-assisted radical prostatectomy. 3. Bilateral pelvic lymph node dissection. Surgeon: Satya Whitmore M.D. Appliance Repair Technician(s): Fernando Gonzalez M.D. Indication for surgery: Localized prostate cancer. Findings: Small median lobe with slightly asymmetrical prostate and substantial biopsy related fibrosis posteriorly and laterally but could also be the patient's well developed fascia. Tight bladder neck reconstruction. Leak test - mild leak at the R with 100 cc. Well preserved membranous urethral length. 70-80% nerve sparing. Procedure narrative: The patient was identified by his wristband and taken to the operating room. Anesthesia timeout wasperformed and general endotracheal anesthesia was satisfactorily achieved. The patient was positioned in supine position with his arms tucked and padded. The patient was prepared and draped in the usual sterile fashion and surgical timeout was performed. 16 Fr Figueroa was placed, 10 cc in the balloon. The patient was placed in 30-degree steep Trendelenburg. Using a 15-blade, a 8 mm supraumbilical midline vertical incision was made. The umbilicus was elevated with a penetrating clamp and the Veress needle was placed into the abdomen. Correct positioning of the Veress was confirmed by drop test and the abdomen was insufflated without issue. The insufflation was performed at 15 mm Hg with high flow. The 8 mm robotic port was placed using a blunt trocar. The robotic camera was inserted. The abdomenwas inspected. Next the right and left robotic trocars were placed under vision. Two of the port sites were located on the left abdomen, and one of which was located on the right. All 8 mm. Then under vision the the 12 mm right lateral sales and marketing assistant port and the 5 mm Airseal right cranial/medial sales and marketing assistant ports were placed using similar technique. Then the 0-degree robotic camera was was exchanged for a 30-degree robotic camera and the Da Jackelin Xi device was docked. Robotic instruments were placed under vision: Monopolar scissors in the right arm, [place] bipolar in the left arm, and ProGrasp in the left lateral arm. Lateral adhesions of the sigmoid colon and ileo-cecal junction were carefully divided in order to fully mobilize the sigmoid colon and small bowel. Then the space of Retzius was developed on both sides of the bladder, exposing the endopelvic fascia. The median umbilical ligament was not divided. The superficial dorsal vein was ligated with the bipolar and divided. Fat over prostate was removed. Endopelvic fascia was opened and puboprostatic ligaments were sharply divided and the prostate was from its investing pelvic floor muscle fibers using a combination of blunt and sharp dissection. The anterior bladder neck was divided using bipolar and monopolar electrocautery. Once the bladder was entered, the figueroa catheter was used as a handle to retract the specimen anteriorly. The posterior bladder neck and vertical muscle fibers were divided. The vasa and seminal vesicles were identified. The vasa were divided and attaching vessels of the seminal vesicles were ligated with the bipolar and then sharply divided. The vascular pedicles to the seminal vesicle tips were clipped or sealedwith bipolar as appropriate and divided. The SV/Vas were pulled up and used as a handle to retract the specimen anteriorly and laterally. Denonvillier's fascia was incised (~1 cm below the prostate base) and the space between the prostate and rectum was carefully developed under vision, proceeding toward the apex. The vascular pedicles of the prostate were divided by making packets which were then clipped with large and small Hem-o-Davon clips and sharply divided. Nerve sparing was performed as follows: right side: intra-fascial, and left side: intra-fascial. Of note, on the left there was significant fibrosisnoted and it was hard to peel the prostate off the surrounding neurovascular bundle - we sent finalmargins to ensure adequate resection while preserving neurovascular bundle. The dorsal venous complex was then divided with monopolar electrocautery, thus revealing the urethra. The dorsal venous complex was oversown with a 3-0 V-Loc suture twice in a running pau fashion anchored to the synchondrosis of the pubic symphysis. The urethra was sharply divided anteriorly, figueroa catheter removed, and then the posterior urethra divided, using the robotic bipolar as a right angle to dually protect the rectum and push away prostate apical tissue. Remaining attachments of theprostate to neurovascular tissue and Denovillier's fascia were divided the the specimen was bagged. The peritoneum was proximally divided until the ureter was visualized and retracted medially and until the common iliac artery was identified. Starting on the left, bilateral extended pelvic lymph node dissection was performed, including lymphatics associated with external iliac artery, external iliac vein, internal iliac artery, obliterated umbilical artery, and obturator nerve. The pelvis was irrigated. Bleeding vessels about the anterior rectum and dorsal venous complex wereoversewn with mywtsl-rd-obpov 4-0 Vicryl. Efraín stitch was performed using a 2-0 V-Loc incorporating the cut edge of Denovillier's fascia and the vertical muscle fibers near the bladder neck, using apulley-system to bring both structures to the pelvic floor musculature posterior to the cut edge ofthe urethra. Bladder neck reconstruction was required as the bladder neck was not fully preserved given the anterior-base location of the tumor. Tight bladder neck reconstruction to 20 Fr was performed with 4 x 3-0 Vicryl on SH waqbpv-qh-ghbcq stitches at the lateral border of the bladder (fishmouth technique). Urethrovesical anastomosis was completed in running fashion using a double-armed 3-0 V-Loc. The anastomosis was tested to be watertight by performing a leak test (100 ml normal saline) after the final Figueroa (18 Fr catheter) was placed - two extra stitches were placed at the site of the R leak using a 3-0 Vicryl RB1 needle. There was minimal leak afterwards. The Prograsp in the 4th arm was removed and a 19-Elio drain was inserted through the robotic port,guided into each obturator fossa and anterior to the anastomosis. The specimen bag string was guided out the medial/cranial sales and marketing assistant port. The right lateral sales and marketing assistant port was removed and was closedwith the previously a 2-0 Vircyl robotically. Remaining ports were removed under vision. The patient was taken out of Trendelenburg. The sumpraumbilical incision was extended to the size of the specimen and the prostate en bloc with its seminal vesicles were removed. Fascia was closed using interrupted [id number]-jp-[id number] 0- PDS. All wounds were irrigated and skin and remaining ports were closed with 4-0 Moncoryl and Dermabond surgical skin glue. At the end of the case all sponge, needle, and instrument counts were correct. The patient was extubated and taken to the recovery room in good condition. Complications: None Estimated blood loss: 75 ml Specimens: 1. Left pelvic lymph nodes 2. Right pelvic lymph nodes 3. Anterior prostatic lymph nodes 4. Prostate with seminal vesicles 5. Left sided final margins from the NVB Disposition: Stable to PACU - Figueroa x 14 days with cystogram - JAVI drain with JAVI Cr tomorrow AM and will likely be discharged with JAVI and a drain log - Otherwise standard pathway care Satya Whitmore MD July 29, 2023 2:19 PM * Brief Op Note - Bhavana cM MD - 07/29/2023 1:39 PM EDT Norman Gary ([id number]) PRE OPERATIVE DIAGNOSIS Malignant neoplasm of prostate [C61] POST OPERATIVE DIAGNOSIS Malignant neoplasm of prostate [C61] PROCEDURE PERFORMED Procedure(s) (LRB): LYMPHADENECTOMY PELVIC TOTAL ROBOTIC (Bilateral) PROSTATECTOMY RETROPUBIC RADICAL ROBOTIC (N/A) PRIMARY CLOSURE Yes INTRAOPERATIVE FINDINGS No significant abnormalities SURGEON Surgeons and Role: * Satya Whitmore MD - Primary ANESTHESIOLOGIST Anesthesiologist: Chichi Pedroza MD CHIROPRACTOR SOLE PRACTITIONER: Hector Nolan APRN-CHIROPRACTOR SOLE PRACTITIONER SURGICAL STAFF Watermaster: Marge Castillo RN; Italia Oquendo RN Relief Watermaster: Marge Castillo RN Relief Scrub: Juanita Coker Scrub Person: Dejah Hartley Resident Assisting: Karlene Ellison MD; Bhavana Mc MD COMPLICATIONS None ESTIMATED BLOOD LOSS 200 ml SPECIMENS ID Type Source Tests Collected by Time Destination 1 : Fat Over Prostate Permanent SURG PATH SURG PATH REQUEST Satya Whitmore MD 07/29/2023 0825 2 : Left Neuro Vascular Bundle Frozen SURG PATH SURG PATH REQUEST Satya Whitmore MD 07/29/2023 1019 3 : Left Posterior Lateral Base, Prostate Margin Permanent SURG PATH SURG PATH REQUEST Satya Whitmore MD 07/29/2023 1034 4 : Left Anterior Prostate Margin Permanent SURG PATH SURG PATH REQUEST Satya Whitmore MD 07/29/2023 1052 5 : Left Posterior Lateral. Cross Timbers to Mid Prostate Margin Permanent SURG PATH SURG PATH REQUEST Satya Whitmore MD 07/29/2023 1054 6 : Prostate and Seminal Vesicles Permanent SURG PATH SURG PATH REQUEST Satya Whitmore MD 07/29/2023 1101 7 : Left Pelvic Lymph Nodes Permanent SURG PATH SURG PATH REQUEST Satya Whitmore MD 07/29/2023 1125 8 : Right Pelvic Lymph Nodes Permanent SURG PATH SURG PATH REQUEST Satya Whitmore MD 07/29/2023 [address] [place] [facility] Bhavana Mc MD July 29, 2023 1:39 PM Associated attestation - Satya Whitmore MD - 07/29/2023 2:14 PM EDT Satya Whitmore MD was present for the entire case and remained immediately available. [facility] Postoperative evaluation and management note* Op Note - Satya Whitmore MD - 07/29/2023 2:19 PM EDT Norman Gary ([id number]) PRE OPERATIVE DIAGNOSIS Malignant neoplasm of prostate [C61] POST OPERATIVE DIAGNOSIS Malignant neoplasm of prostate [C61] PROCEDURE PERFORMED Procedure(s) (LRB): LYMPHADENECTOMY PELVIC TOTAL ROBOTIC (Bilateral) PROSTATECTOMY RETROPUBIC RADICAL ROBOTIC (N/A) PRIMARY CLOSURE Yes INTRAOPERATIVE FINDINGS See below SURGEON Surgeons and Role: * Satya Whitmore MD - Primary ANESTHESIOLOGIST Anesthesiologist: Chichi Pedroza MD CHIROPRACTOR SOLE PRACTITIONER: Hector Nolan APRN-CHIROPRACTOR SOLE PRACTITIONER SURGICAL STAFF Watermaster: Marge Castillo RN; Italia Oquendo RN Relief Watermaster: Marge Castillo RN Relief Scrub: Juanita Coker Scrub Person: Dejah Hartley Resident Assisting: Karlene Ellison MD; Bhavana Mc MD COMPLICATIONS None ESTIMATED BLOOD LOSS 75 ml SPECIMENS As below ID Type Source Tests Collected by Time Destination 1 : Fat Over Prostate Permanent SURG PATH SURG PATH REQUEST Satya Whitmore MD 07/29/2023 0825 2 : Left Neuro Vascular Bundle Frozen SURG PATH SURG PATH REQUEST Satya Whitmore MD 07/29/2023 1019 3 : Left Posterior Lateral Base, Prostate Margin Permanent SURG PATH SURG PATH REQUEST Satya Whitmore MD 07/29/2023 1034 4 : Left Anterior Prostate Margin Permanent SURG PATH SURG PATH REQUEST Satya Whitmore MD 07/29/2023 1052 5 : Left Posterior Lateral. Cross Timbers to Mid Prostate Margin Permanent SURG PATH SURG PATH REQUEST Satya Whitmore MD 07/29/2023 1054 6 : Prostate and Seminal Vesicles Permanent SURG PATH SURG PATH REQUEST Satya Whitmore MD 07/29/2023 1101 7 : Left Pelvic Lymph Nodes Permanent SURG PATH SURG PATH REQUEST Satya Whitmore MD 07/29/2023 1125 8 : Right Pelvic Lymph Nodes Permanent SURG PATH SURG PATH REQUEST Satya Whitmore MD 07/29/2023 1141 Pre-operative diagnosis: Prostate cancer Post-operative diagnosis: Same Procedure performed: 1. Exploratory laparoscopy. 2. Robot-assisted radical prostatectomy. 3. Bilateral pelvic lymph node dissection. Surgeon: Satya Whitmore M.D. Appliance Repair Technician(s): Karlene Ellison M.D. Bhavana Mc M.D. Indication for surgery: Localized prostate cancer. Findings: Small median lobe with slightly asymmetrical prostate and substantial biopsy related fibrosis posteriorly and laterally but could also be the patient's well developed fascia. Tight bladder neck reconstruction. Leak test - mild leak at the R with 100 cc. Well preserved membranous urethral length. 70-80% nerve sparing. Procedure narrative: The patient was identified by his wristband and taken to the operating room. Anesthesia timeout wasperformed and general endotracheal anesthesia was satisfactorily achieved. The patient was positioned in supine position with his arms tucked and padded. The patient was prepared and draped in the usual sterile fashion and surgical timeout was performed. 16 Fr Figueroa was placed, 10 cc in the balloon. The patient was placed in 30-degree steep Trendelenburg. Using a 15-blade, a 8 mm supraumbilical midline vertical incision was made. The umbilicus was elevated with a penetrating clamp and the Veress needle was placed into the abdomen. Correct positioning of the Veress was confirmed by drop test and the abdomen was insufflated without issue. The insufflation was performed at 15 mm Hg with high flow. The 8 mm robotic port was placed using a blunt trocar. The robotic camera was inserted. The abdomenwas inspected. Next the right and left robotic trocars were placed under vision. Two of the port sites were located on the left abdomen, and one of which was located on the right. All 8 mm. Then under vision the the 12 mm right lateral sales and marketing assistant port and the 5 mm Airseal right cranial/medial sales and marketing assistant ports were placed using similar technique. Then the 0-degree robotic camera was was exchanged for a 30-degree robotic camera and the Da Jackelin Xi device was docked. Robotic instruments were placed under vision: Monopolar scissors in the right arm, [place] bipolar in the left arm, and ProGrasp in the left lateral arm. Lateral adhesions of the sigmoid colon and ileo-cecal junction were carefully divided in order to fully mobilize the sigmoid colon and small bowel. Then the space of Retzius was developed on both sides of the bladder, exposing the endopelvic fascia. The median umbilical ligament was not divided. The superficial dorsal vein was ligated with the bipolar and divided. Fat over prostate was removed. Endopelvic fascia was opened and puboprostatic ligaments were sharply divided and the prostate was from its investing pelvic floor muscle fibers using a combination of blunt and sharp dissection. The anterior bladder neck was divided using bipolar and monopolar electrocautery. Once the bladder was entered, the figueroa catheter was used as a handle to retract the specimen anteriorly. The posterior bladder neck and vertical muscle fibers were divided. The vasa and seminal vesicles were identified. The vasa were divided and attaching vessels of the seminal vesicles were ligated with the bipolar and then sharply divided. The vascular pedicles to the seminal vesicle tips were clipped or sealedwith bipolar as appropriate and divided. The SV/Vas were pulled up and used as a handle to retract the specimen anteriorly and laterally. Denonvillier's fascia was incised (~1 cm below the prostate base) and the space between the prostate and rectum was carefully developed under vision, proceeding toward the apex. The vascular pedicles of the prostate were divided by making packets which were then clipped with large and small Hem-o-Davon clips and sharply divided. Nerve sparing was performed as follows: right side: intra-fascial, and left side: intra-fascial. Of note, on the left there was significant fibrosisnoted and it was hard to peel the prostate off the surrounding neurovascular bundle - we sent finalmargins to ensure adequate resection while preserving neurovascular bundle. The dorsal venous complex was then divided with monopolar electrocautery, thus revealing the urethra. The dorsal venous complex was oversown with a 3-0 V-Loc suture twice in a running pau fashion anchored to the synchondrosis of the pubic symphysis. The urethra was sharply divided anteriorly, figueroa catheter removed, and then the posterior urethra divided, using the robotic bipolar as a right angle to dually protect the rectum and push away prostate apical tissue. Remaining attachments of theprostate to neurovascular tissue and Denovillier's fascia were divided the the specimen was bagged. The peritoneum was proximally divided until the ureter was visualized and retracted medially and until the common iliac artery was identified. Starting on the left, bilateral extended pelvic lymph node dissection was performed, including lymphatics associated with external iliac artery, external iliac vein, internal iliac artery, obliterated umbilical artery, and obturator nerve. The pelvis was irrigated. Bleeding vessels about the anterior rectum and dorsal venous complex wereoversewn with dgquac-zs-sqltj 4-0 Vicryl. Efraín stitch was performed using a 2-0 V-Loc incorporating the cut edge of Denovillier's fascia and the vertical muscle fibers near the bladder neck, using apulley-system to bring both structures to the pelvic floor musculature posterior to the cut edge ofthe urethra. Bladder neck reconstruction was required as the bladder neck was not fully preserved given the anterior-base location of the tumor. Tight bladder neck reconstruction to 20 Fr was performed with 4 x 3-0 Vicryl on SH vcgehe-sz-blaba stitches at the lateral border of the bladder (fishmouth technique). Urethrovesical anastomosis was completed in running fashion using a double-armed 3-0 V-Loc. The anastomosis was tested to be watertight by performing a leak test (100 ml normal saline) after the final Figueroa (18 Fr catheter) was placed - two extra stitches were placed at the site of the R leak using a 3-0 Vicryl RB1 needle. There was minimal leak afterwards. The Prograsp in the 4th arm was removed and a 19-Elio drain was inserted through the robotic port,guided into each obturator fossa and anterior to the anastomosis. The specimen bag string was guided out the medial/cranial sales and marketing assistant port. The right lateral sales and marketing assistant port was removed and was closedwith the previously a 2-0 Vircyl robotically. Remaining ports were removed under vision. The patient was taken out of Trendelenburg. The sumpraumbilical incision was extended to the size of the specimen and the prostate en bloc with its seminal vesicles were removed. Fascia was closed using interrupted [id number]-dh-[id number] 0- PDS. All wounds were irrigated and skin and remaining ports were closed with 4-0 Moncoryl and Dermabond surgical skin glue. At the end of the case all sponge, needle, and instrument counts were correct. The patient was extubated and taken to the recovery room in good condition. Complications: None Estimated blood loss: 75 ml Specimens: 1. Left pelvic lymph nodes 2. Right pelvic lymph nodes 3. Anterior prostatic lymph nodes 4. Prostate with seminal vesicles 5. Left sided final margins from the NVB Disposition: Stable to PACU - Figueroa x 14 days with cystogram - JAVI drain with JAVI Cr tomorrow AM and will likely be discharged with JAVI and a drain log - Otherwise standard pathway care Satya Whitmore MD July 29, 2023 2:19 PM [facility] Work Phone: [phone]) 117-372906-03-2024 Hospital Discharge instructions* Discharge Instructions* Bhavana Mc MD - 07/29/2023 1:48 PM EDT Images from the original note were not included. Home Care After Robotic Assisted Radical Prostatectomy The following instructions will help you care for yourself, or be cared for upon your return home today. Follow up Appointment: 14 days for catheter removal with imaging test Contacts Urology Department After hours and on weekends, if you have questions or problems, call [phone] and ask the hospital emergency operator to page the urology resident manager of exhibitions and collections. If it is a question or problem that can wait until business hours, call the clinic phone number listed above when the clinic is open during weekdays, 8am-4pm. If you are unable to reach your doctor and it is a medical emergency call the [facility] Emergency Department at or dial 911. Medications - Take prescribed miralax to prevent constipation Pain Medication: We encourage you to take Tylenol and Ibuprofen for mild-moderate pain. -You can take 650 mg of tylenol every 6 hours as needed. Add up the amount of tylenol you are taking each day. Do not exceed 4000mg (4g) of tylenol per day. - You can take 600 mg of ibuprofen every 6 hours as needed as long as you do not have issues with your kidney function. - You may alternate the tylenol and ibuprofen. You should only take the narcotic medication if the pain is severe. Prescribed Antibiotic Please start taking the prescribed antibiotic starting the day before your follow-up appointment for catheter removal. Diet Regular diet Activity Do not lift more than 3 pounds for the 1st week. Do not lift more than 15 pounds for the next 4 weeks. You MAY shower. NO tub baths for 4 weeks. Comments Regarding Laparoscopic Surgery It is common to feel bloated for several days due to gas used during laparoscopic surgery. This mayinclude pain in the shoulders and upper back. Gentle activity such as walking short distances several times a day may help relieve this discomfort. You may not have a bowel movement for a few days. It is not uncommon to have some blood in the urine after a bowel movement or increased activity. Walking, high fiber foods, and stool softeners may be used to help facilitate the first bowel movement. Wound Care and Hygiene Adhesive Closure - Covering your incision is a clear transparent skin closure. It will remain in place for 10 to 14 days and wear off naturally. You should remove your post-operative dressing the day after your surgery. - Do not soak your incision or take a tub bath for 2 weeks. - No further care is required unless you have a problem. Incision Care - Please clean it daily with mild soap and water. - Keep it dry for the rest of the day. - You do not need to cover your incision. - Watch for increasing redness, pus-like discharge or seperation of the incision. - Do not let the shower stream hit the incision directly. Regarding your incision: There are no devan or sutures to be removed. It is not uncommon to have a little bruising. Figueroa Catheter Care - Clean gently at insertion site with soap and water twice a day and as needed. - Refer to education materials regarding figueroa care and leg bag. - Make sure that all drainage tubes lie flat underneath clothing and are not kinked. Problems with your Catheter Call Your Doctor if ... - Catheter leaks or breaks - Catheter is coming out - Catheter becomes clogged and is not draining If Your Catheter Falls Out.. - If your catheter would fall out, please contact your physician's office and go to the [facility] Emergency Room as your catheter will likely need to be replaced. - If you are outside of [place], please go to your local emergency room. IMPORTANT: In the event that your catheter needs to be replaced, it should ONLY be replaced by a Urologist. Symptom Management Bladder Spasms: - It is common to have bladder spasms. - If you fell like you need to urinate and the sensation goes away when you do, then it is likely abladder spasm. - If the sensation to urinate does not go away and your catheter is not draining, then notify your physician. Call Your Doctor If You Develop... - Severe, increased, or unrelieved pain not controlled by oral pain medication - Temperature above 101.5 degrees and/or chills - Passing clots in urine preventing bladder emptying - Inability to urinate after eight (8) hours - Signs of cold or flu. - Nausea and vomiting that continues for more than 24 hours - Nausea and vomiting that prevents you from being able to keep medicine or fluids down Symptoms of Wound Infection: - Increase in pain in or around wound - Change in the amount of drainage - Change in the color of drainage - Change in the odor of drainage - Warmth in the tissues around the wound - Red streaks on the skin near the wound - Fever (temperature greater than 101.5 degrees F) - Incision separates or opens up Symptoms of DVT (Deep Vein Thrombus, or Blood Clot): - Any tender, swollen, or reddened areas from your groin to your heels. - Numbness or tingling in groin or calf - The skin on your leg looks pale or blue or it feels cold to touch - Any shortness of breath - Chest pain - Fever or chills Symptoms of Urinary Tract Infection (UTI): - Urine that is cloudy and/or has foul odor - Urge to urinate more often - Burning sensation - Fever - Incontinence - Blood in urine Prostate Cancer Support The [facility] here at The [facility] offers two different support groups for men with Prostate Cancer. One is a round table session for men only. Men share their experiences, lend support and ask questions related to their individual experiences with Prostate Cancer. The other is open to partners of men with Prostate Cancer that talks about issues directly related to Prostate Cancer for the partner. Both of these groups offer members the opportunity to share support and feedback while learning new coping skills to deal with virtually every aspect of managing Prostate Cancer. The group meets once a month, the saturday of the month from 7:00 - 9:00 PM in room 3000 at the [facility], [address] [place] [address]. For further information, contact Rafita Munson RN, Cpa Tax of the group at or [email or web address]. * Attachments The following attachments cannot be sent through Care Everywhere. * Surgical Drain Care (Welsh) * Wound Drainage Record Sheet ([facility]) (Welsh) documented in this [facility]06-03-2024 Surgery Postoperative evaluation and management note* Brief Op Note - Bhavana Mc MD - 07/29/2023 1:39 PM EDT Norman Gary ([id number]) PRE OPERATIVE DIAGNOSIS Malignant neoplasm of prostate [C61] POST OPERATIVE DIAGNOSIS Malignant neoplasm of prostate [C61] PROCEDURE PERFORMED Procedure(s) (LRB): LYMPHADENECTOMY PELVIC TOTAL ROBOTIC (Bilateral) PROSTATECTOMY RETROPUBIC RADICAL ROBOTIC (N/A) PRIMARY CLOSURE Yes INTRAOPERATIVE FINDINGS No significant abnormalities SURGEON Surgeons and Role: * Satya Whitmore MD - Primary ANESTHESIOLOGIST Anesthesiologist: Chichi Pedroza MD CHIROPRACTOR SOLE PRACTITIONER: Hector Nolan APRN-CHIROPRACTOR SOLE PRACTITIONER SURGICAL STAFF Watermaster: Marge Castillo RN; Italia Oquendo RN Relief Watermaster: Marge Castillo RN Relief Scrub: Juanita Coker Scrub Person: Dejah Hartley Resident Assisting: Karlene Ellison MD; Bhavana Mc MD COMPLICATIONS None ESTIMATED BLOOD LOSS 200 ml SPECIMENS ID Type Source Tests Collected by Time Destination 1 : Fat Over Prostate Permanent SURG PATH SURG PATH REQUEST Satya Whitmore MD 07/29/2023 0825 2 : Left Neuro Vascular Bundle Frozen SURG PATH SURG PATH REQUEST Satya Whitmore MD 07/29/2023 1019 3 : Left Posterior Lateral Base, Prostate Margin Permanent SURG PATH SURG PATH REQUEST Satya Whitmore MD 07/29/2023 1034 4 : Left Anterior Prostate Margin Permanent SURG PATH SURG PATH REQUEST Satya Whitmore MD 07/29/2023 1052 5 : Left Posterior Lateral. [place] to Mid Prostate Margin Permanent SURG PATH SURG PATH REQUEST Satya Whitmore MD 07/29/2023 1054 6 : Prostate and Seminal Vesicles Permanent SURG PATH SURG PATH REQUEST Satya Whitmore MD 07/29/2023 1101 7 : Left Pelvic Lymph Nodes Permanent SURG PATH SURG PATH REQUEST Satya Whitmore MD 07/29/2023 1125 8 : Right Pelvic Lymph Nodes Permanent SURG PATH SURG PATH REQUEST Satya Whitmore MD 07/29/[address] [place] [facility] Bhavana Mc MD July 29, 2023 1:39 PM Associated attestation - Satya Whitmore MD - 07/29/2023 2:14 PM EDT Satya Whitmore MD was present for the entire case and remained immediately available. [facility]06-03-2024 History and physical note* Karlene Ellison MD - 07/29/2023 7:01 AM EDT HPI Norman Gary is a 57 y.o. with history of Malignant neoplasm of prostate [C61] No recent fevers or new LUTS Does not take any blood thinners or ASA NPO since midnight NO major changes in medical history Ready for OR Past Medical History He has a past medical history of Elevated PSA, Family history of prostate cancer, Spondylolisthesis, Tinnitus, and Vocal cord papilloma virus. Past Surgical History He has a past surgical history that includes bx prostate needle transperineal (N/A, 04/02/2023). Medications He has a current medication list which includes the following Facility- Administered Medications: cefazolin, heparin, and lactated ringers. Allergies He has No [...] swelling or calf pain. Physical Exam BP 143/85 (BP Location: Right arm, BP Position: Sitting) Pulse 65 Temp 97.6 F (36.4 C) (Oral) Resp 16 Ht 1.753 m (5' 9) Wt 85.7 kg (189 lb) SpO2 99% BMI 27.91 kg/m Smoking Status Never Constitutional: NAD, WDWN. HEENT: NCAT. Conjunctivae normal. MMM. Cardiovascular: Regular rate. Pulmonary/Chest: Respirations are even and non-labored bilaterally. Abdominal: Soft. No distension, tenderness, masses or guarding. No CVA tenderness. Neurological: A + O x 3. Cranial Nerves II-XII grossly intact. Normal gait. Extremities: LIZBET x 4, Warm. No clubbing. No cyanosis. Skin: Schubert, warm and dry. No rashes noted. Psychiatric: Normal mood and affect Labs Lab Results Component Value Date SODIUM 141 07/17/2023 POTASSIUM 4.1 07/17/2023 CHLORIDE 103 07/17/2023 CO2 27 07/17/2023 BUN 11 07/17/2023 CREATSERUM 0.95 07/17/2023 GLUCOSE 80 07/17/2023 Lab Results Component Value Date WBC 7.99 07/17/2023 HGB 16.0 07/17/2023 HCT 47.2 07/17/2023 PLATELET 234 07/17/2023 MCV 89.4 07/17/2023 Lab Results Component Value Date PSA 9.35 (H) 08/29/2022 PSA 10.80 11/22/2021 PSA 10.7 05/29/2021 PSA 10.7 05/29/2021 PSA 8.44 (H) 10/13/2020 Lab Results Component Value Date CREATSERUM 0.95 07/17/2023 CREATSERUM 1.02 03/19/2023 Assessment Norman Gary is a 57 y.o. male who presents with Malignant neoplasm of prostate [C61] Plan 1. To OR for Procedure(s): LYMPHADENECTOMY PELVIC TOTAL ROBOTIC PROSTATECTOMY RETROPUBIC RADICAL ROBOTIC Karlene Ellison MD 07/29/2023 7:01 AM [facility] Work Phone: [phone]) 164-399206-03-2024 History and physical note* Karlene Ellison MD - 07/29/2023 7:01 AM EDT HPI Norman Gary is a 57 y.o. with history of Malignant neoplasm of prostate [C61] No recent fevers or new LUTS Does not take any blood thinners or ASA NPO since midnight NO major changes in medical history Ready for OR Past Medical History He has a past medical history of Elevated PSA, Family history of prostate cancer, Spondylolisthesis, Tinnitus, and Vocal cord papilloma virus. Past Surgical History He has a past surgical history that includes bx prostate needle transperineal (N/A, 04/02/2023). Medications He has a current medication list which includes the following Facility- Administered Medications: cefazolin, heparin, and lactated ringers. Allergies He has No [...] swelling or calf pain. Physical Exam BP 143/85 (BP Location: Right arm, BP Position: Sitting) Pulse 65 Temp 97.6 F (36.4 C) (Oral) Resp 16 Ht 1.753 m (5' 9) Wt 85.7 kg (189 lb) SpO2 99% BMI 27.91 kg/m Smoking Status Never Constitutional: NAD, WDWN. HEENT: NCAT. Conjunctivae normal. MMM. Cardiovascular: Regular rate. Pulmonary/Chest: Respirations are even and non-labored bilaterally. Abdominal: Soft. No distension, tenderness, masses or guarding. No CVA tenderness. Neurological: A + O x 3. Cranial Nerves II-XII grossly intact. Normal gait. Extremities: LIZBET x 4, Warm. No clubbing. No cyanosis. Skin: Schubert, warm and dry. No rashes noted. Psychiatric: Normal mood and affect Labs Lab Results Component Value Date SODIUM 141 07/17/2023 POTASSIUM 4.1 07/17/2023 CHLORIDE 103 07/17/2023 CO2 27 07/17/2023 BUN 11 07/17/2023 CREATSERUM 0.95 07/17/2023 GLUCOSE 80 07/17/2023 Lab Results Component Value Date WBC 7.99 07/17/2023 HGB 16.0 07/17/2023 HCT 47.2 07/17/2023 PLATELET 234 07/17/2023 MCV 89.4 07/17/2023 Lab Results Component Value Date PSA 9.35 (H) 08/29/2022 PSA 10.80 11/22/2021 PSA 10.7 05/29/2021 PSA 10.7 05/29/2021 PSA 8.44 (H) 10/13/2020 Lab Results Component Value Date CREATSERUM 0.95 07/17/2023 CREATSERUM 1.02 03/19/2023 Assessment Norman Gary is a 57 y.o. male who presents with Malignant neoplasm of prostate [C61] Plan 1. To OR for Procedure(s): LYMPHADENECTOMY PELVIC TOTAL ROBOTIC PROSTATECTOMY RETROPUBIC RADICAL ROBOTIC Karlene Ellison MD 07/29/2023 7:01 AM [facility] Surgical operation note* Becky Arthur RN - 07/29/2023 5:41 AM EDT Pt DENIES history of chemotherapy and radiation Pt denies metal/implants in body. Pt denies h/o stroke or seizures. [facility]06-03-2024 Nurse Note* Becky Arthur RN - 07/29/2023 5:41 AM EDT Pt DENIES history of chemotherapy and radiation Pt denies metal/implants in body. Pt denies h/o stroke or seizures. [facility] History and physical note* Lashonda Oliva DO - 07/17/2023 2:15 PM EDT Note to patient: The 21st Century Cures Act makes medical notes like these available to patients inthe interest of transparency. However, be advised this is a medical document. It is intended as [id number]-ppux communication. It is written in medical language and may contain abbreviations or verbiagethat are unfamiliar. It may appear blunt or direct. Medical documents are intended to carry relevant information, facts as evident, and the clinical opinion of the practitioner. Cantimer dictation software was used to write this note. Please excuse any errors that may have occurred as a result of the dictation. History of Present Illness Mr. Gary is a 57 y.o. male is being evaluated in [facility] due to his medical condition(s) as outlined below, which increases his risk for perioperative complications. 1. Preop exam for internal medicine 2. Prostate cancer 3. Lumbar spondylosis The status of the above medical conditions are relatively stable and details are further outlined below Name: Norman Gary Date of Surgery: 07/29/2023 Surgeon: Dr. Whitmore Pre-Op Diagnosis: Prostate cancer Planned Procedure: LYMPHADENECTOMY PELVIC TOTAL ROBOTIC - Bilateral PROSTATECTOMY RETROPUBIC RADICAL ROBOTIC Do you take Aspirin? no Do you take anti-coagulations? no Parenteral Access: no ANESTHESIA/AIRWAY Anesthesia Alert : KRISTINE risk Personal history of problems related to anesthesia (ex.Malignant Hyperthermia): no Family History of problems related to anesthesia (ex.Malignant Hyperthermia: no Pacer/AICD: no Glaucoma: no Beta Sergei: no Diabetic Mellitus: no KRISTINE: no STOP-BANG Risk Assessment (3 or more YES responses is high risk) Do you snore - No Are you frequently tired during the day? - No Have you been observed gasping or choking while asleep? - No Do you have high blood pressure? - No Age more than 50? - Yes Gender male? - Yes Neck circumference greater than 40 cm? - Yes Neck Circumference (cm): 43 BMI more then 35? - No Body mass index is 27.62 kg/m . Mallampati class - 2 TM Distance - 3 FB Oral Opening - 3 FB Teeth - normal dentition for age Cervical range of motion - within normal limits Neck circumference - Neck Circumference (cm): 43 Allergies and adverse drug reactions No Known Allergies Anesthesia/Airway A/P - Anesthesia Alerts as above if applicable .Previous airway details ntubation Date/Time: 04/02/2023 7:24 AM Airway not difficult General Information and Staff Patient location during procedure: OR Room: Attending: Eliu Macias MD Performed by: Eliu Macias MD Indications and Patient Condition Indications for airway management: general anesthesia Spontaneous Ventilation: absent Sedation level: general anesthesia Preoxygenated: yes Patient position: sniffing Manual Inline Stabilization not maintained throughout Final Airway Details Final airway type: supraglottic airway Successful airway: LMA Size 4 Placement verified by: CO2 detection Number of attempts at approach: 1 Number of other approaches attempted: 0 CARDIOVASCULAR Patient denies a history of cardiac events or ND. Denies chest pain with ambulation or ADLs around the house. Denies palpitations, denies LE edema, denies orthopnea Functional status - METS: Moderate: 4-7 METS functional status. 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 Works out in the yard, moving mulch and dirt. Cardiovascular A/P - Pre-operative Risk Evaluation: Patient Meets the Following RCRI Criteria (RCRI): *High-risk surgery: 1 criteria suggesting a 6.0% risk of major cardiac events or within 30 days. Norman Gary is at a Acceptable risk based on the RCRI above. Patient can achieve METS > 4. Per ACC/AHA guidelines, the patient requires no further testing at this time. CARDIAC TESTING: EKG (Performed in clinic today and scanned in the chart): Normal sinus rhythm with a HR of 64. No LVH. No ST changes noted as interpreted by me PULMONARY Social History Tobacco Use Smoking Status Never Smokeless Tobacco Never Does the patient Vape? no Pulmonary A/P - Pt denies any active pulmonary complaints/concerns at this time. SUBSTANCE ABUSE Social History Substance and Sexual Activity Alcohol Use Yes Alcohol/week: 2.0 standard drinks of alcohol Types: 2 Cans of beer per week Comment: socially 4 drinks at time Social History Substance and Sexual Activity Drug Use Never Substance Abuse A/P - CLOTTING/BLEEDING History of DVT/PE - no Are you a Jehovah Witness? - no In case of surgeons plan or unforseen emergency, are you okay with receiving blood products? - yes Clotting Bleeding A/P - Pt denies any hx of clotting/bleeding disorder. Recommend standard DVT/PE prophylaxis postoperatively. DIABETES Diabetes A/P - No results found for: HGBA1C ADDITIONAL DIAGNOSES OF CONCERN Prostate cancer: Plan for radical prostatectomy with lymphadenectomy MRI prostate 08/2022 IMPRESSION: 1. Stable to slight interval increase in the size of the prostate gland. Stable high PSA density within the gland. 2. Some interval increase in the size of the previously noted signal abnormality in the right transitional zone within the mid gland extending into the base and into the fibromuscular stroma concerning for a neoplastic [id number] Category 4 3. Patchy linear and bandlike T2 hypointense areas in the peripheral zones with increased postcontrast enhancement could be related to background prostatitis. 4. Intact prostatic capsule with no regional extracapsular disease. 5. No lymphadenopathy or bone lesions identified on this study History of spondylolisthesis- s/p epidural injection History of Laryngeal polyp- 2016- no issues with dysphagia MEDICATIONS No current outpatient medications on file. Medication A/P - Instructions for preoperative medications given to the patient in AVS. LABS Orders Placed This Encounter URINE CULTURE CBC, EDIF, PLATELET COMPREHENSIVE METABOLIC PANEL PT,INR,PTT CBC AND ELECTRONIC DIFF Type and Cross -Preadmission URINALYSIS Lab A/P - Lab Results Component Value Date SODIUM 141 07/17/2023 POTASSIUM 4.1 07/17/2023 CHLORIDE 103 07/17/2023 CO2 27 07/17/2023 BUN 11 07/17/2023 CREATSERUM 0.95 07/17/2023 GLUCOSE 80 07/17/2023 Lab Results Component Value Date WBC 7.99 07/17/2023 HGB 16.0 07/17/2023 HCT 47.2 07/17/2023 PLATELET 234 07/17/2023 MCV 89.4 07/17/2023 Lab Results Component Value Date INR 1.0 07/17/2023 PT 13.4 07/17/2023 UA: negative T bili 0.2 points above the cutoff, likely spurious value Does pt meet criteria for liberalized NPO? no. Pt is Medically OPTIMIZED to proceed with scheduled surgery at the time of this visit. Patient was instructed to let his surgeon know of any hospitalizations or changes in medical conditions following this visit. Above recommendations were discussed with the patient, and patient understood and agreed with the plan outlined above. Thank you for allowing us to participate in the care of Norman Epstein Cookie. Total time spent on the day of patient's visit was 41 minutes. This includes but is not limited to time spent preparing to see the patient, precharting, reviewing outside medical records, time spent in the patient's room doing a history and physical exam along with medication education, ordering lab test and requesting medical information as well as interpreting lab results DO Adam Kahn [facility] Perioperative Clinic [facility] [address] [facility] Review of Systems (OSUROS) Review of Systems Constitutional: Negative. Negative for diaphoresis and fever. HENT: Negative. Respiratory: Negative for chest tightness, shortness of breath and wheezing. Cardiovascular: Negative for chest pain, palpitations and leg swelling. Gastrointestinal: Negative for nausea and vomiting. Genitourinary: Negative for dysuria. Neurological: Negative for weakness. Psychiatric/Behavioral: Negative for confusion. All other pertinent positives related to anesthesia history and cardiac history as in the note above. Physical Examination (PHYSEXAM) Blood pressure 128/76, pulse 93, temperature 98.2 F (36.8 C), resp. rate 16, height 1.753 m (5' 9), weight 84.8 kg (187 lb), SpO2 98%. Physical Exam Constitutional: General: He is not in acute distress. Appearance: Normal appearance. HENT: Head: Normocephalic. Comments: Mallampati score and dental exam in Anesthesia section above Mouth/Throat: Mouth: Mucous membranes are moist. Eyes: Pupils: Pupils are equal, round, and reactive to light. Neck: Vascular: No carotid bruit. Cardiovascular: Rate and Rhythm: Normal rate and regular rhythm. Pulses: Normal pulses. Heart sounds: Normal heart sounds. No murmur heard. No gallop. Pulmonary: Effort: Pulmonary effort is normal. No respiratory distress. Breath sounds: Normal breath sounds. No wheezing or rales. Abdominal: General: Abdomen is flat. Bowel sounds are normal. There is no distension. Tenderness: There is no abdominal tenderness. There is no guarding. Musculoskeletal: General: No swelling, tenderness or deformity. Normal range of motion. Cervical back: Normal range of motion. No rigidity or tenderness. Skin: General: Skin is warm. Neurological: General: No focal deficit present. Mental Status: He is alert and oriented to person, place, and time. Mental status is at baseline. Psychiatric: Mood and Affect: Mood normal. Behavior: Behavior normal. Thought Content: Thought content normal. Past Medical History: Diagnosis Date Elevated PSA Family history of prostate cancer Spondylolisthesis Tinnitus Vocal cord papilloma virus Past Surgical History: Procedure Laterality Date BX PROSTATE NEEDLE TRANSPERINEAL N/A 04/02/2023 Laterality: N/A; Surgeon: Satya Whitmore MD; [facility] Patient Care Team: Chichi Argueta MD as PCP - General (Family Medicine) Claude Patel MD as Referring Provider (Urology) Family History Problem Relation Age of Onset Cancer- Other Mother soft tissue sarcoma Prostate Cancer Father 60 Cancer- Other Father 80 bladder cancer Colorectal Cancer Brother 40 Prostate Cancer Brother 50 Cancer- Other Paternal Uncle bladder cancer Social History Socioeconomic History Marital status: Tobacco Use Smoking status: Never Smokeless tobacco: Never Vaping Use Vaping status: Never Used Substance and Sexual Activity Alcohol use: Yes Alcohol/week: 2.0 standard drinks of alcohol Types: 2 Cans of beer per week Comment: socially 4 drinks at time Drug use: Never Sexual activity: Yes Partners: Female Other Topics Concern Occupational Exposure No Hobby Hazards No [facility]05-22-2024 History and physical note* Lashonda Oliva DO - 07/17/2023 2:15 PM EDT Note to patient: The Cures Act makes medical notes like these available to patients inthe interest of transparency. However, be advised this is a medical document. It is intended as [id number]-rhsn communication. It is written in medical language and may contain abbreviations or verbiagethat are unfamiliar. It may appear blunt or direct. Medical documents are intended to carry relevant information, facts as evident, and the clinical opinion of the practitioner. Cantimer dictation software was used to write this note. Please excuse any errors that may have occurred as a result of the dictation. History of Present Illness Mr. Gary is a 57 y.o. male is being evaluated in [facility] due to his medical condition(s) as outlined below, which increases his risk for perioperative complications. 1. Preop exam for internal medicine 2. Prostate cancer 3. Lumbar spondylosis The status of the above medical conditions are relatively stable and details are further outlined below Name: Norman Gary Date of Surgery: 07/29/2023 Surgeon: Dr. Whitmore Pre-Op Diagnosis: Prostate cancer Planned Procedure: LYMPHADENECTOMY PELVIC TOTAL ROBOTIC - Bilateral PROSTATECTOMY RETROPUBIC RADICAL ROBOTIC Do you take Aspirin? no Do you take anti-coagulations? no Parenteral Access: no ANESTHESIA/AIRWAY Anesthesia Alert : KRISTINE risk Personal history of problems related to anesthesia (ex.Malignant Hyperthermia): no Family History of problems related to anesthesia (ex.Malignant Hyperthermia: no Pacer/AICD: no Glaucoma: no Beta Sergei: no Diabetic Mellitus: no KRISTINE: no STOP-BANG Risk Assessment (3 or more YES responses is high risk) Do you snore - No Are you frequently tired during the day? - No Have you been observed gasping or choking while asleep? - No Do you have high blood pressure? - No Age more than 50? - Yes Gender male? - Yes Neck circumference greater than 40 cm? - Yes Neck Circumference (cm): 43 BMI more then 35? - No Body mass index is 27.62 kg/m . Mallampati class - 2 TM Distance - 3 FB Oral Opening - 3 FB Teeth - normal dentition for age Cervical range of motion - within normal limits Neck circumference - Neck Circumference (cm): 43 Allergies and adverse drug reactions No Known Allergies Anesthesia/Airway A/P - Anesthesia Alerts as above if applicable .Previous airway details ntubation Date/Time: 04/02/2023 7:24 AM Airway not difficult General Information and Staff Patient location during procedure: OR Room: Attending: Eliu Macias MD Performed by: Eliu Macias MD Indications and Patient Condition Indications for airway management: general anesthesia Spontaneous Ventilation: absent Sedation level: general anesthesia Preoxygenated: yes Patient position: sniffing Manual Inline Stabilization not maintained throughout Final Airway Details Final airway type: supraglottic airway Successful airway: LMA Size 4 Placement verified by: CO2 detection Number of attempts at approach: 1 Number of other approaches attempted: 0 CARDIOVASCULAR Patient denies a history of cardiac events or ND. Denies chest pain with ambulation or ADLs around the house. Denies palpitations, denies LE edema, denies orthopnea Functional status - METS: Moderate: 4-7 METS functional status. 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 Works out in the yard, moving mulch and dirt. Cardiovascular A/P - Pre-operative Risk Evaluation: Patient Meets the Following RCRI Criteria (RCRI): *High-risk surgery: 1 criteria suggesting a 6.0% risk of major cardiac events or within 30 days. Norman Gary is at a Acceptable risk based on the RCRI above. Patient can achieve METS > 4. Per ACC/AHA guidelines, the patient requires no further testing at this time. CARDIAC TESTING: EKG (Performed in clinic today and scanned in the chart): Normal sinus rhythm with a HR of 64. No LVH. No ST changes noted as interpreted by me PULMONARY Social History Tobacco Use Smoking Status Never Smokeless Tobacco Never Does the patient Vape? no Pulmonary A/P - Pt denies any active pulmonary complaints/concerns at this time. SUBSTANCE ABUSE Social History Substance and Sexual Activity Alcohol Use Yes Alcohol/week: 2.0 standard drinks of alcohol Types: 2 Cans of beer per week Comment: socially 4 drinks at time Social History Substance and Sexual Activity Drug Use Never Substance Abuse A/P - CLOTTING/BLEEDING History of DVT/PE - no Are you a Jehovah Witness? - no In case of surgeons plan or unforseen emergency, are you okay with receiving blood products? - yes Clotting Bleeding A/P - Pt denies any hx of clotting/bleeding disorder. Recommend standard DVT/PE prophylaxis postoperatively. DIABETES Diabetes A/P - No results found for: HGBA1C ADDITIONAL DIAGNOSES OF CONCERN Prostate cancer: Plan for radical prostatectomy with lymphadenectomy MRI prostate 08/2022 IMPRESSION: 1. Stable to slight interval increase in the size of the prostate gland. Stable high PSA density within the gland. 2. Some interval increase in the size of the previously noted signal abnormality in the right transitional zone within the mid gland extending into the base and into the fibromuscular stroma concerning for a neoplastic [id number] Category 4 3. Patchy linear and bandlike T2 hypointense areas in the peripheral zones with increased postcontrast enhancement could be related to background prostatitis. 4. Intact prostatic capsule with no regional extracapsular disease. 5. No lymphadenopathy or bone lesions identified on this study History of spondylolisthesis- s/p epidural injection History of Laryngeal polyp- 2016- no issues with dysphagia MEDICATIONS No current outpatient medications on file. Medication A/P - Instructions for preoperative medications given to the patient in AVS. LABS Orders Placed This Encounter URINE CULTURE CBC, EDIF, PLATELET COMPREHENSIVE METABOLIC PANEL PT,INR,PTT CBC AND ELECTRONIC DIFF Type and Cross -Preadmission URINALYSIS Lab A/P - Lab Results Component Value Date SODIUM 141 07/17/2023 POTASSIUM 4.1 07/17/2023 CHLORIDE 103 07/17/2023 CO2 27 07/17/2023 BUN 11 07/17/2023 CREATSERUM 0.95 07/17/2023 GLUCOSE 80 07/17/2023 Lab Results Component Value Date WBC 7.99 07/17/2023 HGB 16.0 07/17/2023 HCT 47.2 07/17/2023 PLATELET 234 07/17/2023 MCV 89.4 07/17/2023 Lab Results Component Value Date INR 1.0 07/17/2023 PT 13.4 07/17/2023 UA: negative T bili 0.2 points above the cutoff, likely spurious value Does pt meet criteria for liberalized NPO? no. Pt is Medically OPTIMIZED to proceed with scheduled surgery at the time of this visit. Patient was instructed to let his surgeon know of any hospitalizations or changes in medical conditions following this visit. Above recommendations were discussed with the patient, and patient understood and agreed with the plan outlined above. Thank you for allowing us to participate in the care of Norman Lucian Gary. Total time spent on the day of patient's visit was 41 minutes. This includes but is not limited to time spent preparing to see the patient, precharting, reviewing outside medical records, time spent in the patient's room doing a history and physical exam along with medication education, ordering lab test and requesting medical information as well as interpreting lab results DO Adam Kahn [facility] Perioperative Clinic [facility] [address] [facility] Review of Systems (OSUROS) Review of Systems Constitutional: Negative. Negative for diaphoresis and fever. HENT: Negative. Respiratory: Negative for chest tightness, shortness of breath and wheezing. Cardiovascular: Negative for chest pain, palpitations and leg swelling. Gastrointestinal: Negative for nausea and vomiting. Genitourinary: Negative for dysuria. Neurological: Negative for weakness. Psychiatric/Behavioral: Negative for confusion. All other pertinent positives related to anesthesia history and cardiac history as in the note above. Physical Examination (PHYSEXAM) Blood pressure 128/76, pulse 93, temperature 98.2 F (36.8 C), resp. rate 16, height 1.753 m (5' 9), weight 84.8 kg (187 lb), SpO2 98%. Physical Exam Constitutional: General: He is not in acute distress. Appearance: Normal appearance. HENT: Head: Normocephalic. Comments: Mallampati score and dental exam in Anesthesia section above Mouth/Throat: Mouth: Mucous membranes are moist. Eyes: Pupils: Pupils are equal, round, and reactive to light. Neck: Vascular: No carotid bruit. Cardiovascular: Rate and Rhythm: Normal rate and regular rhythm. Pulses: Normal pulses. Heart sounds: Normal heart sounds. No murmur heard. No gallop. Pulmonary: Effort: Pulmonary effort is normal. No respiratory distress. Breath sounds: Normal breath sounds. No wheezing or rales. Abdominal: General: Abdomen is flat. Bowel sounds are normal. There is no distension. Tenderness: There is no abdominal tenderness. There is no guarding. Musculoskeletal: General: No swelling, tenderness or deformity. Normal range of motion. Cervical back: Normal range of motion. No rigidity or tenderness. Skin: General: Skin is warm. Neurological: General: No focal deficit present. Mental Status: He is alert and oriented to person, place, and time. Mental status is at baseline. Psychiatric: Mood and Affect: Mood normal. Behavior: Behavior normal. Thought Content: Thought content normal. Past Medical History: Diagnosis Date Elevated PSA Family history of prostate cancer Spondylolisthesis Tinnitus Vocal cord papilloma virus Past Surgical History: Procedure Laterality Date BX PROSTATE NEEDLE TRANSPERINEAL N/A 04/02/2023 Laterality: N/A; Surgeon: Satya Whitmore MD; Location: [facility] Patient Care Team: Chichi Argueta MD as PCP - General (Family Medicine) Claude Patel MD as Referring Provider (Urology) Family History Problem Relation Age of Onset Cancer- Other Mother soft tissue sarcoma Prostate Cancer Father 60 Cancer- Other Father 80 bladder cancer Colorectal Cancer Brother 40 Prostate Cancer Brother 50 Cancer- Other Paternal Uncle bladder cancer Social History Socioeconomic History Marital status: Tobacco Use Smoking status: Never Smokeless tobacco: Never Vaping Use Vaping status: Never Used Substance and Sexual Activity Alcohol use: Yes Alcohol/week: 2.0 standard drinks of alcohol Types: 2 Cans of beer per week Comment: socially 4 drinks at time Drug use: Never Sexual activity: Yes Partners: Female Other Topics Concern Occupational Exposure No Hobby Hazards No [facility]* Patient Instructions* Jose Juan Zaragoza LPN - 07/17/2023 2:15 PM EDT PRIOR TO SURGERY INSTRUCTIONS Please follow these instructions prior to surgery to ensure that your surgery goes well and minimize complications THE FOLLOWING MEDICATIONS LABS, STUDIES, AND CONSULTATIONS WERE ORDERED TODAY: Orders Placed This Encounter URINE CULTURE CBC, EDIF, PLATELET COMPREHENSIVE METABOLIC PANEL PT,INR,PTT URINALYSIS Pre-operative Patient Medication Instructions: - Only take medications on the morning of surgery with a sip of water. - Please follow this sheet below for instructions on which medications to hold prior to surgery No current outpatient medications on file. If you use an Inhaler/Inhalers on a daily basis, then use your inhaler on the morning of surgery. - Do NOT take Herbal Medication (including multi-vitamin, fish oil ([place]-3), garlic, Glucosamine -Chondroitin ,gingko, ginseng, Vitamin E, probiotics) vitamins and supplements 2 weeks before surgery. - Do NOT take Excedrin, ibuprofen, Advil, Voltaren (Diclofenac), Motrin, naproxen, or Aleve, Mobic (Meloxicam) for the 7 days before surgery. Acetaminophen (Tylenol) is ok to take up until the day ofsurgery. - DO not Vape and avoid marijuana or any illicit drug use atleast 3 days prior to the surgery. - If you do smoke, we recommend that you quit smoking at least 2 weeks prior to surgery as nicotineproducts can impair wound healing. Your anesthesia team recommends that you have no nicotine in your system for at least 24 hours prior to anesthesia Patient Pre-Operative Instructions: To lessen your chance of getting an infection after your surgery, you will need to wash your skin with a special soap called 4% Chlorhexidine Gluconate (CHG) before your surgery. Your nurse has givenyou CHG soap today and written instructions; Getting Your Skin Ready for Surgery. Please review the instructions carefully prior to your surgery. Patient identified as being at high risk for sleep apnea. Patient education material for obstructive sleep apnea given and reviewed. Diet Instructions: You may have clear liquids up to 2 hours prior to your surgery. Clear liquids includes: water, apple juice, white grape juice, sport drinks like Gatorade, popsicles, tea, broth or black coffee. Do not consume fat or dairy products within 8 hours of surgery. You may have a full meal 8 hours prior to your surgery. Stop all tube feedings 6 hours prior to surgery. Follow all instructions from your surgeons office regarding nutritional drinks the morning of surgery if applicable. -NO food or drink after 11 pm the night before surgery except for enough water to take your medications. (No Candy, Mints and/or Gum). If your surgeon has given you special shakes to take prior to surgery, - Do NOT wear any hearing aids, jewelry, watches, rings, hairpieces, makeup, glasses or contact lenses with you into your surgery. - Shower the night before and the morning of surgery. - Do NOT shave, or pluck hair from anywhere near the surgical site one week prior to surgery. - [place] your teeth and rinse your mouth the morning of surgery. - Do NOT bring your dentures or partials with you into surgery. They may be lost. Give them to someone to bring to you after surgery. If you become ill, develop a fever, cough, or any type of infection within 14 days of your scheduled surgery, please call the surgeon's office. You may need to have your surgery moved, as we would not want to put you at risk for complications due to an illness. If you are hospitalized or placed on Antibiotics within 1 week of surgery, please notify our team and your surgeon's office immediately. - If you have Sleep apnea and have a CPAP or BIPAP, then bring your CPAP mask and machine with you to the hospital. Please contact Medical Information Management Department for all records requests. [phone] [facility] Preoperative Testing Clinic [facility] CHADD/ADRIÁN documented in this encounterOSU [facility] Nurse Surgical operation note* Estee Bolaños RN - 04/02/2023 8:40 AM EST 0835: Patient arrived to [facility] from [facility] PACU via gurney. Vital signs taken and stable. Patient given drink and snacks. Family called to bedside. Patient assessed. 0840: Reviewed anesthesia precautions, AVS, discharge instructions and scrips with patient and , questions and concerns answered. 0908 Patient meets [facility] discharge criteria and discharged per MD order to home. Patient taken bywheelchair by SOFTWARE INTEGRATOR to awaiting car. All belongings gathered with patient. Family/friend to drive patient home and care for patient 24 hours post-op. [facility]02-06-[facility]24 Nurse Note* Estee Bolaños RN - 04/02/2023 8:40 AM EST 0835: Patient arrived to [facility] A[facility] from [facility] PACU via gurney. Vital signs taken and stable. Patient given drink and snacks. Family called to bedside. Patient assessed. 0840: Reviewed anesthesia precautions, AVS, discharge instructions and scrips with patient and , questions and concerns answered. 0908 Patient meets [facility] discharge criteria and discharged per MD order to home. Patient taken bywheelchair by SOFTWARE INTEGRATOR to awaiting car. All belongings gathered with patient. Family/friend to drive patient home and care for patient 24 hours post-op. * Cheryl Adorno RN - 04/02/2023 5:26 AM EST Patient denies hx of chemo and radiation. Patient denies metal or foreign objects in body. Patient denies hx of seizure or stroke. documented in this encounterOSU [facility] Nurse Note* Nursing Notes - Juany Maier RN - 04/02/2023 8:27 AM EST 0827: Pt voided 200cc clear yellow urine in A PACU [facility]02-06-2024 Miscellaneous Notes* Nursing Notes - Juany Maier RN - 04/02/2023 8:27 AM EST 0827: Pt voided 200cc clear yellow urine in A PACU * Op Note - Satya Whitmore MD - 04/02/2023 7:46 AM EST Norman Gary ([id number]) PRE OPERATIVE DIAGNOSIS Elevated PSA [R97.20] POST OPERATIVE DIAGNOSIS Post-Op Diagnosis Codes: * Elevated PSA [R97.20] PROCEDURE PERFORMED Procedure(s) (LRB): BX PROSTATE NEEDLE TRANSPERINEAL (N/A) PRIMARY CLOSURE N/A INTRAOPERATIVE FINDINGS No significant abnormalities SURGEON Surgeon(s) and Role: * Satya Whitmore MD - Primary ANESTHESIOLOGIST Anesthesiologist: Eliu Macias MD SURGICAL STAFF Watermaster: Italia Oquendo RN Scrub Person: Stacey Hutchinson RN; Manjula Forrest Resident Assisting: Bhavana Mc MD COMPLICATIONS None ESTIMATED BLOOD LOSS Minimal SPECIMENS As below ID Type Source Tests Collected by Time Destination 1 : Left anterior fibromusclar stroma prostate biopsy Permanent SURG PATH SURG PATH REQUEST Satya Whitmore MD 04/02/2023728 2 : Left peripheral zone anterior prostate biopsy Permanent SURG PATH SURG PATH REQUEST Satya Whitmore MD 04/02/2023 0729 3 : Left peripheral zone posterior lateral prostate biopsy Permanent SURG PATH SURG PATH REQUEST Satya Whitmore MD 04/02/2023 0729 4 : Left peripheral zone prostate medial prostate biopsy Permanent SURG PATH SURG PATH REQUEST Satya Whitmore MD 04/02/2023 0729 5 : Right anterior fibromusclar stroma prostate biopsy Permanent SURG PATH SURG PATH REQUEST MD Dewey 04/02/2023 0729 6 : Right peripheral zone anterior prostate biopsy Permanent SURG PATH SURG PATH REQUEST Satya Whitmore MD 04/02/2023 0729 7 : Right peripheral zone posterior lateral prostate biopsy Permanent SURG PATH SURG PATH REQUEST Satya Whitmore MD 04/02/2023 0729 8 : Right peripheral zone posterior medial porstate biopsy Permanent SURG PATH SURG PATH REQUEST Satya Whitmore MD 04/02/2023 0729 9 : HEATH #1 Permanent SURG PATH SURG PATH REQUEST Satya Whitmore MD 04/02/2023 0739 OPERATIVE REPORT Date: 04/02/2023 Preoperative Diagnosis: Elevated PSA. Abnormal MRI. Postoperative Diagnosis: Same. Procedure Performed: Transrectal ultrasound of the prostate. Transrectal ultrasound guided needle biopsy of the prostate via transperineal approach, including cognitive MRI-TRUS fusion. Anesthesia: General Attending Surgeon: Satya Whitmore M.D. Assistants: Bhavana Mc M.D. Indications: Patient [...] a general anesthetic. He was then placed inlithotomy position, prepped with Hibiclens soap and draped [...] Similar procedure was done on the left si de. ROIs were targeted #1. A total of [...] was available immediately at all times. Satya Whtimore MD April 02, 2023 7:46 AM * Brief Op Note - Satya Whitmore MD - 04/02/2023 7:46 AM EST Norman Cookie ([id number]) PRE OPERATIVE DIAGNOSIS Elevated PSA [R97.20] POST OPERATIVE DIAGNOSIS Post-Op Diagnosis Codes: * Elevated PSA [R97.20] PROCEDURE PERFORMED Procedure(s) (LRB): BX PROSTATE NEEDLE TRANSPERINEAL (N/A) PRIMARY CLOSURE N/A INTRAOPERATIVE FINDINGS No significant abnormalities SURGEON Surgeon(s) and Role: * Satya Whitmore MD - Primary ANESTHESIOLOGIST Anesthesiologist: Eliu Macias MD SURGICAL STAFF Watermaster: Italia Oquendo RN Scrub Person: Stacey Hutchinson RN; Manjula Forrest Resident Assisting: Bhavana Mc MD COMPLICATIONS None ESTIMATED BLOOD LOSS Minimal SPECIMENS As below ID Type Source Tests Collected by Time Destination 1 : Left anterior fibromusclar stroma prostate biopsy Permanent SURG PATH SURG PATH REQUEST Satya Whitmore MD 04/02/2023728 2 : Left peripheral zone anterior prostate biopsy Permanent SURG PATH SURG PATH REQUEST Satya Whitmore MD 04/02/2023728 3 : Left peripheral zone posterior lateral prostate biopsy Permanent SURG PATH SURG PATH REQUEST Satya Whitmore MD 04/02/2023728 4 : Left peripheral zone prostate medial prostate biopsy Permanent SURG PATH SURG PATH REQUEST Satya Whitmore MD 04/02/2023728 5 : Right anterior fibromusclar stroma prostate biopsy Permanent SURG PATH SURG PATH REQUEST MD Dewey 04/02/2023728 6 : Right peripheral zone anterior prostate biopsy Permanent SURG PATH SURG PATH REQUEST Satya Whitmore MD 04/02/2023728 7 : Right peripheral zone posterior lateral prostate biopsy Permanent SURG PATH SURG PATH REQUEST Satya Whitmore MD 04/02/2023728 8 : Right peripheral zone posterior medial porstate biopsy Permanent SURG PATH SURG PATH REQUEST Satya Whitmore MD 04/02/2023728 9 : HEATH #1 Permanent SURG PATH SURG PATH REQUEST Satya Whitmore MD 04/02/2023 07 Satya Whitmore MD April 02, 2023 7:46 AM documented in this encounterOhioHealth [facility] Surgery Postoperative evaluation and management note* Op Note - Satya Whitmore MD - 04/02/2023 7:46 AM EST Norman Gary ([id number]) PRE OPERATIVE DIAGNOSIS Elevated PSA [R97.20] POST OPERATIVE DIAGNOSIS Post-Op Diagnosis Codes: * Elevated PSA [R97.20] PROCEDURE PERFORMED Procedure(s) (LRB): BX PROSTATE NEEDLE TRANSPERINEAL (N/A) PRIMARY CLOSURE N/A INTRAOPERATIVE FINDINGS No significant abnormalities SURGEON Surgeon(s) and Role: * Satya Whitmore MD - Primary ANESTHESIOLOGIST Anesthesiologist: Eliu Macias MD SURGICAL STAFF Watermaster: Italia Oquendo RN Scrub Person: Stacey Hutchinson RN; Manjula Forrest Resident Assisting: Bhavana Mc MD COMPLICATIONS None ESTIMATED BLOOD LOSS Minimal SPECIMENS As below ID Type Source Tests Collected by Time Destination 1 : Left anterior fibromusclar stroma prostate biopsy Permanent SURG PATH SURG PATH REQUEST Satya Whitmore MD 04/02/2023728 2 : Left peripheral zone anterior prostate biopsy Permanent SURG PATH SURG PATH REQUEST Satya Whitmore MD 04/02/2023728 3 : Left peripheral zone posterior lateral prostate biopsy Permanent SURG PATH SURG PATH REQUEST Satya Whitmore MD 04/02/2023728 4 : Left peripheral zone prostate medial prostate biopsy Permanent SURG PATH SURG PATH REQUEST Satya Whitmore MD 04/02/2023728 5 : Right anterior fibromusclar stroma prostate biopsy Permanent SURG PATH SURG PATH REQUEST MD Dewey 04/02/2023728 6 : Right peripheral zone anterior prostate biopsy Permanent SURG PATH SURG PATH REQUEST Satya Whitmore MD 04/02/2023728 7 : Right peripheral zone posterior lateral prostate biopsy Permanent SURG PATH SURG PATH REQUEST Satya Whitmore MD 04/02/2023728 8 : Right peripheral zone posterior medial porstate biopsy Permanent SURG PATH SURG PATH REQUEST Satya Whitmore MD 04/02/2023728 9 : HEATH #1 Permanent SURG PATH SURG PATH REQUEST Satya Whitmore MD 04/02/202339 OPERATIVE REPORT Date: 04/02/2023 Preoperative Diagnosis: Elevated PSA. Abnormal MRI. Postoperative Diagnosis: Same. Procedure Performed: Transrectal ultrasound of the prostate. Transrectal ultrasound guided needle biopsy of the prostate via transperineal approach, including cognitive MRI-TRUS fusion. Anesthesia: General Attending Surgeon: Satya Whitmore M.D. Assistants: Bhavana Mc M.D. Indications: Patient [...] a general anesthetic. He was then placed inlithotomy position, prepped with Hibiclens soap and draped [...] Similar procedure was done on the left si de. ROIs were targeted #1. A total of [...] was available immediately at all times. Satya Whitmore MD April 02, 2023 7:46 AM [facility] Work Phone: 1(364) 968-667502-06-2024 Surgery Postoperative evaluation and management note* Brief Op Note - Satya Whitmore MD - 04/02/2023 7:46 AM EST Norman Gary ([id number]) PRE OPERATIVE DIAGNOSIS Elevated PSA [R97.20] POST OPERATIVE DIAGNOSIS Post-Op Diagnosis Codes: * Elevated PSA [R97.20] PROCEDURE PERFORMED Procedure(s) (LRB): BX PROSTATE NEEDLE TRANSPERINEAL (N/A) PRIMARY CLOSURE N/A INTRAOPERATIVE FINDINGS No significant abnormalities SURGEON Surgeon(s) and Role: * Satya Whitmore MD - Primary ANESTHESIOLOGIST Anesthesiologist: Eliu Macias MD SURGICAL STAFF Watermaster: Italia Oquendo RN Scrub Person: Stacey Hutchinson RN; Manjula Forrest Resident Assisting: Bhavana Mc MD COMPLICATIONS None ESTIMATED BLOOD LOSS Minimal SPECIMENS As below ID Type Source Tests Collected by Time Destination 1 : Left anterior fibromusclar stroma prostate biopsy Permanent SURG PATH SURG PATH REQUEST Satya Whitmore MD 04/02/2023728 2 : Left peripheral zone anterior prostate biopsy Permanent SURG PATH SURG PATH REQUEST Satya Whitmore MD 04/02/2023728 3 : Left peripheral zone posterior lateral prostate biopsy Permanent SURG PATH SURG PATH REQUEST Satya Whitmore MD 04/02/2023728 4 : Left peripheral zone prostate medial prostate biopsy Permanent SURG PATH SURG PATH REQUEST Satya Whitmore MD 04/02/2023728 5 : Right anterior fibromusclar stroma prostate biopsy Permanent SURG PATH SURG PATH REQUEST MD Dewey 04/02/2023728 6 : Right peripheral zone anterior prostate biopsy Permanent SURG PATH SURG PATH REQUEST Satya Whitmore MD 04/02/2023728 7 : Right peripheral zone posterior lateral prostate biopsy Permanent SURG PATH SURG PATH REQUEST Satya Whitmore MD 04/02/2023728 8 : Right peripheral zone posterior medial porstate biopsy Permanent SURG PATH SURG PATH REQUEST Satya Whitmore MD 04/02/2023728 9 : HEATH #1 Permanent SURG PATH SURG PATH REQUEST Satya Whitmore MD 04/02/2023738 Satya Whitmore MD April 02, 2023 7:46 AM [facility]02-06-2024 Hospital Discharge instructions* Discharge Instructions* Bhavana Mc MD - 04/02/2023 7:00 AM [...] or problems, call and ask the hospital emergency operator to page the urology resident manager of exhibitions and collections. If it is a question or problem that can wait until business hours, call the clinic phone number listed above when the clinic is open during weekdays, 8am-4pm. If you are unable to reach your doctor and it is a medical emergency call the [facility] Emergency Department at or dial 911. documented in this encounterOhioHealth [facility] History and physical note* Bhavana Mc MD - 04/02/2023 6:41 AM EST HPI Norman Gary is a 57 y.o. [...] current medication list which includes the following Facility- Administered Medications: cefazolin and lactated ringers. Allergies He [...] (Oral) Resp 16 Ht 1.753 m (5' 9) Wt 83.3 kg (183 lb 9.6 oz) SpO2 99% BMI 27.11 kg/m Smoking StatusNever Constitutional: NAD, WDWN. HEENT: NCAT. Conjunctivae normal. MMM. Cardiovascular: Regular rate. Pulmonary/Chest: Respirations are even and non-labored bilaterally. Abdominal: Soft. No distension, tenderness, masses or guarding. No CVA tenderness. Neurological: A + O x 3. Cranial Nerves II-XII grossly intact. Normal gait. Extremities: LIZBET x 4, Warm. No clubbing. No cyanosis. Skin: [place], warm and dry. No rashes noted. Psychiatric: [...] TRANSPERINEAL Bhavana Mc MD 04/02/2023 6:41 AM [facility] Work Phone: 1(107) 897-638302-06-2024 History and physical note* Bhavana Mc MD - 04/02/2023 6:41 AM EST HPI Norman Gary is a 57 y.o. [...] current medication list which includes the following Facility- Administered Medications: cefazolin and lactated ringers. Allergies He [...] (Oral) Resp 16 Ht 1.753 m (5' 9) Wt 83.3 kg (183 lb 9.6 oz) SpO2 99% BMI 27.11 kg/m Smoking StatusNever Constitutional: NAD, WDWN. HEENT: NCAT. Conjunctivae normal. MMM. Cardiovascular: Regular rate. Pulmonary/Chest: Respirations are even and non-labored bilaterally. Abdominal: Soft. No distension, tenderness, masses or guarding. No CVA tenderness. Neurological: A + O x 3. Cranial Nerves II-XII grossly intact. Normal gait. Extremities: LIZBET x 4, Warm. No clubbing. No cyanosis. Skin: [place], warm and dry. No rashes noted. Psychiatric: [...] MD 04/02/2023 6:41 AM documented in this encounterOS[facility] Surgical operation note* Cheryl Adorno RN - 04/02/2023 5:26 AM EST Patient denies hx of chemo and radiation. Patient denies metal or foreign objects in body. Patient denies hx of seizure or stroke. [facility]07-[facility] History of Present illness Narrative* Desiree Freeman, EXPELLER OPERATOR-CUSTOMER CONTACT SALES ASSOCIATE - 09/11/2022 11:00 AM EDT Images from the original note were not [...] prostate cancer age early 60s s/p prostatectomy andbladder cancer in his 80s (smoker). Brother dx [...] BPH, UTI, stones or other renal diseases. 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 Extremities: LIZBET. Warm. No cyanosis. Skin: Schubert, warm and dry. No rashes noted. Psychiatric: [...] the fibromuscular stroma concerning for a neoplastic [id number] Category 4 3. Patchy linear and bandlike [...] is 30 MRI Prostate (1.5T) 12/17/18 - [facility] Pathology: TRUS 11/17/20: A. Prostate, right lateral [...] 12.5. Prostate MRI on 08/29/22 noted a PI-RADS4 lesion. PSAD was 0.31. PSA on 08/29/22 was 9.35. If his PSA continues to rise he will need TP saturation biopsy. He would like more time to considerhis option of next steps. He will call in the fall if he would like to pursue a saturation bx or continue to monitor his PSA. Plan prn SELENA Brock * Marge Delacruz RN - 09/11/2022 11:00 AM EDT Mr. Gary is being seen here today for follow upon Mri results. He denies any changes to his health since last appointment. [facility] Diagnosis Elevated PSA Elevated prostate specific antigen (PSA) [facility] assessment information available [facility] Work Phone: Evaluation note* Diagnosis Elevated PSA Elevated prostate specific antigen (PSA) [facility]* Diagnosis Elevated PSA- Primary Elevated prostate specific antigen (PSA) [facility]* Diagnosis Onset Date Resolution Status Spondylolisthesis, lumbar region acute [facility] Work Phone: Evaluation note* Diagnosis Elevated PSA Elevated prostate specific antigen (PSA) [facility] Diagnosis Preop exam for internal medicine- Primary Other specified pre-operative examination Prostate cancer Malignant neoplasm of prostate Lumbar spondylosis Lumbosacral spondylosis without myelopathy Malignant neoplasm of prostate [facility] Diagnosis Malignant neoplasm of prostate [facility] Diagnosis Malignant neoplasm of prostate- Primary [facility] Diagnosis Malignant neoplasm of prostate- Primary [facility]* Attachments The following attachments cannot be sent through Care Everywhere. * Kegel: Pelvic Floor Exercises for Men (Radha Raymundo) (Welsh) documented in this [facility] note Author Seb Clarke [facility] Note Date/Time July 29, 2024 2:17p m [facility] [address] [address] OFFICE VISIT Date of Service: 07/29/24 1401 MR#: [id number] Acct: [id number] Name: NORMAN GARY Rep #: [id number] : 1965 From: Seb xavier DO Age/Sex: 58/M Location: [facility] Status: Signed Intake Vital Signs 06/16/24 14:02 07/29/24 14:05 Height 5 ft 9 in 5 ft 9 in Weight: 189 lb 5 oz BMI 27.9 BP 134/85 H Blood Pressure Location Rt brachial Position Sitting Respiration 16 Pulse 67 Pulse Source Monitor Temp 97.2 F L Temperature Source Temporal Artery Pulse Oximetry (%) 99 Oxygen Delivery Method room air Intake Visit Reasons: OTV Is patient in pain?: No Allergies No Known Allergies Allergy (Verified 07/29/24 14:04) Medications ?Medication ?Instructions ?Recorded ?Confirmed ?Type meloxicam 15 mg tablet 15 mg PO DAILY 01/11/23 04/04/21 History pantoprazole 20 mg tablet,delayed 20 mg PO QDAY 06/16/24 History release sildenafil 100 mg tablet 100 mg PO QDAY PRN 05/26/24 05/26/24 History propranolol 80 mg capsule,24 80 mg PO QDAY 07/29/24 History hr,extended release (Inderal LA) PFSH PFSH Medical History Spondylolisthesis Elevated PSA Vocal cord papilloma virus Tinnitus Prostatic adenocarcinoma Malignant neoplasm prostate Chalazion right upper eyelid Blepharitis of right upper eyelid History of prostate cancer GERD (gastroesophageal reflux disease) Hoarseness Home Medications ?Medication ?Instructions ?Recorded ?Last Taken ?Type meloxicam 15 mg tablet 15 mg PO DAILY 01/11/23 Unkn own History pantoprazole 20 mg tablet,delayed 20 mg PO QDAY Unknown History release sildenafil 100 mg tablet 100 mg PO QDAY PRN 05/26/24 Unknown History propranolol 80 mg capsule,24 80 mg PO QDAY 07/29/24 Un known History hr,extended release (Inderal LA) Allergy/AdvReac Type Severity Reaction Status Date / Time No Known Allergies Allergy Verified 07/29/24 14:04 Family History Mother Hypertension CAD (coronary artery disease) Soft tissue sarcoma Father Cancer Prostate cancer Bladder cancer Brother Colon cancer Prostate cancer Uncle Bladder cancer Surgical History History of prostate biopsy History of radical retropubic prostatectomy History of prostatectomy H/O colonoscopy Status post vasectomy Social History Smoking Status: Never smoker alcohol intake: current alcohol intake frequency: a few times a week Alcohol type: beer substance use type: does not use Diagnosis: Octavio Gary is a 58 year-old male diagnosed with 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 Plan: Plan was made to complete salvage radiation therapy consisting of 4600 cGy delivered to the at risk pelvic areas and prostate fossa followed by a boost delivered to the prostate fossa consisting of 2200 cGy delivered in 11 fractions. This brought the total dose to the prostate fossa to 6800 cGy in 34 fractions. Treatment Data: Treatment Site: Prostate Fossa and Pelvis Current total dose/Total dose planned: 600 cGy / 4600 cGy, 0 cGy / 2200 cGy Fraction number: , 0 Chemotherapy: ADT Subjective: Pain: 0 / 10 Fatigue: none Skin: no erythema, rash, desquamation GI: no diarrhea/constipation. No rectal pain or bleeding. No bloating or increased gas : no increase urinary symptoms. No dysuria or hematuria Objective: Weight: 189 lbs Physical Exam: Gen: NAD Skin: no erythema, rash, desquamation. Assessment & Plan Assessment/Plan (1) Biochemically recurrent castration-sensitive adenocarcinoma of prostate: PLAN: Plan Assessment: Tolerating treatment well overall.? I reviewed and approved all treatment associated imaging. No treatment associated toxicities are noted at this time Plan: Continue treatment as planned.? I have reviewed potential treatment associated toxicities as well as timing for resolution and management. Skin: Skin care reviewed, continue lotion prn Follow up next week or sooner if needed. Thank you for allowing me to participate in the management and care of your patient. If I may answer any questions in the interim, please do not hesitate tocontact me at any time. Seb Clarke DO, MS Footwear Sales Associate, Department of Radiation Oncology [facility] Coding Level of Care Code Radiation Tx Management x5 Diagnoses Biochemically recurrent castration-sensitive adenocarcinoma of prostate C61; R97.21; Z19.1 07/29/24 1491 <Electronically signed by Seb Clarke DO> Date _ Seb Clarke DO Cosigner Signature: Date (if applicable) CC: ~ [facility] Work Phone: Progress note Author Seb Clarke [facility] Note Date/Time September 02, 2024 2:12p m [facility] [place] [address] OFFICE VISIT Date of Service: 09/02/24 1352 MR#: [id number] Acct: [id number] Name: NORMAN GARY Rep #: [id number] : 1965 From: Seb xavier DO Age/Sex: 59/M Location: [facility] Status: Signed Intake Vital Signs 06/16/24 14:02 08/26/24 13:44 09/02/24 14:01 Height 5 ft 9 in 5 ft 9 in 5 ft 9 in Weight: 188 lb 1 oz 188 lb 9 oz BMI 27.8 27.8 BP 108/78 136/81 H Blood Pressure Location Rt brachial Rt brachial Position Sitting Sitting Respiration 16 18 Pulse 84 67 Pulse Source Monitor Monitor Temp 97.4 F L 97.4 F L Temperature Source Temporal Artery Temporal Artery Pulse Oximetry (%) 99 100 Oxygen Delivery Method room air room air Intake Visit Reasons: OTV Is patient in pain?: No Allergies No Known Allergies Allergy (Verified 09/02/24 14:01) Medications ?Medication ?Instructions ?Recorded ?Confirmed ?Type meloxicam 15 mg tablet 15 mg PO DAILY 01/11/2311/19 History pantoprazole 20 mg tablet,delayed 20 mg PO QDAY 09/02/24 History release sildenafil 100 mg tablet 100 mg PO QDAY PRN 05/26/24 09/02/24 History propranolol 80 mg capsule,24 80 mg PO QDAY 07/29/24 History hr,extended release (Inderal LA) [facility] Medical History Spondylolisthesis Elevated PSA Vocal cord papilloma virus Tinnitus Prostatic adenocarcinoma Malignant neoplasm prostate Chalazion right upper eyelid Blepharitis of right upper eyelid History of prostate cancer GERD (gastroesophageal reflux disease) Hoarseness Home Medications ?Medication ?Instructions ?Recorded ?Last Taken ?Type meloxicam 15 mg tablet 15 mg PO DAILY 01/11/23 Unkn own History pantoprazole 20 mg tablet,delayed 20 mg PO QDAY Unknown History release sildenafil 100 mg tablet 100 mg PO QDAY PRN 05/26/24 Unknown History propranolol 80 mg capsule,24 80 mg PO QDAY 07/29/24 Un known History hr,extended release (Inderal LA) Allergy/AdvReac Type Severity Reaction Status Date / Time No Known Allergies Allergy Verified 09/02/24 14:01 Family History Mother Hypertension CAD (coronary artery disease) Soft tissue sarcoma Father Cancer Prostate cancer Bladder cancer Brother Colon cancer Prostate cancer Uncle Bladder cancer Surgical History History of prostate biopsy History of radical retropubic prostatectomy History of prostatectomy H/O colonoscopy Status post vasectomy Social History Smoking Status: Never smoker alcohol intake: current alcohol intake frequency: a few times a week Alcohol type: beer substance use type: does not use Diagnosis Octavio Gary is a 59 year-old male diagnosed with 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 Plan: Plan was made to complete salvage radiation therapy consisting of 4600 cGy delivered to the at risk pelvic areas and prostate fossa followed by a boost delivered to the prostate fossa consisting of 2200 cGy delivered in 11 fractions. This brought the total dose to the prostate fossa to 6800 cGy in 34 fractions. Treatment Data: Treatment Site: Prostate Fossa and Pelvis Current total dose/Total dose planned: 4200 cGy / 4600 cGy, 0 cGy / 2200 cGy Fraction number: , Chemotherapy: ADT Subjective: Pain: 0 / 10 Fatigue: mild since ADT; mild increase since RT Skin: no erythema, rash, desquamation GI: increase diarrhea pretty stable, 4-6 per day, imodium 3-4 per day. No rectal pain or bleeding. No bloating or increased gas : not much increase urinary symptoms. some frequency/urgency. No dysuria or hematuria Objective: Weight: 188 lbs 9 oz Physical Exam: Gen: NAD Skin: no erythema, rash, desquamation. Assessment & Plan Assessment/Plan (1) Biochemically recurrent castration-sensitive adenocarcinoma of prostate: PLAN: Plan Assessment: Tolerating treatment well overall.? I reviewed and approved all treatment associated imaging. Diarrhea, grade 1, imodium and electrolyte replacement Fatigue: grade 1 hot flashes mild Plan: Continue treatment as planned.? I have reviewed potential treatment associated toxicities as well as timing for resolution and management. Follow up next week or sooner if needed. Thank you for allowing me to participate in the management and care of your patient. If I may answer any questions in the interim, please do not hesitate tocontact me at any time. Seb Clarke DO, MS Footwear Sales Associate, Department of Radiation Oncology [facility] Coding Level of Care Code Radiation Tx Management x5 Diagnoses Biochemically recurrent castration-sensitive adenocarcinoma of prostate C61; R97.21; Z19.1 09/02/24 1412 <Electronically signed by Seb Clarke DO> Date _ eSb Clarke DO Cosigner Signature: Date (if applicable) CC: ~ [facility] Work Phone: Reason for referral (narrative)* Unlisted Procedure Code (Routine) - New Request Specialty Diagnoses / Procedures Referred By Contac t Referred To Contact Procedures PLATELET MONITORING PER PROTOCOL Satya Whitmore MD [address] [place] [address] Referral ID Status Reason Start Date Expiration Date V isits Requested Visits Authorized [id number] New Request 07/29/2023 08/22/2024 1 1 * Unlisted Procedure Code (Routine) - New Request Specialty Diagnoses / Procedures Referred By Contac t Referred To Contact Procedures DVT/VTE RISK ASSESSMENT Satya Whitmore MD [address] [place] [address] Referral ID Status Reason Start Date Expiration Date V isits Requested Visits Authorized [id number] New Request 07/29/2023 08/22/2024 1 1 [facility] (narrative)No reason for referral information availableWMercy [facility] Work Phone: Summary Purpose Family History No Family History Records Found Relationship Condition Age at Onset Recorded Date/T darlene mother Hypertension Unknown Coronary artery disease Unknown father Malignant neoplasm Unknown brother Malignant neoplasm of colon Unknown Relationship Condition Age at Onset Recorded Date/T darlene mother Hypertension Unknown Coronary artery disease Unknown Sarcoma of soft tissue Unknown father Malignant neoplasm Unknown Malignant neoplasm of prostate Unknown Malignant neoplasm of urinary bladder Unk nown brother Malignant neoplasm of colon Unknown uncle Malignant neoplasm of urinary bladder Unk nown Advance Directives No Advanced Directives Records Found Advance Directive Response Recorded Date/ Time Advance Directives No May 25, 2 016 7:16am Living Will No October 21 8 10:06am Power of Tar Roofer No October 21, 018 10:06am Advance Directive Response Recorded Date/ Time Advance Directives No May 25, 2 016 6:16am Living Will No October 21 8 9:06am Power of Tar Roofer No October 21, 018 9:06am Latest Code Status on File Code Status Date Activated Date Inactivated Comments Full Code 04/02/2023 5:14 AM Date Activated Date Inactivated Comments 04/02/2023 5:14 AM Date Activated Date Inactivated Comments 07/29/2023 5:30 AM 07/29/2023 3:37 PM Date Activated Date Inactivated Comments 04/02/2023 5:14 AM 07/29/2023 5:30 AM Date Activated Date Inactivated Comments 07/29/2023 5:30 AM 07/29/2023 3:37 PM Date Activated Date Inactivated Comments 04/02/2023 5:14 AM 07/29/2023 5:30 AM Advance Directive Response Recorded Date/ Time Advance Directives No May 25, 2 016 7:16am Reason for Referral Specialty Diagnoses / Procedures Referred By Contac t Referred To Contact Diagnoses Elevated PSA Procedures MRI PROSTATE WITH AND WITHOUT CONTRAST UT MRI, PELVIS, SHARRIO Judy Quiroga, EXPELLER OPERATOR-CUSTOMER CONTACT SALES ASSOCIATE [address] [place] [address] Referral ID Status Reason Start Date Expiration Date Visits Re quested Visits Authorized [id number] Closed 09/20/2020 10/15/2021 1 1 Specialty Diagnoses / Procedures Referred By Contac t Referred To Contact Diagnoses Elevated PSA Procedures MRI PROSTATE WITH AND WITHOUT CONTRAST UT MRI, PELVIS, Desiree Arnett, EXPELLER OPERATOR-CUSTOMER CONTACT SALES ASSOCIATE 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 Chief Complaint 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 E ORDER LUMBAR SPINE room 1 SPONDYLOLISTHESIS LUMBAR REGION Reason for Visit Spondylolisthesis, l umbar region Chief Complaint LUMBAR SPINE room 1 SPONDYLOLISTHESIS LUMBAR REGION PYLARIFY Reason for Visit Spondylolisthesis, l umbar region Chief Complaint Admit Date FEET NUMBNESS April 08, 2024 7:02am FEET NUMBNESS April 08, 2024 9:36am PSA May 18, 2024 10: 54am R EYE SWELLING May 19, 2024 1:3 5pm Reason for Visit Admit Date Blepharitis of right upper eyelid May 19, 2024 1:35pm Chalazion right upper eyelid May 19, 2024 1:35pm Chief Complaint Admit Date FEET NUMBNESS April 08, 2024 7:02am FEET NUMBNESS April 08, 2024 9:36am PSA May 18, 2024 10: 54am R EYE SWELLING May 19, 2024 1:3 5pm PLYARIFY June 09, 2024 7:2 1am Chief Complaint Admit Date FEET NUMBNESS April 08, 2024 7:02am FEET NUMBNESS April 08, 2024 9:36am PSA May 18, 2024 10: 54am R EYE SWELLING May 19, 2024 1:3 5pm PLYARIFY June 09, 2024 7:2 1am PROSTATE CA June 16, 2024 1:4 5pm . July 27, 2024 3:20p m OTV July 29, 2024 1:55p m Reason for Visit Admit Date Blepharitis of right upper eyelid May 19, 2024 1:35pm Chalazion right upper eyelid May 19, 2024 1:35pm 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 June 16, 2024 1:45pm 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 July 29, 2024 1:55pm Chief Complaint Admit Date FEET NUMBNESS April 08, 2024 7:02am FEET NUMBNESS April 08, 2024 9:36am PSA May 18, 2024 10: 54am R EYE SWELLING May 19, 2024 1:3 5pm PLYARIFY June 09, 2024 7:2 1am PROSTATE CA June 16, 2024 1:4 5pm . July 27, 2024 3:20p m OTV July 29, 2024 1:55p m OTV August 05, 2024 1:50 pm Reason for Visit Admit Date Blepharitis of right upper eyelid May 19, 2024 1:35pm Chalazion right upper eyelid May 19, 2024 1:35pm 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 June 16, 2024 1:45pm 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 July 29, 2024 1:55pm 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 August 05, 2024 1:50pm Chief Complaint Admit Date PSA May 18, 2024 10: 54am R EYE SWELLING May 19, 2024 1:3 5pm PLYARIFY June 09, 2024 7:2 1am PROSTATE CA June 16, 2024 1:4 5pm . July 27, 2024 3:20p m OTV July 29, 2024 1:55p m OTV August 05, 2024 1:50 pm OTV August 12, 2024 2:02 pm Reason for Visit Admit Date Blepharitis of right upper eyelid May 19, 2024 1:35pm Chalazion right upper eyelid May 19, 2024 1:35pm 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 June 16, 2024 1:45pm 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 July 29, 2024 1:55pm 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 August 05, 2024 1:50pm 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 August 12, 2024 2:02pm Chief Complaint Admit Date PSA May 18, 2024 10: 54am R EYE SWELLING May 19, 2024 1:3 5pm PLYARIFY June 09, 2024 7:2 1am PROSTATE CA June 16, 2024 1:4 5pm OTV July 29, 2024 1:55p m OTV August 05, 2024 1:50 pm OTV August 12, 2024 2:02 pm OTV August 19, 2024 9:57 am Chief Complaint Admit Date PSA May 18, 2024 10: 54am R EYE SWELLING May 19, 2024 1:3 5pm PLYARIFY June 09, 2024 7:2 1am PROSTATE CA June 16, 2024 1:4 5pm OTV July 29, 2024 1:55p m OTV August 05, 2024 1:50 pm OTV August 12, 2024 2:02 pm OTV August 19, 2024 9:57 am . August 26, 2024 1:40p m OTV August 26, 2024 1:44p m Reason for Visit Admit Date Blepharitis of right upper eyelid May 19, 2024 1:35pm Chalazion right upper eyelid May 19, 2024 1:35pm 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 June 16, 2024 1:45pm 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 July 29, 2024 1:55pm 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 August 05, 2024 1:50pm 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 August 12, 2024 2:02pm 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 August 19, 2024 9:57am Chief Complaint Admit Date PSA May 18, 2024 10: 54am R EYE SWELLING May 19, 2024 1:3 5pm PLYARIFY June 09, 2024 7:2 1am PROSTATE CA June 16, 2024 1:4 5pm OTV July 29, 2024 1:55p m OTV August 05, 2024 1:50 pm OTV August 12, 2024 2:02 pm OTV August 19, 2024 9:57 am OTV August 26, 2024 1:44p m . September 02, 2024 1:40p m OTV September 02, 2024 1:51p m Reason for Visit Admit Date Blepharitis of right upper eyelid May 19, 2024 1:35pm Chalazion right upper eyelid May 19, 2024 1:35pm 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 June 16, 2024 1:45pm 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 July 29, 2024 1:55pm 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 August 05, 2024 1:50pm 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 August 12, 2024 2:02pm 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 August 19, 2024 9:57am 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 August 26, 2024 1:44pm 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 September 02, 2024 1:51pm Chief Complaint Admit Date PSA May 18, 2024 10: 54am R EYE SWELLING May 19, 2024 1:3 5pm PLYARIFY June 09, 2024 7:2 1am PROSTATE CA June 16, 2024 1:4 5pm OTV July 29, 2024 1:55p m OTV August 05, 2024 1:50 pm OTV August 12, 2024 2:02 pm OTV August 19, 2024 9:57 am OTV August 26, 2024 1:44p m OTV September 02, 2024 1:51p m . 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 August 19, 2024 9:57am 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 August 26, 2024 1:44pm 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 September 14, 2024 1:40 pm Additional Source Comments (unrecognized sect ion and content) No Status Records FoundNo Status Records FoundNo Status Records Found INFORMATION SOURCE (unrecogn ized section and content) DATE CREATED AUTHOR 03/14/2019 [facility] DATE CREATED AUTHOR AUTHOR'S ORGANIZ ATION 09/15/2024 [facility] DATE CREATED AUTHOR AUTHOR'S ORGANIZ ATION 09/16/[address] [facility] Reason for Visit (unrecogniz ed section and content) Specialty Diagnoses / Procedures Referred By Jaron t Referred To Contact Diagnoses Elevated PSA Procedures MRI PROSTATE WITH AND WITHOUT CONTRAST UT MRI, PELVIS, COMBO Judy Quiroga, EXPELLER OPERATOR-CUSTOMER CONTACT SALES ASSOCIATE [address] [place] [address] Referral ID Status Reason Start Date Expiration Date Visits Re quested Visits Authorized [id number] Closed 09/20/2020 10/15/2021 1 1 Specialty Diagnoses / Procedures Referred By Timboac t Referred To Contact Diagnoses Elevated PSA Procedures MRI PROSTATE WITH AND WITHOUT CONTRAST UT MRI, PELVIS, Desiree Arnett, EXPELLER OPERATOR-CUSTOMER CONTACT SALES ASSOCIATE [address] [place] [address] Referral ID Status Reason Start Date Expiration Date Visits Re quested Visits Authorized [id number] Closed 05/29/2022 06/23/2023 1 1 Reason Comments Follow-up Specialty Diagnoses / Procedures Referred By Jaron t Referred To Contact Diagnoses Elevated PSA Elevated PSA [R97.20] Procedures UT BIOPSY OF PROSTATE,NEEDLE,TRANSPERINEAL BX PROSTATE NEEDLE TRANSPERINEAL Satya Whitmore MD [address] [place], [place] [id number] [facility] [address] [place] [address] Referral ID Status Reason Start Date Expiration Date Visits Re quested Visits Authorized [id number] 1 1 Reason Comments Pre-operative Consultation Specialty Diagnoses / Procedures Referred By Jaron greer Referred To Contact PreOp Diagnoses Malignant neoplasm of prostate Satya Whitmore MD [address] [place] [id number] Referral ID Status Reason Start Date Expiration Date V isits Requested Visits Authorized [id number] New Request 05/03/2023 05/27/2024 1 1 Specialty Diagnoses / Procedures Referred By Jaron t Referred To Contact Diagnoses Malignant neoplasm of prostate Malignant neoplasm of prostate [C61] Procedures UT LAPS SURG BILATERAL TOTAL PELVIC LMPHADECTOMY UT LAPS SURG [id number] RPBIC RAD W/NRV SPARING ROBOT LYMPHADENECTOMY PELVIC TOTAL ROBOTIC PROSTATECTOMY RETROPUBIC RADICAL ROBOTIC Satya Whitmore MD [address] [place] [id number] [facility] [address] [place] [address] Referral ID Status Reason Start Date Expiration Date Visits Re quested Visits Authorized [id number] 1 1 Reason Comments Cystogram Reason Comments Follow-up Prostate Cancer Doubling psa and wan ts to discuss that. Care Teams (unrecognized sec tion and content) Theatre Manager Relationship Specialty Start Date End Date Chichi Argueta MD [address] [facility] [address] [place] [address] PCP - General Family Medicine 07/27/20 Claude Patel MD [address] [id number] Referring Provider Urology 07/27/20 Team Status: Active Member Role Status Dates Dr. Chichi Argueta MD Family Provider Active Dr. Chichi Argueta MD Primary Care Provider Active Team Status: Inactive Member Role Status Dates Dr. Chichi Argueta MD Primary Care Provider Active ZOHRA MAST Attending Provider, Referring Provider Ac tive Theatre Manager Relationship Specialty Start Date End Date Chichi Argueta MD [address] [facility] [address] [place] [phone] PCP - General Family Medicine 07/27/20 Claude Patel MD [address] [phone] Referring Provider Urology 07/27/20 Theatre Manager Relationship Specialty Start Date End Date Chichi Argueta MD [address] [facility] [address] [place] [address] PCP - General Family Medicine 07/27/20 Claude Patel MD [address] [phone] Referring Provider Urology 07/27/20 Team Status: Active Member Role Status Dates Dr. Chichi Argueta MD Primary Care Provider Active Health Risk Assessment Attending Provider, Referring P alondra Active Team Status: Inactive Member Role Status Dates Dr. Chichi Argueta MD Primary Care Pr ovider, Attending Provider, Referring Provider Active Team Status: Inactive Member Role Status Dates Dr. Chichi Argueta MD Primary Care Provider, Referr ing Provider Active Dr. Thanh Dixon MD Attending Provider Active Team Status: Inactive Member Role Status Dates Dr. Chichi Argueta MD Primary Care Provider Active Dr. Andrei Francois MD Attending Provider Active Team Status: Inactive Member Role Status Dates Dr. Chichi Argueta MD Primary Care Provider Active Dr. Thanh Dixon MD Attending Provider, Referring Pr ovider Active Theatre Manager Relationship Specialty Start Date End Date Chichi Argueta MD [address] [place] [phone] PCP - General Family Medicine 07/27/20 Claude Patel MD 546 [facility] [address] [place], [place] [phone] Referring Provider Urology 07/27/20 Team Status: Inactive Member Role Status Dates Dr. Chichi Argueta MD Primary Care Provider Active MYRANDA HERNADEZ Attending Provider, Referring Provider Ac tive Theatre Manager Relationship Specialty Start Date End Date Chichi Argueta MD [address] [place] [phone] PCP - General Family Medicine 07/27/20 Claude Patel MD [address] [facility] [address] [place], [place] [phone] Referring Provider Urology 07/27/20 Theatre Manager Relationship Specialty Start Date End Date Chichi Argueta MD [address] [place] [address] PCP - General Family Medicine 07/27/20 Claude Patel MD 546 [facility] [address] [place], [place] [address] Referring Provider Urology 07/27/20 Theatre Manager Relationship Specialty Start Date End Date Chichi Argueta MD [address] [facility] [address] [place] [phone] PCP - General Family Medicine 07/27/20 Claude Patel MD 546 [facility] [address] [place], [place] [phone] Referring Provider Urology 07/27/20 Theatre Manager Relationship Specialty Start Date End Date Chichi Argueta MD [address] [facility] [address] [place] [phone] PCP - General Family Medicine 07/27/20 Claude Patel MD 546 [facility] [address] [place], [place] [phone] Referring Provider Urology 07/27/20 Team Status: Active Member Role Status Dates Dr. Chichi Argueta MD Primary Care Provider Active Team Status: Inactive Member Role Status Dates Dr. Chichi Argueta MD Primary Care Provider Active Start: February 06, 2024 End: February 06, 2024 MYRANDA HERNADEZ Attending Provider Active Start: 2023 End: February 06, 2024 MYRANDA HERNADEZ Referring Provider Active Start: ashtyn 2023 End: February 06, 2024 Team Status: Inactive Member Role Status Dates Dr. Chichi Argueta MD Primary Care Provider Active Start: April 08, 2024 End: April 08, 2024 Dr. Kerry Atkins MD Attending Provider Active Start: April 08, 2024 End: April 08, 2024 Dr. Kerry Atkins MD Referring Provider Active Start: April 08, 2024 End: April 08, 2024 Team Status: Active Member Role Status Dates Dr. Chichi Argueta MD Primary Care Provider Active Start: April 08, 2024 Dr. Kerry Atkins MD Referring Provider Active Start: April 08, 2024 Dr. Kerry Atkins MD Other Provider Active Star t: April 08, 2024 Dr. Frances Stafford MD Attending Provider Active S tart: April 08, 2024 Team Status: Inactive Member Role Status Dates Dr. Chichi Argueta MD Primary Care Provider Active Start: May 18, 2024 End: May 18, 2024 Dr. Satya Whitmore MD Attending Provider Active S tart: May 18, 2024 End: May 18, 2024 Dr. Satya Whitmore MD Referring Provider Active S tart: May 18, 2024 End: May 18, 2024 Team Status: Inactive Member Role Status Dates Dr. Chichi Argueta MD Primary Care Provider Active Start: May 19, 2024 End: May 19, 2024 Dr. Chichi Argueta MD Referring Provider Active Start: May 19, 2024 End: May 19, 2024 Paco LARIOS, PA Attending Provider Active Start: May 19, 2024 End: May 19, 2024 Team Status: Inactive Member Role Status Dates Dr. Chichi Argueta MD Primary Care Provider Active Start: June 09, 2024 End: June 09, 2024 Dr. Satya Whitmore MD Attending Provider Active S tart: June 09, 2024 End: June 09, 2024 Dr. Satya Whitmore MD Referring Provider Active S tart: June 09, 2024 End: June 09, 2024 Team Status: Inactive Member Role Status Dates Dr. Chichi Argueta MD Primary Care Provider Active Start: June 16, 2024 End: June 16, 2024 Dr. Seb Clarke DO Attending Provider Active Start: June 16, 2024 End: June 16, 2024 Dr. Satya Whitmore MD Referring Provider Active S tart: June 16, 2024 End: June 16, 2024 Team Status: Active Member Role Status Dates Dr. Chichi Argueta MD Primary Care Provider Active Start: July 14, 2024 Dr. Seb Clarke DO Attending Provider Active Start: July 14, 2024 Team Status: Active Member Role Status Dates Dr. Chichi Argueta MD Primary Care Provider Active Start: July 23, 2024 Dr. Seb Clarke DO Attending Provider Active Start: July 23, 2024 Team Status: Active Member Role Status Dates Dr. Chichi Argueta MD Primary Care Provider Active Start: July 27, 2024 Dr. Seb Clarke DO Attending Provider Active Start: July 27, 2024 Dr. Seb Clarke DO Referring Provider Active Start: July 27, 2024 Team Status: Inactive Member Role Status Dates Dr. Chichi Argueta MD Primary Care Provider Active Start: July 29, 2024 End: July 29, 2024 Dr. Chichi Argueta MD Referring Provider Active Start: July 29, 2024 End: July 29, 2024 Dr. Seb Clarke DO Attending Provider Active Start: July 29, 2024 End: July 29, 2024 Team Status: Inactive Member Role Status Dates Dr. Chichi Argueta MD Primary Care Provider Active Start: August 05, 2024 End: August 05, 2024 Dr. Chichi Argueta MD Referring Provider Active Start: August 05, 2024 End: August 05, 2024 Dr. Royer Bey MD Attending Provider Active Start: August 05, 2024 End: August 05, 2024 Team Status: Inactive Member Role Status Dates Dr. Chichi Argueta MD Primary Care Provider Active Start: August 12, 2024 End: August 12, 2024 Dr. Seb Clarke DO Attending Provider Active Start: August 12, 2024 End: August 12, 2024 Team Status: Active Member Role Status Dates Dr. Chichi Argueta MD Primary Care Provider Active Start: July 14, 2024 Dr. Seb Clarke DO Attending Provider Active Start: July 14, 2024 Dr. Seb Clarke DO Referring Provider Active Start: July 14, 2024 Team Status: Inactive Member Role Status Dates Dr. Chichi Argueta MD Primary Care Provider Active Start: August 19, 2024 End: August 19, 2024 Dr. Chichi Argueta MD Referring Provider Active Start: August 19, 2024 End: August 19, 2024 Dr. Seb Clarke DO Attending Provider Active Start: August 19, 2024 End: August 19, 2024 Team Status: Active Member Role/Relationship Status Dates Dr. Chichi Argueta MD Primary Care Provider Active Team Status: Inactive Member Role/Relationship Status Dates Dr. Chichi Argueta MD Primary Care Provider Active Start: May 18, 2024 End: May 18, 2024 Dr. Satya Whitmore MD Attending Provider Active S tart: May 18, 2024 End: May 18, 2024 Dr. Satya Whitmore MD Referring Provider Active S tart: May 18, 2024 End: May 18, 2024 Team Status: Inactive Member Role/Relationship Status Dates Dr. Chichi Argueta MD Primary Care Provider Active Start: May 19, 2024 End: May 19, 2024 Dr. Chichi Argueta MD Referring Provider Active Start: May 19, 2024 End: May 19, 2024 Paco Blount PA, PA Attending Provider Active Start: May 19, 2024 End: May 19, 2024 Team Status: Inactive Member Role/Relationship Status Dates Dr. Chichi Argueta MD Primary Care Provider Active Start: June 09, 2024 End: June 09, 2024 Dr. Satya Whitmore MD Attending Provider Active S tart: June 09, 2024 End: June 09, 2024 Dr. Satya Whitmore MD Referring Provider Active S tart: June 09, 2024 End: June 09, 2024 Team Status: Inactive Member Role/Relationship Status Dates Dr. Chichi Argueta MD Primary Care Provider Active Start: June 16, 2024 End: June 16, 2024 Dr. Seb Clarke DO Attending Provider Active Start: June 16, 2024 End: June 16, 2024 Dr. Satya Whitmore MD Referring Provider Active S tart: June 16, 2024 End: June 16, 2024 Team Status: Active Member Role/Relationship Status Dates Dr. Chichi Argueta MD Primary Care Provider Active Start: July 14, 2024 Dr. Seb Clarke DO Attending Provider Active Start: July 14, 2024 Dr. Seb Clarke DO Referring Provider Active Start: July 14, 2024 Team Status: Active Member Role/Relationship Status Dates Dr. Chichi Argueta MD Primary Care Provider Active Start: July 23, 2024 Dr. Seb Clarke DO Attending Provider Active Start: July 23, 2024 Dr. Seb Clarke DO Referring Provider Active Start: July 23, 2024 Team Status: Inactive Member Role/Relationship Status Dates Dr. Chichi Argueta MD Primary Care Provider Active Start: July 29, 2024 End: July 29, 2024 Dr. Chichi Argueta MD Referring Provider Active Start: July 29, 2024 End: July 29, 2024 Dr. Seb Clarke DO Attending Provider Active Start: July 29, 2024 End: July 29, 2024 Team Status: Inactive Member Role/Relationship Status Dates Dr. Chichi Argueta MD Primary Care Provider Active Start: August 05, 2024 End: August 05, 2024 Dr. Chichi Argueta MD Referring Provider Active Start: August 05, 2024 End: August 05, 2024 Dr. Royer Bey MD Attending Provider Active Start: August 05, 2024 End: August 05, 2024 Team Status: Inactive Member Role/Relationship Status Dates Dr. Chichi Argueta MD Primary Care Provider Active Start: August 12, 2024 End: August 12, 2024 Dr. Seb Clarke DO Attending Provider Active Start: August 12, 2024 End: August 12, 2024 Team Status: Inactive Member Role/Relationship Status Dates Dr. Chichi Argueta MD Primary Care Provider Active Start: August 19, 2024 End: August 19, 2024 Dr. Chichi Argueta MD Referring Provider Active Start: August 19, 2024 End: August 19, 2024 Dr. Seb Clarke DO Attending Provider Active Start: August 19, 2024 End: August 19, 2024 Team Status: Active Member Role/Relationship Status Dates Dr. Chichi Argueta MD Primary Care Provider Active Start: August 26, 2024 Dr. Seb Clarke DO Attending Provider Active Start: August 26, 2024 Dr. Seb Clarke DO Referring Provider Active Start: August 26, 2024 Team Status: Inactive Member Role/Relationship Status Dates Dr. Cihchi Argueta MD Primary Care Provider Active Start: August 26, 2024 End: August 26, 2024 Dr. Chichi Argueta MD Referring Provider Active Start: August 26, 2024 End: August 26, 2024 Dr. Seb Clarke DO Attending Provider Active Start: August 26, 2024 End: August 26, 2024 Team Status: Inactive Member Role/Relationship Status Dates Dr. Chichi Argueta MD Primary Care Provider Active Start: August 26, 2024 End: August 26, 2024 Dr. Chichi Argueta MD Referring Provider Active Start: August 26, 2024 End: August 26, 2024 Dr. Seb Clarke DO Attending Provider Active Start: August 26, 2024 End: August 26, 2024 Team Status: Active Member Role/Relationship Status Dates Dr. Chichi Argueta MD Primary Care Provider Active Start: September 02, 2024 Dr. Seb Clarke DO Attending Provider Active Start: September 02, 2024 Dr. Seb Clarke DO Referring Provider Active Start: September 02, 2024 Team Status: Inactive Member Role/Relationship Status Dates Dr. Chichi Argueta MD Primary Care Provider Active Start: September 02, 2024 End: September 02, 2024 Dr. Seb Clarke DO Attending Provider Active Start: September 02, 2024 End: September 02, 2024 Team Status: Inactive Member Role/Relationship Status Dates Dr. Chichi Argueta MD Primary Care Provider Active Start: July 29, 2024 End: July 29, 2024 Dr. Seb Clarke DO Attending Provider Active Start: July 29, 2024 End: July 29, 2024 Dr. Seb Clarke DO Referring Provider Active Start: July 29, 2024 End: July 29, 2024 Team Status: Inactive Member Role/Relationship Status Dates Dr. Chichi Argueta MD Primary Care Provider Active Start: August 05, 2024 End: August 05, 2024 Dr. Seb Clarke DO Attending Provider Active Start: August 05, 2024 End: August 05, 2024 Dr. Seb Clarke DO Referring Provider Active Start: August 05, 2024 End: August 05, 2024 Team Status: Inactive Member Role/Relationship Status Dates Dr. Chichi Argueta MD Primary Care Provider Active Start: September 02, 2024 End: September 02, 2024 Dr. Seb Clarke DO Attending Provider Active Start: September 02, 2024 End: September 02, 2024 Team Status: Active Member Role/Relationship Status Dates Dr. Chichi Argueta MD Primary Care Provider Active Start: September 09, 2024 Dr. Seb Clarke DO Attending Provider Active Start: September 09, 2024 Dr. Seb Clarke DO Referring Provider Active Start: September 09, 2024 Team Status: Inactive Member Role/Relationship Status Dates Dr. Chichi Argueta MD Primary Care Provider Active Start: September 09, 2024 End: September 09, 2024 Dr. Seb Clarke DO Attending Provider Active Start: September 09, 2024 End: September 09, 2024 Team Status: Inactive Member Role/Relationship Status Dates Dr. Chichi Argueta MD Primary Care Provider Active Start: September 09, 2024 End: September 09, 2024 Dr. Seb Clarke DO Attending Provider Active Start: September 09, 2024 End: September 09, 2024 Team Status: Inactive Member Role/Relationship Status Dates Dr. Chichi Argueta MD Primary Care Provider Active Start: September 14, 2024 End: September 14, 2024 Dr. Chichi Argueta MD Referring Provider Active Start: September 14, 2024 End: September 14, 2024 Dr. Seb Clarke DO Attending Provider Active Start: September 14, 2024 End: September 14, 2024 Team Status: Active Member Role/Relationship Status Dates Dr. Chichi Argueta MD Primary Care Provider Active Start: September 14, 2024 Dr. Seb Clarke DO Attending Provider Active Start: September 14, 2024 Dr. Seb Clarke DO Referring Provider Active Start: September 14, 2024 Goals (unrecognized section and content) Goals may be documented in a n alternate sectionGoals may be documented in an alternate sectionGoals may be documented in an alternate sectionGoals may be documented in an alternate sectionGoals may be documented in an alternate sectionGoals may be documented in an alternate sectionGoals may be documented in an alternate sectionGoals may be documented in an alternate sectionGoals may be documented in an alternate sectionGoals may be documented in an alternate sectionGoals may be documented in an alternate sectionGoals may be documented in an alternate sectionGoals may be documented in an alternate sectionGoals may be documented in an alternate sectionGoals may be documented in an alternate section Scheduled Active and Recently Administ ered Medications (unrecognized section and content) Medication Order 03/31/2023 04/01/2023 04/02/2023 Acetaminophen (TYLENOL) tablet 650 mg 650 mg, Oral, EVERY 6 HOURS, First dose on Sat04/02/23 at 0845, Until Discontinued, Maximum dose of acetaminophen is 4000 mg from all sources in 24 hours., Post-op/Post-Proc 0845 (Canceled Entry - Provider: System Discharge - Comment: Automatically canceled at discontinue of medication order) Ibuprofen (MOTRIN) tablet 600 mg 600 mg, Oral, EVERY 6 HOURS, First dose on Sat04/02/23 at 0845, Until Discontinued, Give with food, Post-op/Post-Proc 0845 (Canceled Entry - Provider: System Discharge - Comment: Automatically canceled at discontinue of medication order) Continuous Medication Order 03/31/2023 04/01/2023 04/02/2023 Lactated [...] Intra-op/Intra-Proc 0743 (Given - Provid er: Satya Whitmore MD - Comment: Other= perineum) ceFAZolin (ANCEF) 2 g in dextrose 100 mL premix IVPB 2 g, Intravenous, Administer over 30 Minutes, 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 Maximum of 40mg/day., Recovery Scheduled Medication Order 07/28/2023 07/29/2023 07/30/2023 Acetaminophen (TYLENOL) tablet 975 mg (CANCELED) 975 mg, Oral, 3 TIMES DAILY, First dose on Sat07/29/23 at 1545, Until Discontinued, Maximum dose of acetaminophen is 4000 mg from all sources in 24 hours., Post-op/Post-Proc 165 (Given - Provider: Emily Fink RN) Acetaminophen (TYLENOL) tablet 975 mg 975 mg, Oral, EVERY 8 HOURS NON-STANDARD, First dose (after last modification) on Sat07/30/23 at 0000, Until Discontinued, Maximum dose of acetaminophen is 4000 mg from all sources in 24 hours., Post-op/Post-Proc 0010 (Given - Provid er: Tessie Grubbs RN)0800 (Canceled Entry - Provider: System Discharge - Comment: Automatically canceled at discontinue of medication order) ceFAZolin (ANCEF) 2 g in dextrose 100 mL premix IVPB (COMPLETED) 2 g, Intravenous, Administer over 30 Minutes, ONCE, 1 dose, On Sat07/29/23 at 0545, Pre-op/Pre-Proc 0734 ($$New Bag$$ - Provider: Chichi Pedroza MD)1134 (Bolus - Provider: Chichi Pedroza MD) ceFAZolin (ANCEF) 2 g in dextrose 100 mL premix IVPB (COMPLETED) 2 g, Intravenous, Administer over 30 Minutes, EVERY 8 HOURS NON-STANDARD, 2 doses, First dose on Sat07/29/23 at 1930, Last dose on Sat07/30/23 at 0330, Post-op/Post-Proc 1901 ($$New Bag$$ - Provider: Emily Fink RN) 0304 ($$New Bag$$ - Provider: Tessie Grubbs RN) Enoxaparin Sodium (LOVENOX) injection 40 mg 40 mg, Subcutaneous, EVERY 24 HOURS, First dose on Sat07/29/23 at 1545, Until Discontinued, For SUBCUTANEOUS route ONLY: alternate injection sites between left and right abdominal wall, pinching location and avoiding area around navel. If unable to use abdominal sites, may use the front or side of thighs., Indications: DVT/PE prophylaxis, Post-op/Post-Proc 1651 (Given - Provider: Emily Fink RN) Heparin injection 5,000 Units (COMPLETED) 5,000 Units, Subcutaneous, PRE-OP, 1 dose, On Sat07/29/23 at 0615, Pre-op/Pre-Proc 0702 (Given - Provider: Bhakti Vázquez RN) Ibuprofen (MOTRIN) tablet 600 mg 600 mg, Oral, EVERY 8 HOURS NON-STANDARD, First dose on Sat07/29/23 at 1945, Until Discontinued, Give with food 1859 (Given - Provider: Emily Fink RN) 0304 (Given - Provider: Tessie Grubbs, MATTEO) Polyethylene glycol (MIRALAX) packet 17 g 17 g, Oral, DAILY, First dose on Sat07/30/23 at 0900, Until Discontinued, Post-op/Post-Proc 09 (Canceled Entry - Provider: System Discharge - Comment: Automatically canceled at discontinue of medication order) Scopolamine (TRANSDERM-SCOP) patch 1 patch(Linked Group 1) 1 patch, Transdermal, ONCE, 1 dose, On Sat07/29/23 at 0745, Apply patch to site behind the ear. Rotate sites for each application. Do not cut or alter patch. Each patch delivers 1 mg over 72 hours. 708 (Patch Applied - Provider: Bhakti Vázquez RN - Comment: right ear) 709 (Due: Patch Removed - Provider: System Discharge - Comment: Time automatically adjusted from order being discontinued) simethicone (MYLICON) chewable tablet 80 mg 80 mg, Oral, BEFORE MEALS & AT BEDTIME, First dose on Sat07/29/23 at 1600, Until Discontinued, Post-op/Post-Proc 165 (Given - Provider: Emily Fink RN)2004 (Given - Provider: Tessie Grubbs RN) 06 (Given - Provider: Tessie Grubbs RN) VERIFY LINKED PATCH PLACEMENT(Linked Group 1) Other, EVERY 12 HOURS, First dose on Sat07/29/23 at 0900, Until Discontinued, Confirm continued adhesion of scopolamine 1.5 mg/72hr patch at documented site. 09 (Canceled Entry - Provider: System Discharge - Comment: Automatically canceled at discontinue of medication order)2002 (Patch Verify - Provider: Tessie Grubbs RN) 899 (Canceled Entry - Provider: System Discharge - Comment: Automatically canceled at discontinue of medication order) Continuous Medication Order 07/28/2023 07/29/2023 07/30/2023 Lactated ringers IV solution (CANCELED) Intravenous, at 20 mL/hr, CONTINUOUS, Starting on Sat07/29/23 at 0545, Until Sat07/29/23 at 1536, Pre-op/Pre-Proc 0551 ($$New Bag$$ - Provider : Becky Arthur RN)0945 ($$New Bag$$ - Provider: Chichi Pedroza MD)1321 ($$New Bag$$ - Provider: Chichi Pedroza MD)1359 ($$New Bag$$ - Provider: Chichi Pedroza MD) Lactated ringers IV solution (CANCELED) Intravenous, at 125 mL/hr, CONTINUOUS, Starting on Sat07/29/23 at 1430, Until Sat07/29/23 at 2029, Post-op/Post-Proc 1518 ($$New Bag$$ - Provider : Bebo Lovell, RN)1852 (Rate/Dose Verify - Provider: Emily Fink, RN)2225 (Stopped - Provider: Tessie Grubbs, RN) PRN Medication Order 07/28/2023 07/29/2023 07/30/2023 alum/mag hydrox.-simethicone oral suspension 30 mL 30 mL, Oral, EVERY 6 HOURS NEEDED, Starting on Sat07/29/23 at 1537, Until Sat07/30/23 at 0918, Indigestion, Per 5 mL is equivalent to: (Alum-Mag Hydroxide 200-225 mg and Simethicone 20 mg) and (Alum-Mag Hydroxide 200-200 mg and Simethicone 20 mg), Post-op/Post-Proc BUPivacaine (PF) (MARCAINE) 0.25 % injection (CANCELED) NEEDED, Starting on Sat07/29/23 at 1338, Until Sat07/29/23 at 1404, Intra-op/Intra-Proc 1338 (Given - Provider: Satya Whitmore MD) faMOTIdine (PEPCID) tablet 20 mg 20 mg, Oral, EVERY 12 HOURS NEEDED, Starting on Sat07/29/23 at 1537, Until Sat07/30/23 at 0918, GI Upset, Post-op/Post-Proc Ondansetron (ZOFRAN) tablet 4 mg(Linked Group 2) 4 mg, Oral, EVERY 6 HOURS NEEDED, Starting on Sat07/29/23 at 1537, Until Sat07/30/23 at 0918, Nausea / Vomiting, 1st line, Post-op/Post-Proc 2006 (See Alternative - Provider: Tessie Grubbs, MATTEO) Ondansetron 4mg/2ml (ZOFRAN) injection 4 mg(Linked Group 2) 4 mg, Intravenous, EVERY 6 HOURS NEEDED, Starting on Sat07/29/23 at 1537, Until Sat07/30/23 at 0918, Nausea / Vomiting, 1st line, Post-op/Post-Proc 2006 (Given - Provider: Tessie Grubbs RN) oxyCODONE (ROXICODONE) tablet 5 mg 5 mg, Oral, EVERY 6 HOURS NEEDED, Starting on Sat07/29/23 at 1537, Until Sat07/30/23 at 0918, Moderate Pain, Severe Pain, Post-op/Post-Proc 2004 (Given - Provider: Tessie Grubbs RN) 607 (Given - Provider: Tessie Grubbs RN) Linked Groups Order Group 1: Scopolamine (TRANSDERM-SCOP) patch 1 patchJump to med 1 patch, Transdermal, ONCE, 1 dose, On Sat07/29/23 at 0745, Apply patch to site behind the ear. Rotate sites for each application. Do not cut or alter patch. Each patch delivers 1 mg over 72 hours. And VERIFY LINKED PATCH PLACEMENTJump to med Other, EVERY 12 HOURS, First dose on Sat07/29/23 at 0900, Until Discontinued, Confirm continued adhesion of scopolamine 1.5 mg/72hr patch at documented site. Group 2: Ondansetron 4mg/2ml (ZOFRAN) injection 4 mgJump to med 4 mg, Intravenous, EVERY 6 HOURS NEEDED, Starting on Sat07/29/23 at 1537, Until Sat07/30/23 at 0918, Nausea / Vomiting, 1st line, Post-op/Post-Proc Or Ondansetron (ZOFRAN) tablet 4 mgJump to med 4 mg, Oral, EVERY 6 HOURS NEEDED, Starting on Sat07/29/23 at 1537, Until Sat07/30/23 at 0918, Nausea / Vomiting, 1st line, Post-op/Post-Proc FOR RECORDS PERTAINING TO PATIENTS WHO ARE [...] BE BASED ON THE PRIMARY CLINICAL RECORDS. [facility]. provides no warranty or guarantee of the accuracy or completeness of information in this document.
== END | disposition home or self-care (01) ==
LOC: LAB 13:29
PROVIDERS: PCP Family Medicine; Referring Provider Urology; Visit Provider Urology
DX: C61 Malignant neoplasm of prostate (principal)
CPT/HCPCS: 36415; 84153

== ENCOUNTER → 2025-01-14 | Outpatient (CLI) | payer OTHER, SELFPAY ==
[2025-01-14 12:29] LABS: PSA,Total- Diagnostic < 0.02 ng/mL (0.00-4.00)
== END | disposition home or self-care (01) ==
LOC: LAB 11:01
PROVIDERS: PCP Family Medicine; Referring Provider Student in an Organized Health Care Education/Training Program; Visit Provider Student in an Organized Health Care Education/Training Program
DX: C61 Malignant neoplasm of prostate (principal); R97.21 Rising PSA following treatment for malignant neoplasm of prostate; Z19.1 Hormone sensitive malignancy status
CPT/HCPCS: 36415; 84153

== ENCOUNTER 2025-02-05 06:22 | Day surgery (SDC) | payer OTHER, SELFPAY ==
[2025-02-05] VITALS (8 sets, daily range): BP systolic 96–134; BP diastolic 66–87; PULSE 67–74; RESP 16; TEMP 36.1–36.4; O2SAT 97–100; BMI 27.6
--- OUTSIDE RECORDS SUMMARY | 2025-02-05 06:25 | XMS RPT_ITS | CCD ---
Author Organization [facility] Care Team Providers Care Marketer Name Role Phone Chichi Argueta MD Primary Care Provider Claude Patel MD Unavailable Dr. Chichi Argueta Primary Care Provider [phone] Dr. Chichi Argueta Referring Provider Dr. Thanh Dixon Attending Provider Dr. Andrei Francois Attending Provider Chichi Argueta MD Primary Care Provider Claude Patel MD Unavailable Dr. Chichi Argueta MD Primary Care Provider SATYA WHITMORE Attending Provider SATYA WHITMORE Referring Provider Dr. Kerry Atkins MD Attending Provider [phone] Dr. Kerry Atkins MD Referring Provider Wilbert VICK, Dr. Payne Other Provider Rivera VICK, Dr. Daniels Attending Provider Dr. Satya Whitmore MD Attending Provider [phone] Dr. Satya Whitmore MD Referring Provider [phone] Dr. Chichi Argueta MD Referring Provider Paco Burnett Attending Provider Dr. Chichi Argueta MD Primary Care Provider Dr. Seb Clarke DO Attending Provider Dr. Seb Clarke DO Referring Provider Sotero VICK, Dr. Linton Attending Provider Kendall VICK, Dr. Chichi Toledo Primary Care Provider Tricia SUAZO, Dr. Grigsby Referring Provider CHICHI ARGUETA Referring Unavailable MYRANDA, SATYA Attending Unavailable SCHINNER, CHICHI Primary Care Unavailable SCHINNER, CHICHI Referring Unavailable SCHINNER, CHICHI Primary Care Unavailable MYRANDA, SATYA Attending Unavailable SCHINNER, CHICHI Primary Care Unavailable RIVERA SANDOVAL Attending Unavailable MYRANDA, SATYA Referring Unavailable SCHINNER, CHICHI Primary Care Unavailable SCHINNER, CHICHI Referring Unavailable MYRANDA, SATYA Attending Unavailable SCHINNER, CHICHI Referring Unavailable MYRANDA, SATYA Attending Unavailable KENDALL, CHICHI Primary Care Unavailable Kendall VICK, Dr. Chichi Toledo Primary Care Provider [phone] Myranda VICK, Dr. Hernadez Attending Provider [phone] Myranda VICK, Dr. Hernadez Referring Provider [phone] Kendall VICK, Dr. Chichi Toledo Referring Provider Jorge VICK, Dr. Claude Long Attending Provider Jorge VICK, Dr. Claude Long Referring Provider Kendall VICK, Dr. Chichi Toledo Primary Care Provider Dr. Seb Clarke DO Attending Provider Assessment, Health Risk Referring Unavaila ble Assessment, Health Risk Attending Unavaila ble Chichi Argueta Primary Care Unavailable Seb Clarke Attending Unavailable Seb Clarke Referring Unavailable Chichi Argueta Primary Care Unavailable Schinner, Chichi E Primary Care Unavailable Myranda, Satya Attending Unavailable Myranda, Satya Referring Unavailable Schinner, Chichi E Primary Care Unavailable Schinner, Chichi E Referring Unavailable Schinner, Chichi Toledo Attending Unavailable Schinner, Chichi E Primary Care Unavailable Myranda, Satya Referring Unavailable Myranda, Satya Attending Unavailable Basali, Ayman Referring Unavailable BasalKerry beaver Attending Unavailable Schinner, Chichi E Primary Care Unavailable Seb Clarke Referring Unavailable Seb Clarke Attending Unavailable Schinner, Chichi E Primary Care Unavailable TriciaSeb Attending Unavailable Schinner, Chichi E Primary Care Unavailable Tricia, Seb Referring Unavailable Seb Clarke Attending Unavailable Tricia, Seb Referring Unavailable Schinner, Chichi E Primary Care Unavailable Seb Clarke Attending Unavailable Tricia, Seb Referring Unavailable Schinner, Chichi E Primary Care Unavailable TriciaSeb cat Attending Unavailable Tricia, Seb Referring Unavailable Schinner, Chichi E Primary Care Unavailable Schinner, Chichi E Primary Care Unavailable BasalKerry beaver Referring Unavailable Kerry Atkins Consulting Unavailable Frances Stafford Attending Unavailable Seb Clarke Attending Unavailable Schinner, Chichi E Primary Care Unavailable Tricia, Seb Referring Unavailable Seb Clarke Attending Unavailable Tricia, Seb Referring Unavailable Schinner, Chichi E Primary Care Unavailable Seb Clarke Attending Unavailable Schinner, Chichi E Primary Care Unavailable Satya Whitmore Referring Unavailable Schinner, Chichi E Primary Care Unavailable Schinner, Chichi E Referring Unavailable Paco Burnett Attending Unavailable JAQUAN MARINO Referring Unavaila JAQUAN Lepe Attending Unavaila ble Schinner, Chichi E Primary Care Unavailable JorgeClaude Referring Unavailable JorgeClaude Attending Unavailable Schinner, Chichi E Primary Care Unavailable Seb Clarke Attending Unavailable Schinner, Chichi E Primary Care Unavailable Seb Clarke Referring Unavailable Seb Clarke Attending Unavailable Schinner, Chichi E Primary Care Unavailable Seb Clarke Referring Unavailable Seb Clarke Attending Unavailable Seb Clarke Referring Unavailable Schinner, Chichi E Primary Care Unavailable Seb Clarke Attending Unavailable Schinner, Chichi E Referring Unavailable Schinner, Chichi E Primary Care Unavailable Seb Clarke Attending Unavailable Seb Clarke Referring Unavailable Schinner, Chichi E Primary Care Unavailable JorgeClaude Referring Unavailable Jorge, Claude Long Attending Unavailable Schinner, Chichi E Primary Care Unavailable Medications Current Medications Medication Drug Class(es) Dates Sig (Normalized) Sig (Original) hyoscyamine sulfate 0.125 mg oral tablet (3 sources) Start: 08-07-2023 take 1 tablet by mouth every four hours as needed hyoscyamine 0.125 MG tablet Indications: Malignant neoplasm of prostate Take 1 tablet by mouth every 4 hours as needed for Cramping. 30 tablet 1 08/07/2023 Active meloxicam 15 mg oral tablet (14 sources) Nonsteroidal Anti-inflammatory Drug Start: 01-11-2023 take [...] pantoprazole 20 mg delayed release oral tablet (13 sources) Proton Pump Inhibitor Start: 05-19-2024 take 1 tablet by mouth once daily Pantoprazole 20 mg tablet,delayed release (DR/EC) Active 20 mg PO daily May 19, 2024 12:00am Start: 01-03-2024 Pantoprazole [address] tablet DR Take 1 tablet by mouth. 01/03/2024 Active 24 hr propranolol hydrochloride 80 mg extended release oral capsule (10 sources) beta-Adrenergic Sergei Start: 07-29-2024 take 1 capsule by mouth once daily Propranolol (Inderal La) 80 mg capsule,extended release 24 hr Active 80 mg PO daily July 29, 2024 12:00am sildenafil 100 mg oral tablet (12 sources) Phosphodiesterase 5 Inhibitor Start: 05-26-2024 take [...] IVPB doxycycline monohydrate 100 mg oral capsule (13 sources) Tetracycline-class Drug Start: 05-19-2024 End: 06-16-2024 [...] food Start: 07-29-2023 take 1 tablet by [facility] every six hours as needed Ibuprofen 600 MG tablet Take 1 tablet by mouth every 6 hours as needed. Take with food 20 tablet 07/29/2023 Active Start: 04-02-2023 End: 04-02-2023 Ibuprofen (MOTRIN) tablet 60 0 mg labetalol hydrochloride 5 mg/ml injectable solution (1 source) beta-Adrenergic Sergei Start: 04-02-2023 End: 04-02-2023 Labetalol (NORMODYNE) injection 5 mg omeprazole 40 mg delayed release oral capsule (17 sources) Proton Pump Inhibitor Start: 07-04-2017 End: [...] (ZOFRAN) injection 4 mg polyethylene glycol 3350 03859 mg powder for oral solution (2 sources) [...] unspecified] Onset: 09-11-2022 09-11-2022 Chronic Esophageal disorders (12 sources) Gastroesophageal reflux disease; Translations: [Gastro-esophageal reflux disease without esophagitis] 05-19-2024 Chronic Inflammation; infection of eye (except that caused by tuberculosis or sexually transmitteddisease) (20 sources) Blepharitis of right eyelid; Translations: [Unspecified blepharitis right eye, unspecified eyelid] Onset: 09-11-2022 09-11-2022 Episodic Other acquired deformities (14 sources) Lumbar spondylolisthesis; Translations: [Spondylolisthesis, lumbar region] 01-11-2023 Episodic Other acquired deformities (2 sources) Spondylolisthesis, lumbar region; Translations: [Acquired spondylolisthesis] 01-11-2023 Episodic Other acquired deformities (11 sources) Spondylolisthesis; Translations: [Spondylolisthesis, site unspecified] 05-26-2024 Episodic Other ear and sense organ disorders (7 sources) Sensorineural hearing loss, bilateral; Translations: [Sensorineural hearing loss, bilateral] Onset: 09-11-2022 09-11-2022 Chronic Other ear and sense organ disorders (11 sources) Tinnitus; Translations: [Tinnitus, unspecified ear] 05-26-2024 [...] Onset: 09-20-2020 Episodic Other upper respiratory disease (17 sources) Hoarse; Translations: [Dysphonia] 10-31-2017 Episodic Residual codes; unclassified (1 source) Sleep apnea; Translations: [Sleep apnea, unspecified] Onset: 09-11-2022 09-11-2022 Chronic Residual codes; unclassified (1 source) Hormone sensitive malignancy status; Translations: [Hormone sensitive malignancy status] Onset: 10-21-2024 Episodic Spondylosis; intervertebral disc disorders; other back problems (8 sources) Lumbar spondylosis; Translations: [Spondylosis without myelopathy or radiculopathy, lumbar region] Onset: 09-11-2022 09-11-2022 Chronic Spondylosis; intervertebral disc disorders; other back problems (8 sources) Lumbar radiculopathy; Translations: [Radiculopathy, lumbar region] Onset: 09-11-2022 09-11-2022 Episodic Unclassified (9 sources) C61 - Malignant neoplasm of prostate,R97.21 - Rising PSA following treatment for malignant neoplasm of prostate,Z19.1 - Hormone sensitive malignancy status Unclassified (5 sources) Biochemically recurrent castration-sensitive adenocarcinoma of prostate [...] Test Name Value Interpretation Reference Range Facility CBC, Employeeon 11-24-2024 Absolute Lymph 0.68 X10 3/uL Low 0.83-4.51 [facility] Comment on above: Performed By: #### L 500.2900, L100.0200, L400.0100 ####[facility] [address] [place], [address] Absolute Neut 2.8 X10 3/uL Normal 2.0-7.7 [facility] Comment on above: Performed By: #### L 500.2900, L100.0200, L400.0100 ####[facility] [address] [place], [address] Basophils/100 WBC (Bld) 1.2 % High 0-1 [facility] Comment on above: Performed By: #### L 500.2900, L100.0200, L400.0100 ####[facility] [address] [place], [address] Eosinophils/100 WBC (Bld) 2.4 % Normal 0-5 [facility] Comment on above: Performed By: #### L 500.2900, L100.0200, L400.0100 ####[facility] [address] [place], [address] Erythrocyte distribution width (RBC) [Ratio] 11.9 % Normal 11.6-14.6 [facility] Comment on above: Performed By: #### L 500.2900, L100.0200, L400.0100 ####[facility] [address] [place], [address] Hematocrit (Bld) [Volume fraction] 39.7 % Low 40-54 [facility] Comment on above: Performed By: #### L 500.2900, L100.0200, L400.0100 ####[facility] [address] [place], [address] Hemoglobin (Bld) [Mass/Vol] 13.9 g/dL Normal 13.0-16.5 [facility] Comment on above: Performed By: #### L 500.2900, L100.0200, L400.0100 ####[facility] [address] [place], [address] Lymphocytes/100 WBC (Bld) 16.5 % Low 19-41 [facility] Comment on above: Performed By: #### L 500.2900, L100.0200, L400.0100 ####[facility] [address] [place], [address] MCH (RBC) [Entitic mass] 32.0 pg Normal 27.0-32.0 [facility] Comment on above: Performed By: #### L 500.2900, L100.0200, L400.0100 ####[facility] [address] [place], [address] MCHC (RBC) [Mass/Vol] 35.0 g/dL Normal 32-36 [facility] Comment on above: Performed By: #### L 500.2900, L100.0200, L400.0100 ####[facility] [address] [place], [address] MCV (RBC) [Entitic vol] 91.3 fL Normal 80-94 [facility] Comment on above: Performed By: #### L 500.2900, L100.0200, L400.0100 ####[facility] [address] [place], [address] Monocytes/100 WBC (Bld) 11.7 % High 0-10 [facility] Comment on above: Performed By: #### L 500.2900, L100.0200, L400.0100 ####[facility] [address] [place], [address] Neutrophils/100 WBC (Bld) 67.7 % Normal 47-70 [facility] Comment on above: Performed By: #### L 500.2900, L100.0200, L400.0100 ####[facility] [address] [place], [address] NRBC # 0.00 10 3/uL Normal 0-5 [facility] Comment on above: Performed By: #### L 500.2900, L100.0200, L400.0100 ####[facility] [address] [place], [address] Nucleated RBC (Bld) [#/Vol] 0 10*3/uL Normal 0-5 [facility] Comment on above: Performed By: #### L 500.2900, L100.0200, L400.0100 ####[facility] [address] [place], [address] Platelet mean volume (Bld) [Entitic vol] 9.5 fL Normal 6.2-12.0 [facility] Comment on above: Performed By: #### L 500.2900, L100.0200, L400.0100 ####[facility] [address] [place], [address] Platelets (Bld) [#/Vol] 228 10*3/uL Normal 150-450 [facility] Comment on above: Performed By: #### L 500.2900, L100.0200, L400.0100 ####[facility] [address] [place], [address] RBC (Bld) [#/Vol] 4.35 10*6/uL Low 4.6-6.2 [facility] Comment on above: Performed By: #### L 500.2900, L100.0200, L400.0100 ####[facility] [address] [place], [address] RDW SD 39.5 fl Normal 35.1-43.9 [facility] Comment on above: Performed By: #### L 500.2900, L100.0200, L400.0100 ####[facility] [address] [place], [address] WBC (Bld) [#/Vol] 4.1 10*3/uL Low 4.4-11.0 [facility] Comment on above: Performed By: #### L 500.2900, L100.0200, L400.0100 ####[facility] [address] [place], [address] Employee [employer] 5 CHOL:HDL 3.49 Normal [facility] Comment on above: Performed By: #### L 500.2900, L100.0200, L400.0100 ####[facility] [address] [place], [address] Cholesterol [Mass/Vol] 234 mg/dL High <=200 [facility] Comment on above: Result Comment: Chol esterol level, Desirable <200 mg/dL Borderline high cholesterol 200-239 mg/dL High cholesterol >=240 mg/dL Recommendations of the NCEP Adult Treatment Panel for the following risk-cutoff thresholds for the [place] population. Performed By: #### L 500.2900, L100.0200, L400.0100 ####[facility] [address] [place], [address] Cholesterol in HDL [Mass/Vol] 67 mg/dL Normal [facility] Comment on above: Result Comment: Suzette onal Cholesterol Education Program (NCEP) guidelines: <40 mg/dL: Low HDL-cholesterol (major risk factor for CHD) >= 60 mg/dL: High HDL-cholesterol (negative risk factor for CHD) HDL-cholesterol is affected by a number of factors, e.g. smoking, exercise, hormones, sex and age. Performed By: #### L 500.2900, L100.0200, L400.0100 ####[facility] [address] [place], [address] Cholesterol in LDL [Mass/Vol] 144 mg/dL Normal [facility] Comment on above: Result Comment: Bord updwlr=838-627 mg/dL Higher Ibkn=468 mg/dL or greater Friedwald Equation for LDL-C Performed By: #### L 500.2900, L100.0200, L400.0100 ####[facility] [address] [place], [address] Cholesterol in VLDL [Mass/Vol] 23 mg/dL Normal 5-40 [facility] Comment on above: Performed By: #### L 500.2900, L100.0200, L400.0100 ####[facility] [address] [place], [address] LDH 182 U/L Normal 87-241 [facility] Comment on above: Performed By: #### L 500.2900, L100.0200, L400.0100 ####[facility] [address] [place], [address] Phosphate [Mass/Vol] 4.0 mg/dL Normal 2.7-4.5 [facility] Comment on above: Performed By: #### L 500.2900, L100.0200, L400.0100 ####[facility] [address] [place], [address] Triglyceride [Mass/Vol] 115 mg/dL Normal [facility] Comment on above: Result Comment: The drugs N-Acetylcysteine and Metamizole may falsely depress this assay. Normal range: <150 mg/dL Borderline High: 150-199 mg/dL High: 200-499 mg/dL Very High: >500 mg/dL Performed By: #### L 500.2900, L100.0200, L400.0100 ####[facility] [address] [place], [address] URIC 6.1 mg/dL Normal 3.5-7.2 [facility] Comment on above: Result Comment: The drugs N-Acetylcysteine and Metamizole may falsely depress this assay. Performed By: #### L 500.2900, L100.0200, L400.0100 ####[facility] [address] [place], [address] Urinalysis, Employeeon 11-24 BILIRUBIN URINE Negative Normal Negative [facility] Comment on above: Order Comment: Urine , Random Performed By: #### L 500.2900, L100.0200, L400.0100 ####[facility] [address] [place], [address] Clarity (U) Clear Normal Clear [facility] Comment on above: Order Comment: Urine , Random Performed By: #### L 500.2900, L100.0200, L400.0100 ####[facility] [address] [place], [address] Color (U) Yellow Normal Yellow [facility] Comment on above: Order Comment: Urine , Random Performed By: #### L 500.2900, L100.0200, L400.0100 ####[facility] [address] [place], [address] GLUCOSE, UR Normal Normal Normal [facility] Comment on above: Order Comment: Urine , Random Performed By: #### L 500.2900, L100.0200, L400.0100 ####[facility] [address] [place], [address] KETONE UR Negative Normal Negative [facility] Comment on above: Order Comment: Urine , Random Performed By: #### L 500.2900, L100.0200, L400.0100 ####[facility] [address] [place], [address] LEUK ESTERASE Negative Normal Negative [facility] Comment on above: Order Comment: Urine , Random Performed By: #### L 500.2900, L100.0200, L400.0100 ####[facility] [address] [place], [address] Nitrite Ql (U) Negative Normal Negative [facility] Comment on above: Order Comment: Urine , Random Performed By: #### L 500.2900, L100.0200, L400.0100 ####[facility] [address] [place], [address] OCCULT BLOOD-UR Negative Normal Negative [facility] Comment on above: Order Comment: Urine , Random Performed By: #### L 500.2900, L100.0200, L400.0100 ####[facility] [address] [place], [address] pH UR 7.0 Normal 5.0 - 8.0 [facility] Comment on above: Order Comment: Urine , Random Performed By: #### L 500.2900, L100.0200, L400.0100 ####[facility] [address] [place], [address] PROT DIPSTX 15 mg/dl Abnormal Negative [facility] Comment on above: Order Comment: Urine , Random Performed By: #### L 500.2900, L100.0200, L400.0100 ####[facility] [address] [place], [address] SP.GR. DIPSTX 1.015 Normal 1.002-1.030 [facility] Comment on above: Order Comment: Urine , Random Performed By: #### L 500.2900, L100.0200, L400.0100 ####[facility] [address] [place], [address] UROBILI Normal Normal Normal [facility] Comment on above: Order Comment: Urine , Random Performed By: #### L 500.2900, L100.0200, L400.0100 ####[facility] [address] [place], [address] Radiation Oncology Visiton 0 10-15-2024 Radiation Oncology Visit [facility] [address] [place] [address] OFFICE VISIT Date of Service: 10/15/24 1410 MR#: [id number] Acct: [id number] Name: NORMAN GARY Rep #: [id number] : 1965 From: Seb Clarke Age/Sex: 59/M Location: [facility] Status: Signed Intake Vital Signs 09/14/24 13:54 10/15/24 14:10 Height 5 ft 9 in 5 ft 9 in Weight: 187 lb 5 oz 191 lb 8 oz BMI 27.6 28.3 BP 146/92 H 121/89 H Blood Pressure Location Lt brachial Rt brachial Position Sitting Sitting Respiration 16 16 Pulse 73 72 Pulse Source Monitor Monitor Temp 98.5 F 97.4 F L Temperature Source Temporal Artery Temporal Artery Pulse Oximetry (%) 99 100 Oxygen Delivery Method room air room air Intake Visit Reasons: 1 MONTH F/U POST RT Is patient in pain?: No Allergies No Known Allergies Allergy (Verified 10/15/24 14:10) Medications ???Medication ???Instructions ???Recorded ???Confirmed ???Type meloxicam 15 mg tablet 15 mg PO DAILY 01/11/23 10/15/24 H istory pantoprazole 20 mg tablet,delayed 20 mg PO QDAY 05/19/24 10/15/24 H istory release sildenafil 100 mg tablet 100 mg PO QDAY PRN 05/26/24 History propranolol 80 mg capsule,24 80 mg PO QDAY 07/29/24 10/15/24 Hi story hr,extended release (Inderal LA) PFSH [...] / Time No Known Allergies Allergy Verified 10/15/24 14:10 Family History Mother Hypertension CAD (coronary artery [...] not use Diagnosis: Octavio Gary is a 59 year-old male diagnosed with 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 From 07/27/2024 ??? 09/14/2024 he completed salvage radiation therapy with ADT. History of Present Illness: 08/29/2022: Patient completed MRI prostate.??? This demonstrated [...] 04/02/2023: Patient completed prostate biopsy.??? Pathology demonstrated [place] 3+4 adenocarcinoma involving 3/4 cores at the [...] prostatectomy with lymph node dissection.??? Pathology demonstrated [place] 3+4 adenocarcinoma, Gabe 4 is 21% of the tumor, there is noted to be extracapsular extension in the right anterior mid, no seminal vesicle invasion.??? Margin is positive spanning 0.1 mm at the r (more content not included)... Normal [facility] PSA,Total- Diagnosticon 08-0 PSA, DIAGNOSTIC < 0.02 Normal 0.00-4.00 [facility] Comment on above: Result Comment: This test [...] values. Performed By: #### L 501.9940 #### [facility] [address] [facility] [place], [address] Radiation Oncology Visiton 0 09-14-2024 Radiation Oncology Visit [facility] [address] [place] [address] OFFICE VISIT Date of Service: 09/14/24 1352 MR#: [id number] Acct: [id number] Name: NORMAN GARY Rep #: [id number] : 1965 From: Seb Clarke DO Age/Sex: 59/M Location: [facility] Status: Signed Intake Vital Signs 09/09/24 [...] use type: does not use Diagnosis Octavio Cookie is a 59 year-old male diagnosed with [...] may answer (more content not included)... Normal [facility] Radiation Oncology Visit [facility] [address] [place] [address] OFFICE VISIT Date of Service: 09/14/24 1243 MR#: [id number] Acct: [id number] Name: NORMAN GARY Lucian Rep #: [id number] : 1965 From: Seb Clarke Age/Sex: 59/M Location: [facility] Status: Signed End of Treatment Summary: [...] 04/02/2023: Patient completed prostate biopsy.??? Pathology demonstrated Gabe 3+4 adenocarcinoma involving 3/4 cores at the region of interest #1 biopsy and 1/2 cores of the left anterior fibromuscular stroma biopsy.??? There was noted to be [place] 3+3 adenocarcinoma involving 1/2 cores in the [...] prostatectomy with lymph node dissection.??? Pathology demonstrated [place] 3+4 adenocarcinoma, [place] 4 is 21% of the tumor, there [...] in one month for a routine visit. NOMRAN will maintain follow up with all other [...] this patient. Sincerely, Seb Clarke DO, MS Pearl Technician, Department of Radiation Oncology [facility] 09/14/24 1595 Date Seb Keith Signature: Date (if applicable) CC: Dr. Satya Whitmore MD; Dr. Chichi Agrueta MD; Dr. Claude Patel MD [facility] Radiation Oncology Visiton 0 09-09-2024 Radiation Oncology Visit [facility] [address] [place] [address] OFFICE VISIT Date of Service: 09/09/24 1353 MR#: [id number] Acct: [id number] Name: NORMAN GARY Rep #: [id number] : 1965 From: Seb Clarke DO Age/Sex: 59/M Location: [facility] Status: Signed Intake Vital Signs 06/16/24 14:02 [...] at any time. 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; R97.21; Z19.1 09/09/24 1420 Date [facility]b Clarke [facility] Signature: Date (if applicable) CC: Normal [facility] Radiation Oncology Visiton 0 09-02-2024 Radiation Oncology Visit [facility] [address] [place] [address] OFFICE VISIT Date of Service: 09/02/24 1352 MR#: [id number] Acct: [id number] Name: COOKIENORMAN SHEETS Lucian Rep #: [id number] : 1965 From: Seb Clarke DO Age/Sex: 59/M Location: [facility] Status: Signed Intake Vital Signs 06/16/24 14:02 [...] Hi story hr,extended release (Inderal [place]) PFSH PFS Medical [...] may a (more content not included)... Normal [facility] Radiation Oncology Visiton 0 08-26-2024 Radiation Oncology Visit [facility] [address] [place] [address] [place] [address] OFFICE VISIT Date of Service: 08/26/24 1342 MR#: [id number] Acct: [id number] Name: NORMAN GARY Rep #: [id number] : 1965 From: Seb Clarke DO Age/Sex: 59/M Location: [facility] Status: Signed Intake Vital Signs 06/16/24 [...] 08/26/24 Hi story hr,extended release (Inderal [place]) [facility] Medical History Spondylolisthesis Elevated PSA Vocal cord [...] at any time. Seb Clarke DO, MS Pearl Technician, [facility] (more content not included)... Normal [facility] Radiation Oncology Visiton 0 08-19-2024 Radiation Oncology Visit [facility] [address] [place] [address] OFFICE VISIT Date of Service: 08/19/24 1041 MR#: [id number] Acct: [id number] Name: NORMAN GARY Rep #: [id number] : 1965 From: Seb Clarke DO Age/Sex: 59/M Location: [facility] Status: Signed Intake Vital Signs 06/16/24 14:02 [...] 08/19/24 Hi story hr,extended release (Inderal [place]) [facility] Medical History Spondylolisthesis Elevated PSA Vocal [...] at any time. Seb Clarke DO, MS Pearl Technician, Department of Radiation Oncology [facility] (more content not included)... Normal [facility] Radiation Oncology Visiton 0 08-12-2024 Radiation Oncology Visit [facility] [address] [place] [address] OFFICE VISIT Date of Service: 08/12/24 1415 MR#: [id number] Acct: [id number] Name: NORMAN GARY Rep #: [id number] : 1965 From: Seb Clarke DO Age/Sex: 58/M Location: [facility] Status: Signed Intake Vital Signs 06/16/24 14:02 [...] or in (more content not included)... Normal [facility] Radiation Oncology Visiton 0 08-05-2024 Radiation Oncology Visit [facility] [address] [place], [place] [address] [place] [address] OFFICE VISIT Date of Service: 08/05/24 1354 MR#: [id number] Acct: [id number] Name: NORMAN GARY Rep #: [id number] : 1965 From: Royer Bey MD Age/Sex: 58/M Location: [facility] Status: Signed Intake Vital Signs 06/16/24 [...] 08/05/24 Hi story hr,extended release (Inderal [place]) PFSH [...] beer substance use type: does not use [facility] [address] [place] [address] OFFICE VISIT Date of Service: 07/29/24 1401 MR#: [id number] Acct: [id number] Name: NORMAN GARY Rep #: [id number] : 1965 From: Seb Clarke DO Age/Sex: 58/M Location: [facility] Status: Signed Intake Vital Signs 06/16/2513:02 07/29/2513:05 [...] followed b (more content not included)... Normal [facility] Radiation Oncology Visiton 0 07-29-2024 Radiation Oncology Visit [facility] [address] [place] [address] OFFICE VISIT Date of Service: 07/29/24 1401 MR#: [id number] Acct: [id number] Name: NORMAN GARY Rep #: [id number] : 1965 From: Seb Clarke DO Age/Sex: 58/M Location: [facility] Status: Signed Intake Vital Signs 06/16/24 14:02 [...] Hi story hr,extended release (Inderal [place]) PFSH [facility] Medical History Spondylolisthesis Elevated PSA Vocal [...] at any time. Seb Clarke DO, MS Pearl Technician, Department of Radiation Oncology [facility] (more content not included)... Normal [facility] Pelvis W/WO Contraston 07-06 Pelvis W/WO Contrast [facility] [address] [place] [address] Pelvis W/WO Contrast MR#: [id number] Acct: [id number] Name: NORMAN GARY Rep #: [id number] : 1965 M 58 From: Abhijit Krueger MD PCP: Dr. Chichi Argueta MD Status: PRE CLI Study: Pelvis W/WO Contrast Date of Exam: 07/06/24 Exam# [id number] Ordering Dr: Chichi Argueta MD EXAM: PELVIS [...] Location: [facility] CC: Dr. Chichi Argueta MD Planning Assistant: Signed Normal [facility] Spine Lumbar W/WO Contraston 07-06-2024 Spine Lumbar W/WO Contrast [facility] [address] [place], [place] [address] Spine Lumbar W/WO Contrast MR#: [id number] Acct: [id number] Name: NORMAN GARY Rep #: [id number] : 1965 M 58 From: Abhijit Krueger MD PCP: Dr. Chichi Argueta MD Status: PRE CLI Study: Spine Lumbar W/WO Contrast Date of Exam: 06/25 04/21 Exam# [id number] Ordering Dr: Chichi Argueta MD PROCEDURE: SPINE [...] lateral recess and foraminal narrowing. Reading Location: [facility] CC: Dr. Chichi Argueta MD Planning Assistant: Signed Normal [facility] Pelvis W/WO Contraston 06-19 Pelvis W/WO Contrast [facility] [address] [place] [address] Pelvis W/WO Contrast MR#: [id number] Acct: [id number] Name: NORMAN GARY Rep #: [id number] : 1965 M 58 From: Fahad Condon MD PCP: Dr. Chichi Argueta MD Status: PRE CLI Study: Pelvis W/WO Contrast Date of Exam: 06/19/24 Exam# [id number] Ordering Dr: Seb Clarke DO ADDENDUM by [...] benign/indolent etiology. END OF ADDENDUM Reading Location: [facility] 06/24/24 1848 Date cc: Dr. Chichi Argueta MD; Dr. [...] 3. Additional description as above. Reading Location: [id number] CC: Dr. Chichi Argueta MD; Dr. Seb Clarke DO Planning Assistant: Signed Normal [facility] PET/CT Tumor Base -Thigh Sub son 06-09-2024 PET/CT Tumor Base -Thigh Subs [facility] [address] [place], [place] [id number] PET/CT Tumor Base -Thigh Subs MR#: [id number] Acct: [id number] Name: NORMAN GARY Rep #: [id number] : 1965 M 58 From: Royer Bhat PCP: Dr. Chichi Argueta MD Status: REG CLI Study: PET/CT Tumor Base -Thigh Subs Date of Exam: Exam# [id number] Ordering Dr: Satya Whitmore MD PROCEDURE: PET/CT [...] PET will be reported separately. Reading Location: [address] CC: Dr. Satya Whitmore MD; Dr. Chichi Argueta MD Planning Assistant: Signed Normal [facility] Positron emission tomography scan reportOrdered By: Royer Thompson on 06-09-2024 PT Unspecified body region [facility] [address] [place] [address] PET/CT Tumor Base -Thigh Subs MR#: [id number] Acct: [id number] Name: NORMAN GARY Rep #: [id number] : 1965 M 58 From: Javier Thompson MD PCP: Dr. Chichi Argueta MD Status: RE G CLI Study:PET/CT Tumor Base -Thigh Subs Date of E devonte: 06/09/24 Exam# [id number] Ordering Dr: Gayla Whitmore MD PROCEDURE: PET/CT [...] PET will be reported separately. Reading Location: [address] CC: Dr. Satya Whitmore MD; Dr. Chichi Argueta MD ~ Planning Assistant: Signed [facility] PSA TUMOR MARKER(DIAGNOSTIC) , MANUAL ENTEROrdered By: Mary Nielsen on 05-20-2024 PSA TUMOR MARKER(diagnostic), MANUAL ENTER 0.11 [facility] Ur[facility] Care Visit Reporton 0 05-19-2024 Urgent Care Visit Report [facility] [address], [address] [place] [address] OFFICE VISIT Date of Service: 05/19/24 MR#: [id number] Acct: [id number] Name: NORMAN GARY Rep #: [id number] : 1965 Provider: HARRIET Hicks Age/Sex: 58/M Location: [facility] Status: Signed Intake Vital Signs 05/19/24 13:48 Height 5 ft 9 in Weight: 188 lb 2 oz BMI 27.8 BP 126/80 H Blood Pressure Location Rt brachial Position Sitting Respiration 16 Pulse 81 Pulse Source NIBP Temp 98.2 F Temp Source Oral Pulse Oximetry (%) 98 Oxygen Delivery Method room air Intake Visit Reasons: R EYE SWELLING Chief Complaint: right eyelid red, swollen [employer] Required: No Is patient in pain?: No [...] swollen, tender x 1 week without resolve. [facility] Medical History (Updated 05/19/24 @ 15:47 by Paco Blount PA, PA) Chalazion right upper eyelid Blepharitis of [...] no acute distress Orientation: alert and awake [facility] Head: normal to inspection Ears: hearing grossly [...] the above. This note was generated with DabKick dictation software. It may contain incorrect words, spelling, and punctuation that were not noted in checking the note before signing. Medications: New doxycycline monohydrate 100 mg PO BID 20 caps 0RF Clinical Quality Measures Falls Risk Screening/Assisti (more content not included)... Normal [facility] Diagnostic total prostate sp ecific antigen (PSA) measurementOrdered By: Sayta Whitmore on 05-18-2024 Prostate Specific Antigen Total 0.11 ng/mL 0.00-4.00 [facility] Comment on above: This test was perfor [...] 04-26 PSA, DIAGNOSTIC 0.11 ng/mL Normal 0.00-4.00 [facility] Comment on above: Result Comment: This test [...] values. Performed By: #### L 501.9940 #### [facility] Laboratory [address] [place], [address] NCS and/or EMG Patienton NCS and/or EMG Patient [facility]/Neurology [address] [place] [address] MR#: [id number] Acct: [id number] Name: NORMAN GARY Rep #: [id number] : 1965 58 From: Frances Stafford MD Referring Dr: Kerry Atkins MD Status: REG CLI Location: [facility] Date: 04/08/24 Sex: M C NCS and/or [...] Multi Select Codes Neurology Neurology Interp Codes: 03499-15 Musc test done w/n test comp (interp) (2) and 15170-94 [facility] cndj test 13/> studies (interp) 04/08/24 0939 Date Frances Stafford MD CC: Dr. Frances Stafford MD; Dr. Kerry Atkins MD; Dr. Chichi Argueta MD Date Dictated: 04/08/24935 Date Transcribed: 04/08/24935 Planning Assistant: CRISTINA Signed Normal [facility] Pelvis WITH IV Contraston Pelvis WITH IV Contrast [facility] [address] [place] [address] Pelvis WITH IV Contrast MR#: [id number] Acct: [id number] Name: NORMAN GARY Rep #: [id number] : 1965 M 58 From: Maninder chery MD PCP: Dr. Chichi Argueta MD Status: REG CLI Study: Pelvis WITH IV Contrast Date of Exam: 04/08/24 Exam# [id number] Ordering Dr: Kerry Atkins MD PROCEDURE: PELVIS [...] use of iterative reconstruction technique). Reading Location: [place] [address] CC: Dr. Kerry Atkins MD; Dr. Chichi Argueta MD Planning Assistant: Signed Normal [facility] PSA,Total - Annual Screenon 02-06-2024 PSA,TOT SCREEN 0.06 ng/mL Normal 0.00-4.00 [facility] Comment on above: Result Comment: This test was performed using the TPSA assay method for the ecomom system. Values obtained with different assay methods cannot be used interchangably. When changing PSA assays in the course of monitoring a patient, additional sequential testing should be carried out to confirm baseline values. Performed By: #### L 501.9910 ####[facility] [id number] [place], [address] Screening prostate specific antigen (PSA) measurementon 02-06-2024 Prostate Specific Antigen Screen 0.06 ng/mL 0.00-4.00 [facility] Comment on above: This test was perfor med using the TPSA assay method for [employer] chemistry system. Values obtained with differentassay methods cannot be used interchangably.When changing PSA assays in the course of monitoring apatient, additional sequential testing should be carriedout to confirm baseline values. CALCIUMon 07-30-2023 Calcium [Mass/Vol] 8.0 mg/dL Low 8.6 - 10. 5 mg/dL [facility] CBC,PLATELETSon 07-30-2023 Erythrocyte distribution width (RBC) [Ratio] 12.6 % 10.9 - 14.3 % [facility] Hematocrit (Bld) [Volume fraction] 39.1 % Low 39.6 - 48.8 % [facility] Hemoglobin (Bld) [Mass/Vol] 13.6 g/dL 13.4 - 16.8 g/dL [facility] Interpretation and review of laboratory results Abnormal [facility] MCH (RBC) [Entitic mass] 30.5 pg 26. 1 - 33.3 pg [facility] MCHC (RBC) [Mass/Vol] 34.8 g/dL 31.9 - 36.5 g/dL [facility] MCV (RBC) [Entitic vol] 87.7 fL 79.0 - 94.5 fL [facility] Platelet mean volume (Bld) [Entitic vol] 9.8 fL 8.7 - 12.3 fL [facility] Platelets (Bld) [#/Vol] 213 10*3/uL 146 - 337 K/uL [facility] RBC (Bld) [#/Vol] 4.46 10*6/uL [facility] WBC (Bld) [#/Vol] 9.68 10*3/uL 3.73 - 10. 10 K/uL [facility] CHEM 7 (LYTES,BUN,CREA,GLUC) on 07-30-2023 Anion gap [Moles/Vol] 11 mmol/L 7 - 17 mmol/L [facility] Chloride [Moles/Vol] 104 mmol/L 98 - 10 8 mmol/L [facility] CO2 [Moles/Vol] 25 mmol/L 21 - 31 mmol/L [facility] Creatinine [Mass/Vol] 1.01 mg/dL 0.70 - 1.30 mg/dL [facility] eGFR, CKD-EPI, Male 88 - PINF [facility] Comment on above: Reported eGFR is bas ed on the CKD-EPI 2020 equation using creatinine, age, and sex. Glucose [Mass/Vol] 119 mg/dL High 70 - 99 mg/dL [facility] Osmolality Calc [Osmolality] 287 [facility] Potassium [Moles/Vol] 4.3 mmol/L 3.5 - 5.0 mmol/L [facility] Sodium [Moles/Vol] 136 mmol/L 135 - 145 mmol/L [facility] Urea nitrogen [Mass/Vol] 13 mg/dL 7 - 25 mg/d L [facility] Urea nitrogen/Creatinine [Mass ratio] 13 mg/mg [facility] CREATININE BODY FLUIDOrdered By: Bee Dick on 07-30-2023 Creatinine (Body fld) [Mass/Vol] 1.12 mg/dL [facility] Comment on above: Fluid creatinine con [...] by the Critical Care Laboratory at [facility]. [facility] MAGNESIUMon 07-30-2023 Magnesium [Mass/Vol] 2.0 mg/dL 1.6 - 2 .6 mg/dL [facility] No Panel Informationon 07-29 Interpretation and review of laboratory results Abnormal [facility] Interpretation and review of laboratory results Normal [facility] PHOSPHATE, INORGANICon 07-29 Phosphate [Mass/Vol] 3.9 mg/dL 2.2 - 4 .6 mg/dL [facility] CALCIUMon 07-29-2023 Calcium [Mass/Vol] 8.2 mg/dL Low 8.6 - 10. 5 mg/dL [facility] CBC,PLATELETSon 07-29-2023 Erythrocyte distribution width (RBC) [Ratio] 12.7 % 10.9 - 14.3 % [facility] Hematocrit (Bld) [Volume fraction] 44.7 % 39.6 - 48.8 % [facility] Hemoglobin (Bld) [Mass/Vol] 15.2 g/dL 13.4 - 16.8 g/dL [facility] Interpretation and review of laboratory results Abnormal [facility] MCH (RBC) [Entitic mass] 30.6 pg 26. 1 - 33.3 pg [facility] MCHC (RBC) [Mass/Vol] 34.0 g/dL 31.9 - 36.5 g/dL [facility] MCV (RBC) [Entitic vol] 89.9 fL 79.0 - 94.5 fL [facility] Platelet mean volume (Bld) [Entitic vol] 9.7 fL 8.7 - 12.3 fL [facility] Platelets (Bld) [#/Vol] 219 10*3/uL 146 - 337 K/uL [facility] RBC (Bld) [#/Vol] 4.97 10*6/uL [facility] WBC (Bld) [#/Vol] 14.64 10*3/uL High 3.73 - 10 .10 K/uL [facility] CHEM 7 (LYTES,BUN,CREA,GLUC) on 07-29-2023 Anion gap [Moles/Vol] 12 mmol/L 7 - 17 mmol/L [facility] Chloride [Moles/Vol] 104 mmol/L 98 - 10 8 mmol/L [facility] CO2 [Moles/Vol] 25 mmol/L 21 - 31 mmol/L [facility] Creatinine [Mass/Vol] 1.06 mg/dL 0.70 - 1.30 mg/dL [facility] eGFR, CKD-EPI, Male 83 - PINF [facility] Comment on above: Reported eGFR is bas ed on the CKD-EPI 2020 equation using creatinine, age, and sex. Glucose [Mass/Vol] 133 mg/dL High 70 - 99 mg/dL [facility] Osmolality Calc [Osmolality] 289 [facility] Potassium [Moles/Vol] 4.8 mmol/L 3.5 - 5.0 mmol/L [facility] Sodium [Moles/Vol] 136 mmol/L 135 - 145 mmol/L [facility] Urea nitrogen [Mass/Vol] 13 mg/dL 7 - 25 mg/d L [facility] Urea nitrogen/Creatinine [Mass ratio] 12 mg/mg [facility] CONTINUOUS CARDIAC MONITORIN G STRIPOrdered By: Unassigned Pacs on 07-29-2023 [facility] Work Phone: MAGNESIUMon 07-29-2023 Magnesium [Mass/Vol] 1.9 mg/dL 1.6 - 2 .6 mg/dL [facility] No Panel Informationon 07-28 Interpretation and review of laboratory results Abnormal [facility] Interpretation and review of laboratory results Normal [facility] PHOSPHATE, INORGANICon 07-28 Phosphate [Mass/Vol] 3.6 mg/dL 2.2 - 4 .6 mg/dL [facility] CBC AND ELECTRONIC DIFFon Basophils (Bld) [#/Vol] 0.04 10*3/uL 0.00 - 0.09 K/uL [facility] Basophils/100 WBC (Bld) 0.5 % O [facility] Differential cell count method Nom (Bld) Electronic Differential [facility] Eosinophils (Bld) [#/Vol] 0.04 10*3/uL 0.00 - 0.48 K/uL [facility] Eosinophils/100 WBC (Bld) 0.5 % [facility] Erythrocyte distribution width (RBC) [Ratio] 12.3 % 10.9 - 14.3 % [facility] Hematocrit (Bld) [Volume fraction] 47.2 % 39.6 - 48.8 % [facility] Hemoglobin (Bld) [Mass/Vol] 16.0 g/dL 13.4 - 16.8 g/dL [facility] Immature granulocytes (Bld) [#/Vol] K/uL NINF - 0.07 K/uL [facility] Immature granulocytes/100 WBC (Bld) 0.4 % [facility] Lymphocytes (Bld) [#/Vol] 1.67 10*3/uL 0.83 - 3.57 K/uL [facility] Lymphocytes/100 WBC (Bld) 20.9 % [facility] MCH (RBC) [Entitic mass] 30.3 pg 26. 1 - 33.3 pg [facility] MCHC (RBC) [Mass/Vol] 33.9 g/dL 31.9 - 36.5 g/dL [facility] MCV (RBC) [Entitic vol] 89.4 fL 79.0 - 94.5 fL [facility] Monocytes (Bld) [#/Vol] 0.45 10*3/uL 0.24 - 0.93 K/uL [facility] Monocytes/100 WBC (Bld) 5.6 % [facility] Neutrophils (Bld) [#/Vol] 5.76 10*3/uL 1.57 - 6.19 K/uL [facility] Nucleated RBC/100 WBC (Bld) [Ratio] 0.0 % [facility] Platelet mean volume (Bld) [Entitic vol] 10.2 fL 8.7 - 12.3 fL [facility] Platelets (Bld) [#/Vol] 234 10*3/uL 146 - 337 K/uL [facility] RBC (Bld) [#/Vol] 5.28 10*6/uL [facility] Segmented neutrophils/100 WBC (Bld) 72.1 % [facility] WBC (Bld) [#/Vol] 7.99 10*3/uL 3.73 - 10. 10 K/uL [facility] COMPREHENSIVE METABOLIC PANE Magno 07-17-2023 Albumin [Mass/Vol] 4.5 g/dL 3.5 - 5.0 g/dL [facility] ALP [Catalytic activity/Vol] 48 U/L 32 - 126 U/L [facility] ALT [Catalytic activity/Vol] 14 U/L 10 - 52 U/L [facility] Anion gap [Moles/Vol] 15 mmol/L 7 - 17 mmol/L [facility] AST [Catalytic activity/Vol] 18 U/L 10 - 39 U/L [facility] Bilirubin [Mass/Vol] 1.7 mg/dL High NINF - 1.5 mg/dL [facility] Calcium [Mass/Vol] 9.4 mg/dL 8.6 - 10. 5 mg/dL [facility] Chloride [Moles/Vol] 103 mmol/L 98 - 10 8 mmol/L [facility] CO2 [Moles/Vol] 27 mmol/L 21 - 31 mmol/L [facility] Creatinine [Mass/Vol] 0.95 mg/dL 0.70 - 1.30 mg/dL [facility] eGFR, CKD-EPI, Male - PINF [facility] Comment on above: Reported eGFR is bas ed on the CKD-EPI 2020 equation using creatinine, age, and sex. Glucose [Mass/Vol] 80 mg/dL 70 - 99 mg/dL [facility] Interpretation and review of laboratory results Abnormal [facility] Osmolality Calc [Osmolality] 293 [facility] Potassium [Moles/Vol] 4.1 mmol/L 3.5 - 5.0 mmol/L [facility] Protein [Mass/Vol] 7.2 g/dL 6.4 - 8.3 g/dL [facility] Sodium [Moles/Vol] 141 mmol/L 135 - 145 mmol/L [facility] Urea nitrogen [Mass/Vol] 11 mg/dL 7 - 25 mg/d L [facility] Urea nitrogen/Creatinine [Mass ratio] 12 mg/mg [facility] PT,INR,PTTon 07-17-2023 aPTT Coag (PPP) [Time] 28.[address] [facility] INR Coag (Bld) [Relative time] 1.0 {INR} 0.9 - 1.1 [facility] Interpretation and review of laboratory results [facility] PT Coag (PPP) [Time] [facility] AND S[facility] - PREADMISSI ONon 07-17-2023 ABO/RH(D) TYPE AB NEG [facility] URINALYSISOrdered By: Manjula Rees on 07-17-2023 Appearance (U) Clear Clear [facility] Bacteria LM Ql (Urine sed) ABSENT ABSENT [facility] Color (U) Yellow Yellow [facility] Epithelial cells.squamous LM Ql (Urine sed) 0-2/hpf 0-2/hpf, 3-5/hpf = 1+ [facility] Glucose Test strip (U) [Mass/Vol] Negative Negative [facility] Interpretation and review of laboratory results [facility] Ketones (U) [Mass/Vol] Negative Negative [facility] Leukocyte esterase Test strip Ql (U) Negative [facility] [facility] Nitrite Ql (U) Negative [facility] pH (U) 6.5 [pH] 5.0 - 7.0 [facility] Protein (U) [Mass/Vol] Negative Negative [facility] RBC (U) [#/Vol] [facility] RBC LM.HPF (Urine sed) [#/Area] 0-2 [facility] Specific gravity (U) [Rel density] 1.010 1.001 - 1.035 [facility] Urobilinogen (U) [Mass/Vol] 0.2 E.U./dL 0.2 E.U/dL, 1.0 E.U/dL [facility] WBC LM.HPF (Urine sed) [#/Area] 0 - 5 [facility] ABORH TYPE RECONFIRMATIONon 04-02-2023 ABO/RH(D) TYPE AB NEG [facility] Absolute lymphocyte countOrd ered By: HEALTH ASSESSMENT on 12-20-2022 Lymphocytes Auto (Unsp spec) [#/Vol] 2.69 10*3/uL 0.83-4.51 [facility] Absolute reticulocyte countO rdered By: HEALTH ASSESSMENT on 12-20-2022 Reticulocytes (Bld) [#/Vol] 0.00 10*3/uL 0-5 [facility] Basophil percentageOrdered B y: HEALTH ASSESSMENT on 12-20-2022 Basophil percentage 3.2 mg/dL 2.5-4.9 [facility] Bilirubin [Mass/Vol] 1.40 mg/dL 0.20-1.00 [facility] Comment on above: For patients on eltr ombopag therapy, use of Dimension [place] TBIL is not recommended. Chloride [Moles/Vol] 104 mmol/L 98-107 [facility] Cholesterol [Mass/Vol] 224 mg/dL <200 [facility] Comment on above: <200 mg/dL Desirable 200-240 mg/dL Borderline >240 mg/dL High Risk Glucose [Mass/Vol] 100 mg/dL 74-106 [facility] Comment on above: Fasting Glucose resu lt from 100 to 125 mg/dL suggests IMPAIRED HOMEOSTASIS per A.D.A. criteria. LDH [Catalytic activity/Vol] 211 U/L 87-241 [facility] Neutrophils (Bld) [#/Vol] 4.7 10*3/uL 2.0-7.7 [facility] Potassium [Moles/Vol] 4.4 mmol/L 3.5-5.1 [facility] Protein [Mass/Vol] 8.2 g/dL 6.4-8.2 [facility] Sodium [Moles/Vol] 138 mmol/L 136-145 [facility] Triglyceride [Mass/Vol] 111 mg/dL <199 [facility] Comment on above: The drugs N-Acetylcy steine and Metamizole may falsely depress this assay.Serum Triglycerides Reference Interval Normal <150 mg/dL Borderline high 150 - 199 mg/dL High 200 - 499 mg/dL Very High > or = 500 mg/dL WBC (Bld) [#/Vol] 8.2 10*3/uL 4.4-11.0 [facility] Bilirubin Test strip Ql (U)O rdered By: HEALTH ASSESSMENT on 12-20-2022 Bilirubin Ql (U) Negative Negative [facility] Blood erythrocytes count (nu mber/volume)Ordered By: HEALTH ASSESSMENT on 12-20-2022 RBC (Bld) [#/Vol] 5.53 10*6/uL 4.6-6.2 [facility] Blood hemoglobin measurement (mass/volume)Ordered By: HEALTH ASSESSMENT on 12-20-2022 Hemoglobin (Bld) [Mass/Vol] 16.7 g/dL 13.0-16.5 [facility] Blood platelet mean volumeOr dered By: HEALTH ASSESSMENT on 12-20-2022 Platelet mean volume (Bld) [Entitic vol] 9.7 fL 6.2-12.0 [facility] Determination of erythrocyte mean corpuscular volume (MCV)Ordered By: HEALTH ASSESSMENT on 12-20-2022 MCV (RBC) [Entitic vol] 91.0 fL 80-94 [facility] Direct bilirubinOrdered By: HEALTH ASSESSMENT on 12-20-2022 Bilirubin.direct [Mass/Vol] 0.25 mg/dL 0.00-0.30 [facility] Hematocrit Auto (Bld) [Volum e fraction]Ordered By: HEALTH ASSESSMENT on 12-20-2022 Hematocrit (Bld) [Volume fraction] 50.3 % 40-54 [facility] Ketones Test strip Ql (U)Ord ered By: HEALTH ASSESSMENT on 12-20-2022 Ketones Ql (U) Negative Negative [facility] Laboratory - Chemistry and C hemistry - challengeOrdered By: HEALTH ASSESSMENT on 12-20-2022 ALP [Catalytic activity/Vol] 61 U/L 45-117 [facility] ALT [Catalytic activity/Vol] 40 U/L 16-61 [facility] Cholesterol.total/Choles terol in HDL [Mass ratio] 4.10 {ratio} [facility] CO2 [Moles/Vol] 28.0 mmol/L 21.0-32.0 [facility] Globulin (S) [Mass/Vol] 4.1 g/dL 2.2-4.2 [facility] Urea nitrogen/Creatinine [Mass ratio] 9.6 mg/mg 10-20 [facility] Laboratory - Hematology and Cell countsOrdered By: HEALTH ASSESSMENT on 12-20-2022 Erythrocyte distribution width (RBC) [Entitic vol] 42.0 fL 35.1-43.9 [facility] Erythrocyte distribution width (RBC) [Ratio] 12.7 % 11.6-14.6 [facility] MCH (RBC) [Entitic mass] 30.2 pg 27.0-32.0 [facility] Nucleated RBC/100 WBC (Bld) [Ratio] 0 % 0-5 [facility] MCHC Auto (RBC) [Mass/Vol]Or dered By: HEALTH ASSESSMENT on 12-20-2022 MCHC (RBC) [Mass/Vol] 33.2 g/dL 32-36 [facility] Nitrite Test strip Ql (U)Ord ered By: HEALTH ASSESSMENT on 12-20-2022 Nitrite Ql (U) Negative Negative [facility] No Panel InformationOrdered By: Chichi Argueta on 12-20-2022 Prostate Specific Antigen Total 16.10 ng/mL 0.0-4.0 [facility] Comment on above: This test was perfor med using the TPSA assay method for the[employer] chemistry system. Values obtained with differentassay methods cannot be used interchangably.When changing PSA assays in the course of monitoring apatient, additional sequential testing should be carriedout to confirm baseline values. No Panel InformationOrdered By: HEALTH ASSESSMENT on 12-20-2022 Estimated GFR (MDRD) Amer 85 mL/min >60 [facility] Comment on above: GFR Calc Estimated GFR (MDRD) Non-Af Amer 70 mL/min >60 [facility] Comment on above: Non- GFR Calc Platelets bldOrdered By: STEPHANIE LT ASSESSMENT on 12-20-2022 Platelets (Bld) [#/Vol] 280 10*3/uL 150-450 [facility] Protein Test strip Ql (U)Ord ered By: HEALTH ASSESSMENT on 12-20-2022 Protein Ql (U) Negative Negative [facility] Segmented neutrophils/100 WB C Auto (Bld)Ordered By: HEALTH ASSESSMENT on 12-20-2022 Segmented neutrophils/100 WBC (Bld) 57.6 % 47-70 [facility] Serum or plasma albumin jase urement (mass/volume)Ordered By: HEALTH ASSESSMENT on 12-20-2022 Albumin [Mass/Vol] 4.1 g/dL 3.2-5.0 [facility] Serum or plasma albumin/glob ulin mass ratioOrdered By: HEALTH ASSESSMENT on 12-20-2022 Albumin/Globulin [Mass ratio] 1.0 {ratio} 0.9-2.4 [facility] Serum or plasma calcium jase urement (mass/volume)Ordered By: HEALTH ASSESSMENT on 12-20-2022 Calcium [Mass/Vol] 9.3 mg/dL 8.5-10.1 [facility] Serum or plasma cholesterol in HDL measurement (mass/volume)Ordered By: HEALTH ASSESSMENT on 12-20-2022 Cholesterol in HDL [Mass/Vol] 54 mg/dL >40 [facility] Comment on above: The drugs N-Acetylcy steine and Metamizole may falsely depress this assay. Reference Range HDL <40 mg/dL Low HDL Cholesterol HDL >or= 60 mg/dL High HDL Cholesterol Serum or plasma cholesterol in VLDL measurement (mass/volume)Ordered By: HEALTH ASSESSMENT on 12-20-2022 Cholesterol in VLDL [Mass/Vol] 22 mg/dL 5-40 [facility] Serum or plasma creatinine m easurement (mass/volume)Ordered By: HEALTH ASSESSMENT on 12-20-2022 Creatinine [Mass/Vol] 1.15 mg/dL 0.70-1.30 [facility] Comment on above: The validity of the calculated GFR & GFRAA in patients over 70 years has not been determined. Clinical correlation is essential. Serum or plasma low density lipoprotein (LDL) cholesterol measurement (mass/volume)Ordered By: HEALTH ASSESSMENT on 12-20-2022 Cholesterol in LDL [Mass/Vol] 148 mg/dL 0-130 [facility] Serum or plasma urea nitroge n measurement (mass/volume)Ordered By: HEALTH ASSESSMENT on 12-20-2022 Urea nitrogen [Mass/Vol] 11 mg/dL 7-18 [facility] Serum or plasma uric acid me asurement (mass/volume)Ordered By: HEALTH ASSESSMENT on 12-20-2022 Urate [Mass/Vol] 6.6 mg/dL 3.5-7.2 [facility] Comment on above: The drugs N-Acetylcy steine and Metamizole may falsely depress this assay. Thin prep Papanicolaou smear with manual screeningOrdered By: HEALTH ASSESSMENT on 12-20-2022 Thin prep Papanicolaou smear with manual screening 21 U/L 15-37 [facility] Thin prep Papanicolaou smear with manual screening 6 5-15 [facility] Urine blood detectionOrdered By: HEALTH ASSESSMENT on 12-20-2022 RBC Ql (U) Negative Negative [facility] Urine clarityOrdered By: A [facility] ASSESSMENT on 12-20-2022 Clarity (U) Clear Clear [facility] Urine color determinationOrd ered By: HEALTH ASSESSMENT on 12-20-2022 Color (U) Yellow Yellow [facility] Urine glucose detectionOrder ed By: HEALTH ASSESSMENT on 12-20-2022 Glucose Ql (U) Normal mg/dl Normal [facility] Urine leukocyte esterase det ection by dipstickOrdered By: HEALTH ASSESSMENT on 12-20-2022 Leukocyte esterase Test strip Ql (U) Negative Negative [facility] Urine pHOrdered By: HEALTH A SSESSMENT on 12-20-2022 pH (U) 7.0 [pH] 5.0 - 8.0 [facility] Urine specific gravity measu rementOrdered By: HEALTH ASSESSMENT on 12-20-2022 Specific gravity (U) [Rel density] 1.010 1.002-1.030 [facility] Urobilinogen Auto test strip Ql (U)Ordered By: HEALTH ASSESSMENT on 12-20-2022 Urobilinogen Ql (U) Normal mg/dl Normal [facility] MR Prostate WO and W contras t Germania 08-29-2022 IMPRESSION: 1. Stable to slight interval increase in the size of the prostate gland. Stable high PSA density within the gland. 2. Some interval increase in the size of the previously noted signal abnormality in the right transitional zone within the mid gland extending into the base and into the fibromuscular stroma concerning for a neoplastic [id number] Category 4 3. Patchy linear and bandlike [...] Postprocessing of the images was performed on [email or web address] software at the time of image interpretation. [...] without discrete focal osseous lesions RADIOLOGY Anders Gordon MBBS - 08/29/2022 EXAM: MRI PROSTATE WITH AND [...] Postprocessing of the images was performed on [email or web address] software at the time of image interpretation. [...] the fibromuscular stroma concerning for a neoplastic [id number] Category 4 3. Patchy linear and bandlike T2 hypointense areas in the peripheral zones with increased postcontrast enhancement could be related to background prostatitis. 4. Intact prostatic capsule with no regional extracapsular disease. 5. No lymphadenopathy or bone lesions identified on this study [facility] Radiology Study observation (narrative) [facility] MR Prostate WO and W contras t IVOrdered By: Anders Gordon on 08-29-2022 [facility] Work Phone: No Panel Informationon 05-24 Prostate Specific Antigen Total 12.50 ng/mL 0.0-4.0 [facility] Comment on above: This test was perfor med using the TPSA assay method for [employer] chemistry system. Values obtained with differentassay methods cannot be used interchangably.When changing PSA assays in the course of monitoring apatient, additional sequential testing should be carriedout to confirm baseline values. Absolute lymphocyte counton 11-22-2021 Lymphocytes Auto (Unsp spec) [#/Vol] 2.29 10*3/uL 0.83-4.51 [facility] Work Phone: Absolute reticulocyte counto n 11-22-2021 Reticulocytes (Bld) [#/Vol] 0.00 10*3/uL 0-5 [facility] Work Phone: Basophil percentageon 2021 Basophil percentage 2.9 mg/dL 2.5-4.9 [facility] Work Phone: Bilirubin [Mass/Vol] 1.00 mg/dL 0.20-1.00 [facility] Work Phone: Comment on above: For patients on eltr ombopag therapy, use of Dimension [place] TBIL is not recommended. Chloride [Moles/Vol] 105 mmol/L 98-107 [facility] Work Phone: Cholesterol [Mass/Vol] 233 mg/dL <200 [facility] Work Phone: Comment on above: <200 mg/dL Desirable 200-240 mg/dL Borderline >240 mg/dL High Risk Glucose [Mass/Vol] 95 mg/dL 74-106 [facility] Work Phone: [phone] Neutrophils (Bld) [#/Vol] 3.2 10*3/uL 2.0-7.7 [facility] Work Phone: [phone] Potassium [Moles/Vol] 4.4 mmol/L 3.5-5.1 [facility] Work Phone: [phone] Protein [Mass/Vol] 8.0 g/dL 6.4-8.2 [facility] Work Phone: [phone] Sodium [Moles/Vol] 140 mmol/L 136-145 [facility] Work Phone: [phone] Triglyceride [Mass/Vol] 150 mg/dL <199 [facility] Work Phone: Comment on above: The drugs N-Acetylcy steine and Metamizole may falsely depress this assay.Serum Triglycerides Reference Interval Normal <150 mg/dL Borderline high 150 - 199 mg/dL High 200 - 499 mg/dL Very High > or = 500 mg/dL WBC (Bld) [#/Vol] 6.3 10*3/uL 4.4-11.0 [facility] Work Phone: [phone] Bilirubin Test strip Ql (U)o n 11-22-2021 Bilirubin Ql (U) Negative Negative [facility] Work Phone: [phone] Blood erythrocytes count (nu mber/volume)on 11-22-2021 RBC (Bld) [#/Vol] 5.31 10*6/uL 4.6-6.2 [facility] Work Phone: [phone] Blood hemoglobin measurement (mass/volume)on 11-22-2021 Hemoglobin (Bld) [Mass/Vol] 16.1 g/dL 13.0-16.5 [facility] Work Phone: [phone] Blood platelet mean volumeon 11-22-2021 Platelet mean volume (Bld) [Entitic vol] 9.9 fL 6.2-12.0 [facility] Work Phone: Determination of erythrocyte mean corpuscular volume (MCV)on 11-22-2021 MCV (RBC) [Entitic vol] 87.6 fL 80-94 [facility] Work Phone: Direct bilirubinon Bilirubin.direct [Mass/Vol] 0.20 mg/dL 0.00-0.30 [facility] Work Phone: [phone] Hematocrit Auto (Bld) [Volum e fraction]on 11-22-2021 Hematocrit (Bld) [Volume fraction] 46.5 % 40-54 [facility] Work Phone: Ketones Test strip Ql (U)on 11-22-2021 Ketones Ql (U) Negative Negative [facility] Work Phone: Laboratory - Chemistry and C hemistry - challengeon 11-22-2021 ALP [Catalytic activity/Vol] 59 U/L 45-117 [facility] Work Phone: ALT [Catalytic activity/Vol] 38 U/L 16-61 [facility] Work Phone: [phone] Cholesterol.total/Choles terol in HDL [Mass ratio] 3.60 {ratio} [facility] Work Phone: [phone] CO2 [Moles/Vol] 29.0 mmol/L 21.0-32.0 [facility] Work Phone: Globulin (S) [Mass/Vol] 4.0 g/dL 2.2-4.2 [facility] Work Phone: [phone] Urea nitrogen/Creatinine [Mass ratio] 11.4 mg/mg 10-20 [facility] Work Phone: [phone] Laboratory - Hematology and Cell countson 11-22-2021 Erythrocyte distribution width (RBC) [Entitic vol] 41.6 fL 35.1-43.9 [facility] Work Phone: [phone] Erythrocyte distribution width (RBC) [Ratio] 12.9 % 11.6-14.6 [facility] Work Phone: MCH (RBC) [Entitic mass] 30.3 pg 27.0-32.0 [facility] Work Phone: [phone] Nucleated RBC/100 WBC (Bld) [Ratio] 0 % 0-5 [facility] Work Phone: [phone] MCHC Auto (RBC) [Mass/Vol]on 11-22-2021 MCHC (RBC) [Mass/Vol] 34.6 g/dL 32-36 [facility] Work Phone: [phone] Nitrite Test strip Ql (U)on 11-22-2021 Nitrite Ql (U) Negative Negative [facility] Work Phone: [phone] Panel Informationon 11-22 Prostate Specific Antigen Total 10.80 ng/mL 0.0-4.0 [facility] Work Phone: [phone] Comment on above: This test was perfor med using the TPSA assay method for [employer] chemistry system. Values obtained with differentassay methods cannot be used interchangably.When changing PSA assays in the course of monitoring apatient, additional sequential testing should be carriedout to confirm baseline values. Estimated GFR (MDRD) Amer 79 mL/min >60 [facility] Work Phone: [phone] Comment on above: GFR Calc Estimated GFR (MDRD) Non-Af Amer 65 mL/min >60 [facility] Work Phone: [phone] Comment on above: Non- GFR Calc Platelets bldon 11-22-2021 Platelets (Bld) [#/Vol] 261 10*3/uL 150-450 [facility] Work Phone: [phone] Protein Test strip Ql (U)on 11-22-2021 Protein Ql (U) Negative Negative [facility] Work Phone: [phone] Segmented neutrophils/100 WB C Auto (Bld)on 11-22-2021 Segmented neutrophils/100 WBC (Bld) 49.7 % 47-70 [facility] Work Phone: [phone] Serum or plasma albumin jase urement (mass/volume)on 11-22-2021 Albumin [Mass/Vol] 4.0 g/dL 3.2-5.0 [facility] Work Phone: Serum or plasma albumin/glob ulin mass ratioon 11-22-2021 Albumin/Globulin [Mass ratio] 1.0 {ratio} 0.9-2.4 [facility] Work Phone: Serum or plasma calcium jase urement (mass/volume)on 11-22-2021 Calcium [Mass/Vol] 9.3 mg/dL 8.5-10.1 [facility] Work Phone: Serum or plasma cholesterol in HDL measurement (mass/volume)on 11-22-2021 Cholesterol in HDL [Mass/Vol] 64 mg/dL >40 [facility] Work Phone: Comment on above: The drugs N-Acetylcy steine and Metamizole may falsely depress this assay. Reference Range HDL <40 mg/dL Low HDL Cholesterol HDL >or= 60 mg/dL High HDL Cholesterol Serum or plasma cholesterol in VLDL measurement (mass/volume)on 11-22-2021 Cholesterol in VLDL [Mass/Vol] 30 mg/dL 5-40 [facility] Work Phone: Serum or plasma creatinine m easurement (mass/volume)on 11-22-2021 Creatinine [Mass/Vol] 1.23 mg/dL 0.70-1.30 [facility] Work Phone: Comment on above: The validity of the calculated GFR & GFRAA in patients over 70 years has not been determined. Clinical correlation is essential. Serum or plasma low density lipoprotein (LDL) cholesterol measurement (mass/volume)on 11-22-2021 Cholesterol in LDL [Mass/Vol] 139 mg/dL 0-130 [facility] Work Phone: Serum or plasma urea nitroge n measurement (mass/volume)on 11-22-2021 Urea nitrogen [Mass/Vol] 14 mg/dL 7-18 [facility] Work Phone: Serum or plasma uric acid me asurement (mass/volume)on 11-22-2021 Urate [Mass/Vol] 7.0 mg/dL 3.5-7.2 [facility] Work Phone: Comment on above: The drugs N-Acetylcy steine and Metamizole may falsely depress this assay. Thin prep Papanicolaou smear with manual screeningon 11-22-2021 Thin prep Papanicolaou smear with manual screening 23 U/L 15-37 [facility] Work Phone: Thin prep Papanicolaou smear with manual screening 6 5-15 [facility] Work Phone: Thin prep Papanicolaou smear with manual screening 171 U/L 87-241 [facility] Work Phone: Urine blood detectionon 10-27 RBC Ql (U) Negative Negative [facility] Work Phone: Urine clarityon 11-22-2021 Clarity (U) Clear Clear [facility] Work Phone: Urine color determinationon 11-22-2021 Color (U) Yellow Yellow [facility] Work Phone: Urine glucose detectionon Glucose Ql (U) Normal mg/dl Normal [facility] Work Phone: Urine leukocyte esterase det ection by dipstickon 11-22-2021 Leukocyte esterase Test strip Ql (U) Negative Negative [facility] Work Phone: Urine pHon 11-22-2021 pH (U) 6.0 [pH] 5.0 - 8.0 [facility] Work Phone: Urine specific gravity measu rementon 11-22-2021 Specific gravity (U) [Rel density] 1.015 1.002-1.030 [facility] Work Phone: Urobilinogen Auto test strip Ql (U)on 11-22-2021 Urobilinogen Ql (U) Normal mg/dl Normal [facility] Work Phone: MRI PROSTATE WITH AND [...] Postprocessing of the images was performed on [email or web address] software at the time of image interpretation. [...] Bones: The visualized osseous structures are unremarkable. [facility] Elizabeth Bustillo MD - 10/13/2020 EXAM: [...] Postprocessing of the images was performed on [email or web address] software at the time of image interpretation. [...] zone lesion suspicious for neoplasia (PI-RADS 4). [facility] Radiology Study observation (narrative) [facility] MRI PROSTATE WITH AND WITHOU T CONTRASTOrdered By: Elizabeth Bustillo on 10-13-2020 [facility] Work Phone: CNOVon 03-11-2019 CNOV Office Visit (OTOLMN ) NORMAN GARY ([id number]) 1965 M Date Time Provider Department 03/11/19 [...] Status:Closed by LENCHO BOUDREAUX MD on 03/11/19 [facility] PROGRESSon 03-11-2019 PROGRESS HNO ID: [id number] Author: Lencho Boudreaux Service: ? Author Type: [...] performed by Dr. Boudreaux. Lencho Boudreaux MD [facility] CNOVon 12-08-2018 CNOV Office Visit (OTOLMN ) NORMAN GARY ([id number]) 1965 M Date Time Provider Department 12/08/18 [...] MD 12/08/2018 3:32 PM Signed CC: Norman Epstein Cookie is a 53 year old male seen [...] Status:Closed by LENCHO BOUDREAUX MD on 12/08/18 [facility] PROGRESSon 12-08-2018 PROGRESS HNO ID: [id number] Author: Lencho Boudreaux Service: ? Author Type: [...] performed by Dr. Cobb. 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 N/A - Patient is a non-smoker or quit >1 year ago. Was a referral initiated?N/A Patient is a non-smoker Arlin Palacios, PHD CCC-PEDIATRICIAN/MEDICAL DOCTOR, CCC/PEDIATRICIAN/MEDICAL DOCTOR 08/19/2018 7:56 AM Signed [facility] Arlin Palacios, Ph.D NAME: Norman Gary CLINIC NO: [id number] DATE OF SERVICE: August 18, 2018 IMPRESSION [...] Gary and Dr. Boudreaux. Arlin Palacios, PHD CCC-PEDIATRICIAN/MEDICAL DOCTOR Referring Provider: SELF [[id number]] Allergies As of [...] Status:Closed by ARLIN PALACIOS PHD on 08/19/18 [facility] PROGRESSon 08-18-2018 PROGRESS HNO ID: [id number] Author: Lencho Boudreaux Service: ? 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 He does not have any reflux or [...] RECORDS: Dr. Palacios's notes Lencho Boudreaux MD [facility] PROGRESS HNO ID: [id number] Author: Arlin Palacios (Slp), [facility]/PEDIATRICIAN/MEDICAL DOCTOR Service: ? Author Type: Speech Language Pathologist Type: Progress Notes Filed: 08/19/2018 7:56 AM Note Text: [facility] Arlin Palacios, Ph.D NAME: Norman Gary [facility] NO: [id number] DATE OF SERVICE: August 18, 2018 IMPRESSION [...] Gary and Dr. Boudreaux. Arlin Palacios, PHD CCC-PEDIATRICIAN/MEDICAL DOCTOR Normal [facility] Vital Signs Date Time Vital Sign Value Performing Clinician Facility 10-15-2024 14:10-0400 Body height 175.[address] Chichi Argueta MD Work Phone: [facility] 10-15-2024 14:10-0400 Body mass index (BMI) [Ratio] 28.3 kg/m2 Dr. Chichi Argueta MD Work Phone: [facility] 10-15-2024 14:10-0400 Body temperature 97.4 [degF] Dr. Chichi Argueta MD Work Phone: 4(766)679-511031 [address] 10-15-2024 14:10-0400 Body weight 86.[address] Chichi Argueta MD Work Phone: 4(426)302-657031 [address] 10-15-2024 14:10-0400 Diastolic blood pressure 89 mm[Hg] Dr. Chichi Argueta MD Work Phone: 9(017)998-257431 [address] 10-15-2024 14:10-0400 Heart rate 72 /min Dr. Chichi Argueta MD Work Phone: 4(365)677-725479 [place] [address] 10-15-2024 14:10-0400 Respiratory rate 16 /min Dr. Chichi Argueta MD Work Phone: 7(195)107-053527 [place] [address] 10-15-2024 14:10-0400 SaO2% (BldA) [Mass fraction] 100 % Dr. Chichi Argueta MD Work Phone: [facility] 10-15-2024 14:10-0400 Systolic blood pressure 121 mm[Hg] Dr. Chichi Argueta MD Work Phone: 9(714)066-239227 [place] [address] 09-14-2024 13:54-0400 Body height 175.[address] Chichi Argueta MD Work Phone: 2(869)061-912127 [place] [address] 09-14-2024 13:54-0400 Body mass index (BMI) [Ratio] 27.6 kg/m2 Dr. Chichi Argueta MD Work Phone: 8(069)504-198727 [place] [address] 09-14-2024 13:54-0400 Body temperature 98.5 [degF] Dr. Chichi Argueta MD Work Phone: 9(534)199-462727 [place] [address] 09-14-2024 13:54-0400 Body weight 84.[address] Chichi Argueta MD Work Phone: [facility] 09-14-2024 13:54-0400 Diastolic blood pressure 92 mm[Hg] Dr. Chichi Argueta MD Work Phone: [facility] 09-14-2024 13:54-0400 Heart rate 73 /min Dr. Chichi Argueta MD Work Phone: 4(052)372-512527 [place] [address] 09-14-2024 13:54-0400 Respiratory rate 16 /min Dr. Chichi Argueta MD Work Phone: 3(360)697-559727 [place] [address] 09-14-2024 13:54-0400 SaO2% (BldA) [Mass fraction] 99 % Dr. Chichi Argueta MD Work Phone: 2(291)877-840679 [place] [address] 09-14-2024 13:54-0400 Systolic blood pressure 146 mm[Hg] Dr. Chichi Argueta MD Work Phone: 2(168)061-370527 [place] [address] 09-09-2024 13:55-0400 Body height 175.[address] Chichi Argueta MD Work Phone: 0(031)318-641379 [place] [address] 09-09-2024 13:55-0400 Body mass index (BMI) [Ratio] 27.8 kg/m2 Dr. Chichi Argueta MD Work Phone: 7(950)219-029427 [place] [address] 09-09-2024 13:55-0400 Body temperature 96.9 [degF] Dr. Chichi Argueta MD Work Phone: 1(489)643-239127 [place] [address] 09-09-2024 13:55-0400 Body weight 85.[address] Chichi Argueta MD Work Phone: [facility] 09-09-2024 13:55-0400 Diastolic blood pressure 89 mm[Hg] Dr. Chichi Argueta MD Work Phone: [facility] 09-09-2024 13:55-0400 Heart rate 73 /min Dr. Chichi Argueta MD Work Phone: 0(554)814-436927 [place] [address] 09-09-2024 13:55-0400 Respiratory rate 16 /min Dr. Chichi Argueta MD Work Phone: [facility] 09-09-2024 13:55-0400 SaO2% (BldA) [Mass fraction] 100 % Dr. Chichi Argueta MD Work Phone: [facility] 09-09-2024 13:55-0400 Systolic blood pressure 144 mm[Hg] Dr. Chichi Argueta MD Work Phone: [facility] 09-02-2024 14:01-0400 Body height 175.[address] Chichi Argueta MD Work Phone: 3(113)114-277327 [place] [address] 09-02-2024 14:01-0400 Body mass index (BMI) [Ratio] 27.8 kg/m2 Dr. Chichi Argueta MD Work Phone: 0(873)014-845227 [place] [address] 09-02-2024 14:01-0400 Body temperature 97.4 [degF] Dr. Chichi Argueta MD Work Phone: 9(606)825-691927 [place] [address] 09-02-2024 14:01-0400 Body weight 85.[address] Chichi Argueta MD Work Phone: 4(126)252-302727 [place] [address] 09-02-2024 14:01-0400 Diastolic blood pressure 81 mm[Hg] Dr. Chichi Argueta MD Work Phone: [facility] 09-02-2024 14:01-0400 Heart rate 67 /min Dr. Chichi Argueta MD Work Phone: [facility] 09-02-2024 14:01-0400 Respiratory rate 18 /min Dr. Chichi Argueta MD Work Phone: [facility] 09-02-2024 14:01-0400 SaO2% (BldA) [Mass fraction] 100 % Dr. Chichi Argueta MD Work Phone: [facility] 09-02-2024 14:01-0400 Systolic blood pressure 136 mm[Hg] Dr. Chichi Argueta MD Work Phone: [facility] 08-26-2024 13:44-0400 Body mass index (BMI) [Ratio] 27.8 kg/m2 Dr. Chichi Argueta MD Work Phone: 0(491)590-370927 [place] [address] 08-26-2024 13:44-0400 Body temperature 97.4 [degF] Dr. Chichi Argueta MD Work Phone: 5(626)775-222279 [place] [address] 08-26-2024 13:44-0400 Body weight 85.[address] Chichi Argueta MD Work Phone: 3(685)361-778279 [place] [address] 08-26-2024 13:44-0400 Diastolic blood pressure 78 mm[Hg] Dr. Chichi Argueta MD Work Phone: 1(552)400-738879 [place] [address] 08-26-2024 13:44-0400 Heart rate 84 /min Dr. Chichi Argueta MD Work Phone: 4(630)556-520279 [place] [address] 08-26-2024 13:44-0400 Respiratory rate 16 /min Dr. Chichi Argueta MD Work Phone: 0(707)332-125179 [place] [address] 08-26-2024 13:44-0400 SaO2% (BldA) [Mass fraction] 99 % Dr. Chichi Argueta MD Work Phone: 6(194)376-942879 [place] [address] 08-26-2024 13:44-0400 Systolic blood pressure 108 mm[Hg] Dr. Chichi Argueta MD Work Phone: 3(159)029-028179 [place] [address] 08-19-2024 10:42-0400 Body height 175.[address] Chichi Argueta MD Work Phone: 8(596)978-330979 [place] [address] 08-19-2024 10:42-0400 Body mass index (BMI) [Ratio] 27.7 kg/m2 Dr. Chichi Argueta MD Work Phone: 8(287)538-517679 [place] [address] 08-19-2024 10:42-0400 Body temperature 98.1 [degF] Dr. Chichi Argueta MD Work Phone: 2(762)117-236079 [place] [address] 08-19-2024 10:42-0400 Body weight 85.[address] Chichi Argueta MD Work Phone: 8(721)719-957479 [place] [address] 08-19-2024 10:42-0400 Diastolic blood pressure 85 mm[Hg] Dr. Chichi Argueta MD Work Phone: 2(228)344-570979 [place] [address] 08-19-2024 10:42-0400 Heart rate 62 /min Dr. Chichi Argueta MD Work Phone: 9(516)930-909079 [place] [address] 08-19-2024 10:42-0400 Respiratory rate 18 /min Dr. Chichi Argueta MD Work Phone: 4(288)987-880279 [place] [address] 08-19-2024 10:42-0400 SaO2% (BldA) [Mass fraction] 100 % Dr. Chichi Argueta MD Work Phone: 3(318)195-326979 [place] [address] 08-19-2024 10:42-0400 Systolic blood pressure 128 mm[Hg] Dr. Chichi Argueta MD Work Phone: 8(183)991-106779 [place] [address] 08-12-2024 14:17-0400 Body height 175.[address] Chichi Argueta MD Work Phone: 1(165)110-377779 [place] [address] 08-12-2024 14:17-0400 Body mass index (BMI) [Ratio] 27.8 kg/m2 Dr. Chichi Arugeta MD Work Phone: 2(721)736-334679 [place] [address] 08-12-2024 14:17-0400 Body temperature 97.2 [degF] Dr. Chichi Argueta MD Work Phone: 9(802)320-197379 [place] [address] 08-12-2024 14:17-0400 Body weight 85.[address] Chichi Argueta MD Work Phone: 2(133)006-439579 [place] [address] 08-12-2024 14:17-0400 Diastolic blood pressure 78 mm[Hg] Dr. Chichi Argueta MD Work Phone: 0(869)195-752779 [place] [address] 08-12-2024 14:17-0400 Heart rate 60 /min Dr. Chichi Argueta MD Work Phone: 3(023)831-365279 [place] [address] 08-12-2024 14:17-0400 Respiratory rate 18 /min Dr. Chichi Argueta MD Work Phone: 9(766)326-435779 [place] [address] 08-12-2024 14:17-0400 SaO2% (BldA) [Mass fraction] 100 % Dr. Chichi Argueta MD Work Phone: 5(636)750-734027 [place] [address] 08-12-2024 14:17-0400 Systolic blood pressure 113 mm[Hg] Dr. Chichi Argueta MD Work Phone: 2(595)205-607479 [place] [address] 08-05-2024 13:57-0400 Body height 175.[address] Chichi Argueta MD Work Phone: 0(732)121-565579 [place] [address] 08-05-2024 13:57-0400 Body mass index (BMI) [Ratio] 28.2 kg/m2 Dr. Chichi Argueta MD Work Phone: 6(229)925-239979 [place] [address] 08-05-2024 13:57-0400 Body temperature 96.9 [degF] Dr. Chichi Argueta MD Work Phone: 0(074)958-859179 [place] [address] 08-05-2024 13:57-0400 Body weight 86.[address] Chichi Argueta MD Work Phone: 2(255)579-872879 [place] [address] 08-05-2024 13:57-0400 Diastolic blood pressure 82 mm[Hg] Dr. Chichi Argueta MD Work Phone: 4(920)346-016279 [place] [address] 08-05-2024 13:57-0400 Heart rate 69 /min Dr. Chichi Argueta MD Work Phone: 1(303)095-692079 [place] [address] 08-05-2024 13:57-0400 Respiratory rate 16 /min Dr. Chichi Argueta MD Work Phone: 5(146)662-966827 [place] [address] 08-05-2024 13:57-0400 SaO2% (BldA) [Mass fraction] 100 % Dr. Chichi Argueta MD Work Phone: 4(243)229-214427 [place] [address] 08-05-2024 13:57-0400 Systolic blood pressure 151 mm[Hg] Dr. Chichi Argueta MD Work Phone: 6(481)510-425779 [place] [address] 07-29-2024 14:05-0400 Body height 175.[address] Chichi Argueta MD Work Phone: [facility] 07-29-2024 14:05-0400 Body mass index (BMI) [Ratio] 27.9 kg/m2 Dr. Chichi Argueta MD Work Phone: [facility] 07-29-2024 14:05-0400 Body temperature 97.2 [degF] Dr. Chichi Argueta MD Work Phone: 1(419)479-425527 [place] [address] 07-29-2024 14:05-0400 Body weight 85.[address] Chichi Argueta MD Work Phone: [facility] 07-29-2024 14:05-0400 Diastolic blood pressure 85 mm[Hg] Dr. Chichi Argueta MD Work Phone: 5(594)992-353527 [place] [address] 07-29-2024 14:05-0400 Heart rate 67 /min Dr. Chichi Argueta MD Work Phone: 3(211)526-657927 [place] [address] 07-29-2024 14:05-0400 Respiratory rate 16 /min Dr. Chichi Argueta MD Work Phone: 4(588)203-050927 [place] [address] 07-29-2024 14:05-0400 SaO2% (BldA) [Mass fraction] 99 % Dr. Chichi Argueta MD Work Phone: [facility] 07-29-2024 14:05-0400 Systolic blood pressure 134 mm[Hg] Dr. Chichi Argueta MD Work Phone: [facility] 06-16-2024 14:02-0400 Body mass index (BMI) [Ratio] 27.9 kg/m2 Dr. Chichi Argueta MD Work Phone: [facility] 06-16-2024 14:02-0400 Body temperature 98.7 [degF] Dr. Chichi Argueta MD Work Phone: [facility] 06-16-2024 14:02-0400 Body weight 85.[address] Chichi Argueta MD Work Phone: 4(654)779-010627 [place] [address] 06-16-2024 14:02-0400 Diastolic blood pressure 93 mm[Hg] Dr. Chichi Argueta MD Work Phone: [facility] 06-16-2024 14:02-0400 Heart rate 91 /min Dr. Chichi Argueta MD Work Phone: [facility] 06-16-2024 14:02-0400 Respiratory rate 16 /min Dr. Chichi Argueta MD Work Phone: [facility] 06-16-2024 14:02-0400 SaO2% (BldA) [Mass fraction] 98 % Dr. Chichi Argueta MD Work Phone: [facility] 06-16-2024 14:02-0400 Systolic blood pressure 156 mm[Hg] Dr. Chichi Argueta MD Work Phone: [facility] 05-20-2024 15:00-0400 Body height 175.3 cm Satya Whitmore MD Work Phone: [facility] 05-20-2024 15:00-0400 Body mass index (BMI) [Ratio] 27.7 kg/m2 Satya Whitmore MD Work Phone: [facility] 05-20-2024 15:00-0400 Body temperature 98.1 [degF] Satya Whitmore MD Work Phone: [facility] 05-20-2024 15:00-0400 Body weight 85.09 kg Satya Whitmore MD Work Phone: [facility] 05-20-2024 15:00-0400 Diastolic blood pressure 77 mm[Hg] Satya Whitmore MD Work Phone: [facility] 05-20-2024 15:00-0400 Heart rate 86 /min Satya Whitmore MD Work Phone: [facility] 05-20-2024 15:00-0400 Respiratory rate 16 /min Satya Whitmore MD Work Phone: [facility] 05-20-2024 15:00-0400 SaO2% (BldA) [Mass fraction] 100 % Satya Whitmore MD Work Phone: [facility] 05-20-2024 15:00-0400 Systolic blood pressure 161 mm[Hg] Satya Whitmore MD Work Phone: [facility] 05-19-2024 13:48-0400 Body height 175.[address] Chichi Argueta MD Work Phone: [facility] 05-19-2024 13:48-0400 Body mass index (BMI) [Ratio] 27.8 kg/m2 Dr. Chichi Argueta MD Work Phone: [facility] 05-19-2024 13:48-0400 Body temperature 98.2 [degF] Dr. Chichi Argueta MD Work Phone: [facility] 05-19-2024 13:48-0400 Body weight 85.[address] Chichi Argueta MD Work Phone: [facility] 05-19-2024 13:48-0400 Diastolic blood pressure 80 mm[Hg] Dr. Chichi Argueta MD Work Phone: [facility] 05-19-2024 13:48-0400 Heart rate 81 /min Dr. Chichi Argueta MD Work Phone: [facility] 05-19-2024 13:48-0400 Respiratory rate 16 /min Dr. Chichi Argueta MD Work Phone: [facility] 05-19-2024 13:48-0400 SaO2% (BldA) [Mass fraction] 98 % Dr. Chichi Argueta MD Work Phone: [facility] 05-19-2024 13:48-0400 Systolic blood pressure 126 mm[Hg] Dr. Chichi Argueta MD Work Phone: [facility] 08-15-2023 14:01-0400 Body height 175.3 cm Satya Whitmore MD Work Phone: [facility] 08-15-2023 14:01-0400 Body mass index (BMI) [Ratio] 27.81 kg/m2 Satya Whitmoer MD Work Phone: [facility] 08-15-2023 14:01-0400 Body temperature 97.81 [degF] Satya Whitmore MD Work Phone: [facility] 08-15-2023 14:01-0400 Body weight 85.41 kg Satya Whitmore MD Work Phone: [facility] 08-15-2023 14:01-0400 Diastolic blood pressure 72 mm[Hg] Satya Whitmore MD Work Phone: [facility] 08-15-2023 14:01-0400 Heart rate 64 /min Satya Whitmore MD Work Phone: [facility] 08-15-2023 14:01-0400 Respiratory rate 16 /min Satya Whitmore MD Work Phone: [facility] 08-15-2023 14:01-0400 SaO2% (BldA) [Mass fraction] 99 % Satya Whitmore MD Work Phone: [facility] 08-15-2023 14:01-0400 Systolic blood pressure 134 mm[Hg] Satya Whitmore MD Work Phone: [facility] 07-30-2023 02:50-0400 Body temperature 98.4 [degF] Satya Whitmore MD Work Phone: [facility] 07-30-2023 02:50-0400 Diastolic blood pressure 68 mm[Hg] Satya Whitmore MD Work Phone: [facility] 07-30-2023 02:50-0400 Heart rate 78 /min Satya Whitmore MD Work Phone: [facility] 07-30-2023 02:50-0400 Respiratory rate 14 /min Satya Whitmore MD Work Phone: [facility] 07-30-2023 02:50-0400 SaO2% (BldA) [Mass fraction] 97 % Satya Whitmore MD Work Phone: [facility] 07-30-2023 02:50-0400 Systolic blood pressure 114 mm[Hg] Satya Whitmore MD Work Phone: [facility] 07-29-2023 05:25-0400 Body height 175.3 cm Satya Whitmore MD Work Phone: [facility] 07-29-2023 05:25-0400 Body mass index (BMI) [Ratio] 27.91 kg/m2 Satay Whitmore MD Work Phone: [facility] 07-29-2023 05:25-0400 Body weight 85.73 kg Satya Whitmore MD Work Phone: [facility] 07-17-2023 14:16-0400 Body height 175.3 cm Poorvi Hazel DO Work Phone: [facility] 07-17-2023 14:16-0400 Body mass index (BMI) [Ratio] 27.62 kg/m2 Poorvi Hazel DO Work Phone: [facility] 07-17-2023 14:16-0400 Body temperature 98.2 [degF] Poorvi Hazel DO Work Phone: [facility] 07-17-2023 14:16-0400 Body weight 84.82 kg Poorvi Hazel DO Work Phone: [facility] 07-17-2023 14:16-0400 Diastolic blood pressure 76 mm[Hg] Poorvi Hazel DO Work Phone: [facility] 07-17-2023 14:16-0400 Heart rate 93 /min Poorvi Hazel DO Work Phone: [facility] 07-17-2023 14:16-0400 Respiratory rate 16 /min Poorvi Hazel DO Work Phone: [facility] 07-17-2023 14:16-0400 SaO2% (BldA) [Mass fraction] 98 % Poorvi Hazel DO Work Phone: [facility] 07-17-2023 14:16-0400 Systolic blood pressure 128 mm[Hg] Poorvi Hazel DO Work Phone: [facility] 04-02-2023 08:50-0500 Diastolic blood pressure 83 mm[Hg] Satya Whitmore MD Work Phone: [facility] 04-02-2023 08:50-0500 Heart rate 77 /min Satya Whitmore MD Work Phone: [facility] 04-02-2023 08:50-0500 SaO2% (BldA) [Mass fraction] 99 % Satya Whitmore MD Work Phone: [facility] 04-02-2023 08:50-0500 Systolic blood pressure 147 mm[Hg] Satya Whitmore MD Work Phone: [facility] 04-02-2023 08:34-0500 Body temperature 98.2 [degF] Satya Whitmore MD Work Phone: [facility] 04-02-2023 08:34-0500 Respiratory rate 16 /min Satya Whitmore MD Work Phone: [facility] 04-02-2023 05:17-0500 Body height 175.3 cm Satya Whitmore MD Work Phone: [facility] 04-02-2023 05:17-0500 Body mass index (BMI) [Ratio] 27.11 kg/m2 Satya Whitmore MD Work Phone: [facility] 04-02-2023 05:17-0500 Body weight 83.28 kg Satya Whitmore MD Work Phone: [facility] 09-11-2022 11:20-0400 Body mass index (BMI) [Ratio] 28.8 kg/m2 Desiree Freeman APRN-[employer]PRENTICE [employer] ATTENDANT Work Phone: [facility] 09-11-2022 11:20-0400 Body temperature 98.01 [degF] Desiree Freeman APRN-APPRENTICE [employer] ATTENDANT Work Phone: [facility] 09-11-2022 11:20-0400 Body weight 88.45 kg Desiree Freeman APRN-APPRENTICE [employer] ATTENDANT Work Phone: [facility] 09-11-2022 11:20-0400 Diastolic blood pressure 88 mm[Hg] Desiree Freeman APRN-APPRENTICE [employer] ATTENDANT Work Phone: [facility] 09-11-2022 11:20-0400 Heart rate 64 /min Desiree Freeman APRN-APPRENTICE [employer] ATTENDANT Work Phone: [facility] 09-11-2022 11:20-0400 Respiratory rate 16 /min Desiree Freeman APRN-APPRENTICE [employer] ATTENDANT Work Phone: [facility] 09-11-2022 11:20-0400 SaO2% (BldA) [Mass fraction] 100 % Desiree Freeman APRN-APPRENTICE PL[employer] ATTENDANT Work Phone: [facility] 09-11-2022 11:20-0400 Systolic blood pressure 155 mm[Hg] Desiree Freeman SHEET CUTTER-APPRENTICE [employer] ATTENDANT Work Phone: [facility] 08-29-2022 08:30-0400 Diastolic blood pressure 89 mm[Hg] Desiree Freeman SHEET CUTTER-[employer]ICE [employer] ATTENDANT Work Phone: [facility] 08-29-2022 08:30-0400 Heart rate 61 /min Desiree Freeman SHEET CUTTER-[employer]ICE [employer] ATTENDANT Work Phone: [facility] 08-29-2022 08:30-0400 Systolic blood pressure 142 mm[Hg] Desiree Freeman SHEET CUTTER-AP[employer]ICE [employer] ATTENDANT Work Phone: [facility] 10-13-2020 08:12-0400 Diastolic blood pressure 77 mm[Hg] Judy Quiroga SHEET CUTTER-AP[employer]ENTICE [employer] ATTENDANT Work Phone: [facility] 10-13-2020 08:12-0400 Systolic blood pressure 128 mm[Hg] Judy Quiroga SHEET CUTTER-AP[employer]ENTICE [employer] ATTENDANT Work Phone: [facility] 10-13-2020 08:11-0400 Body height 175.3 cm Judy Quiroga SHEET CUTTER-AP[employer]ENTICE [employer] ATTENDANT Work Phone: [facility] Encounters Encounter Date Encounter Type Care Provider Facility Start: 03-28-[address] [facility] Start: 11-24-2024 ambulatory Health Risk Assessment Facility:[facility] Start: 10-15-2024 End: 10-15-[address] Seb Clarke DO [facility] Work Phone: Start: 10-15-2024 End: 10-15-[address] Chichi Argueta MD Work Phone: -[facility] Start: 09-29-2024 End: 09-29-[address] Chichi Argueta MD Work Phone: -Laboratory Start: 09-29-2024 End: 09-29-[address] Claude Patel MD -Laboratory Work Phone: Start: 09-29-2024 End: 09-29-2024 ambulatory Claude Patel Facility:[facility] Start: 09-14-[address] Seb Miller on DO -Radiation Oncology Start: 09-14-2024 End: 09-14-[address] Seb Clarke [facility] [place] Work Phone: Start: 09-14-2024 End: 09-14-[address] Chichi Argueta MD Work Phone: [facility] Start: 09-09-2024 End: 09-09-[address] Seb Clarke [facility] Work Phone: Start: 09-09-2024 End: 09-09-[address] Chichi Argueta MD Work Phone: [facility] [place] Start: 09-09-[address] Seb Miller on DO -Radiation Oncology Start: 09-08-2024 ambulatory CHICHI ARGUETA [facility]: [facility] Start: 09-02-2024 End: 09-02-[address] Seb Clarke [facility] [place] Work Phone: Start: 09-02-2024 End: 09-02-[address] Chichi Argueta MD Work Phone: [facility] Start: 09-02-[address] Seb Miller on DO -Radiation Oncology Start: 08-26-2024 End: 08-26-[address] Seb Clarke [facility] Work Phone: Start: 08-26-2024 End: 08-26-[address] Chichi Argueta MD Work Phone: [facility] Start: 08-26-[address] Seb Miller on DO -Radiation Oncology Start: 08-19-2024 End: 08-19-[address] Seb [facility] [place] Work Phone: Start: 08-19-2024 End: 08-19-[address] Chichi Argueta MD Work Phone: [facility] Work Phone: Start: 08-19-2024 ambulatory CHICHI ARGUETA [facility]: [facility] Start: 08-12-2024 End: 08-12-[address] Seb Clarke DO [facility] Work Phone: Start: 08-12-2024 End: 08-12-[address] Chichi Argueta MD Work Phone: [facility] Work Phone: Start: 08-05-2024 End: 08-05-[address] Royer Bey MD -[facility] Work Phone: Start: 08-05-2024 End: 08-05-[address] Chichi Argueta MD Work Phone: [facility] Work Phone: Start: 07-29-2024 End: 07-29-[address] Seb Clarke [facility] [place] Work Phone: Start: 07-29-2024 End: 07-29-[address] Chichi Argueta MD Work Phone: [facility] Work Phone: Start: 07-27-[address] Seb Miller on DO -Radiation Oncology Start: 07-23-2024 ambulatory Seb Clarke Facility: [facility] Start: 07-23-2024 Non-patient / Non-visit Dr. Seb Clarke DO [facility] Start: 07-14-2024 ambulatory Seb Clarke Facility: [facility] Start: 07-14-2024 Non-patient / Non-visit Dr. Seb Clarke DO [facility] [facility] Start: 07-06-2024 End: 07-06-2024 ambulatory Chichi Argueta Facility:[facility] Start: 06-19-2024 End: 06-19-2024 ambulatory Seb Clarke Facility:[facility] Start: 06-16-2024 End: 06-16-[address] Seb Clarke DO -[facility] [place] Work Phone: Start: 06-16-2024 End: 06-16-2024 ambulatory Seb Clarke Facility:[facility] Start: 06-09-2024 End: 06-09-[address] Chichi Argueta MD Work Phone: [facility] Work Phone: Start: 06-09-2024 End: 06-09-[address] [facility] Start: 06-09-2024 End: 06-09-2024 ambulatory Chichi Argueta Facility:[facility] Start: 05-20-2024 End: 05-20-2024 Office outpatient visit 10 minutes Satya Whitmore MD Work Phone: Division of Urological Surgery at [facility] Comment on above: Malignant neoplasm o f prostate (Primary Dx) Start: 05-20-2024 ambulatory CHICHI ARGUETA [facility]: [facility] Start: 05-19-2024 End: 05-19-2024 Patient encounter procedure Paco Blount MS -[facility] Work Phone: Start: 05-19-2024 End: 05-19-2024 ambulatory Chichi Argueta Facility:[facility] Start: 05-18-2024 End: 05-18-[address] Chichi Argueta MD Work Phone: [facility] Work Phone: Start: 05-18-2024 End: 05-18-[address] Satya Whitmore MD -Laboratory Work Phone: Start: 05-18-2024 End: 05-18-2024 ambulatory Chichi Argueta Facility:[facility] Start: 04-08-2024 ambulatory Chichi Argueta Facilit y:[facility] Start: 04-08-2024 Non-patient / Non-visit Dr. Frances Stafford MD -[facility]- Start: 04-08-2024 End: 04-08-[address] Kerry Atkins MD -Pulmonary Services/Neurology Work Phone: Start: 04-08-2024 End: 04-08-2024 ambulatory Kerry Atkins Facility:[facility] Start: 02-06-2024 End: 02-06-[address] Chichi Argueta MD Work Phone: -Laboratory Work Phone: Start: 02-06-2024 End: 02-06-2024 ambulatory JAQUAN JAMILA Facility:[facility] Start: 11-20-[address] [facility]: [facility] Start: 08-15-2023 End: 08-15-2023 Subsequent hospital visit by physician Satya Whitmore MD Work Phone: Fluoroscopy at [facility] Comment on above: Arrived Start: 08-15-2023 End: 08-15-2023 Patient encounter procedure Satya Whitmore MD Work Phone: Division of Urological Surgery at [facility] Comment on above: Malignant neoplasm o f prostate (Primary Dx) Start: 07-29-2023 End: 07-30-2023 Subsequent hospital visit by physician Satya Whitmore MD Work Phone: Extended Recovery Unit at [facility] Comment on above: Malignant neoplasm o f prostate Start: 07-17-2023 End: 07-17-2023 Office consultation new/estab patient 60 min Lashonda Oliva DO Work Phone: Pre-Procedure Evaluation and Assessment [facility] [place] Comment on above: Preop exam for inter nal medicine (Primary Dx); Prostate cancer; Lumbar spondylosis Start: 07-17-2023 End: 07-17-2023 Patient encounter status Lashonda Oliva DO Work Phone: [facility] Start: 04-23-2023 End: 04-23-[address] Chichi Argueta Work Phone: [facility] Work Phone: Start: 04-23-2023 End: 04-23-[address] Chichi Argueta Work Phone: [facility] Start: 04-02-2023 End: 04-02-2023 Subsequent hospital visit by physician Satya Whitmore MD Work Phone: Perioperative Services at [facility] Comment on above: Elevated PSA Start: 01-16-2023 End: 01-16-[address] Chichi Argueta Work Phone: [facility] Work Phone: Start: 01-16-2023 End: 01-16-[address] Chichi Argueta Work Phone: [facility] Work Phone: Start: 01-11-2023 End: 01-11-[address] Chichi Argueta Work Phone: [facility] Work Phone: Start: 12-20-2022 End: 12-20-2022 ambulatory [facility] Work Phone: Start: 12-20-2022 End: 12-20-2022 Patient encounter procedure [facility]-Laboratory Work Phone: Start: 12-20-2022 Registered [facility] Start: 09-11-2022 End: 09-11-2022 Office outpatient visit 25 minutes Desiree Freeman SHEET CUTTER-APPRENTICE PLANT ATTENDANT Work Phone: [facility] Urological Surgery [place] Comment on above: Elevated PSA (Primar y Dx) Start: 08-29-2022 End: 08-29-2022 Subsequent hospital visit by physician Desiree Freeman SHEET CUTTER-APPRENTICE PLANT ATTENDANT Work Phone: [facility] Comment on above: Arrived Start: 05-24-2022 End: 05-24-2022 ambulatory [facility] Work Phone: Start: 05-24-2022 End: 05-24-2022 Patient encounter procedure [facility]-Laboratory Start: 11-22-2021 End: 11-22-2021 ambulatory [facility] Work Phone: Start: 11-22-2021 End: 11-22-2021 Patient encounter procedure [facility]-Laboratory Start: 11-22-2021 Registered [facility] Start: 10-13-2020 End: 10-13-2020 Subsequent hospital visit by physician Judy Quiroga SHEET CUTTER-APPRENTICE PLANT ATTENDANT Work Phone: [facility] Comment on above: Arrived Procedures Date Procedure Procedure Detail Performing Clinician Start: 09-29-2024 Assay of prostate sp ecific antigen total [...] be performed to confirm baseline values. Start: 06-09-2024 PET study for locali zation [...] Work Phone: Start: 07-30-2023 Assay of magnesium Tayl or Lucian Mc MD Work Phone: Start: 07-29-2023 Assay of magnesium Fadyl or Lucian cM MD Work Phone: Start: 07-29-2023 CONTINUOUS CARDIAC [...] Phone: Start: 07-17-2023 CBC AND ELECTRONIC DIFF Poorvi D Hazel DO Work Phone: Start: [...] pelvis w/o & w/c ontrast material Desiree Bhat Zohra SHEET CUTTER-APPRENTICE PLANT ATTENDANT Work Phone: Start: 10-13-2020 Mri pelvis w/o & w/c ontrast material Judy Xavier Junaid SHEET CUTTER-APPRENTICE PLANT ATTENDANT Work Phone: Plan of Treatment Date Care Activity Detail Author Start: 09-14-2027 Tetanus vaccination TETANUS [facility] Start: 05-18-2025 Prostate specific antigen measurement PROSTATE CANCER SCREENING DISCUSSION [facility] Start: 06-17-2024 Patient referral [facility] Work Phone: Start: 05-20-2024 End: 05-20-2025 PT Skull base to mid-thigh NUC PET HEAD TO THIGH Imaging Routine Malignant neoplasm of prostate Expected: 05/20/2024, Expires: 05/20/2025 [facility] Comment on above: Expected: 05/20/2024, Expires: Start: 11-20-2023 End: 11-20-2023 Telemedicine consultation with patient 11/20/2023 3:00 PM EDT Telemedicine Division of Urological Surgery at [facility] [address] [phone] Satya Whitmore MD [address] [address] Division of Urological Surgery at [facility] Start: 11-15-2023 End: 2024 PSA - DIAGNOSTIC/TUMOR MARKER PSA - DIAGNOSTIC/TUMOR MARKER Lab Routine Malignant neoplasm of prostate Expected: 11/15/2023, Expires: 2024 [facility] Comment on above: Expected: 11/15/2023, Expires: Start: 10-27-2023 COVID-19 VACCINE () COVID-19 VACCINE () [facility] Start: 09-05-2023 End: 2024 PSA - DIAGNOSTIC/TUMOR MARKER PSA - DIAGNOSTIC/TUMOR MARKER Lab Routine Malignant neoplasm of prostate Expected: 09/05/2023, Expires: 2024 [facility] Comment on above: Expected: 09/05/2023, Expires: Start: 08-30-2023 Prostate specific antigen measurement PROSTATE CANCER SCREENING DISCUSSION [facility] Start: 08-28-2023 End: 08-28-2023 Admission to same day surgery center 08/28/2023 1:00 PM EDT Clinical Support Encounter Division of Urological Surgery at [facility] [place] [address] [place] [address] Division of Urological Surgery at [facility] Start: 07-29-2023 End: 07-29-2023 Admission to same day surgery center 07/29/2023 7:15 AM EDT - 07/29/2023 2:15 PM EDT Surgery Perioperative Services at [facility] [place] [address] [place] [phone] Satya Whitmore MD [facility] [address] [place] [address] LYMPHADENECTOMY PELVIC TOTAL ROBOTIC Perioperative Services at [facility] Comment on above: LYMPHADENECTOMY PELVIC [...] EDT Hospital Encounter Perioperative Services at [facility] [place] [address] [place] [phone] Satya Whitmore MD [facility] [address] [address] Malignant neoplasm of prostate Perioperative Services at [facility] Comment on above: Malignant neoplasm of prostate Start: 07-19-2023 End: 07-19-2023 Anesthesia consultation 07/19/2023 2:00 PM EDT Pre-Operative Nurse Assessment [facility]esthesia [facility] at [facility] [address] [place] [phone] Satya Whitmore MD [address] [place] [address] [facility] at [facility] Start: 07-17-2023 End: 09-15-2023 Bacteria identified in Urine by Culture [facility] Comment on above: Expected: 07/17/2023, Expires: Start: 01-11-2023 Patient referral [facility] Work Phone: Start: 10-26-2022 COVID-19 VACCINE ( season) COVID-19 VACCINE () [facility] Start: 10-26-2022 Influenza vaccination INFLUENZA VACCINE (#1) [facility] Start: 09-11-2022 End: 09-12-2023 Bacteria identified in Urine by Culture URINE CULTURE Microbiology Routine Elevated PSA Expected: 09/11/2022, Expires: 09/12/2023 [facility] Comment on above: Expected: 09/11/2022, Expires: 4 Start: 09-11-2022 End: 09-12-2023 RECTAL SCREENING FOR CIPRO RESISTANCE RECTAL SCREENING FOR CIPRO RESISTANCE Microbiology Routine Elevated PSA Expected: 09/11/2022 (Approximate), Expires: 09/12/2023 [facility] Comment on above: Expected: 09/11/2022 (Approximate), Expi res: 09/12/2023 Start: 09-11-2022 End: 09-11-2022 Patient encounter procedure 09/11/2022 11:00 AM EDT Office Visit [facility] Urological Surgery [address] [place] [address] Desiree Freeman, SHEET CUTTER-APPRENTICE PLANT ATTENDANT [address] [place] [address] [facility] [place] Start: 10-13-2021 Prostate specific antigen measurement PROSTATE CANCER SCREENING DISCUSSION [facility] Start: 11-01-2020 End: 11-01-2020 Telemedicine consultation with patient 11/01/2020 Telemedicine Urology Rivera Sandoval MD [address] [place] [phone] Division of Urological Surgery at [facility] Start: 10-26-2020 Influenza vaccination INFLUENZA VACCINE (#1) [facility] Start: 08-13-2017 Pneumococcal vaccination PNEUMOCOCCAL VACCINE SERIES (1 of 1 - PCV) [facility] Start: 08-13-2017 Zoster vaccine hzv live for subcutaneous use ZOSTER (SHINGLES) VACCINE (1 of 2) [facility] Start: 08-13-2012 Colonoscopy COLORECTAL CANCER SCREENING DISCUSSION [facility] Start: 08-13-2012 Screening for malignant neoplasm of colon COLORECTAL CANCER SCREENING DISCUSSION [facility] Start: 2007 Fasting lipid profile LIPID SCREENING [facility] Start: 2007 Lipid panel LIPID SCREENING [facility] Start: 08-13-1986 Hepatitis B vaccination HEP B VACCINE (1 of 3 - 19+ 3-dose series) [facility] Start: 08-13-1986 Third diphtheria, tetanus and acellular pertussis (DTaP) vaccination TDAP (ADULT) [facility] Start: 08-13-1985 Tetanus vaccination TETANUS [facility] Start: 08-13-1982 HIV screening HIV SCREENING DISCUSSION [facility] Start: 1979 COVID-19 VACCINE (1) COVID-19 VACCINE (1) [facility] Start: 02-13-1968 COVID-19 VACCINE (#1) COVID-19 VACCINE (#1) [facility] Start: 1965 Hepatitis B vaccination HEP B VACCINE (1 of 3 - 3-dose series) [facility] Start: 1967 Hepatitis C antibody, confirmatory test HEPATITIS C VIRUS SCREENING [facility] Start: 1965 Hepatitis C screening HEPATITIS C VIRUS SCREENING [facility] End: 08-15-2023 FLUORO IMAGING FOR UROLOGY [facility] Comment on above: One Time for 1 Occurrences starting 07/27 until 08/15/2023 Patient referral [facility] Work Phone: SURG PATH REQUEST [facility] Comment on above: Release Upon Ordering for 1 Occurrences starting 04/02/2023, 1 completed SURG PATH REQUEST [facility] Comment on above: Release Upon Ordering for 1 Occurrences starting 07/29/2023, 1 completed End: 04-02-2023 US Unspecified body region US IMAGING BETH OR Imaging Routine One Time for 1 Occurrences starting 04/02/2023 until 04/02/2023 [facility] Comment on above: One Time for 1 Occurrences starting 07/2023 until 04/02/2023 Immunizations Immunization Date Immunization Notes [facility] influenza, seasonal, injectable, preservative free Dr. Chichi Argueta MD Work Phone: [facility] 12-13-2022 influenza, injectabl e, quadrivalent, preservative free [facility] 11-27-2021 influenza, injectabl e, quadrivalent, preservative free [facility] 11-27-2021 influenza, seasonal, injectable [facility] 11-27-2021 influenza virus vaccine, unspecified formulation Desiree Freeman APRN-APPRENTICE PLANT ATTENDANT Work Phone: [facility] 11-25-2021 influenza virus vaccine, unspecified formulation Desiree Freeman APRN-APPRENTICE PLANT ATTENDANT Work Phone: [facility] 12-28-2020 Covid (Moderna) [facility] 12-26-2020 influenza virus vaccine, unspecified formulation Desiree Freeman APRN-[facility] Work Phone: [facility] 11-30-2020 influenza, injectabl e, quadrivalent, preservative free [facility] 11-30-2020 influenza, seasonal, injectable [facility] 03-18-2020 Covid (Moderna) [facility] 02-17-2020 Covid (Moderna) [facility] 12-14-2019 influenza, injectabl e, quadrivalent, preservative free [facility] 12-14-2019 influenza, seasonal, [facility] 12-16-2018 influenza, injectabl e, quadrivalent, preservative free [facility] 12-16-2018 influenza, seasonal, [facility] 12-09-2017 influenza, injectabl e, quadrivalent, preservative free [facility] 12-09-2017 influenza, seasonal, [facility] 11-25-2017 influenza virus vaccine, unspecified formulation Desiree Freeman APRN-[facility] Work Phone: [facility] 09-13-2017 tetanus toxoid, redu eber diphtheria toxoid, and acellular pertussis vaccine, adsorbed Desiree Freeman [facility]N-[facility] Work Phone: [facility] 11-30-2016 influenza, injectabl e, quadrivalent, preservative free [facility] 11-30-2016 influenza, seasonal, [facility] 10-26-2016 influenza virus vaccine, unspecified formulation Desiree Freeman APRN-[facility] Work Phone: [facility] 12-26-2015 influenza, injectabl e, quadrivalent, preservative free [facility] 12-26-2015 influenza, seasonal, injectable [facility] 12-21-2014 influenza, injectabl e, quadrivalent, preservative free [facility] 12-21-2014 influenza, seasonal, [facility] 11-12-2013 influenza, injectabl e, quadrivalent, preservative free [facility] 11-12-2013 influenza, seasonal, [facility] 10-26-2013 influenza virus vaccine, unspecified formulation Desiree Freeman SHEET CUTTER-APPRENTICE PLANT ATTENDANT Work Phone: [facility] 12-25-2012 Influenza virus vaccine [facility] 12-20-2008 novel [id number], preservative-free, injectable Desiree Freeman SHEET CUTTER-APPRENTICE PLANT ATTENDANT Work Phone: [facility] Payers Date Payer Category Payer Self-pay [id number] 2022 Managed Care (unspecified) AEJASON BROWN [id number] 2022 Private Health Insurance AETTHERESA BROWN [id number] 2022-Present [address] [place] [address] [id number]. [id number] 2022 Unknown [id number] [address] [facility] ACCESS [id number] 2020-Present [address] [address] [place] [address] [id number]. [id number] 2013 Unknown [id number] 1967 Unknown [id number] 2.16.840.1.154019.3.579.2. 594 1967 Unknown [id number] 2..840.1.085045.3.579.2. 594 1967 Unknown [id number] 2.16.840.1.283066.3.579.2. 594 1967 Unknown [id number] 2.840.1.772868.3.579.2. 594 1967 Unknown [id number] 2..840.1.323296.3.579.2. 594 Unknown [id number] 2.840.1.461009.3.579.2. 462 Unknown [id number] 2.840.1.382595.3.579.2. 462 Unknown [id number] 2.840.1.288200.3.579.2. 462 Unknown [id number] 2.840.1.287875.3.579.2. 462 Unknown [id number] 2.840.1.183742.3.579.2. 462 Unknown [id number] 2.840.1.603977.3.579.2. 462 Unknown [id number] 2.840.1.492234.3.579.2. 462 Unknown [id number] 2.840.1.573745.3.579.2. 462 Unknown [id number] 2.840.1.882179.3.579.2. 462 Unknown [id number] 2..840.1.353948.3.579.2. 462 Unknown [id number] 2.16.840.1.331960.3.579.2. 462 Unknown [id number] 2.16.840.1.582344.3.579.2. 462 Unknown [id number] 2.840.1.940821.3.579.2. 462 Unknown [id number] 2.16.840.1.747837.3.579.2. 462 Unknown [id number] 2.16.840.1.234891.3.579.2. 462 Unknown [id number] 2.16.840.1.790222.3.579.2. 462 Unknown [id number] 2.16.840.1.073808.3.579.2. 462 Unknown [id number] 2.16.840.1.516753.3.579.2. 462 Unknown [id number] 2.16.840.1.710195.3.579.2. 462 Unknown [id number] 2.16.840.1.773995.3.579.2. 462 Unknown [id number] 2.16.840.1.198554.3.579.2. 462 Unknown [id number] 2.16.840.1.032995.3.579.2. 462 Unknown [id number] 2.16.840.1.628196.3.579.2. 462 Unknown [id number] 2.16.840.1.625441.3.579.2. 462 Social History Date Type Detail Facility Start: 09-20-2020 End: 05-26-2024 Tobacco smoking status NHIS Never smoker [facility] Start: 09-20-2020 End: 09-11-2022 Tobacco use and exposure Never used [facility] Start: 10-13-2020 End: 05-20-2024 Alcohol intake Current drinker of alcohol (finding) [facility] Start: 09-20-2020 Alcohol Comment socially 4 dri nks at time [facility] Start: 1965 Sex Assigned At Not on file O [facility] Exposure to SARS-CoV -2 (event) Not sure [facility] Start: 10-21-2017 End: 01-11-2023 Tobacco smoking status NHIS Unknown if ever smoked [facility] Start: 1965 Sex Assigned At Male [facility] Start: 08-29-2022 End: 05-20-2024 History of Social function [facility] Start: 08-29-2022 End: 05-20-2024 Tobacco use panel [facility] Adolescent depressio n screening assessment 0 [facility] Start: 11-09-2020 Gender identity Identifies as male gender (finding) [facility] Start: 11-09-2020 Sexual orientation Heterosexual (fin ding) [facility] Start: 07-27-2020 End: 06-13-2024 Sex Male (finding) [facility] Clinical Notes 09-11-2022 to 09-14-2024 Note Date & Type Note Facility 09-14-2024 Progress note [facility] 09-14-2024 Progress note Note Date/Time September 14, 2024 12:46pm [facility] [address] [address] OFFICE VISIT Date of Service: 09/14/24 1243 MR#: [id number] Acct: [id number] Name: NORMAN GARY Rep #: [id number] : 1965 From: Seb xavier DO Age/Sex: 59/M Location: [facility] Status: Signed End of Treatment Summary: [...] stroma biopsy.? There was noted to be [place] 3+3 adenocarcinoma involving 1/2 cores in the [...] prostatectomy with lymph node dissection.? Pathology demonstrated Gabe 3+4 adenocarcinoma, [place] 4 is 21%of the tumor, there is [...] this patient. Sincerely, Seb Clarke DO, MS Pearl Technician, Department of Radiation Oncology [facility] 09/14/24 1507 <Electronically signed by Seb Clarke DO> Date _ Seb Clarke DO [facility] Signature: Date (if applicable) CC: Dr. Satya Whitmore MD; Dr. Chichi Argueta MD; Dr. Claude Patel MD ~ [facility] Work Phone: 1(441) 774-362907-16-2025 [facility] [address] [address] OFFICE VISIT Date of Service: 09/09/24 1353 MR#: [id number] Acct: [id number] Name: NORMAN GARY Rep #: [id number] : 1965 From: Seb xavier DO Age/Sex: 59/M Location: [facility] Status: Signed Intake Vital Signs 06/16/24 [...] at any time. 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.] at any time. 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 Signature: Date (if applicable) CC: ~ [facility] Work Phone: 1(502) 357-770607-09-2025 Progress [facility] [place] [address] OFFICE VISIT Date of Service: 09/02/24 1352 MR#: [id number] Acct: [id number] Name: NORMAN GARY Rep #: [id number] : 1965 From: Seb xavier DO Age/Sex: 59/M Location: [facility] Status: Signed Intake Vital Signs 06/16/24 [...] mg tablet 15 mg PO DAILY 01/11/23 07/11/19 History pantoprazole 20 mg tablet,delayed 20 mg [...] at any time. 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 Signature: Date (if applicable) CC: ~ [facility]06-18-2025 Progress [facility] [place] [address] OFFICE VISIT Date of Service: 08/12/24 1415 MR#: [id number] Acct: [id number] Name: NORMAN GARY Rep #: [id number] : 1965 From: Seb xavier DO Age/Sex: 58/M Location: [facility] Status: Signed Intake Vital Signs 06/16/24 [...] at any time. 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 Status: Signed Intake Vital Signs 06/16/24 [...] at any time. 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 [address] OFFICE VISIT Date of Service: 08/05/24 1354 MR#: [id number] Acct: [id number] Name: NORMAN GARY Rep #: [id number] : 1965 From: Royer swartz MD Age/Sex: 58/M Location: [facility] Status: Signed Intake Vital Signs 06/16/24 [...] beer substance use type: does not use [facility] [address] [place] [address] [place] [address] OFFICE VISIT Date of Service: 07/29/24 1401 MR#: [id number] Acct: [id number] Name: NORMAN GARY Lucian Rep #: [id number] : 1965 From: Seb Clarke DO Age/Sex: 58/M Location: [facility] Status: Signed Intake Vital Signs 06/16/2513:02 07/29/2513:05 [...] tommy VICK> Date _ Royer Bey MD Cosigner Signature: Date (if applicable) CC: ~ [facility]06-11-2025 Progress note Author Royer Bey [facility] Note Date/Time August 05, 2024 2:09 pm [facility] [address] [address] OFFICE VISIT Date of Service: 08/05/24 1354 MR#: [id number] Acct: [id number] Name: NORMAN GARY Rep #: [id number] : 1965 From: Royer swartz MD Age/Sex: 58/M Location: [facility] Status: Signed Intake Vital Signs 06/16/24 [...] beer substance use type: does not use [facility] [address] [place] [address] OFFICE VISIT Date of Service: 07/29/24 1401 MR#: [id number] Acct: [id number] Name: NORMAN GARY Rep #: [id number] : 1965 From: Seb Clarke DO Age/Sex: 58/M Location: [facility] Status: Signed Intake Vital Signs 06/16/2513:02 07/29/2513:05 [...] adenocarcinoma of prostate C61; R97.21; Z19.1 08/05/24 3619 <Electronically signed by Royer sanders MD> Date _ Royer Bey MD Cosigner Signature: Date (if applicable) CC: ~ [facility] Work Phone: 1(621) 381-820506-04-2025 Evaluation note* Diagnosis Onset Date Resolution Status Admit Date Biochemically recurrent castration-sensitive adenocarcinoma of prostate acute [...] of prostate acute September 09, 2024 1:53pm Biochemically recurrent castration-sensitive adenocarcinoma of prostate acute September 14, 2024 1:31pm [facility] Work Phone: 1(256) 508-308406-04-2025 Progress [facility] [address] [place] [address] OFFICE VISIT Date of Service: 07/29/24 1401 MR#: [id number] Acct: [id number] Name: NORMAN GARY Rep #: [id number] : 1965 From: Seb xavier DO Age/Sex: 58/M Location: [facility] Status: Signed Intake Vital Signs 06/16/24 14:02 [...] at any time. 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 Satya Whitmore MD documented in this encounterLake[facility] Evaluation note * Diagnosis Onset Date Resolution Status Admit Date Blepharitis of right upper eyelid acute May 19, 2024 1:35pm [place] right upper eyelid acute May 19, 2024 1:35pm [facility] Work Phone: 1(653) [phone] Evaluation note* Diagnosis Onset Date Resolution Status Admit Date Blepharitis of right upper eyelid ac [place] May 19, 2024 1:35pm [place] right upper eyelid acute May 19, 2024 1:35pm Biochemically recurrent castration-sensitive adenocarcinoma of prostate acute June 16, 2024 1:45pm Biochemically recurrent castration-sensitive adenocarcinoma of prostate acute July 29, 2024 1:55pm [facility] Work Phone: 1(121) 587-950503-25-2025 Evaluation note* Diagnosis Onset Date Resolution Status Admit Date Blepharitis of right upper eyelid ac [place] May 19, 2024 1:35pm [place] right upper eyelid acute May 19, 2024 1:35pm Biochemically recurrent castration-sensitive adenocarcinoma of prostate acute June 16, 2024 1:45pm Biochemically recurrent castration-sensitive adenocarcinoma of prostate acute July 29, 2024 1:55pm Biochemically recurrent castration-sensitive adenocarcinoma of prostate acute August 05, 2024 1:50pm [facility] Work Phone: 1([phone]) [phone] Evaluation note* Diagnosis Onset Date Resolution Status Admit Date Blepharitis of right upper eyelid ac [place] May 19, 2024 1:35pm [place] right upper eyelid acute May 19, 2024 1:35pm Biochemically recurrent castration-sensitive adenocarcinoma of prostate acute June 16, 2024 1:45pm Biochemically recurrent castration-sensitive adenocarcinoma of prostate acute July 29, 2024 1:55pm Biochemically recurrent castration-sensitive adenocarcinoma of prostate acute August 05, 2024 1:50pm Biochemically recurrent castration-sensitive adenocarcinoma of prostate acute August 12, 2024 2:02pm [facility] Work Phone: 1([phone]) [phone] Evaluation note* Diagnosis Onset Date Resolution Status Admit Date Blepharitis of right upper eyelid ac [place] May 19, 2024 1:35pm [place] right upper [...] of prostate acute August 19, 2024 9:57am [facility] Work Phone: 1([phone]) 433-900203-25-2025 Evaluation note* Diagnosis Onset Date Resolution Status Admit Date Blepharitis of right upper eyelid ac [place] May 19, 2024 1:35pm [place] right upper [...] of prostate acute September 02, 2024 1:51pm [facility] Work Phone: 1(854) [phone] Evaluation note* Diagnosis Onset Date Resolution Status Admit Date Blepharitis of right upper eyelid ac [place] May 19, 2024 1:35pm [place] right upper [...] of prostate acute September 09, 2024 1:53pm [facility] Work Phone: 1([phone]) 397-177706-20-2024 History of Present illness Narrative* Satya Whitmore [...] ordered) Satya Whitmore MD documented in this encounterLake[facility] History of Present illness Narrative* Tessie [...] Patient taken to car via wheelchair by BUILDING INSPECTOR, with belongings and supplies. Patient assisted into car with family driving. * Tyra Ruiz APRN-MARTINE - 07/29/2023 7:55 PM EDT Extended Recovery [...] good push/pulls Vascular: pulses x4+2 palpable Updates: 2144: Pt ambulated around unit without difficulty. Pain [...] Pt and updated on POC. Questions answered. Tyra Ruiz, LEYDA-APPRENTICE PLANT ATTENDANT [place]: [phone] Pager: [phone] * SELENA Wilson - 07/29/2023 3:52 PM [...] push/pulls Vascular: pedal pulses palpable SELENA Wilson [place]: [phone] Pager: [phone] documented in this encounterOS[facility] Hospital course Narrative* Tyra Ruiz, SHEET CUTTER-APPRENTICE PLANT ATTENDANT - 07/30/2023 6:48 AM EDT Discharge Summary Name: Norman Gary Age: 57 y.o. Birthday: 1965 Admit Date: 07/29/2023 5:16 AM Discharge Date: 07/30/2023 Discharge Time: 714 Discharge Unit: [facility] Admission Information Admitting Physician: Satya Whitmore MD Discharge Information Discharge Physician: Dr. Whitmore Problem List There are no hospital problems to display for this patient. Brief Summary of Hospital Course for Discharge Summary: Norman Gary is a 57 y.o. male with a history of no significant medical history and favorableintermediate riskprostate cancer who presented to [facility] on 07/29/23 for robotic prostatectomy and [...] No follow-up provider specified. Associated attestation - Satay Whitmore MD - 07/30/2023 7:00 AM EDT [...] 20 minutes, over half of which was zkzf-td-[id number] for patient counseling and coordinationof care. documented in this encounterOSU [facility] Plan of care note* Plan of Care [...] Control and Function Outcome: Adequate for Discharge [facility] Miscellaneous Notes* Plan of Care - Tessie [...] - 07/29/2023 2:19 PM EDT Norman Gary ([id number]) PRE OPERATIVE DIAGNOSIS Malignant neoplasm of prostate [C61] POST OPERATIVE DIAGNOSIS Malignant neoplasm of prostate [C61] PROCEDURE PERFORMED Procedure(s) (LRB): LYMPHADENECTOMY PELVIC TOTAL ROBOTIC (Bilateral) PROSTATECTOMY RETROPUBIC RADICAL ROBOTIC (N/A) PRIMARY CLOSURE Yes INTRAOPERATIVE FINDINGS See below SURGEON Surgeons and Role: * Satya Whitmore MD - Primary ANESTHESIOLOGIST Anesthesiologist: Chichi Pedroza MD RECEIVER STOCKER: Hector Nolan APRN-RECEIVER STOCKER SURGICAL STAFF Supervisor Logging: Marge Castillo RN; Italia Oquendo RN Relief Supervisor Logging: Marge Castillo RN Relief Scrub: Juanita Coker [...] 07/29/2023 1052 5 : Left Posterior Lateral. [place] to Mid Prostate Margin Permanent SURG PATH [...] lymph node dissection. Surgeon: Satya Whitmore M.D. Central Office Worker(s): Karlene Ellison M.D. Bhavana Mc M.D. Indication [...] vision the the 12 mm right lateral medication assistant port and the 5 mm Airseal right cranial/medial medication assistant ports were placed using similar technique. [...] rectum and dorsal venous complex wereoversewn with uhxwan-pn-rbvkb 4-0 Vicryl. Efraín stitch was performed using [...] with 4 x 3-0 Vicryl on SH pjhjlb-es-zgylh stitches at the lateral border of the [...] bag string was guided out the medial/cranial medication assistant port. The right lateral medication assistant port was removed and was closedwith the previously a 2-0 Vircyl robotically. Remaining ports were removed under vision. The patient was taken out of Trendelenburg. The sumpraumbilical incision was extended to the size of the specimen and the prostate en bloc with its seminal vesicles were removed. Fascia was closed using interrupted pqulpl-tr-oqkeo 0- PDS. All wounds were irrigated and [...] PM * Brief Op Note - Bhavana Mc MD - 07/29/2023 1:39 PM EDT Norman Gary ([id number]) PRE OPERATIVE DIAGNOSIS Malignant neoplasm of prostate [C61] POST OPERATIVE DIAGNOSIS Malignant neoplasm of prostate [C61] PROCEDURE PERFORMED Procedure(s) (LRB): LYMPHADENECTOMY PELVIC TOTAL ROBOTIC (Bilateral) PROSTATECTOMY RETROPUBIC RADICAL ROBOTIC (N/A) PRIMARY CLOSURE Yes INTRAOPERATIVE FINDINGS No significant abnormalities SURGEON Surgeons and Role: * Satya Whitmore MD - Primary ANESTHESIOLOGIST Anesthesiologist: Chichi Pedroza MD RECEIVER STOCKER: Hector Nolan APRN-RECEIVER STOCKER SURGICAL STAFF Supervisor Logging: Marge Castillo RN; Italia Oquendo RN Relief Supervisor Logging: Marge Castillo RN Relief Scrub: Juanita Coker [...] 07/29/2023 1052 5 : Left Posterior Lateral. [place] to Mid Prostate Margin Permanent SURG PATH SURG PATH REQUEST Satya Whitmore MD 07/29/2023 1054 6 : Prostate and Seminal Vesicles Permanent SURG PATH SURG PATH REQUEST Satya Whimtore MD 07/29/2023 1101 7 : Left Pelvic Lymph Nodes Permanent SURG PATH SURG PATH REQUEST Satya Whitmore MD 07/29/2023 1125 8 : Right Pelvic Lymph Nodes Permanent SURG PATH SURG PATH REQUEST Satya Whitmore MD 07/29/[address] [place] [facility] Bhavana Mc MD July 29, 2023 1:39 PM Associated attestation - Satya Whitmore MD - 07/29/2023 2:14 PM EDT Satya Whitmore MD was present for the entire case and remained immediately available. documented in this encounterLake[facility]06-03-2024 Surgery Postoperative evaluation and management note* Op Note - Satya Whitmore MD - 07/29/2023 2:19 PM EDT Norman Gary ([id number]) PRE OPERATIVE DIAGNOSIS Malignant neoplasm of prostate [C61] POST OPERATIVE DIAGNOSIS Malignant neoplasm of prostate [C61] PROCEDURE PERFORMED Procedure(s) (LRB): LYMPHADENECTOMY PELVIC TOTAL ROBOTIC (Bilateral) PROSTATECTOMY RETROPUBIC RADICAL ROBOTIC (N/A) PRIMARY CLOSURE Yes INTRAOPERATIVE FINDINGS See below SURGEON Surgeons and Role: * Satya Whitmore MD - Primary ANESTHESIOLOGIST Anesthesiologist: Chichi Pedroza MD RECEIVER STOCKER: Hector Nolan APRN-RECEIVER STOCKER SURGICAL STAFF Supervisor Logging: Marge Castillo RN; Italia Oquendo RN Relief Supervisor Logging: Marge Castillo RN Relief Scrub: Juanita Coker [...] 07/29/2023 1052 5 : Left Posterior Lateral. [place] to Mid Prostate Margin Permanent SURG PATH [...] lymph node dissection. Surgeon: Satya Whitmore M.D. Central Office Worker(s): Fernando Gonzalez M.D. Indication for surgery: Localized [...] vision the the 12 mm right lateral medication assistant port and the 5 mm Airseal right cranial/medial medication assistant ports were placed using similar technique. [...] rectum and dorsal venous complex wereoversewn with davded-uh-puewv 4-0 Vicryl. Efraín stitch was performed using [...] with 4 x 3-0 Vicryl on SH tnmxki-ur-tundi stitches at the lateral border of the [...] bag string was guided out the medial/cranial medication assistant port. The right lateral medication assistant port was removed and was closedwith the previously a 2-0 Vircyl robotically. Remaining ports were removed under vision. The patient was taken out of Trendelenburg. The sumpraumbilical incision was extended to the size of the specimen and the prostate en bloc with its seminal vesicles were removed. Fascia was closed using interrupted snxama-mt-ulmer 0- PDS. All wounds were irrigated and [...] MD July 29, 2023 2:19 PM [facility] Work Phone: 1(124) 499-384606-03-2024 Hospital Discharge instructions* Discharge Instructions* Bhavana Mc [...] or problems, call and ask the hospital skiff operator to page the urology resident application chemist. If it is a question or problem that can wait until business hours, call the clinic phone number listed above when the clinic is open during weekdays, 8am-4pm. If you are unable to reach your doctor and it is a medical emergency call the [facility] Emergency [facility] at or dial 911. Medications [...] your physician's office and go to the [facility] Emergency Room as your catheter will likely need to be replaced. - If you are outside of [place], please go to your local emergency room. [...] Blood in urine Prostate Cancer Support [facility] here at [facility] offers two different support groups for [...] room 3000 at the [facility] [address] [facility]. For further information, contact Rafita Munson RN, Volunteer Assistant of the group at or [email or web address]. * Attachments The following attachments cannot be sent through Care Everywhere. * Surgical Drain Care ([employer]) * Wound Drainage Record Sheet ([facility]) ([employer]) documented in this encounterLakeHealth [facility]06-03-2024 Surgery Postoperative evaluation and management note* Brief Op Note - Bhavana Mc MD - 07/29/2023 1:39 PM EDT Norman Epstein Cookie ([id number]) PRE OPERATIVE DIAGNOSIS Malignant neoplasm of prostate [C61] POST OPERATIVE DIAGNOSIS Malignant neoplasm of prostate [C61] PROCEDURE PERFORMED Procedure(s) (LRB): LYMPHADENECTOMY PELVIC TOTAL ROBOTIC (Bilateral) PROSTATECTOMY RETROPUBIC RADICAL ROBOTIC (N/A) PRIMARY CLOSURE Yes INTRAOPERATIVE FINDINGS No significant abnormalities SURGEON Surgeons and Role: * Satya Whitmore MD - Primary ANESTHESIOLOGIST Anesthesiologist: Chichi Pedroza MD RECEIVER STOCKER: Hector Nolan APRN-RECEIVER STOCKER SURGICAL STAFF Supervisor Logging: Marge Castillo RN; Italia Oquendo RN Relief Supervisor Logging: Marge Castillo RN Relief Scrub: Juanita Coker [...] 07/29/2023 1052 5 : Left Posterior Lateral. [place] to Mid Prostate Margin Permanent SURG PATH [...] MD 07/29/[address] [place] [facility] Bhavana Mc MD July 29, 2023 1:39 PM Associated attestation - Satya Whitmore MD - 07/29/2023 2:14 PM EDT Satya Whitmore MD was present for the entire case and remained immediately available. [facility] History and physical note* Karlene Ellison [...] 4, Warm. No clubbing. No cyanosis. Skin: Roy, warm and dry. No rashes noted. Psychiatric: [...] ROBOTIC Karlene Ellison MD 07/29/2023 7:01 AM [facility] Work Phone: 1(142) 680-502606-03-2024 History and physical note* Karlene Ellison MD [...] 4, Warm. No clubbing. No cyanosis. Skin: Roy, warm and dry. No rashes noted. Psychiatric: [...] 07/29/2023 7:01 AM documented in this encounterOSU [facility] Nurse Surgical operation note* Becky Arthur RN - 07/29/2023 5:41 AM EDT Pt DENIES history of chemotherapy and radiation Pt denies metal/implants in body. Pt denies h/o stroke or seizures. [facility]06-[facility] Nurse Note* Becky Arthur RN - 07/29/2023 5:41 AM EDT Pt DENIES history of chemotherapy and radiation Pt denies metal/implants in body. Pt denies h/o stroke or seizures. documented in this encounterOSU [facility] History and physical note* Lashonda Oliva DO - 07/17/2023 2:15 PM EDT Note to patient: The Cures Act makes medical notes like these available to patients inthe interest of transparency. However, be advised this is a medical document. It is intended as ezmw-gr-dslj communication. It is written in medical language and may contain abbreviations or verbiagethat are unfamiliar. It may appear blunt or direct. Medical documents are intended to carry relevant information, facts as evident, and the clinical opinion of the practitioner. [employer] dictation software was used to write this note. Please excuse any errors that may have occurred as a result of the dictation. History of Present Illness Mr. Gary is a 57 y.o. male is being evaluated in [facility] due to his medical condition(s) as [...] denies a history of cardiac events or VT. Denies chest pain with ambulation or ADLs around the house. Denies palpitations, denies LE edema, denies orthopnea Functional status - METS: Moderate: 4-7 METS functional status. 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 Patchy linear and bandlike T2 hypointense areas in the peripheral zones with increased postcontrast enhancement could be related to background prostatitis. 4. Intact prostatic capsule with no regional extracapsular disease. 5. No lymphadenopathy or bone lesions identified on this study History of spondylolisthesis- s/p epidural injection History of Laryngeal polyp- 2015- no issues with dysphagia MEDICATIONS No current [...] to participate in the care of Norman Gary. Total time spent on the day of patient's visit was 41 minutes. This includes but is not limited to time spent preparing to see the patient, precharting, reviewing outside medical records, time spent in the patient's room doing a history and physical exam along with medication education, ordering lab test and requesting medical information as well as interpreting lab results Lashonda Oliva DO [facility] Perioperative Clinic [facility] [address] [facility] Review of Systems (OSUROS) Review of Systems [...] Laterality: N/A; Surgeon: Satya Whitmore MD; Location: [facility]SC PERIOP Patient Care Team: Chichi Argueta [...] Concern Occupational Exposure No Hobby Hazards No [facility]05-[facility] History and physical note* Lashonda Oliva DO - 07/17/2023 2:15 PM EDT Note to patient: The Cures Act makes medical notes like these available to patients inthe interest of transparency. However, be advised this is a medical document. It is intended as vitc-mx-tysn communication. It is written in medical language and may contain abbreviations or verbiagethat are unfamiliar. It may appear blunt or direct. Medical documents are intended to carry relevant information, facts as evident, and the clinical opinion of the practitioner. [employer] dictation software was used to write this note. Please excuse any errors that may have occurred as a result of the dictation. History of Present Illness Mr. Gary is a 57 y.o. male is being evaluated in [facility] due to his medical condition(s) as [...] denies a history of cardiac events or VT. Denies chest pain with ambulation or ADLs around the house. Denies palpitations, denies LE edema, denies orthopnea Functional status - METS: Moderate: 4-7 METS functional status. 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 Patchy linear and bandlike [...] as interpreting lab results DO Adam Kahn [facility] Perioperative Clinic [facility] [address] [facility] Review of Systems (OSUROS) Review of Systems [...] N/A; Surgeon: Satya Whitmore MD; [facility] Patient Care Team: [...] No Hobby Hazards No documented in this encounterOSU [facility] Instructions* Patient Instructions* Jose Juan Zaragoza LPN [...] take Herbal Medication (including multi-vitamin, fish oil ([place]-3), garlic, Glucosamine -Chondroitin ,gingko, ginseng, Vitamin E, [...] site one week prior to surgery. - [place] your teeth and rinse your mouth the [...] Information Management Department for all records requests. [phone] [phone] [facility] Preoperative [facility] Nga FLORENTINO/ADRIÁN documented [facility] encounterL[facility] Nurse Surgical operation note* Estee Bolaños RN - 04/02/2023 8:40 AM EST 0835: Patient arrived to [facility] from [facility] PACU via gurney. Vital signs taken and stable. Patient given drink and snacks. Family called to bedside. Patient assessed. 0840: Reviewed anesthesia precautions, AVS, discharge instructions and scrips with patient and , questions and concerns answered. 0908 Patient meets [facility] discharge criteria and discharged per MD order to home. Patient taken bywheelchair by BUILDING INSPECTOR to awaiting car. All belongings gathered with patient. Family/friend to drive patient home and care for patient 24 hours post-op. [facility]02[facility] Nurse Note* Estee Bolaños RN - 04/02/2023 8:40 AM EST 0835: Patient arrived to [facility] from [facility] PACU via gurney. Vital signs taken and stable. Patient given drink and snacks. Family called to bedside. Patient assessed. 0840: Reviewed anesthesia precautions, AVS, discharge instructions and scrips with patient and , questions and concerns answered. 0908 Patient meets [facility] discharge criteria and discharged per MD order to home. Patient taken bywheelchair by BUILDING INSPECTOR to awaiting car. All belongings gathered with patient. Family/friend to drive patient home and care for patient 24 hours post-op. * Cheryl Adorno RN - 04/02/2023 5:26 AM EST Patient denies hx of chemo and radiation. Patient denies metal or foreign objects in body. Patient denies hx of seizure or stroke. [facility] encounter[facility] Note* Nursing Notes - Juany Maier RN - 04/02/2023 8:27 AM EST 0827: Pt voided 200cc clear yellow urine in A PACU [facility]02-06-2024 Miscellaneous Notes* Nursing Notes - Juany Maier RN - 04/02/2023 8:27 AM EST 0827: Pt voided 200cc clear yellow urine in A PACU * Op Note - Satya Whitmore MD - 04/02/2023 7:46 AM EST Norman Cookie ([id number]) PRE OPERATIVE DIAGNOSIS Elevated PSA [R97.20] POST OPERATIVE DIAGNOSIS Post-Op Diagnosis Codes: * Elevated PSA [R97.20] PROCEDURE PERFORMED Procedure(s) (LRB): BX PROSTATE NEEDLE TRANSPERINEAL (N/A) PRIMARY CLOSURE N/A INTRAOPERATIVE FINDINGS No significant abnormalities SURGEON Surgeon(s) and Role: * Satya Whitmore MD - Primary ANESTHESIOLOGIST Anesthesiologist: Eliu Macias MD SURGICAL STAFF Supervisor Logging: Italia Oquendo RN Scrub Person: Stacey Hutchinson [...] PATH SURG PATH REQUEST Satya Whitmore MD 04/02/202329 8 : Right peripheral zone posterior medial [...] Whitmore MD April 02, 2023 7:46 AM * Brief Op Note - Satya Whitmore MD - 04/02/2023 7:46 AM EST Norman Cookie ([id number]) PRE OPERATIVE DIAGNOSIS Elevated PSA [R97.20] POST OPERATIVE DIAGNOSIS Post-Op Diagnosis Codes: * Elevated PSA [R97.20] PROCEDURE PERFORMED Procedure(s) (LRB): BX PROSTATE NEEDLE TRANSPERINEAL (N/A) PRIMARY CLOSURE N/A INTRAOPERATIVE FINDINGS No significant abnormalities SURGEON Surgeon(s) and Role: * Satya Whitmore MD - Primary ANESTHESIOLOGIST Anesthesiologist: Eliu Macias MD SURGICAL STAFF Supervisor Logging: Italia Oquendo RN Scrub Person: Stacey Hutchinson RN; Manjula Forrest Resident Assisting: Bhavana Mc MD COMPLICATIONS None ESTIMATED BLOOD LOSS Minimal SPECIMENS As below ID Type Source Tests Collected by Time Destination 1 : Left anterior fibromusclar stroma prostate biopsy Permanent SURG PATH SURG PATH REQUEST Satya Whitmore MD 04/02/2023 0729 2 : Left peripheral zone anterior prostate [...] biopsy Permanent SURG PATH SURG PATH REQUEST Staya Whitmore MD 04/02/2023728 9 : HEATH #1 Permanent SURG PATH SURG PATH REQUEST Satya Whitmore MD 04/02/2023738 Satya Whitmore MD April 02, 2023 7:46 AM documented in this [facility]02-06-2024 Surgery Postoperative evaluation and management note* Op Note - Satya Whitmore MD - 04/02/2023 7:46 AM EST Norman Gary ([id number]) PRE OPERATIVE DIAGNOSIS Elevated PSA [R97.20] POST OPERATIVE DIAGNOSIS Post-Op Diagnosis Codes: * Elevated PSA [R97.20] PROCEDURE PERFORMED Procedure(s) (LRB): BX PROSTATE NEEDLE TRANSPERINEAL (N/A) PRIMARY CLOSURE N/A INTRAOPERATIVE FINDINGS No significant abnormalities SURGEON Surgeon(s) and Role: * Satya Whitmore MD - Primary ANESTHESIOLOGIST Anesthesiologist: Eliu Macias MD SURGICAL STAFF Supervisor Logging: Italia Oquendo RN Scrub Person: Stacey Hutchinson [...] SURG PATH REQUEST Satya Whitmore MD 04/02/2023738 OPERATIVE REPORT Date: 04/02/2023 Preoperative [...] Whitmore MD April 02, 2023 7:46 AM [facility] Work Phone: [phone]) 733-961602-06-2024 Surgery Postoperative evaluation and management note* Brief Op Note - Satya Whitmore MD - 04/02/2023 7:46 AM EST Norman Gary ([id number]) PRE OPERATIVE DIAGNOSIS Elevated PSA [R97.20] POST OPERATIVE DIAGNOSIS Post-Op Diagnosis Codes: * Elevated PSA [R97.20] PROCEDURE PERFORMED Procedure(s) (LRB): BX PROSTATE NEEDLE TRANSPERINEAL (N/A) PRIMARY CLOSURE N/A INTRAOPERATIVE FINDINGS No significant abnormalities SURGEON Surgeon(s) and Role: * Satya Whitmore MD - Primary ANESTHESIOLOGIST Anesthesiologist: Eliu Macias MD SURGICAL STAFF Supervisor Logging: Italia Oquendo RN Scrub Person: Stacey Hutchinson [...] PATH SURG PATH REQUEST Satya Whitmore MD 04/02/202329 7 : Right peripheral zone posterior lateral prostate biopsy Permanent SURG PATH SURG PATH REQUEST Satya Whitmore MD 04/02/2023728 8 : Right peripheral zone posterior medial porstate biopsy Permanent SURG PATH SURG PATH REQUEST Satya Whitmore MD 04/02/202329 9 : HEATH #1 Permanent SURG PATH SURG PATH REQUEST Satya Whitmore MD 04/02/2023 0739 Satya Whitmore MD April 02, 2023 7:46 AM [facility]02[facility] Hospital Discharge instructions* Discharge Instructions* Bhavana [...] or problems, call and ask the hospital skiff operator to page the urology resident application chemist. If it is a question or problem that can wait until business hours, call the clinic phone number listed above when the clinic is open during weekdays, 8am-4pm. If you are unable to reach your doctor and it is a medical emergency call the [facility] at or dial 911. documented in this encounterOS[facility] History and physical note* Bhavana Mc MD - 04/02/2023 6:41 AM EST LUCINA Gary is a 57 y.o. with [...] 4, Warm. No clubbing. No cyanosis. Skin: Roy, warm and dry. No rashes noted. Psychiatric: [...] TRANSPERINEAL Bhavana Mc MD 04/02/2023 6:41 AM [facility] Work Phone: [phone]) 869-316802-06-2024 History and physical note* Bhavana Mc MD [...] 4, Warm. No clubbing. No cyanosis. Skin: Roy, warm and dry. No rashes noted. Psychiatric: [...] MD 04/02/2023 6:41 AM documented [facility] Surgical operation note* Cheryl Adorno RN - 04/02/2023 5:26 AM EST Patient denies hx of chemo and radiation. Patient denies metal or foreign objects in body. Patient denies hx of seizure or stroke. [facility] History of Present illness Narrative* Desiree Freeman, SHEET CUTTER-APPRENTICE PLANT ATTENDANT - 09/11/2022 11:00 AM EDT Images from [...] BPH, UTI, stones or other renal diseases. 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 , 2 sons and 1 daughter [...] gait. Extremities: LIZBET. Warm. No cyanosis. Skin: Roy, warm and dry. No rashes noted. Psychiatric: [...] the fibromuscular stroma concerning for a neoplastic [id number] Category 4 3. Patchy linear and bandlike [...] is 30 MRI Prostate (1.5T) 12/17/18 - [facility] Pathology: TRUS 11/17/20: A. Prostate, right lateral [...] health since last appointment. documented in this encounterOS[facility]* Diagnosis Elevated PSA Elevated prostate specific antigen (PSA) documented in [facility] encounter [facility] noteNo assessment information available [facility] Work Phone: Evaluation note* Diagnosis Elevated PSA Elevated prostate specific antigen (PSA) documented [facility]* Diagnosis Elevated PSA- Primary Elevated prostate specific antigen (PSA) documented [facility] encounter [facility]* Diagnosis Onset Date Resolution Status Spondylolisthesis, lumbar region acute [facility] Work Phone: Evaluation note* Diagnosis Elevated PSA Elevated prostate specific antigen (PSA) documented [facility]* Diagnosis Preop exam for internal medicine- Primary Other specified pre-operative examination Prostate cancer Malignant neoplasm of prostate Lumbar spondylosis Lumbosacral spondylosis without myelopathy Malignant neoplasm of prostate [facility]* Diagnosis Malignant neoplasm of prostate [facility]* Diagnosis Malignant neoplasm of prostate- Primary [facility]* Diagnosis Malignant neoplasm of prostate- Primary [facility]* Attachments The following attachments cannot be sent through Care Everywhere. * Leroy: Pelvic Floor Exercises for Men (Radha Raymundo) (Cymro) documented in this encounterOSU [facility]Progress note Author Seb [facility] Note Date/Time July 29, 2024 2:17p m [facility] [address] [place] [id number] OFFICE VISIT Date of Service: 07/29/24 1401 MR#: [id number] Acct: [id number] Name: NORMAN GARY Rep #: [id number] : 1965 From: Seb xavier DO Age/Sex: 58/M Location: [facility] Status: Signed Intake Vital Signs 06/16/24 14:02 [...] 15 mg tablet 15 mg PO DAILY 01/11/23/04/21 History pantoprazole 20 mg tablet,delayed 20 mg [...] at any time. 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; R97.21; Z19.1 07/29/24 1417 <Electronically signed by Seb Clarke DO> Date _ Seb Clarke DO Rakanigner Signature: Date (if applicable) CC: ~ [facility] Work Phone: Progress note Author [facility] Note Date/Time September 02, 2024 2:12p m [facility] [address] [address] OFFICE VISIT Date of Service: 09/02/24 1352 MR#: [id number] Acct: [id number] Name: NORMAN GARY Rep #: [id number] : 1965 From: Seb xavier DO Age/Sex: 59/M Location: [facility] Status: Signed Intake Vital Signs 06/16/24 14:02 [...] at any time. 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; R97.21; Z19.1 09/02/24 1412 <Electronically signed by Seb Clarke DO> Date _ Seb Clarke DO Cosigner Signature: Date (if applicable) CC: ~ [email or web address] Work Phone: Reason for referral (narrative)* Unlisted Procedure Code (Routine) - New Request Specialty Diagnoses / Procedures Referred By Contac t Referred To Contact Procedures PLATELET MONITORING PER PROTOCOL Satya Whitmore MD [address] [place] [address] Referral ID Status Reason Start Date Expiration Date V isits Requested Visits Authorized [id number] New Request 07/29/2023 08/22/2024 1 1 * Unlisted Procedure Code (Routine) - New Request Specialty Diagnoses / Procedures Referred By Contac t Referred To Contact Procedures DVT/VTE RISK ASSESSMENT Satya Whitmore MD [address] [place] [address] Referral ID Status Reason Start Date Expiration Date V isits Requested Visits Authorized [id number] New Request 07/29/2023 08/22/2024 1 1 [facility] for referral (narrative)No reason for referral information availableWWVUMedicine [facility] Work Phone: Summary Purpose Family History [...] Recorded Date/ Time Advance Directives No May 25 7:16am Living Will No October 21 10:06am Power of Improvement Rn No October 21 018 10:06am Advance Directive Response Recorded Date/ Time Advance Directives No May 25 016 6:16am Living Will No October 21 8 9:06am Power of Improvement Rn No October 21 018 9:06am Latest Code Status on File [...] Procedures MRI PROSTATE WITH AND WITHOUT CONTRAST CT MRI, PELVIS, SHARRIO Judy Quiroga, SHEET CUTTER-APPRENTICE PLANT ATTENDANT [address] [address] Referral ID Status Reason Start Date Expiration Date Visits Re quested Visits Authorized [id number] Closed 09/20/2020 10/15/2021 1 1 Specialty Diagnoses / Procedures Referred By Contac t Referred To Contact Diagnoses Elevated PSA Procedures MRI PROSTATE WITH AND WITHOUT CONTRAST CT MRI, PELVIS, Desiree Arnett, SHEET CUTTER-APPRENTICE PLANT ATTENDANT [address] [place] [id number] Referral ID Status Reason Start Date Expiration Date Visits Re quested Visits Authorized [id number] Closed 05/29/2022 06/23/2023 1 1 Specialty Diagnoses / Procedures Referred By Contac t Referred To Contact Procedures US IMAGING Satya De Los Santos MD [address] [place] [address] Referral ID Status Reason Start Date Expiration Date V isits Requested Visits Authorized [id number] New Request 04/02/2023 04/26/2024 1 1 Chief [...] pm . September 14, 2024 1:40 pm Chief Complaint Admit Date PLYARIFY June 09, 2024 7:2 1am PROSTATE [...] pm . September 14, 2024 1:40 pm Reason for Visit Admit Date 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 [...] adenocarcinoma of prostate September 09, 2024 1:53pm 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 September 14, 2024 1:31pm Chief Complaint Admit Date OTV July 29, 2024 1:55p m OTV August 05, 2024 1:50 pm OTV August 12, 2024 2:02 pm OTV August 19, 2024 9:57 am OTV August 26, 2024 1:44p m OTV September 02, 2024 1:51p m OTV September 09, 2024 1:53 pm OTV September 14, 2024 1:31 pm . September 14, 2024 1:40 pm 1 MONTH F/U POST RT October 15, 2024 2: 03pm Reason for Visit Admit Date 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 [...] adenocarcinoma of prostate September 09, 2024 1:53pm 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 September 14, 2024 1:31pm Additional Source Comments (unrecognized sect ion and content) No Status Records FoundNo Status Records FoundNo Status Records Found INFORMATION SOURCE (unrecogn ized section and content) DATE CREATED AUTHOR 03/14/2019 [facility] DATE CREATED AUTHOR AUTHOR'S ORGANIZ ATION 09/15/2024 [facility] DATE CREATED AUTHOR AUTHOR'S ORGANIZ ATION 12/25/2024 [facility] Reason for Visit (unrecogniz ed section and content) Specialty Diagnoses / Procedures Referred By Contac t Referred To Contact Diagnoses Elevated PSA Procedures MRI PROSTATE WITH AND WITHOUT CONTRAST CT MRI, PELVIS, Judy Smyth, SHEET CUTTER-APPRENTICE PLANT ATTENDANT [address] [place] [address] Referral ID Status Reason Start Date Expiration Date Visits Re quested Visits Authorized [id number] Closed 09/20/2020 10/15/2021 1 1 Specialty Diagnoses / Procedures Referred By Contac t Referred To Contact Diagnoses Elevated PSA Procedures MRI PROSTATE WITH AND WITHOUT CONTRAST CT MRI, PELVIS, Desiree Arnett, SHEET CUTTER-APPRENTICE PLANT ATTENDANT [address] [place] [address] Referral ID Status Reason Start Date Expiration Date Visits Re quested Visits Authorized [id number] Closed 05/29/2022 06/23/2023 1 1 Reason Comments Follow-up Specialty Diagnoses / Procedures Referred By Contac t Referred To Contact Diagnoses Elevated PSA Elevated PSA [R97.20] Procedures CT BIOPSY OF PROSTATE,NEEDLE,TRANSPERINEAL BX PROSTATE NEEDLE TRANSPERINEAL Satya Whitmore MD [address] [place] [address] [facility] [address] [place] [address] Referral ID Status Reason Start Date Expiration Date Visits Re quested Visits Authorized [id number] 1 1 Reason Comments Pre-operative Consultation Specialty Diagnoses / Procedures Referred By Contac t Referred To Contact PreOp Diagnoses Malignant neoplasm of prostate Satya Whitmore MD [address] [place] [address] Referral ID Status Reason Start Date Expiration Date V isits Requested Visits Authorized [id number] New Request 05/03/2023 05/27/2024 1 1 Specialty Diagnoses / Procedures Referred By Jaron greer Referred To Contact Diagnoses Malignant neoplasm of prostate Malignant neoplasm of prostate [C61] Procedures CT LAPS SURG BILATERAL TOTAL PELVIC LMPHADECTOMY CT LAPS SURG ALPO0NVU RPBIC RAD W/NRV SPARING ROBOT LYMPHADENECTOMY PELVIC TOTAL ROBOTIC PROSTATECTOMY RETROPUBIC RADICAL ROBOTIC Satya Whitmore MD [address] [place] [address] [facility] [address] [place] [address] Referral ID Status Reason Start Date Expiration Date Visits Re quested Visits Authorized [id number] 1 1 Reason Comments Cystogram Reason Comments Follow-up Prostate Cancer Doubling psa and wan ts to discuss that. Care Teams (unrecognized sec tion and content) Marketer Relationship Specialty Start Date End Date Chichi Argueta MD [address] [facility] [address] [place] [phone] PCP - General Family Medicine 07/27/20 Claude Patel MD [address] [place] [address] [address] [place], [place] [phone] Referring Provider Urology 07/27/20 Team Status: Active Member Role Status Dates Dr. Chichi Argueta MD Family Provider Active Dr. Chichi Argueta MD Primary Care Provider Active Team Status: Inactive Member Role Status Dates Dr. Chichi Argueta MD Primary Care Provider Active ZOHRA MAST Attending Provider, Referring Provider Ac tive Marketer Relationship Specialty Start Date End Date Chichi Argueta MD [address] [place] [phone] PCP - General Family Medicine 07/27/20 Claude Patel MD [address] [facility] [address] [place], [place] [address] Referring Provider Urology 07/27/20 Marketer Relationship Specialty Start Date End Date Chichi Argueta MD [address] [place] [phone] PCP - General Family Medicine 07/27/20 Claude Patel MD [address] [facility] [address] [place], [place] [address] Referring Provider Urology 07/27/20 Team Status: Active [...] MD Attending Provider, Referring Pr ovider Active Marketer Relationship Specialty Start Date End Date Chichi Argueta MD [address] [place] [phone] PCP - General Family Medicine 07/27/20 Claude Patel MD [address] [facility] [address] [place], [place] [address] Referring Provider Urology 07/27/20 Team Status: Inactive Member Role Status Dates Dr. Chichi Argueta MD Primary Care Provider Active CIPRIANO HERNADEZOD Attending Provider, Referring Provider Ac tive Marketer Relationship Specialty Start Date End Date Chichi Argueta MD [address] [facility] [place] [address] PCP - General Family Medicine 07/27/20 Claude Patel MD [address] [facility] [address] [place] [address] Referring Provider Urology 07/27/20 Marketer Relationship Specialty Start Date End Date Chichi Argueta MD [address] [facility] [address] [place] [address] PCP - General Family Medicine 07/27/20 Claude Patel MD [address] [place] [address] [place] [address] Referring Provider Urology 07/27/20 Marketer Relationship Specialty Start Date End Date Chichi Argueta MD [address] [facility] [address] [place] [phone] PCP - General Family Medicine 07/27/20 Claude Patel MD [address] [facility] [address] [place] [address] Referring Provider Urology 07/27/20 Marketer Relationship Specialty Start Date End Date Chichi Argueta MD [address] [facility] [address] [place] [address] PCP - General Family Medicine 07/27/20 Claude Patel MD [address] [place] [address] [address] [place], [place] [phone] Referring Provider Urology 07/27/20 Team Status: Active Member Role Status Dates Dr. Chichi Argueta MD Primary Care Provider Active Team Status: Inactive Member Role Status Dates Dr. Chichi Argueta MD Primary Care Provider Active Start: February 06, 2024 End: February 06, 2024 MYRANDA HERNADEZ Attending Provider Active Start: 2023 End: February 06, 2024 MYRANDA HERNADEZ Referring Provider Active Start: 2023 End: February 06, 2024 Team Status: [...] Referring Provider Active Start: September 14, 2024 Team Status: Inactive Member Role/Relationship Status [...] August 12, 2024 Dr. Seb Clarke DO Referring Provider Active Start: August 12, 2024 End: August 12, 2024 Team Status: Inactive Member Role/Relationship Status Dates Dr. Chichi Argueta MD Primary Care Provider Active Start: August 19, 2024 End: August 19, 2024 Dr. Seb Clarke DO Attending Provider Active Start: August 19, 2024 End: August 19, 2024 Dr. Seb Clarke DO Referring Provider Active Start: August 19, 2024 End: August 19, 2024 Team Status: Inactive Member Role/Relationship [...] Referring Provider Active Start: September 14, 2024 Team Status: Inactive Member Role/Relationship Status Dates Dr. Chichi Argueta MD Primary Care Provider Active Start: September 29, 2024 End: September 29, 2024 Dr. Claude Patel MD Attending Provider Active Start: September 29, 2024 End: September 29, 2024 Dr. Claude Patel MD Referring Provider Active Start: September 29, 2024 End: September 29, 2024 Team Status: Active Member Role/Relationship Status [...] 29, 2024 End: July 29, 2024 Dr. Sbe Clarke DO Referring Provider Active Start: July [...] August 12, 2024 Dr. Seb Clarke DO Referring Provider Active Start: August 12, 2024 End: August 12, 2024 Team Status: Inactive Member Role/Relationship Status Dates Dr. Chichi Argueta MD Primary Care Provider Active Start: August 19, 2024 End: August 19, 2024 Dr. Seb Clarke DO Attending Provider Active Start: August 19, 2024 End: August 19, 2024 Dr. Seb Clarke DO Referring Provider Active Start: August 19, 2024 End: August 19, 2024 Team Status: Inactive Member Role/Relationship [...] Referring Provider Active Start: September 02, 2024 End: [...] Referring Provider Active Start: September 14, 2024 Team Status: Inactive Member Role/Relationship Status Dates Dr. Chichi Argueta MD Primary Care Provider Active Start: September 29, 2024 End: September 29, 2024 Dr. Claude Patel MD Attending Provider Active Start: September 29, 2024 End: September 29, 2024 Dr. Claude Patel MD Referring Provider Active Start: September 29, 2024 End: September 29, 2024 Team Status: Inactive Member Role/Relationship Status Dates Dr. Chichi Argueta MD Primary Care Provider Active Start: October 15, 2024 End: October 15, 2024 Dr. Chichi Argueta MD Referring Provider Active Start: October 15, 2024 End: October 15, 2024 Dr. Seb Clarke DO Attending Provider Active Start: October 15, 2024 End: October 15, 2024 Goals (unrecognized section and content) Goals [...] 2 g, Intravenous, Administer over 30 Minutes, COMMUNITY RELATIONS DIRECTOR TO PROCEDURE, Starting on Sat04/02/23 at 0514, [...] from all sources in 24 hours., Post-op/Post-Proc 1650 (Given - Provider: Emily Fink RN) Acetaminophen [...] Fink RN) 0304 (Given - Provider: Tessie Grubbs RN) Polyethylene glycol (MIRALAX) packet 17 g 17 g, Oral, DAILY, First dose on Sat07/30/23 at 0900, Until Discontinued, Post-op/Post-Proc 0900 (Canceled Entry - Provider: System Discharge - Comment: Automatically canceled at discontinue of medication order) Scopolamine (TRANSDERM-SCOP) patch 1 patch(Linked Group 1) 1 patch, Transdermal, ONCE, 1 dose, On Sat07/29/23 at 0745, Apply patch to site behind the ear. Rotate sites for each application. Do not cut or alter patch. Each patch delivers 1 mg over 72 hours. 0709 (Patch Applied - Provider: Bhakti Vázquez RN - Comment: right ear) 0710 (Due: Patch Removed - Provider: System Discharge - Comment: Time automatically adjusted from order being discontinued) simethicone (MYLICON) chewable tablet 80 mg 80 mg, Oral, BEFORE MEALS & AT BEDTIME, First dose on Sat07/29/23 at 1600, Until Discontinued, Post-op/Post-Proc 1651 (Given - Provider: Emily Fink RN)2004 (Given - Provider: Tessie Grubbs RN) 06 (Given - Provider: Tessie Grubbs RN) VERIFY LINKED PATCH PLACEMENT(Linked Group 1) Other, EVERY 12 HOURS, First dose on Sat07/29/23 at 0900, Until Discontinued, Confirm continued adhesion of scopolamine 1.5 mg/72hr patch at documented site. 0900 (Canceled Entry - Provider: System Discharge - Comment: Automatically canceled at discontinue of medication order)2002 (Patch Verify - Provider: Tessie Grubbs RN) 0900 (Canceled Entry - Provider: System Discharge - [...] Fink, RN)2225 (Stopped - Provider: Tessie Grubbs, MATTEO) PRN Medication Order 07/28/2023 07/29/2023 07/30/2023 alum/mag [...] Post-op/Post-Proc 2006 (See Alternative - Provider: Tessie Grubbs RN) Ondansetron 4mg/2ml (ZOFRAN) injection 4 mg(Linked Group [...] BE BASED ON THE PRIMARY CLINICAL RECORDS. [employer] [facility]. provides no warranty or guarantee of the accuracy or completeness of information in this document.
--- NOTE | 2025-02-05 06:32 | PCM.HP.BLA ---
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 Is patient in pain?: No Allergies No Known Allergies Allergy (Verified 01/14/25 12:52) Medications ?Medication ?Instructions ?Recorded ?Confirmed ?Type pantoprazole 20 mg tablet,delayed 20 mg PO QDAY 05/19/24 10/15/24 History release cyclobenzaprine 10 mg tablet 10 mg PO HS PRN 01/14/25 01/14/25 History ibuprofen 200 mg capsule (Motrin 200 mg PO Q6H PRN 01/14/25 01/14/25 History IB) PFSH Medical History Spondylolisthesis Elevated PSA Vocal cord papilloma virus Tinnitus Prostatic adenocarcinoma Malignant neoplasm prostate Chalazion right upper eyelid Blepharitis of right upper eyelid History of prostate cancer GERD (gastroesophageal reflux disease) Hoarseness Surgical History History of prostate biopsy History of radical retropubic prostatectomy History of prostatectomy H/O colonoscopy Status post vasectomy Family History Mother Hypertension CAD (coronary artery disease) Soft tissue sarcoma Father Cancer Prostate cancer Bladder cancer Brother Colon cancer Prostate cancer Uncle Bladder cancer Social History Smoking Status: Never smoker alcohol intake: current alcohol intake frequency: a few times a week Alcohol type: beer substance use type: does not use HPI HPI HPI: Patient is a 59-year-old male here for change in bowel habits. He just completed a course of radiation for prostate cancer in August of this year. He says ever since he has been having change in bowel habits. He has been having looser stools that happen 4-5 times per day. He reports no abdominal pain. He says occasionally he does have blood in the stool. He also says it is hard to wipe his stool. ROS General General: Yes fatigue; No weight change, appetite, colon cancer, breast cancer or weakness HEENT HEENT: No difficulty swallowing, eye injury, eye surgery, swollen glands or hoarseness Endo Endocrine: No thyroid disease, diabetes mellitus, thyroid cancer, Hair loss, heat intolerance or cold intolerance Skin Skin: No rash or changing moles Breast Breast: No left breast lump, right breast lump, nipple discharge, breast pain, abnormal mammogram, abnormal US or breast enlargement Musc Musculoskeletal: Yes back problems and arthritis; No rheumatoid arthritis, gout or joint pain Cardio Cardiovascular: No murmur, pacemaker, heart disease, atrial fibrillation, high blood pressure, heart attack, heart stent, palpitations, shortness of breath with exertion or chest pain Psych Psychiatric: Yes anxiety; No depression or hearing voices Resp Respiratory: No shortness of breath, No sleep apnea, No cough, No COPD, No asthma, No emphysema and No wheezing Gastro Gastrointestinal: No abdominal pain, Yes nausea or vomiting, Yes diarrhea, No constipation, No blood in stool, Yes acid reflux, Yes hemorrhoids, No ulcers, No gallbladder problem and No black,tarry stools Amor Hematologic: No blood thinners, No blood disorders, No bleeding, No anemia and No blood clots Neuro Neurologic: No system reviewed and no additional complaints, except as documented, No as per HPI, No abnormal gait, No abnormal hearing, No abnormal movements, No abnormal speech, No behavioral changes, No burning sensations, No confusion, No convulsions, No disequilibrium, No dizziness, No localized weakness, No frequent falls, No headache(s), No lack of coordination, No loss of vision, No memory loss, No numbness, No other visual disturbances, No radicular pain, No restless legs, No sensory deficit, No syncope, No tingling, No tremor(s), No weakness and No other Exam Const General: cooperative Orientation: alert and oriented x3 HENMT Head: normal to inspection Neck Neck: normal visual inspection and full ROM Chest Chest palpation & inspection: normal inspection of the chest Resp Effort & Inspection: normal respiratory effort Auscultation: clear to auscultation bilaterally Cardio Rate: regular rate Rhythm: regular rhythm GI Inspection: non-distended Palpation: soft and nontender Skin General: no rashes or lesions noted Neuro General: patient alert and patient oriented x3 Extrem General: full ROM Psych Appearance: grossly normal Mental Status: mental status grossly normal Assessment and Plan Assessment and Plan (1) Change in bowel movement: Status: Acute Plan: The patient is having some blood in his stool and increased frequency and loose stool since radiation therapy. This is likely radiation proctitis but I offered him a colonoscopy to evaluate the rest of the colon as he does have family history of colon cancer and is due for colonoscopy. His last colonoscopy was in 2020. I explained endoscopy in detail to the patient. I explained the risks including but not limited to stroke or heart attack with anesthesia, perforation of the GI tract, bleeding, infection. I explained that any of these could necessitate further emergency surgery. The patient understands and all questions were answered sufficiently. The patient wishes to proceed with procedure. Sanchez Fortune MD Pager: [facility] [address] [place] [address], [address] [place] [address] Office: I have examined the patient and the H&P has been reviewed. There are no clinical changes since date of exam.
[2025-02-05] MEDS: Lactated Ringers 1,000 ML 15 ML IV (07:00)
--- NOTE | 2025-02-05 07:15 | PCM.PRE.AN2 ---
ASA Classification* ASA Classification ASA Classification: 2 Assessment & Plan Anesthesia* Anesthesia Assessment Anesthesia Assessment: Discussed sedation and/or anesthesia options, risks, benefits, and alternatives with patient/parents/legal guardian/POA. Questions invited. The patient/parents/legal guardian/POA seems to understand and agrees to proceed with anesthesia plan. Reviewed the physical assessment, medical history, allergy history and patient home medications list prior to surgery/procedure/anesthetic and documented any changes. Performed airway and anesthesia risk assessments. Anesthesia Type Anesthesia Type: MAC Anesthesia Focused Assessment* Temperature: 97 F Pulse Rate: 67 Blood Pressure: 101/66 Respiratory Rate: 16 Pulse Ox: 97 Airway Assessment Mouth opens: >3 cm Mallampati Score: II Labs Anesthesia Preop lab: CBC WBC, (4.4-11.0) 4.1 K/mm3 L 11/24/24, 09:48 RBC, (4.6-6.2) 4.35 M/mm3 L 11/24/24, 09:48 Hgb, (13.0-16.5) 13.9 g/dL 11/24/24, 09:48 Hct, (40-54) 39.7 % L 11/24/24, 09:48 Plt Count, (150-450) 228 K/mm3 11/24/24, 09:48 CHEMISTRY Potassium, (3.3-5.1) 4.6 mmol/L 11/24/24, 09:48 Sodium, (133-145) 142 mmol/L 11/24/24, 09:48 Phosphorus, (2.7-4.5) 4.0 mg/dL 11/24/24, 09:48 BUN, (4-19) 11 mg/dL 11/24/24, 09:48 Creatinine, (0.70-1.20) 0.93 mg/dL 11/24/24, 09:48 Glucose, (70-99) 97 mg/dL 11/24/24, 09:48 TSH, (0.358-3.74) 2.24 uIU/mL 09/22/18, 10:02 COAG Pre-Assessment Diagnosis/Proposed Procedure Planned Operative Procedure(s): COLONOSCOPY Anesthesia History Anesthesia History - impregnator electrolytic capacitors: Anesthesia History - impregnator electrolytic capacitors Hx Hospitalization No 02/03/25 09:04 Any Problems With Anesthesia No 02/03/25 09:04 Cholinesterase deficiency No 02/03/25 09:04 You/Your Family Experience No 02/03/25 09:04 fever (hyperthermia) with Relationship Recent Exposure to Contagious No 02/05/25 06:59 Disease Does patient have nerve No 02/03/25 09:04 stimulator Patient instructed to have device shut off --Does patient have Pacemaker No 02/05/25 06:59 or ICD? When Was Last Pacemaker Check QUESTION #4 FULL TEXT: You/Your Family Experience fever (hyperthermia) with Anesthesia Last Oral Intake Last Oral intake: Last Oral Intake NPO since 18:30 02/05/25 06:59 Meds taken in AM with sips of No 02/05/25 06:59 water? Meds patient instructed to take am of surgery PONV PONV - impregnator electrolytic capacitors: PONV - impregnator electrolytic capacitors Female Yes 02/03/25 09:04 HX of Motion Sickness No 02/03/25 09:04 HX of N/V After Surgery No 02/03/25 09:04 Non-Smoker Yes 02/03/25 09:04 Duration of Surgery greater No 02/03/25 09:04 than 60 minutes Number of Risk Factors 2 02/03/25 09:04 PONV Score Moderate Risk 02/03/25 09:04 Height & Weight Height & Weight: Anesthesia: Height & Weight Height 5 ft 9 in 02/05/25 06:59 Weight: 85 kg 02/05/25 06:59 Body Mass Index (BMI) 27.6 02/05/25 06:59 Respiratory Assessment Respiratory Assessment - impregnator electrolytic capacitors: Respiratory Tract Infection Hx - impregnator electrolytic capacitors Hx Respiratory Tract Infection No 02/03/25 09:04 STOP Sleep Apnea STOP Sleep Apnea - impregnator electrolytic capacitors: STOP Sleep Apnea - impregnator electrolytic capacitors Hx Hypertension No 02/03/25 09:04 Hx Sleep Apnea No 02/03/25 09:04 CPAP BIPAP Do you snore loudly (louder No 02/03/25 09:04 than talking or can be heard Do you often feel tired/ No 02/03/25 09:04 fatigued/ sleepy during daytime? Has anyone observed you stop No 02/03/25 09:04 breathing during sleep? STOP Results Negative 02/05/25 07:58 QUESTION #5 FULL TEXT : Do you snore loudly (louder than talking or can be heard through closed doors)? 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 Specify any problems Hx of Preganancy in last 3 N/A 02/03/25 09:04 Months Nurse Filling Out Transfusion [email or web address] 02/03/25 09:04 & Questions: Date: 02/03/25 02/03/25 09:04 Time: 09:06 02/03/25 09:04 Patient unable to answer at this time (ie. confused, unrespo /Reproduction History /Reproductive History - impregnator electrolytic capacitors: /Reproductive Hx- impregnator electrolytic capacitors Hx Now Gestational Age (in weeks): EDC: Hx Hx Para Hx Section SAB Does the father of the baby or his family experience fever w Father of the baby Malignant Hypertension history comment Active Medications Active Medications: Current Medications Generic Name Dose Route Start Last Admin Trade Name Freq PRN Reason Stop Dose Admin Lactated Ringer's 1,000 mls @ 15 mls/hr 02/05/25 07:00 02/05/25 08:01 IV Infused .Q48H CLARE Infusion PFSH Medical History Anxiety Arthritis Back pain Non-smoker Spondylolisthesis Elevated PSA Vocal cord papilloma virus Tinnitus Prostatic adenocarcinoma Malignant neoplasm prostate Chalazion right upper eyelid Blepharitis of right upper eyelid History of prostate cancer GERD (gastroesophageal reflux disease) Hoarseness Home Medications ?Medication ?Instructions ?Recorded ?Last Taken ?Type pantoprazole 20 mg tablet,delayed 20 mg PO QDAY 05/19/24 Unknown History release cyclobenzaprine 10 mg tablet 10 mg PO HS PRN muscle spasm 01/14/25 Unknown History ibuprofen 200 mg capsule (Motrin 200 mg PO Q6H PRN pain 01/14/25 Unknown History IB) Allergy/AdvReac Type Severity Reaction Status Date / Time No Known Allergies Allergy Verified 02/05/25 06:54 Family History Mother Hypertension CAD (coronary artery disease) Soft tissue sarcoma Father Cancer Prostate cancer Bladder cancer Brother Colon cancer Prostate cancer Uncle Bladder cancer Surgical History History of prostate biopsy History of radical retropubic prostatectomy History of prostatectomy H/O colonoscopy Status post vasectomy Social History Smoking Status: Never smoker alcohol intake: current alcohol intake frequency: a few times a week Alcohol type: beer substance use type: does not use Review of Systems (Anesthesia) ROS Narrative System reviewed and no additional complaints, except as documented.
--- NOTE | 2025-02-05 08:01 | OP.PROVAT_ITS ---
02/05/2025 Wiliam Argueta [address] [place] [address] Re : Colonoscopy procedure for Norman Cookie Dear Dr. Argueta This procedure was performed on Wednesday, February 05, 2025. My impressions and recommendations are as follows: Impressions : - The entire examined colon is normal on direct and retroflexion views. - No specimens collected. Recommendations : - Discharge patient to home. - Resume previous diet. - Continue present medications. - Repeat colonoscopy in 5 years for screening purposes. My findings are described in the full procedure note, which is enclosed. If I can be of further assistance, please feel free to contact me at Doctor phone number(s): , Work: . Sincerely, Sanchez Fortune MD 02/05/2025 8:01:11 AM This report has been signed electronically.
--- NOTE | 2025-02-05 08:01 | OP.COLON_ITS ---
Patient Name: Norman Gary Procedure Date: 02/05/2025 7:33 AM Date of : 1965 Age: 59 Procedure: Colonoscopy Indications: Change in bowel habits Providers: Sanchez Fortune MD Referring MD: Wiliam Argueta Medicines: Propofol per Anesthesia Patient Profile: This is a 59 year old male. Refer to note in patient chart for documentation of history and physical. Last Colonoscopy: several years ago. Complications: No immediate complications. Procedure: Pre-Anesthesia Assessment: - Prior to the procedure, a History and Physical was performed, and patient medications and allergies were reviewed. The patient's tolerance of previous anesthesia was also reviewed. The risks and benefits of the procedure and the sedation options and risks were discussed with the patient. All questions were answered, and informed consent was obtained. Prior Anticoagulants: The patient has taken no anticoagulant or antiplatelet agents. After reviewing the risks and benefits, the patient was deemed in satisfactory condition to undergo the procedure. After I obtained informed consent, the scope was passed under direct vision. Throughout the procedure, the patient's blood pressure, pulse, and oxygen saturations were monitored continuously. The Colonoscope was introduced through the anus and advanced to the cecum, identified by appendiceal orifice and ileocecal valve. The colonoscopy was performed without difficulty. The patient tolerated the procedure well. The quality of the bowel preparation was good. The ileocecal valve, appendiceal orifice, and rectum were photographed. Scope In: 7:42:11 AM Scope Withdrawal Time 0 hours 6 minutes 55 seconds Scope Out: 7:54:33 AM Total Procedure Duration Time 0 hours 12 minutes 22 seconds Findings: The entire examined colon appeared normal on direct and retroflexion views. Impression: - The entire examined colon is normal on direct and retroflexion views. - No specimens collected. Recommendation: - Discharge patient to home. - Resume previous diet. - Continue present medications. - Repeat colonoscopy in 5 years for screening purposes. Procedure Code(s): --- Professional --- 90726, Colonoscopy, flexible; diagnostic, including collection of specimen(s) by brushing or washing, when performed (separate procedure) Diagnosis Code(s): --- Professional --- R19.4, Change in bowel habit CPT copyright 2021 [employer]. All rights reserved. The codes documented in this report are preliminary and upon shoe packer review may be revised to meet current compliance requirements. Sanchez Fortune MD 02/05/2025 8:01:11 AM This report has been signed electronically. Number of Addenda: 0 Note Initiated On: 02/05/2025 7:33 AM
--- NOTE | 2025-02-05 08:02 | PCM.POST.ANE ---
Anesthesia: Postop Eval I Current Vital Signs Temperature: 97 F Pulse Rate: 74 Blood Pressure: 96/71 Respiratory Rate: 16 Pulse Ox: 97 Oxygen Delivery Method: Room Air Assessment Airway patent: Yes Spontaneous unlabored respirations: Yes Mental status: Asleep nausea: No Vomiting: No Anesthesia Complication: No Fluid Hydration Crystalloid volume administer (ml): 500 Total IV fluid infused: 500 Progress Note Anesthesia document: Postop Eval 1 completed: Yes
--- NOTE | 2025-02-05 08:14 | PCM.POSTANE2 ---
Anesthesia Postop Eval I Sum Postop Eval Completion status Anesthesia document: Postop Eval 1 completed: Yes Anesthesia Postop Eval I Summary Anesthesia Postop Eval I Summary: Anesthesia Postop Eval I: Assessment Summary Airway patent Yes 02/05/25 08:03 [email or web address] Spontaneous unlabored Yes 02/05/25 08:03 [email or web address] respirations Mental status Asleep 02/05/25 08:03 [email or web address] nausea No 02/05/25 08:03 [email or web address] Vomiting No 02/05/25 08:03 [email or web address] Anesthesia Postop Eval I: Fluid Summary Crystalloid volume administer 500 02/05/25 08:03 [email or web address] (ml) Colloids volume administered ( ml) Blood Product volume administered (ml) Total IV fluid infused 500 02/05/25 08:03 [email or web address] Anesthesia Postop Eval I: Summary Notes Anesthesia Complication No 02/05/25 08:03 [email or web address] Anesthesia Complication Comment: Post-operative progress note Anesthesia: Postop Eval II Evaluation Mental status: Awake Pain Level: 0 nausea: No Vomiting: No
== END 2025-02-05 08:37 | disposition home or self-care (01) ==
LOC: EN 06:22 → AC 06:23
PROVIDERS: PCP Family Medicine; Referring Provider Family Medicine; Visit Provider Surgery
PROC: 0DJD8ZZ Inspection of Lower Intestinal Tract, Via Natural or Artificial Opening Endoscopic (ICD-10-PCS; CPT 45378; principal; 2025-02-05 07:25)
DX: R19.4 Change in bowel habit (principal); K92.1 Melena; K21.9 Gastro-esophageal reflux disease without esophagitis; Z92.3 Personal history of irradiation
CPT/HCPCS: 45378; J2405